=== PATIENT | male | born 1945 | race Caucasian/White ===

== ENCOUNTER 2024-11-15 10:21 | Inpatient (IN) ==
--- NOTE | 2024-07-08 10:57 | PAT Medication Instructions ---
Medication Instructions Date of Service July 08, 2024 Home Medications acetaminophen 500 mg tablet 500 mg PO TID PRN albuterol sulfate 90 mcg/actuation aerosol inhaler 2 puff inhalation QID PRN apixaban 5 mg tablet (Eliquis) 5 mg PO BID atorvastatin 40 mg tablet 40 mg PO QAM baclofen 5 mg tablet 5 mg PO TID furosemide 20 mg tablet 20 mg PO QAM lisinopril 20 mg tablet 20 mg PO QAM metoprolol tartrate 25 mg tablet 25 mg PO QAM montelukast 10 mg tablet 10 mg PO HS omeprazole 20 mg capsule,delayed release 20 mg PO QAM ASK your prescriber and surgeon apixaban 5 mg tablet (Eliquis) 5 mg PO BID DO NOT take the morning of surgery furosemide 20 mg tablet 20 mg PO QAM lisinopril 20 mg tablet 20 mg PO QAM Take morning of surgery With a small sip of water, OTHERWISE NOTHING TO EAT OR DRINK AFTER MIDNIGHT: acetaminophen 500 mg tablet 500 mg PO TID PRN(if needed) albuterol sulfate 90 mcg/actuation aerosol inhaler 2 puff inhalation QID PRN(if needed) atorvastatin 40 mg tablet 40 mg PO QAM baclofen 5 mg tablet 5 mg PO TID metoprolol tartrate 25 mg tablet 25 mg PO QAM omeprazole 20 mg capsule,delayed release 20 mg PO QAM Take evening before surgery acetaminophen 500 mg tablet 500 mg PO TID PRN(if needed) albuterol sulfate 90 mcg/actuation aerosol inhaler 2 puff inhalation QID PRN(if needed) baclofen 5 mg tablet 5 mg PO TID montelukast 10 mg tablet 10 mg PO HS Other Notes If you have any questions please call us at [phone] or [phone] or [phone] or [phone]
--- NOTE | 2024-07-18 09:32 | Anesthesiology Consultation ---
Date of Service July 18, 2024 Assessment & Plan (1) Encounter for pre-operative examination: - patient unable to void, plans to complete specimen in [place]. - patient reports upcoming PCP (Dr. David Navarro) and cardiology ([facility]) pre-operative evaluations. PAT testing to be faxed to both offices. - cardiology office visit 09/14/23: "...atrial fibrillation...he favors cardioversion...will start him on apixaban 5 mg twice a day...will see him in follow-up in 4-6 weeks after cardioversion..." Chart Review Chart Review: Pending: Refer to Additional Notes / Consult section and Patient seen in Pre Admission Testing Teaching & Discussion Pre-Anesthesia Teaching/Discussion Notes: Instructed NPO after midnight before surgery, except medications with 15 cc of water. Medication instructions provided according to the PAT guidelines. History Surgery Operation Date: 08/02/24 07:45 Proposed Procedures p L3-S1 Decompression and Fusion, Spinal Cord Monitoring - David Fenton, Height/Weight Height: 6 ft 1 in Weight: 115 kg Allergies Allergy/AdvReac Type Severity Reaction Status Date / Time latex Allergy Severe BURNING Verified 07/07/24 14:30 SENSATION, RASH phenobarbital AdvReac Unknown "OPPOSITE Verified 07/07/24 14:30 EFFECT" Medications Home Medications Medication Instructions Recorded Confirmed Last Taken acetaminophen 500 mg tablet 500 mg PO TID PRN Pain 07/07/24 07/07/24 Unknown albuterol sulfate 90 mcg/actuation 2 puff inhalation QID PRN sob 07/07/24 07/07/24 Unknown aerosol inhaler apixaban 5 mg tablet (Eliquis) 5 mg PO BID 07/07/24 07/07/24 Unknown atorvastatin 40 mg tablet 40 mg PO QAM 07/07/24 07/07/24 Unknown baclofen 5 mg tablet 5 mg PO TID 07/07/24 07/07/24 Unknown furosemide 20 mg tablet 20 mg PO QAM 07/07/24 07/07/24 Unknown lisinopril 20 mg tablet 25 mg PO QAM 07/07/24 07/18/24 Unknown metoprolol tartrate 25 mg tablet 25 mg PO QAM 07/07/24 07/07/24 Unknown montelukast 10 mg tablet 10 mg PO HS 07/07/24 07/07/24 Unknown omeprazole 20 mg capsule,delayed 20 mg PO QAM 07/07/24 07/07/24 Unknown release tramadol 50 mg tablet 50 mg PO TID PRN Pain 07/18/24 07/18/24 Unknown Additional Notes: tramadol, lisioprio 25 Past Medical History Medical History (Updated 07/18/24 @ 09:42 by Linda Ellington PA-C) Acid reflux controlled, stable per pt Allergic rhinitis Environmental and seasonal allergies currently using rescue inhaler daily Hip pain HTN (hypertension) controlled, stable per pt Hx of myocardial infarction "silent" - states was told must have occurred during childhood ~12-14 yrs old, per pt Hyperlipidemia On anticoagulant therapy Eliquis daily Paroxysmal atrial fibrillation dx 1984-- reason for Eliquis, follows w/ [facility] cardio RBBB Right knee pain Patient denies h/o stroke, seizures, heart failure, DM, blood clots/DVTs or bl ood transfusions. Exercise / Class Metabolic Activity III < 4 Walking/Shop/Light housework (denies chest discomfort or shortness of breath with usual activities) Past Surgical History Surgical History History of cardiac radiofrequency ablation (RFA) ~2009- [facility] History of shoulder surgery b/l - hx reconstruction of both shoulders Hx of arthroscopic knee surgery right, x 2 Hx of cardiac catheterization (1984) no stents Hx of colonoscopy Hx of total hip arthroplasty (2013) left Past Anesthesia History No Hx of Anesthesia Complications and No Family Hx of Anesthesia Complications History of PONV No Hx of PONV and No Hx of Motion Sickness Social History Smoking Status: Current some day smoker Smoking cigarettes per day: smokes pipe occasionally -advised Do You Dip or Chew Tobacco: No Smoking End Date: quit cigarettes 04/2024 Hx Alcohol Use: Yes Alcohol type: beer alcohol intake frequency: holidays/special occasions only Hx Substance Use: No substance use type: does not use Review of Systems Snoring, denies witnessed apneas. Patient denies chest pain, shortness of breath, dyspnea on exertion, fever, chills, cough, wheezing, or palpitations. Physical Exam Vital Signs Vitals BP 101/63 manual (Patient states this is usual BP reading) P 74 TEMP 97.6 SP02 94% on RA RESP 18 Physical Patient resting comfortably in chair in no acute distress, alert and oriented, responding appropriately throughout visit Full cervical extension range of motion without pain TMD < 3 finger breadths Mallampati Score 3 Dentition: several caps/crowns, denies chipped or loose teeth, implants or bridges Lungs: normal respiratory effort. Good air movement, clear throughout to auscultation, no adventitious breath sounds Cardiac: regular rate and rhythm, no murmurs noted Carotid arteries: negative bruit bilat Lab Results Anesthesia Preop Results Results Anesthesia Widget: WBC 6.80 K/ul (4.8-10.8) 07/18/24 Hgb 8.5 g/dl (14.0-18.0) L 07/18/24 Hct 27.3 % (42.0-52.0) L 07/18/24 Plt 198 K/uL (130-400) 07/18/24 Na 140 mmol/L (136-145) 07/18/24 K 5.4 mmol/L (3.5-5.1) H 07/18/24 Cl 107 mmol/L (98-107) 07/18/24 CO2 27 mmol/L (21-32) 07/18/24 BUN 28 mg/dl (6-23) H 07/18/24 Creat 1.88 mg/dl (0.6-1.4) H 07/18/24 Glucose Level 92 mg/dl (70-99(Fasting)) 07/18/24 PT 11.4 Seconds (9.0-12.0) 07/18/24 PTT 28 Seconds (21-31) 07/18/24 INR 1.1 (0.9-1.1) 07/18/24 Blood Type O Positive 07/18/24 Antibody Screen NEGATIVE 07/18/24 Testing Laboratory Results I called the PCP office today and relayed above abnormal labs especially anemia, hyperkalemia and elevated creatinine. Will also await surgeon ordered medical clearance. Electrocardiogram Date: 07/18/24 Sinus rhythm with 1st degree AV block, rate 78 bpm Premature supraventricular complexes Low voltage QRS RBBB Chest X-Ray Date: 07/18/24 No acute cardiopulmonary findings. Mild cardiomegaly. Echocardiogram Date: 04/22/23 EF 55-60% Grade I diastolic dysfunction
[2024-11-15] MEDS ORDERED: ONDANSETRON INJ 2 MG/ML 2 ML VIAL ONE (10:58)
[2024-11-15] MEDS ORDERED: DEXAMETHASONE SOD INJ 4 MG/ML VIAL ONE (10:58)
[2024-11-15] MEDS ORDERED: PROPOFOL IV EMULSION 10 MG/ML 20 ML VIAL IV ONE (10:58)
[2024-11-15] MEDS ORDERED: ROCURONIUM BROMIDE 10 MG/ML 5 ML VIAL IV ONE ×2 (10:58→12:20)
[2024-11-15] MEDS ORDERED: LIDOCAINE 2% 2 ML VIAL/AMP(20MG/ML) INFIL ONE (10:58)
[2024-11-15] MEDS ORDERED: fentaNYL citrate PF 100 MCG/2 ML VIAL ONE (10:59)
[2024-11-15 11:01] LABS: Basophils # (auto) 0.09 K/uL (0.00-0.20); Eosinophils # (auto) 0.36 K/uL (0.00-0.50); Hemoglobin 11.9 g/dl (14.0-18.0); Immature Granulocytes # (auto) 0.04 K/uL (0.01-0.20); Immature Granulocytes % (auto) 0.4 %; Lymphocytes # (auto) 1.97 K/uL (1.20-3.40); Mean Corpuscular Hemoglobin 26.3 pg (25.0-34.0); Mean Corpuscular Hgb Conc 30.5 g/dL (32.0-36.0); Mean Corpuscular Volume 86.3 fL (80.0-100.0); Mean Platelet Volume 8.6 fL (9.4-12.4); Monocytes # (auto) 0.78 K/uL (0.11-0.59); Monocytes % (auto) 8.7 %; Neutrophils % (auto) 63.9 %; Platelet Count 250 K/uL (130-400); RDW Coefficient of Variation 18.9 % (11.5-14.5); RDW Standard Deviation 59.8 fL (36.4-46.3); Red Blood Count 4.52 M/uL (4.70-6.10); White Blood Count 8.94 K/ul (4.8-10.8)
[2024-11-15 11:06] LABS: Partial Thromboplastin Time 27 Seconds (21-31); Prothrombin Time 10.5 Seconds (9.0-12.0)
[2024-11-15 11:10] LABS: Calcium 11.5 mg/dl (8.6-10.3); Potassium 4.9 mmol/L (3.5-5.1)
--- NOTE | 2024-11-15 11:10 | History & Physical Bridge Note ---
Date of Service November 15, 2024 History & Physical Bridge Note I have examined the patient, reviewed the History & Physical and in the interval since the performance of the History & Physical I have noted the following changes of clinical significance: no changes noted
--- NOTE | 2024-11-15 11:12 | History & Physical Report ---
Date of Service November 15, 2024 Assessment & Plan (1) Two-level lumbosacral spondylosis with radiculopathy: Plan: L3-S1 decompression and fusion History of Present Illness Chief Complaint: Back and bilateral leg pain Primary Care Provider: David Navarro DO This is a 79-year-old male who presents with chronic persistent back and leg pain after failing course of nonoperative care is here for surgical invention. Allergies Allergy/AdvReac Type Severity Reaction Status Date / Time latex Allergy Intermediate Rash, Verified 11/15/24 10:36 Burning Sensation phenobarbital AdvReac Intermediate Hyper Verified 11/15/24 10:36 Gold AdvReac Severe Wounds Uncoded 11/15/24 10:36 that became Pre-Cancerous Home Medications Medication Instructions Recorded Confirmed Type acetaminophen 500 mg tablet 500 mg PO TID PRN Pain 07/07/24 11/14/24 History albuterol sulfate 90 mcg/actuation 2 puff inhalation QID PRN 07/07/24 11/14/24 History aerosol inhaler Shortness Of Breath Or Wheezing apixaban 5 mg tablet (Eliquis) 5 mg PO BID 07/07/24 11/14/24 History atorvastatin 40 mg tablet (Lipitor) 40 mg PO HS 07/07/24 11/14/24 History baclofen 5 mg tablet 5 mg PO TID PRN Muscle Spasms 07/07/24 11/14/24 History metoprolol tartrate 25 mg tablet 25 mg PO QAM 07/07/24 11/14/24 History montelukast 10 mg tablet 10 mg PO HS 07/07/24 11/14/24 History (Singulair) omeprazole 20 mg capsule,delayed 20 mg PO QAM 07/07/24 11/14/24 History release tramadol 50 mg tablet 50 mg PO TID PRN Pain 07/18/24 11/14/24 History furosemide 40 mg tablet 40 mg PO BID 11/14/24 11/14/24 History lisinopril 10 mg tablet 10 mg PO QAM 11/14/24 11/14/24 History triamcinolone acetonide 0.1 % 1 applic topical BID 11/14/24 11/14/24 History topical cream Past Med/Surg History Problem List (Updated 11/15/24 @ 11:12 by David Fenton DO) Two-level lumbosacral spondylosis with radiculopathy Medical History (Updated 11/15/24 @ 11:12 by David Fenton, ) Post-nasal drip as per patient - in the morning RBBB Dr Bonilla On anticoagulant therapy Eliquis daily Hyperlipidemia HTN (hypertension) controlled, stable per pt Hip pain Right knee pain Acid reflux controlled, stable per pt Hx of myocardial infarction "silent" - states was told must have occurred during childhood ~12-14 yrs old, per pt Paroxysmal atrial fibrillation dx 1984-- reason for Eliquis, follows w/ [facility] Environmental and seasonal allergies PRN inh use - no longer using daily Allergic rhinitis Surgical History Hx of arthroscopic knee surgery right, x 2 left, x 1 History of cardiac radiofrequency ablation (RFA) ~2009- [facility] Hx of colonoscopy Hx of total hip arthroplasty (2013) left History of shoulder surgery b/l - hx reconstruction of both shoulders Hx of cardiac catheterization (1984) 1984, 08/05/24, and "Early this year - it was all clear" as per patient - no stents Dr Bonilla Social History Smoking Status: Current every day smoker Tobacco Type: Pipe Cigarettes Per Day: Smokes pipe "doesn't inhale" as per patient; Smoking End Date: 04/2024 Cigarettes; Second Hand Exposure: No; Do You Dip or Chew Tobacco: No; Tobacco Cessation Education Requested by Patient: No Hx Alcohol Use: No Hx Substance Use: No Preferred Language: Nigerian Communication Ability: Effective Pump Service Supervisor Required: No Beliefs That Will Affect Care: None Current Living Situation: Spouse Other Information That Helps Us Care for You: No Feels Safe at Home: Yes Safety Concerns: Feels Safe At This Time Assistive Devices: Cane and Glasses Physical Exam Physical Exam: Patient is alert and oriented Heart regular rhythm Lungs clear Results & Data Results & Data Vital Signs (Past 12 Hours) Vital Signs Temp Pulse Resp BP Pulse Ox O2 Del Method 11/15/24 11:00 36.5 C 73 20 98/67 L 97 Room Air
[2024-11-15 11:16] LABS: BUN Creatinine Ratio 31.1 (10-20); Creatinine Clr Calc Pharmacy 55.2 ml/min
[2024-11-15] MEDS ORDERED: HYDROmorphone INJ 1 MG/ML SYRINGE IV PRN ×2 (11:23→17:00)
[2024-11-15] MEDS ORDERED: ATROPINE SULFATE 0.1 MG/ML 10ML SYR IV PRN (11:23)
[2024-11-15] MEDS ORDERED: ePHEDrine sulfate 50 MG/ML AMP IV PRN (11:23)
[2024-11-15] MEDS ORDERED: PROMETHAZINE HCL 6.25 MG in SODIUM CHLORIDE 0.9% 50 ML IV PRN (11:23)
--- NOTE | 2024-11-15 11:44 | XRay Report ---
XR chest 2V PA/lateral CLINICAL HISTORY: preop COMPARISON STUDY: 07/18/2024 FINDINGS: No significant interval changes have occurred. There is no acute cardiopulmonary process id entified. IMPRESSION: Stable exam; no acute process. ACT 112: Negative or not required by law. Electronically signed by: Treva Sosa M.D. 11/15/2024 11:43 AM
[2024-11-15] MEDS: GABAPENTIN 300 MG CAP PO SCH (11:47)
[2024-11-15] MEDS: ACETAMINOPHEN 500 MG TAB PO SCH (11:47)
[2024-11-15] MEDS: CeleBREX 200 MG CAP PO SCH (11:47)
[2024-11-15] MEDS: LR 60ML/HR IV SCH (11:48)
[2024-11-15] MEDS ORDERED: PHENYLEPHRINE 100MCG/ML 5ML SYR ONE (12:19)
[2024-11-15] MEDS ORDERED: ePHEDrine sulfate 50 MG/5 ML SYR ONE (12:21)
[2024-11-15] MEDS: BUPIVACAINE/EPINEPHRINE 0.25% 1:200,000 30 ML VIAL ONE (12:25)
[2024-11-15] MEDS: ceFAZolin 330 MG/ML 1 GM VIAL ONE (12:26)
--- NOTE | 2024-11-15 12:35 | Electrocardiogram Report ---
Test Reason : Blood Pressure : */* mmHG Vent. Rate : 73 BPM Atrial Rate : 73 BPM P-R Int : 312 ms QRS Dur : 118 ms QT Int : 400 ms P-R-T Axes : 84 -36 11 degrees QTcB Int : 440 ms Sinus rhythm with 1st degree A-V block Left axis deviation Right bundle branch block Abnormal ECG When compared with ECG of 18-Jul-2024 10:03, QRS axis Shifted left Confirmed by Jeffrey Field ([id number]) on 11/15/2024 12:35:23 PM Referred By: David Fenton Confirmed By: Jeffrey Field
[2024-11-15] MEDS ORDERED: SUGAMMADEX SODIUM 200 MG/2 ML VIAL IV ONE ×2 (13:51→14:15)
--- NOTE | 2024-11-15 14:09 | Operative Report ---
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 #2 removal of extradural mass L3-L4. #3 posterior spinal fusion L3-L5. #4 posterior instrumentation L3-L5 using Steele. #5 interbody fusion L3-L4 L4-5. #6 placement of Spira 12 x 26 mm x 2 at L3-L4 and 14 x 26 mm x 2 at L4-5. #7 placement locally harvested morselized autograft and posterior gutters. #8 placement infuse collagen sponge combined with Koros in the posterior lateral gutters and os design and interbody space. #9 application of versa wrap over the exposed dura. Surgeon David Fenton, DO Rag Cutting Machine Feeder Lili Disla Estimated Blood Loss 250 Findings Consistent with Post-Op Diagnosis Specimens None Indications This is a 79-year-old male that presents with bumps diagnosis of failing since course of nonoperative care is here for surgical invention. Description of Procedure Patient was met with identified informed consent obtained. Patient was then taken to the operative suite underwent intubation placed in a prone position on the Justice table on top of the Eulogio frame. All bony prominences well-padded eyes inspected to ensure no external pressure placed upon them. This point the lumbar spine was prepped and draped in normal sterile fashion. Sharp dissection with the assistance of Bovie cautery performed down to and exposing the lamina transverse processes of L3 L4-5 bilaterally. From a caudal to cephalad fashion complete laminectomy of L4 was performed including bilateral medial f acetectomies and foraminotomies addressing severe spinal stenosis. Then proceeded with a complete laminectomy of L3 was performed. This included removal of bilateral facet cyst attached to the dura. Lastly performed partial laminectomy of L2 with bilateral medial facetectomies to address all subarticular stenosis. Pedicle screws were then placed in L3-L4-L5 bilaterally with assistance of fluoroscopy and appropriate size yolis placed. By way of transforaminal approach on the right a discectomy of L4-5 was performed endplates corrected to subcortical bleeding bone and a 14 x 26 mm Spira cage filled with os design bone graft tapped in position. Then proceeded to the left transforaminal region at L4-L5. Again discectomy performed. Endplates guided to subcortical bleeding bone and a 14 x 26 mm Spira cage filled with os designed tapped in position. Then approached L3-L4 by way of transfer approach on the left discectomy performed. Endplates guided to subcortical bleeding bone and a 12 x 26 mm Spira cage filled with os design tapped into position. Lastly approached the right transforaminal region at L3-L4. Again discectomy performed. Endplates guided to subcortical bleeding bone and a second 12 x 26 mm Spira cage filled with os designed tapped in position. The rods were then compressed locked into final position bilaterally. The transverse processes of L3 L4-5 burred to subcortical bleeding bone. Infuse collagen sponge, with Koros and local graft placed in posterior gutters. Versa wrap placed over the exposed dura. 15 round INA drain inserted. The incision was then closed with 1 Vicryl the fascia 2-0 Vicryl subcutaneously and 4 Monocryl for final skin closure. Steri-Strips sterile dressing placed. Patient waken taken to PACU in stable condition. Please note spinal cord monitoring was utilized at the procedure no changes noted. Lili Disla was present at the entire procedure and on the patient positioning complex portion of the surgery and final skin closure. I attest to the content of the Intraoperative Record and any orders documented therein. Any exceptions are noted below.
[2024-11-15] MEDS: fentaNYL citrate PF 100 MCG/2 ML VIAL IV PRN (14:27)
--- NOTE | 2024-11-15 14:54 | Fluoroscopy Report ---
FL lumbar spine 2-3V CLINICAL HISTORY: L3-L5 DECOMPRESSION AND FUSION WITH INTERBODY COMPARISON STUDY: None. FLUOROSCOPY TIME: 23 seconds. Ka,r: 21.76 mGy FLUOROSCOPIC IMAGES: 2 FINDINGS: Fluoroscopy was provided during L3-L5 decompression and fusion. There are interbody spacers at the L3-L4 and L4-L5 levels. Hardware is intact. IMPRESSION: Fluoroscopy provided during L3-L5 decompression and fusion. ACT 112: Negative or not required by law. Electronically signed by: Lucas Jimenez M.D. 11/15/2024 2:53 PM
--- NOTE | 2024-11-15 16:13 | Anesthesiology Progress Note ---
Date of Service November 15, 2024 Anesthesia Post Procedure Vital Signs Vital Signs: Temp Pulse Pulse Resp BP BP Pulse Ox 11/15/24 16:05 77 16 108/63 95 11/15/24 15:55 76 12 114/60 94 11/15/24 15:45 77 20 106/53 L 94 11/15/24 15:35 71 17 98/56 L 94 11/15/24 15:25 73 20 99/51 L 94 11/15/24 15:15 74 17 99/55 L 100 11/15/24 15:05 74 12 101/59 L 100 11/15/24 14:55 67 19 102/53 L 100 11/15/24 14:45 71 13 105/50 L 100 11/15/24 14:35 68 16 104/50 L 99 11/15/24 14:25 36 C L 72 15 85/53 L 99 11/15/24 11:43 105/67 91/53 L 11/15/24 11:00 36.5 C 73 20 98/67 L 97 O2 Del Method O2 Flow Rate 11/15/24 16:05 Room Air 11/15/24 15:55 Room Air 11/15/24 15:45 Room Air 11/15/24 15:35 Room Air 11/15/24 15:25 Nasal Cannula 2 11/15/24 15:15 Oxymask 2 11/15/24 15:05 Oxymask 3 11/15/24 14:55 Oxymask 3 11/15/24 14:45 Oxymask 3 11/15/24 14:35 Oxymask 4 11/15/24 14:25 Oxymask 6 11/15/24 11:43 11/15/24 11:00 Room Air Pain Intensity Left Hip: Pain Intensity: 4 Back: Pain Intensity: 5 Transfer of Care Handoff Completed per policy Notes Mental Status: alert / awake / arousable Patient Amnestic to Procedure: Yes Nausea / Vomiting: adequately controlled Pain: adequately controlled Airway Patency, RR, SpO2: stable & adequate BP & HR: stable & adequate Hydration State: stable & adequate Anesthetic Complications: no major complications apparent and Pt Satisfied with anesthetic care
[2024-11-15] MEDS ORDERED: PROMETHAZINE 12.5 MG/50.5 ML BAG IV PRN (17:00)
[2024-11-15] MEDS ORDERED: bisacodyL 10 MG SUPP PR PRN (17:00)
[2024-11-15] MEDS ORDERED: LORazepam 0.5 MG TAB PO PRN (17:00)
[2024-11-15] MEDS ORDERED: FAMOTIDINE 20 MG TAB PO PRN (17:00)
[2024-11-15] MEDS ORDERED: LORazepam 2 MG/1 ML VIAL IV PRN (17:00)
[2024-11-15] MEDS ORDERED: ONDANSETRON 4 MG OD TAB PO PRN (17:00)
[2024-11-15] MEDS ORDERED: DO NOT ADMINISTER FLU VACCINE PRN (17:00)
[2024-11-15] MEDS ORDERED: HYDROmorphone INJ 0.5 MG/0.5 ML SYR IV PRN (17:00)
[2024-11-15] MEDS ORDERED: ACETAMINOPHEN 1,000 MG/100 ML VIAL IV PRN (17:00)
[2024-11-15] MEDS ORDERED: NALOXONE HCL 0.4 MG/1 ML VIAL/CARP IV PRN (17:00)
[2024-11-15] MEDS ORDERED: ACETAMINOPHEN 500 MG TAB PO PRN (17:00)
[2024-11-15] MEDS ORDERED: ALBUTEROL HFA 8 GM INHALER INH PRN (17:00)
[2024-11-15] MEDS ORDERED: ONDANSETRON INJ 2 MG/ML 2 ML VIAL IV PRN (17:00)
[2024-11-15] MEDS ORDERED: hydrOXYzine HCl 25 MG TAB PO PRN (17:00)
[2024-11-15] MEDS ORDERED: METOCLOPRAMIDE HCL INJ 5 MG/ML 2 ML VIAL IV PRN (17:00)
[2024-11-15] MEDS ORDERED: DO NOT ADMINISTER PNEUMOCOCCAL VACCINE PRN (17:00)
[2024-11-15] MEDS ORDERED: SOD PHOSPHATE/SOD BIPHOSPHATE ENEMA 132 ML BTL PR PRN (17:00)
[2024-11-15] MEDS ORDERED: diphenhydrAMINE Capsule 25 MG CAP PO PRN (17:00)
[2024-11-15] MEDS: ceFAZolin 2000MG 2,000 MG/15 ML SYR IV SCH ×2 (17:37→20:47)
[2024-11-15] MEDS: FLOSEAL HEMOSTATIC MATRIX 10ML TOP ONE (17:37)
[2024-11-15] MEDS: FUROSEMIDE 40 MG TAB PO SCH (18:03)
[2024-11-15] MEDS: ACETAMINOPHEN 500 MG TAB PO PRN (18:09)
[2024-11-15 19:32] LABS: Appearance Urine Cloudy (Clear); Bilirubin Urine Negative (Negative); Blood Urine Negative (Negative); Color Urine Yellow; Glucose Urine UA Negative (Negative); Ketones Urine Trace (Negative); Leukocyte Esterase Urine Trace (Negative); Nitrite Urine Negative (Negative); Protein Urine 1+ (Negative); Specific Gravity Urine 1.023 (1.000-1.030); Urobilinogen Urine Negative (Negative)
[2024-11-15 19:41] LABS: Bacteria Urine Automated 1+ (None Seen); Hyaline Casts Urine P /lpf (None Presnt); White Blood Cell Casts Urine P /lpf (None Prsent)
[2024-11-15] MEDS: DOCUSATE SODIUM/SENNA 50/8.6MG TAB PO SCH (20:45)
[2024-11-15] MEDS: TRIAMCINOLONE ACET 0.1% CR 15 GM TUBE TOP SCH (20:45)
[2024-11-15] MEDS: MONTELUKAST SODIUM 10 MG TABLET PO SCH (20:46)
[2024-11-15] MEDS: ATORVASTATIN 40 MG TAB PO SCH (20:46)
[2024-11-15] MEDS: traMADol HCL 50 MG TABLET PO PRN (20:46)
[2024-11-16] MEDS: POLYETHYLENE (MIRALAX) 17 GM PACK PO SCH (05:22)
[2024-11-16 07:02] LABS: Basophils # (auto) 0.02 K/uL (0.00-0.20); Basophils % (auto) 0.1 %; Hematocrit (blood only) 29.9 % (42.0-52.0); Hemoglobin 9.3 g/dl (14.0-18.0); Immature Granulocytes % (auto) 0.6 %; Lymphocytes # (auto) 0.81 K/uL (1.20-3.40); Lymphocytes % (auto) 4.9 %; Mean Corpuscular Hemoglobin 26.3 pg (25.0-34.0); Mean Corpuscular Hgb Conc 31.1 g/dL (32.0-36.0); Mean Corpuscular Volume 84.7 fL (80.0-100.0); Mean Platelet Volume 9.1 fL (9.4-12.4); Monocytes # (auto) 0.83 K/uL (0.11-0.59); Monocytes % (auto) 5.1 %; Neutrophils # (auto) 14.64 K/uL (1.40-6.50); Neutrophils % (auto) 89.3 %; Platelet Count 201 K/uL (130-400); RDW Coefficient of Variation 18.6 % (11.5-14.5); RDW Standard Deviation 58.1 fL (36.4-46.3); Red Blood Count 3.53 M/uL (4.70-6.10)
[2024-11-16 07:16] LABS: BUN Creatinine Ratio 27.4 (10-20); Calcium 10.5 mg/dl (8.6-10.3); Creatinine Clr Calc Pharmacy 42.6 ml/min; Potassium 5.4 mmol/L (3.5-5.1)
--- NOTE | 2024-11-16 07:42 | Hospitalist Consultation ---
Date of Consultation November 16, 2024 Assessment & Plan (1) Two-level lumbosacral spondylosis with radiculopathy: s/p #1 lumbar decompression with bilateral medial facetectomies and foraminotomies L2-L3, L3-L4 L4-5. #2 removal of extradural mass L3-L4. #3 posterior spinal fusion L3-L5. #4 posterior instrumentation L3-L5 using Steele. #5 interbody fusion L3-L4 L4-5. #6 placement of Spira 12 x 26 mm x 2 at L3-L4 and 14 x 26 mm x 2 at L4-5. #7 placement locally harvested morselized autograft and posterior gutters. #8 placement infuse collagen sponge combined with Koros in the posterior lateral gutters and os design and interbody space. #9 application of versa wrap over the exposed dura. EBL 250cc WBC elevation suspected 2nd to surgery/stress, also steroids with surgery and continues on Dexamethasone 6mg IV daily Hgb 11.9--> 9.3. Acute blood loss anemia from surgery/dilutional aspect from IVF (EBL 250cc, INA 450cc) BP 97/57 this morning, asymptomatic but Cr bumped to 1.75 from 1.35. Notable on lasix 40mg PO BID and lisinopril 10mg QAM and patient reports having lisinopril reduced to QOD recently with improvement. Prior dc'd HCTZ due to dizziness. K 5.4 on AM labs, IVF x 1 L ordered/low potassium diet. BMP this afternoon/further orders pending repeat levels. Labs in AM. Will follow along. wanting to consider rehab, CM notified for f/u discussion (2) Hyperkalemia: K 5.4 w/ Cr 1.75 as above. Cr 1.35 on pre-op labs. Notable K 5.4 prior in June, recent reduction in his lisinopril as above Lasix/lisinopril to remain on hold for now/low K diet. IVF ordered and will monitor BMP this afternoon Likely would DC lisinopril at dc vs hold until f/u PCP pending serial BPs (3) LETY (acute kidney injury): as above, unclear baseline but diuretics/salina on hold. renal dose meds/avoid nephrotoxins, BMP in Am (4) HTN (hypertension): Continues on metoprolol, also for hx afib. Lasix/lisinopril on hold for borderline BP/LETY/hyperkalemia Monitor (5) Paroxysmal atrial fibrillation: s/p ablation, also DCCV. In NSR on telemetry. Follows outpatient cards (see pre- op clearance note) Eliquis on hold pre-op, remains on metoprolol . Last dose eliquis reported 5 days prior to surgery Keep mag replete, K elevated as above (6) RBBB: (7) Acid reflux: continue PPI also w/ hx allergies, flonase once daily/continues on singular. albuterol HFA as needed (8) On anticoagulant therapy: eliquis as above, resume when safe per primary service Plan Dispo: continued inpatient stay Thank you for allowing hospitalist service participate in the care of Mr Lea. Please call with any questions/concerns. Supervising Physician Co-Signing Physician Notes The patient was seen by me. The chart was reviewed. Case discussed with MARIEL Lopez. Agree with assessment and plan History of Present Illness Reason for Consultation: medical management Requesting Physician: Dr Fenton Attending Physician: Diogo Delaney MD History of Present Illness 79yo male with PMHx significant for aflutter (on eliquis - s/p ablation in 2016, hx paroxysmal afib w/ DCCV in 2022, RBBB, frequent PVCs, EF 55%, prior cath 2023 w/ mild-mod CAD in 40-50% range) presented for L3-L5 decompression/fusion with Dr Fenton on 11/15. Eval in 322, sitting up in chair, pain well controlled with ordered meds. Wang with clear yellow urine, hopeful to remove this afternoon pending therapy evals. He had eliquis held 5 days prior to surgery (although note to hold for 2 days reported on PCP/cards note) - resumption per primary service when deemed safe. No CP/SOB, has been using incentive spirometer. Hx pipe tobacco. Discussed IVF/PO hydration, he reports his PCP changed his lisinopril and had been decreasing, recently changed to qod w/ improvement he reports. Compression stockings in place, no significant pitting edema, 95% on RA Hx post-nasal drip, will order flonase, he usually uses inhaler albuterol in AM couple times a week. Can admin now/monitor Discussed labs --K 5.4 on AM labs, hypotension/LETY. IVF provided/lasix placed on hold. Prior dc HCTZ 2nd to dizziness.. lisinopril to remain on hold and repeat chemistries this afternoon On afternoon check, daughter in room, on phone. Lives in [place]/inquiring about possible short term stay at rehab x 1 week prior to returning home. NEYDA Mariah notified/to contact for discussion. Questions/concerns addressed at this time. Allergies Allergy/AdvReac Type Severity Reaction Status Date / Time latex Allergy Intermediate Rash, Verified 11/15/24 10:36 Burning Sensation phenobarbital AdvReac Intermediate Hyper Verified 11/15/24 10:36 Gold AdvReac Severe Wounds Uncoded 11/15/24 10:36 that became Pre-Cancerous Home Medications Medication Instructions Recorded Confirmed Type acetaminophen 500 mg tablet 500 mg PO TID PRN Pain 07/07/24 11/15/24 History albuterol sulfate 90 mcg/actuation 2 puff inhalation QID PRN 07/07/24 11/15/24 History aerosol inhaler Shortness Of Breath Or Wheezing apixaban 5 mg tablet (Eliquis) 5 mg PO BID 07/07/24 11/15/24 History atorvastatin 40 mg tablet (Lipitor) 40 mg PO HS 07/07/24 11/15/24 History baclofen 5 mg tablet 5 mg PO TID PRN Muscle Spasms 07/07/24 11/15/24 History metoprolol tartrate 25 mg tablet 25 mg PO QAM 07/07/24 11/15/24 History montelukast 10 mg tablet 10 mg PO HS 07/07/24 11/15/24 History (Singulair) omeprazole 20 mg capsule,delayed 20 mg PO QAM 07/07/24 11/15/24 History release tramadol 50 mg tablet 50 mg PO TID PRN Pain 07/18/24 11/15/24 History furosemide 40 mg tablet 40 mg PO BID 11/14/24 11/15/24 History lisinopril 10 mg tablet 10 mg PO QAM 11/14/24 11/15/24 History triamcinolone acetonide 0.1 % 1 applic topical BID 11/14/24 11/15/24 History topical cream oxycodone 5 mg tablet 5 mg PO Q6H PRN pain #30 tabs 11/16/24 Rx tramadol 50 mg tablet 50 mg PO Q6H PRN pain, moderate 11/16/24 Rx #30 tabs Patient History Medical History Post-nasal drip as per patient - in the morning RBBB Dr Bonilla On anticoagulant therapy Eliquis daily Hyperlipidemia HTN (hypertension) controlled, stable per pt Hip pain Right knee pain Acid reflux controlled, stable per pt Hx of myocardial infarction "silent" - states was told must have occurred during childhood ~12-14 yrs old, per pt Paroxysmal atrial fibrillation dx 1984-- reason for Eliquis, follows w/ Dr Bonilla, [facility] Environmental and seasonal allergies PRN inh use - no longer using daily Allergic rhinitis Surgical History Hx of arthroscopic knee surgery right, x 2 left, x 1 History of cardiac radiofrequency ablation (RFA) ~2009- [facility] Hx of colonoscopy Hx of total hip arthroplasty (2013) left History of shoulder surgery b/l - hx reconstruction of both shoulders Hx of cardiac catheterization (1984) 1984, 08/05/24, and "Early this year - it was all clear" as per patient - no stents Dr Bonilla Social History Smoking Status: Current every day smoker Tobacco Type: Pipe Cigarettes Per Day: Smokes pipe "doesn't inhale" as per patient; Smoking End Date: 04/2024 Cigarettes; Second Hand Exposure: No; Do You Dip or Chew Tobacco: No; Tobacco Cessation Education Requested by Patient: No Hx Alcohol Use: No Hx Substance Use: No Preferred Language: Afghan Communication Ability: Effective 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: No Beliefs That Will Affect Care: None Current Living Situation: Spouse Other Information That Helps Us Care for You: No Feels Safe at Home: Yes Safety Concerns: Feels Safe At This Time Assistive Devices: Cane and Glasses Review of Systems 2 Review of Systems: All systems reviewed & are unremarkable except as noted in HPI & below Physical Exam 2 Physical Exam: General 79 yo male sitting up in recliner chair, NAD, reports good pain control HEENT: head atraumatic, normocephalic, mm slightly dry, trachea midline Resp: coarse in bases but no wheezing/crackles, 95% on RA, occ cough, no tachypnea/sputum production at this time CV: RRR, +systolic murmur, trace nonpitting edema, pulses present GI: +BS, slight distension but nontender : wang draining yellow urine MSK/Neuro: dressing c/d/i, INA w/ bloody output, NVI, pulses present, tatyana hose in place, dorsiflexion/plantar flexion intact Psych: AOx3, cooperative Results & Data Results & Data Vital Signs (Past 12 Hours) Vital Signs Temp Pulse Resp BP Pulse Ox O2 Del Method 11/16/24 05:24 36.7 C 77 16 97/57 L 97 Room Air 11/15/24 23:30 36.4 C L 81 18 98/63 L 97 Room Air 11/15/24 19:45 36.3 C L 97 H 18 113/73 97 Room Air Laboratory Results 11/16/24 06:38 11/16/24 06:38 UA 1+ protein, trace ketones, trace leuk esterase, 6-10 WBC, 3-5 RBC, 6-10 hyaline casts, 6-10 epi, 1+ bacteria Diagnostic Findings Chest X-Ray 11/15/24 05:00 XR chest 2V PA/lateral CLINICAL HISTORY: preop COMPARISON STUDY: 07/18/2024 FINDINGS: No significant interval changes have occurred. There is no acute cardiopulmonary process identified. IMPRESSION: Stable exam; no acute process. ACT 112: Negative or not required by law. Electronically signed by: Treva Sosa M.D. 11/15/2024 11:43 AM Lumbar Spine X-Ray 11/15/24 11:55 FL lumbar spine 2-3V CLINICAL HISTORY: L3-L5 DECOMPRESSION AND FUSION WITH INTERBODY COMPARISON STUDY: None. FLUOROSCOPY TIME: 23 seconds. Ka,r: 21.76 mGy FLUOROSCOPIC IMAGES: 2 FINDINGS: Fluoroscopy was provided during L3-L5 decompression and fusion. There are interbody spacers at the L3-L4 and L4-L5 levels. Hardware is intact. IMPRESSION: Fluoroscopy provided during L3-L5 decompression and fusion. ACT 112: Negative or not required by law. Electronically signed by: Lucas Jimenez M.D. 11/15/2024 2:53 PM PG Care Time/CCT Total # of Minutes Spent Total Time Spent with Patient: Total time spent is greater than 50% in coordination of care (as documented) at patient's floor/unit and/or counseling patient: Coding Level of Care Code 92021 IN/OBS CONSULT LVL 3,45M Diagnoses Two-level lumbosacral spondylosis with radiculopathy M47.27 Hyperkalemia E87.5 LETY (acute kidney injury) N17.9 HTN (hypertension) I10 Paroxysmal atrial fibrillation I48.0 RBBB I45.10 Acid reflux K21.9 On anticoagulant therapy Z79.01
[2024-11-16] MEDS: oxyCODONE HCL IR 5 MG TAB (IMMEDIATE RELEASE) PO PRN (07:55)
--- NOTE | 2024-11-16 08:25 | Orthopedic Progress Note ---
Date of Service November 16, 2024 Assessment & Plan (1) Two-level lumbosacral spondylosis with radiculopathy: Plan: At this time initiate physical therapy monitor his INA operatively discharge home next few days. Admission and Anticipated Discharge Date Admission Date: November 15, 2024 Subjective Patient's back pain is controlled leg pain improved Physical Exam Physical Exam: Patient is currently in bed. Is comfortable. Distracted testing. Results & Data Vital Signs (Past 12 Hours) Vital Signs Temp Pulse Pulse Resp BP Pulse Ox O2 Del Method 11/16/24 07:49 36.4 C L 76 17 98/62 L 95 Room Air 11/16/24 05:24 36.7 C 77 16 97/57 L 97 Room Air 11/15/24 23:30 36.4 C L 81 18 98/63 L 97 Room Air
[2024-11-16] MEDS: SODIUM CHLORIDE 0.9% 1,000 ML IV SCH (08:27)
[2024-11-16] MEDS: dexAMETHasone 6 MG in SYRINGE 0 ML IV SCH (08:49)
[2024-11-16] MEDS: PANTOprazole 40 MG TAB PO SCH (08:50)
[2024-11-16] MEDS ORDERED: lisinopril 10 MG TAB PO SCH (09:00)
[2024-11-16] MEDS: FLUTICASONE PROPIONATE NA SPR 16 GM BTL SCH (10:34)
[2024-11-16] MEDS: ALBUTEROL HFA 8 GM INHALER INH ONE (10:44)
[2024-11-16 11:25] LABS: Magnesium 1.7 mg/dl (1.7-2.4)
[2024-11-16] MEDS: METOPROLOL TARTRATE 25 MG TAB PO SCH (13:05)
[2024-11-16 13:10] LABS: Appearance Urine Clear (Clear); Bacteria Urine Automated None Seen (None Seen); Bilirubin Urine Negative (Negative); Blood Urine 1+ (Negative); Cast Urine Automated 0-2 /lpf (0-2); Color Urine Yellow; Epithelial Cell Urine Auto 0-2 /hpf (0-2); Glucose Urine UA Negative (Negative); Ketones Urine Negative (Negative); Leukocyte Esterase Urine 1+ (Negative); Nitrite Urine Negative (Negative); Protein Urine Trace (Negative); Specific Gravity Urine 1.018 (1.000-1.030); Urobilinogen Urine Negative (Negative); pH Urine 5.5 (4.5-7.5)
[2024-11-16] MEDS: BACLOFEN 10 MG TAB PO PRN (13:39)
[2024-11-16] MEDS: MAGNESIUM SULFATE / D5W 1 GM/100 ML BAG IV ONE (13:41)
[2024-11-16 15:36] LABS: BUN Creatinine Ratio 27.5 (10-20); Calcium 10.7 mg/dl (8.6-10.3); Creatinine Clr Calc Pharmacy 44.6 ml/min
[2024-11-17 06:57] LABS: Hematocrit (blood only) 27.9 % (42.0-52.0); Hemoglobin 8.9 g/dl (14.0-18.0); Mean Corpuscular Hemoglobin 26.9 pg (25.0-34.0); Mean Corpuscular Hgb Conc 31.9 g/dL (32.0-36.0); Mean Corpuscular Volume 84.3 fL (80.0-100.0); Mean Platelet Volume 9.2 fL (9.4-12.4); Platelet Count 180 K/uL (130-400); RDW Coefficient of Variation 19.1 % (11.5-14.5); Red Blood Count 3.31 M/uL (4.70-6.10); White Blood Count 18.55 K/ul (4.8-10.8)
[2024-11-17 07:11] LABS: BUN Creatinine Ratio 32.4 (10-20); Calcium 10.7 mg/dl (8.6-10.3); Creatinine Clr Calc Pharmacy 54.8 ml/min; Magnesium 1.9 mg/dl (1.7-2.4)
--- NOTE | 2024-11-17 08:11 | Hospitalist Progress Note ---
Date of Service November 17, 2024 Assessment & Plan (1) Two-level lumbosacral spondylosis with radiculopathy: Plan: s/p #1 lumbar decompression with bilateral medial facetectomies and foraminotomies L2-L3, L3-L4 L4-5. #2 removal of extradural mass L3-L4. #3 posterior spinal fusion L3-L5. #4 posterior instrumentation L3-L5 using Steele. #5 interbody fusion L3-L4 L4-5. #6 placement of Spira 12 x 26 mm x 2 at L3-L4 and 14 x 26 mm x 2 at L4-5. #7 placement locally harvested morselized autograft and posterior gutters. #8 placement infuse collagen sponge combined with Koros in the posterior lateral gutters and os design and interbody space. #9 application of versa wrap over the exposed dura. EBL 250cc 11/17 WBC 18.5k, but ongoing steroids with dexamethasone suspected 2nd to such. Afebrile. Monitor Hgb 9.3--> 8.9 -Acute blood loss anemia from surgery/dilutional aspect from IVF -Additional 1L IVF ordered 11/16 for LETY/dehydration on exam and suspect cause for further drop. INA output 450cc +135cc and slowing. Will monitor BP stable 103/56 without symptoms. K improved/stable and rec to continue to hold lisinopril/lasix for now. Low K diet. Na improved to 136 and BUN/Cr improved from 48/1.75--> 44/1.36 -Likely would STOP LISINOPRIL AT DC (as he reports was moving towards w/ his PCP) BOWEL REGIMEN, pain control, PT/OT per primary service B12 low normal 229, PO supp started/would continue at dc CM notified for wishes for rehab, ref to [facility] to be sent. Hopeful dc next 24-48 hours pending status/bed availability. Hospitalist service will follow in AM . Please call with any questions/concerns. (2) Hyperkalemia: Plan: K 5.4 w/ prior elevations. Lisinopril/lasix placed on HOLD 11/16, IVF ordered and repeat BMP K 5.0 and remains stable. As above, would plan to DC LISINOPRIL at dc Low K diet Lasix remains on hold for now BMP in AM (3) LETY (acute kidney injury): Plan: as above, unclear baseline but diuretics/arvin on hold and IVF ordered x 1L BUN/Cr improved as above and as outlined would plan to stop his lisinopril at discharge Lasix on hold for now, no evidence for significant volume overload and will monitor (4) HTN (hypertension): Plan: Improved -Lasix/lisinopril as outlined, plan dc ARVIN at dc. Continues on metoprolol (also for hx afib). Monitor BP/resumption lasix as needed (5) Paroxysmal atrial fibrillation: Plan: s/p ablation, also DCCV. In NSR on exam. Follows outpatient cards (see pre-op clearance note) Eliquis on hold pre-op, remains on metoprolol . Last dose eliquis reported 5 days prior to surgery -- resume when safe per surgery Keep mag replete, K elevated as above (6) RBBB: (7) Acid reflux: Plan: continue PPI also w/ hx allergies, flonase once daily/continues on singular. albuterol HFA as needed Budesonide neb x 1/moitor, continue IS (8) On anticoagulant therapy: Plan: eliquis as above, resume when safe per primary service Plan Dispo: continued inpatient stay, plans for rehab. Working on bowel movement. Updated family at bedside 11/16 Hospitalist service will follow up in AM Please call with any questions/concerns. Admission and Anticipated Discharge Date Admission Date: November 15, 2024 Supervising Physician Co-Signing Physician Notes The patient was not seen by me. The chart was reviewed. Case discussed with MARIEL Lopez. Agree with assessment and plan Subjective Eval this morning, working with therapy. Having some left leg/thigh/hip spasms, baclofen resumed. Reports feeling better. Post-nasal drip improving, benefit from nasal spray reported. Continues to use his incentive spirometer- getting 2000cc-2500cc on use and continued. BP sable, discussed improvement in renal function and no significant leg edema/hypoxia and will continue to hold lasix but discussed likely would STOP his lisinopril at dc and he reports that's where he was headed with his PCP. Physical Exam 2 Physical Exam: General 79 yo male working with therapy initially, seen sitting up in bed, NAD, having some RIGHT hip/leg spasms at times, dressing appears well, incision c/d/i, INA drainage decreased tatyana hose in place, no significant increased edema, some wheezing improvement in air entry but slightly diminished in the bases, expiratory wheezing (improved with cough), on room air 97% CV: RRR, + systolic murmur, nonpitting edema, tatyana hose in place, pulses present, calves nontender GI: +BS, +distension, no overt tenderness/guarding : no wang MSK/Neuro: L hip spasm but NVI, dorsiflexion/plantar flexion intact dressing c/d/i, INA output decreased Psych:AOx3 , cooperative with exam Results & Data Results & Data Vital Signs (Past 12 Hours) Vital Signs Temp Pulse Resp BP Pulse Ox O2 Del Method 11/17/24 07:52 36.4 C L 80 16 103/56 L 97 Room Air 11/16/24 21:10 Room Air Laboratory Results 11/17/24 06:32 11/17/24 06:32 Mag 1.9 B12 229 PG Care Time/CCT Total # of Minutes Spent Total Time Spent with Patient: Total time spent is greater than 50% in coordination of care (as documented) at patient's floor/unit and/or counseling patient: Coding Level of Care Code 84371 SUB INP/OBS CARE 3/50MIN Diagnoses Two-level lumbosacral spondylosis with radiculopathy M47.27 Hyperkalemia E87.5 LETY (acute kidney injury) N17.9 HTN (hypertension) I10 Paroxysmal atrial fibrillation I48.0 RBBB I45.10 Acid reflux K21.9 On anticoagulant therapy Z79.01
--- NOTE | 2024-11-17 09:00 | Orthopedic Progress Note ---
Date of Service November 17, 2024 Assessment & Plan (1) Two-level lumbosacral spondylosis with radiculopathy: Plan: Patient is stable at this point. He still gets intermittent paresthesias in the left thigh which is to be expected. I encouraged him to work with physical therapy for ambulation. The plan is to get him to a jail facility. We can discharge him to jail once a bed is available. Otherwise we will continue with GI DVT prophylaxis as well as pain control measures. Admission and Anticipated Discharge Date Admission Date: November 15, 2024 Subjective Patient is seen bedside in room 322. He states he is doing okay at this point. He is getting some burning pain in the left anterior thigh. Yesterday he had an episode where his pain was rated 9 out of 10 in the thigh itself and thought it was going to buckle and give out. This morning he seems to be doing quite fine. He is not having any other numbness, tingling, or paresthesias. Physical Exam Physical Exam: On exam he is alert and oriented. His abdomen soft nontender his calves are supple and nontender. His INA drain is in place holding suction has had 25 cc out on this shift and 45 on the previous. His strength and sensation are both intact his dressing is clean dry and intact. Results & Data Vital Signs (Past 12 Hours) Vital Signs Temp Pulse Resp BP Pulse Ox O2 Del Method 11/17/24 07:52 36.4 C L 80 16 103/56 L 97 Room Air 11/16/24 21:10 Room Air
[2024-11-17] MEDS: CYANOCOBALAMIN (B-12) 500 MCG TABLET PO SCH (09:25)
[2024-11-17] MEDS: BUDESONIDE 0.25 MG/2 ML VIAL (PULMICORT) NEB SCH (11:23)
[2024-11-17] MEDS: ALUMINUM/MAGNESIUM SUSP 30 ML UDC PO PRN (23:30)
[2024-11-17] MEDS: MAGNESIUM HYDROXIDE SUSP 30 ML UDC PO PRN (23:33)
[2024-11-18 08:31] VITALS: RESP 17; O2SAT 97
--- NOTE | 2024-11-18 08:31 | Hospitalist Progress Note ---
Date of Service November 18, 2024 Assessment & Plan (1) Two-level lumbosacral spondylosis with radiculopathy: Plan: s/p #1 lumbar decompression with bilateral medial facetectomies and foraminotomies L2-L3, L3-L4 L4-5. #2 removal of extradural mass L3-L4. #3 posterior spinal fusion L3-L5. #4 posterior instrumentation L3-L5 using Steele. #5 interbody fusion L3-L4 L4-5. #6 placement of Spira 12 x 26 mm x 2 at L3-L4 and 14 x 26 mm x 2 at L4-5. #7 placement locally harvested morselized autograft and posterior gutters. #8 placement infuse collagen sponge combined with Koros in the posterior lateral gutters and os design and interbody space. #9 application of versa wrap over the exposed dura. EBL 250cc WBC elevation suspected 2nd to steroids. Afebrile and trended down on repeat Hgb 9.3--> 8.6, acute blood loss anemia from surgery/dilutional aspect from IVF B12 low normal/PO started and rx at ut Pain control/bowel regimen per primary service Suppository ordered if not moving by lunch, does have good +BS throughout/+flatus Plan for [facility] for rehab this afternoon. Renal function IMPROVED, BP stable 112/76 Recs for lisinopril/lasix at discharge: Lisinopril remains on hold/discontinued at ut as outlined below. 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 about possibly continued reduced dose in follow up vs needing for BID dosing if salt load in diet at home significant (2) Iron deficiency: Plan: iron studies checked w/ anemia prior to ut however no bleeding reported/INA output decreased -Iron 24, Transferrin % sat LOW 6% and ferritin only 37.3 and did have BM today but would hold off PO supplementation for now/consider Venofer IV at rehab vs starting PO once moving bowels more regularly (3) Hyperkalemia: Plan: K 5.4 w/ prior elevations Lisinopril/lasix placed on HOLD 11/16, IVF ordered as appeared dry and repeat K stable 5.0 and remains stable OFF lisinopril which has been discontinued at dc lasix remains on hold but can resume once daily if needed pending volume status BMP rec next 1-2 days to ensure remaining stable.Rec continue low K diet at dc in meantime, (4) LETY (acute kidney injury): Plan: IMPROVED with holding lisinopril/lasix and had been decreasing his lisinopril w/ improvement in BP since retiring BUN/Cr improved to 39/1.22 prior to dc and meds as above at dc (5) HTN (hypertension): Plan: Improved -Lasix/lisinopril as outlined, plan dc ARVIN at dc. Remained on metoprolol for hx afib (6) Paroxysmal atrial fibrillation: Plan: s/p ablation, also DCCV. In NSR on exam. Follows outpatient cards (see pre-op clearance note) Eliquis on hold pre-op, remains on metoprolol . Last dose eliquis reported 5 days prior to surgery -- resume when safe per surgery mag/K replete on labs (7) RBBB: (8) Acid reflux: Plan: continue PPI also w/ hx allergies, flonase once daily/continues on singular. albuterol HFA as needed Budesonide neb x 1/monitor, continue IS Consider once daily breo in f/u PCP given tobacco use (9) On anticoagulant therapy: Plan: eliquis as above, resume when safe per primary service Plan Dispo: plans for dc to [facility] this afternoon Rec stop lisinopril at dc, changed on med rec Continue PO B12 supplementation Lasix to remain on HOLD at dc and monitor weight/volume status to resume possibly once daily in f/u. LOW K diet in meantime. Continue bowel regimen/suppository if needed Hospitalist service will sign off at this time. Please call with any questions/concerns. Admission and Anticipated Discharge Date Admission Date: November 15, 2024 Subjective Eval this morning, resting in bed. Some fatigue but just worked with therapy. Passing gas but no BM. Slight distension but GOOD bowel sounds throughout. Trauma from enemas as child but did agree to suppository after lunch if not moving bowels. BP stable off home lisinopril which plan to dc. Lasix on hold/labs pending. Discussed salt in diet at home, he does endorse is more than getting here, and also could resume lasix once daily as needed/back to BID at home if increased weight gain/edema w/ salt in diet. planning on [facility] for rehab prior to returning home. No CP/SOB, does have pipe tobacco hx, discussed possible once daily inhaled corticosteroid/inhaler but on budesonide once daily impatient/improvement in faint wheeze, remains on RA w/ good oxygenation. Questions/concerns addressed at this time. Physical Exam 2 Physical Exam: General: resting in bed, just got done working with therapy Head atraumatic, normocephalic Resp faint exp wheeze improved/resolved, slight diminished in the bases but continues to use IS, occ non-productive cough, 97% on RA CV: RRR, faint systolic murmur, no over pitting edema/calf tenderness GI: +BS throughout, slightly more distended but no overt tenderness no wang, reports voiding spontaneously MSK/Neuro: some occ L hip spams but NVI, equal dorsiflexion/plantar flexion. dressing intact, pulses present, no calf tenderness Psych: AOx3, cooperative with exam Results & Data Results & Data Vital Signs (Past 12 Hours) Vital Signs Temp Pulse Pulse Resp BP Pulse Ox O2 Del Method 11/18/24 07:43 36.7 C 93 H 18 112/72 95 Nasal Cannula 11/18/24 07:39 36.3 C L 80 17 112/76 97 Room Air 11/18/24 07:15 78 18 97 Room Air 11/18/24 01:50 Room Air 11/17/24 20:57 36.5 C 73 14 100/62 98 Room Air O2 Flow Rate 11/18/24 07:43 3 11/18/24 07:39 11/18/24 07:15 11/18/24 01:50 11/17/24 20:57 Laboratory Results 11/18/24 09:35 11/18/24 09:35 Mag 2.0 PG Care Time/CCT Total # of Minutes Spent Total Time Spent with Patient: Total time spent is greater than 50% in coordination of care (as documented) at patient's floor/unit and/or counseling patient: Coding Level of Care Code 99878 SUB INP/OBS CARE 50MIN Diagnoses Two-level lumbosacral spondylosis with radiculopathy M47.27 Iron deficiency E61.1 Hyperkalemia E87.5 LETY (acute kidney injury) N17.9 HTN (hypertension) I10 Paroxysmal atrial fibrillation I48.0 RBBB I45.10 Acid reflux K21.9 On anticoagulant therapy Z79.01
[2024-11-18 10:24] LABS: Hematocrit (blood only) 27.6 % (42.0-52.0); Hemoglobin 8.6 g/dl (14.0-18.0); Mean Corpuscular Hemoglobin 26.5 pg (25.0-34.0); Mean Corpuscular Hgb Conc 31.2 g/dL (32.0-36.0); Mean Corpuscular Volume 85.2 fL (80.0-100.0); Mean Platelet Volume 9.4 fL (9.4-12.4); Platelet Count 185 K/uL (130-400); RDW Coefficient of Variation 19.2 % (11.5-14.5); RDW Standard Deviation 59.9 fL (36.4-46.3); Red Blood Count 3.24 M/uL (4.70-6.10)
[2024-11-18 10:37] LABS: Calcium 10.7 mg/dl (8.6-10.3); Creatinine Clr Calc Pharmacy 61.1 ml/min
--- NOTE | 2024-11-18 12:12 | Discharge Summary ---
Date of Service November 18, 2024 Admission HPI Per Admitting Provider This is a 79-year-old male who presents with chronic persistent back and leg pain after failing course of nonoperative care is here for surgical invention. Principal Diagnosis Lumbar spondylosis with radiculopathy Discharge Data Allergies Allergy/AdvReac Type Severity Reaction Status Date / Time latex Allergy Intermediate Rash, Verified 11/15/24 10:36 Burning Sensation phenobarbital AdvReac Intermediate Hyper Verified 11/15/24 10:36 Gold AdvReac Severe Wounds Uncoded 11/15/24 10:36 that became Pre-Cancerous Consultations 11/15/24 17:00 Consult Hospitalist Routine Procedures Performed Operation Date: 11/15/24 11:55 Actual Procedures p L3-L5 Decompression and Fusion, Spinal Cord Monitoring(Not Applicable) - David Fenton DO Ordered Studies 11/15/24 11:55 FL lumbar spine 2-3V Routine Hospital Course (1) Two-level lumbosacral spondylosis with radiculopathy: Patient underwent multilevel lumbar decompression and fusion tolerated this well was taken to orthopedic for postoperative. Postop he progressed appropriately. INA drain decreasing. Good strength testing. Simply discharged to rehab. Discharge orders instructions from the chart for further review. 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 You may walk to your tolerance. It is good exercise for your legs and back. Expect some back and intermittent leg aches and pains. 2. You may perform "counter-top" level activities (make a sandwich, nohemi with a project, etc.). 3. No bending or lifting of more than 10 pounds or back twisting of any nature (roll like a log when turning in bed). 4. You may ride in a car for 20-30 minutes at a time. No driving until after your first visit with your doctor. 5. Frequent changes of position and restricting sitting to 30 minutes at a time will help limit the amount of back spasms and stiffness you may experience. 6. You may discontinue the use of ambulatory aids (cane, crutches, etc.) once your strength and confidence allow. 7. You may lamp inspector the shower and let water strike your incision when you ar rive home at least once daily. Do not take a tub bath, sit in a hot tub or go into a swimming pool until after your first recheck in the office. 8. You may resume previous diet. SPECIAL CARE INSTRUCTIONS: VERY IMPORTANT TO READ AND REVIEW A. Your surgical incision has been closed with a cosmetic suture under the skin that will dissolve in about 6 weeks. In 14 days, you can use a pair of clean scissors and cut the suture that is left outside of the skin at the ends of your incision. 1. The small skin tapes can be removed 7 days after surgery if they have not fallen off by that point. 2. You may keep the wound open to air as much as possible to promote healing after post-op day number 5 unless told otherwise by your doctor. 3. If you think the wound looks like it is becoming infected (redness or worsening drainage) and/or you are experiencing fever, chill or worsening back pain and muscle spasms, contact the office so that we may evaluate you as soon as possible. B. Complications are uncommon, but please contact us if you have any signs or symptoms of: 1. wound infection (fever higher than 102.5 degrees F, redness, separation of wound, drainage, or increasing pain from the incision) 2. blood clots in legs (pain, swelling, redness and warmth in legs) 3. urinary tract infection (fever higher than 102.5 degrees F, burning upon urination or increased frequency of urination) 4. nerve problems (inability to walk on your toes or heels, numbness, loss of bowel or bladder control) 5. any other symptoms that concern you C. Please call the office at if you have any concerns or questions about your operation or recovery. D. No smoking! Smoking drastically decreases the chance of a solid fusion. E. Do not take any anti-inflammatory medications (Indocin, Advil, Motrin, Aspirin, Naprosyn, etc.) as these may inhibit the chance of a solid fusion. Tylenol is okay to take for pain. MANAGING PAIN AFTER SPINAL SURGERY 1. Narcotic medication is intended for short-term use and will be provided for surgical pain. Surgical pain usually lasts for a period of 4-6 weeks. Narcotic medication includes Percocet, Vicodin, Darvocet, Tylenol #3 or Lortab. 2. Longer-term pain is more appropriately treated with non-narcotic medication such as Tylenol ES. 3. Muscle spasm is not appropriately treated with narcotics. Muscle relaxers such as Soma, Flexeril or Skelaxin can be used along with Tylenol ES. 4. Remember that we all live with some "aches and pains". This is not unusual or uncommon after an injury or as we get older. a. Back pain is expected and may include muscle spasms for 4 to 6 weeks after surgery. The pain should gradually improve. If the pain worsens for no apparent reason, please contact the office. b. Intermittent leg pain may also be experienced and should not be concerned about unless it worsens for no apparent reason. If so, please contact the office. 5. We will provide appropriate medication within the normal guidelines of their prescribed use. We will also be very cautious and aware of potential abuse and extended duration of patients' medication needs. a. Pain medications are for your comfort and to assist with sleep and rest so that the tissue can heal. They are not provided in order to return to normal activity and should not be used through the day. To do so or worsening pain at night can result from ongoing tissue damage and development of tolerance to the prescribed medicine. 6. Please allow 2-3 days to process refills. Prescriptions will not be mailed but must be picked up at the office. FOLLOW UP VISIT: Keep your scheduled follow-up appointment. Any questions, please call the office at . Addtl Costume Rental Clerk Provider Instructions: B12 was checked and slightly low. Recommend continuing 1000mcg PO once daily at discharge. Blood pressure WELL controlled and OFF lisinopril. This has been DISCONTINUED. Lasix (furosemide) was also held initially and renal function improved. We are continuing to HOLD THIS MEDICATION AT DISCHARGE. At discharge you can continue this as needed but may need reduction to once daily/as needed for leg edema/fluid in the lungs but didn't appear with significant leg edema on examination. Resume Eliquis when safe by primary service. Pending Studies at Discharge: No Stand-Alone Forms: [facility] Skilled Items Patient informed of condition?: Yes DNR: No Discharge Level of Care: Acute rehab Communicable Disease: No Discharge Prognosis: Improving Lines: None Urinary Catheter: No Medications and DC Order Prescriptions: New tramadol 50 mg tablet 50 mg PO Q6H PRN (Reason: pain, moderate) Qty: 30 0RF oxycodone 5 mg tablet 5 mg PO Q6H PRN (Reason: pain) Qty: 30 0RF cyanocobalamin (vitamin B-12) 500 mcg Tablet 1,000 mcg PO QAM Qty: 30 0RF Continued atorvastatin [Lipitor] 40 mg Tablet 40 mg PO HS acetaminophen 500 mg Tablet 500 mg PO TID PRN (Reason: Pain) omeprazole [Prilosec] 20 mg Capsule,Delayed Release(Dr/Ec) 20 mg PO QAM montelukast [Singulair] 10 mg Tablet 10 mg PO HS albuterol sulfate 90 mcg/actuation Hfa Aerosol Inhaler 2 puff INHALATION QID PRN (Reason: Shortness Of Breath Or Wheezing) metoprolol tartrate 25 mg Tablet 25 mg PO QAM Eliquis 5 mg Tablet 5 mg PO BID Patient Comments: "I have not taken for a week - Dr Navarro's instruction" baclofen 5 mg Tablet 5 mg PO TID PRN (Reason: Muscle Spasms) tramadol 50 mg Tablet 50 mg PO TID PRN (Reason: Pain) triamcinolone acetonide 0.1 % Cream 1 applic TOPICAL BID Held furosemide 40 mg Tablet 40 mg PO BID Hold Instructions: hold unless needed for weight gain/edema Discontinued lisinopril 10 mg Tablet 10 mg PO QAM Discharge Orders: Discharge Order (Routine); Ordered 11/18/24 Ordered By: David Fenton Admission Data Admit Date/Time: 11/15/24 14:15 Attending Provider: Adelaida Tucker Admit Provider: David Fenton Primary Care Provider: David Navarro Other Providers: Gunnar Haney; [facility]
[2024-11-18] MEDS: bisacodyL 10 MG SUPP PR ONE (12:19)
[2024-11-18 12:44] VITALS: BP 120/70; TEMP 98.1
[2024-11-18 12:59] LABS: Ferritin 37.3 ng/ml (8-388)
[2024-11-18 14:04] VITALS: PULSE 78
== END 2024-11-18 17:27 | DRG 427 ==
LOC: ASU 10:21 → SUATTDRO 14:15 → 3E 14:15

== ENCOUNTER 2024-11-22 16:03 | Observation (INO) ==
[2024-11-22 16:31] LABS: iSTAT Creatinine 1.3 mg/dl (0.6-1.3); iSTAT Hemoglobin 9.9 g/dl (14.0-18.0); iSTAT Ionized Calcium 1.43 mmol/l (1.12-1.32); iSTAT Potassium 4.6 mmol/L (3.3-5.0)
--- NOTE | 2024-11-22 16:48 | Emergency Department Note ---
Impression & Plan Acute confusion, Hypotension, Acute dehydration, Elevated troponin, Sinusitis, History of lumbar surgery ED Provider Note NAME: DAVY LOZOYA AGE: 79 SEX: M : 1945 ARRIVES VIA: Ambulance INFORMANT: [Patient][family] ED PROVIDER(S): [Graeme Robles MD] CHIEF COMPLAINT: Altered HISTORY OF PRESENT ILLNESS: The patient is a 79-year-old male who is currently at [facility] for rehab from a lumbar back surgery. The patient is currently on oxycodone, baclofen and recently started gabapentin. For 3 days now, he has had some change in mental status. He has had some word slurring, issues finding words and expressing himself as well as today, some increased confusion. There has been no cough or fever, no congestion. He currently is in no pain. No facial droop noted. The family believes that the [facility] recently started an antibiotic in case he had a UTI. PMHx/PSHx/Social Hx: See Below PHYSICAL EXAM: GENERAL: Patient is in no acute distress. HEENT: No acute trauma, normocephalic atraumatic, mucous membranes moist, no nasal congestion. NECK: No stridor, no adenopathy, no meningismus, trachea is midline. LUNGS: Clear to auscultation bilaterally, no wheeze, no rhonchi, breath sounds equal. HEART: Irregular rhythm, distant heart tones. ABDOMEN: Soft, nontender, no peritonitis. EXTREMITIES: No cyanosis, full range of motion of all the joints without pain or difficulty. No significant edema. NEUROLOGIC: He does have some difficulty finding the proper words, no current speech slur or facial droop. There is some weakness lifting the left leg but apparently, this is chronic. The right leg is strong. Upper extremity functionality is intact, no drift or cerebellar dysfunction. SKIN: No jaundice, no diaphoresis. DIFFERENTIAL DIAGNOSIS: Intracranial bleeding, medication reaction, dehydration, UTI, stroke, among others. EMERGENCY DEPARTMENT PROCEDURES: MEDICAL DECISION MAKING: There is no leukocytosis. The patient is anemic however, his hemoglobin is actually improved compared to recent testing. There was a normal platelet count. No coagulopathy. No renal failure or significant electrolyte abnormality. Lactic acid level was not elevated making sepsis less likely. No concerning liver enzyme elevation. The patient appeared to be in a euthyroid state. Prolactin level was not elevated making seizure activity less likely. ECG showed atrial fibrillation, no obvious ischemia. Cardiac enzyme testing x 2 was stable but somewhat elevated, the troponin elevation is likely secondary to mismatch from his metabolic issues although, cardiac injury must still be considered. Chest x-ray shows some pulmonary congestion, no pneumonia. Brain CT showed no acute bleed or mass effect. Sinusitis was seen. Urinalysis did not show findings of infection. Alcohol level was undetectable. On exam, the patient was at times hypotensive. He had times of clarity and times when he seemed to be having a hard time finding his words. There were no focal upper extremity deficits, no facial droop. He was not febrile. The patient received IV saline, 2 L. The saline was given for hydration and to help with his blood pressure. He received IV Zofran nausea, IV morphine for pain, he was given IV ceftriaxone as treatment for the sinusitis seen on CT imaging. The patient seems better as per his family, the fluids may have helped significantly. I do think the patient requires a hospital stay. He needs further workup for the change in mental status. I did speak with case management, the on-call hospitalist was consulted. In short, I suspect the patient's change in mental status is multifactorial. He is on some new medications, he is postop and recovering from his surgery, he is dehydrated, he has had some episodes of hypotension. Of note, the patient does not appear to have suffered a stroke. He would not be a TNK candidate as his symptoms have been ongoing for 3 days. Prior/Outside records/notes reviewed: Today's EMS notes describing his presentation and transport to this hospital. ECG per my interpretation: Indication was altered mental state. The ECG shows atrial fibrillation with some PVCs. The rate is 84. There is no acute ST elevation, there is some diffuse nonspecific ST change. There is a right bundle branch block. QTc was 432. Repeat ECG per my interpretation: Indication was hypotension. The ECG shows what appears to be atrial fibrillation with a rate of 78. There is some baseline artifact. There is no ST elevation, no PVCs. The QTc is 417. Continuous Cardiac Monitoring per my interpretation: An order was placed for continuous cardiac monitoring. The monitor shows a rate of 87 with atrial fibrillation. Imaging/x-ray results per my interpretation: Chest x-ray shows some potential parenchymal congestion versus some changes from his larger body habitus. No focal pneumonia. Chronic Medical/Social conditions affecting care: Recent lumbar surgery, advanced age, Eliquis use. Care/Management discussed with: Case management, the on-call hospitalist. Level of care consideration(s): After review of the information above and other included data: --I believe the patient requires escalation of care to admission Critical Care Note: I have personally spent 46 minutes of critical care time in the direct management of this patient. This includes bedside care, interpretation of diagnostic studies, and testing, discussion with consultants, patient, and family members, and other required patient management activities. This 46 minutes is in excess of all separately billable procedures. DISPOSITION: Admission Past Med/Surg History Problem List AMS (altered mental status) Slurred speech Hypercalcemia CAD (coronary artery disease) Iron deficiency Hyperkalemia LETY (acute kidney injury) Two-level lumbosacral spondylosis with radiculopathy Medical History Post-nasal drip as per patient - in the morning RBBB Dr Bonilla On anticoagulant therapy Eliquis daily Hyperlipidemia HTN (hypertension) controlled, stable per pt Hip pain Right knee pain Acid reflux controlled, stable per pt Hx of myocardial infarction "silent" - states was told must have occurred during childhood ~12-14 yrs old, per pt Paroxysmal atrial fibrillation dx 1984-- reason for Eliquis, follows w/ Dr Bonilla, [facility] Environmental and seasonal allergies PRN inh use - no longer using daily Allergic rhinitis Surgical History Hx of arthroscopic knee surgery right, x 2 left, x 1 History of cardiac radiofrequency ablation (RFA) ~2009- [facility] Hx of colonoscopy Hx of total hip arthroplasty (2013) left History of shoulder surgery b/l - hx reconstruction of both shoulders Hx of cardiac catheterization (1984) 1984, 08/05/24, and "Early this year - it was all clear" as per patient - no stents Dr Bonilla Social History Smoking Status: Former smoker Tobacco Type: Pipe Cigarettes Per Day: Smokes pipe "doesn't inhale" as per patient; Second Hand Exposure: No; Do You Dip or Chew Tobacco: No; Hx Alcohol Use: No Hx Substance Use: No Preferred Language: Welsh Communication Ability: Effective 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 Beliefs That Will Affect Care: None Current Living Situation: Spouse Feels Safe at Home: Yes Assistive Devices: None Allergies Allergies Allergy/AdvReac Type Severity Reaction Status Date / Time latex Allergy Intermediate Rash, Verified 11/15/24 10:36 Burning Sensation phenobarbital AdvReac Intermediate Hyper Verified 11/15/24 10:36 Gold AdvReac Severe Wounds Uncoded 11/15/24 10:36 that became Pre-Cancerous Home Meds Home Medications Medication Instructions Recorded Confirmed acetaminophen 500 mg tablet 500 mg PO TID PRN Pain 07/07/24 11/22/24 albuterol sulfate 90 mcg/actuation 2 puff inhalation QID PRN 07/07/24 11/22/24 aerosol inhaler Shortness Of Breath Or Wheezing apixaban 5 mg tablet (Eliquis) 5 mg PO BID 07/07/24 11/22/24 atorvastatin 40 mg tablet (Lipitor) 40 mg PO HS 07/07/24 11/22/24 baclofen 5 mg tablet 5 mg PO TID PRN Muscle Spasms 07/07/24 11/22/24 metoprolol tartrate 25 mg tablet 25 mg PO QAM 07/07/24 11/22/24 montelukast 10 mg tablet 10 mg PO HS 07/07/24 11/22/24 (Singulair) omeprazole 20 mg capsule,delayed 20 mg PO QAM 07/07/24 11/22/24 release tramadol 50 mg tablet 50 mg PO TID PRN Pain 07/18/24 11/22/24 furosemide 40 mg tablet 40 mg PO BID 11/14/24 11/22/24 triamcinolone acetonide 0.1 % 1 applic topical BID 11/14/24 11/22/24 topical cream Previous Rx's Medication Instructions Recorded oxycodone 5 mg tablet 5 mg PO Q6H PRN pain #30 tabs 11/16/24 cyanocobalamin (vitamin B-12) 500 1,000 mcg (2 x 500 mcg) PO QAM #30 11/17/24 mcg tablet tabs Results & Data (ED) Vital Signs Vital Signs - 24 hr 11/22/24 16:07 11/22/24 16:21 11/22/24 16:30 Temperature 37 C Temperature Source Oral Pulse Rate 87 70 84 Pulse Rate from SpO2 Sensor 77 Respiratory Rate 21 22 25 H Respiratory Effort / Characteristics Non-Labored Spontaneous Respiratory Depth Normal Respiratory Pattern Regular Blood Pressure 113/71 124/74 Blood Pressure Mean 85 90 Pulse Oximetry 96 97 96 Oxygen Delivery Method Room Air Room Air Room Air Sepsis Recent Fever Within 48 Hours No Sepsis New/Unexplained Change in Mental Status N/A Sepsis Action Taken by Nursing No Action Required 11/22/24 16:42 11/22/24 17:11 11/22/24 17:22 Temperature Temperature Source Pulse Rate 76 68 Pulse Rate from SpO2 Sensor Respiratory Rate 23 Respiratory Effort / Characteristics Respiratory Depth Respiratory Pattern Blood Pressure 122/83 Blood Pressure Mean 92 Pulse Oximetry 97 Oxygen Delivery Method Room Air Sepsis Recent Fever Within 48 Hours Sepsis New/Unexplained Change in Mental Status Sepsis Action Taken by Nursing 11/22/24 17:30 11/22/24 17:30 11/22/24 17:45 Temperature Temperature Source Pulse Rate 81 85 Pulse Rate from SpO2 Sensor Respiratory Rate 22 19 Respiratory Effort / Characteristics Respiratory Depth Respiratory Pattern Blood Pressure 119/77 Blood Pressure Mean 108 Pulse Oximetry 97 95 Oxygen Delivery Method Room Air Room Air Sepsis Recent Fever Within 48 Hours Sepsis New/Unexplained Change in Mental Status Sepsis Action Taken by Nursing 11/22/24 17:51 11/22/24 18:00 11/22/24 18:24 Temperature Temperature Source Pulse Rate 84 78 77 Pulse Rate from SpO2 Sensor Respiratory Rate 20 20 24 Respiratory Effort / Characteristics Respiratory Depth Respiratory Pattern Blood Pressure 120/82 Blood Pressure Mean 94 Pulse Oximetry 96 99 100 Oxygen Delivery Method Room Air Room Air Room Air Sepsis Recent Fever Within 48 Hours Sepsis New/Unexplained Change in Mental Status Sepsis Action Taken by Nursing 11/22/24 18:31 11/22/24 18:39 11/22/24 18:42 Temperature Temperature Source Pulse Rate 85 82 Pulse Rate from SpO2 Sensor Respiratory Rate 20 19 Respiratory Effort / Characteristics Respiratory Depth Respiratory Pattern Blood Pressure 120/54 L Blood Pressure Mean 94 Pulse Oximetry 98 96 Oxygen Delivery Method Sepsis Recent Fever Within 48 Hours Sepsis New/Unexplained Change in Mental Status Sepsis Action Taken by Nursing 11/22/24 18:57 11/22/24 19:01 11/22/24 19:06 Temperature Temperature Source Pulse Rate 83 83 Pulse Rate from SpO2 Sensor Respiratory Rate 20 13 Respiratory Effort / Characteristics Respiratory Depth Respiratory Pattern Blood Pressure 116/63 Blood Pressure Mean 83 Pulse Oximetry 100 97 Oxygen Delivery Method Room Air Sepsis Recent Fever Within 48 Hours Sepsis New/Unexplained Change in Mental Status Sepsis Action Taken by Nursing 11/22/24 19:12 11/22/24 19:24 11/22/24 19:30 Temperature Temperature Source Pulse Rate 79 78 Pulse Rate from SpO2 Sensor Respiratory Rate 24 22 Respiratory Effort / Characteristics Respiratory Depth Respiratory Pattern Blood Pressure 96/48 L Blood Pressure Mean 58 Pulse Oximetry 98 95 Oxygen Delivery Method Room Air Room Air Sepsis Recent Fever Within 48 Hours Sepsis New/Unexplained Change in Mental Status Sepsis Action Taken by Nursing 11/22/24 19:33 11/22/24 19:45 11/22/24 19:54 Temperature Temperature Source Pulse Rate 75 83 Pulse Rate from SpO2 Sensor Respiratory Rate 20 20 Respiratory Effort / Characteristics Respiratory Depth Respiratory Pattern Blood Pressure 78/60 L Blood Pressure Mean 64 Pulse Oximetry 96 99 Oxygen Delivery Method Room Air Room Air Sepsis Recent Fever Within 48 Hours Sepsis New/Unexplained Change in Mental Status Sepsis Action Taken by Nursing 11/22/24 20:01 11/22/24 20:03 11/22/24 20:12 Temperature Temperature Source Pulse Rate 73 83 Pulse Rate from SpO2 Sensor Respiratory Rate 22 Respiratory Effort / Characteristics Respiratory Depth Respiratory Pattern Blood Pressure 122/69 Blood Pressure Mean 76 Pulse Oximetry 100 Oxygen Delivery Method Room Air Sepsis Recent Fever Within 48 Hours Sepsis New/Unexplained Change in Mental Status Sepsis Action Taken by Nursing 11/22/24 20:24 11/22/24 20:24 Temperature Temperature Source Pulse Rate Pulse Rate from SpO2 Sensor Respiratory Rate Respiratory Effort / Characteristics Respiratory Depth Respiratory Pattern Blood Pressure Blood Pressure Mean Pulse Oximetry 98 98 Oxygen Delivery Method Room Air Room Air Sepsis Recent Fever Within 48 Hours Sepsis New/Unexplained Change in Mental Status Sepsis Action Taken by [facility] Medications Current Medication List: was personally reviewed by me Laboratory Data Attestation: I reviewed the patient's lab results. 11/22/24 16:11 11/22/24 16:11 Lab Results 11/22/24 11/22/24 11/22/24 Range/Units 16:11 16:19 18:33 WBC 9.85 (4.8-10.8) K/ul RBC 3.56 L (4.70-6.10) M/uL Hgb 9.3 L (14.0-18.0) g/dl POC Hgb 9.9 L (14.0-18.0) g/dl Hct 30.4 L (42.0-52.0) % POC Hct 29 L (42-52) % MCV 85.4 (80.0-100.0) fL MCH 26.1 (25.0-34.0) pg MCHC 30.6 L (32.0-36.0) g/dL RDW Std Deviation 57.2 H (36.4-46.3) fL RDW Coeff of Charly 18.4 H (11.5-14.5) % Plt Count 230 (130-400) K/uL MPV 9.3 L (9.4-12.4) fL Immature Gran % (Auto) 0.5 % Neut % (Auto) 69.6 % Lymph % (Auto) 15.8 % Desoto % (Auto) 11.4 % Eos % (Auto) 2.4 % Baso % (Auto) 0.3 % Neut # (Auto) 6.85 H (1.40-6.50) K/uL Lymph # (Auto) 1.56 (1.20-3.40) K/uL [place]oto # (Auto) 1.12 H (0.11-0.59) K/uL Eos # (Auto) 0.24 (0.00-0.50) K/uL Baso # (Auto) 0.03 (0.00-0.20) K/uL Immature Gran # (Auto) 0.05 (0.01-0.20) K/uL PT 11.4 (9.0-12.0) Seconds INR 1.1 (0.9-1.1) APTT 31 (21-31) Seconds PTT Ratio 1.2 POC Sodium 141 (135-144) mmol/L Sodium 140 (136-145) mmol/L POC Potassium 4.6 (3.3-5.0) mmol/L Potassium 4.6 (3.5-5.1) mmol/L POC Chloride 107 (101-112) mmol/L Chloride 109 H (98-107) mmol/L Carbon Dioxide 24 (21-32) mmol/L POC Total CO2 24 (24-31) mmol/L Anion Gap 7 (3-11) POC Anion Gap 15.0 L (16-25) mmol/L POC BUN 26 H (7-18) mg/dl BUN 30 H (6-23) mg/dl Creatinine 1.16 (0.6-1.4) mg/dl POC Creatinine 1.3 (0.6-1.3) mg/dl Est Cr Clr Drug Dosing 65.2 ml/min eGFR 64.07 BUN/Creatinine Ratio 25.9 H (10-20) Glucose 151 H (70-99(Fasting)) mg/dl POC Glucose (other) 154 H (70-99) mg/dl Lactate (0.4-2.0) mmol/L Calcium 10.6 H (8.6-10.3) mg/dl POC Ioniz Calcium Elva 1.43 H (1.12-1.32) mmol/l Magnesium 1.9 (1.7-2.4) mg/dl Total Bilirubin 0.8 (0.2-1.0) mg/dl AST 16 (13-39) U/L ALT 14 (7-52) U/L Alkaline Phosphatase 290 H (34-104) U/L Troponin I High Sens 55.3 H* 61.1 H* (0-20) pg/ml Total Protein 6.4 (6.0-8.3) gm/dl Albumin 3.5 (3.4-5.0) gm/dl Globulin 2.9 (2.5-4.0) gm/dl Albumin/Globulin Ratio 1.2 (0.9-2) TSH 1.105 (0.300-4.500) uIu/ml Prolactin 11.64 ng/ml Urine Color Urine Appearance (Clear) Urine pH (4.5-7.5) Ur Specific Parker (1.000-1.030) Urine Protein (Negative) Urine Glucose (UA) (Negative) Urine Ketones (Negative) Urine Blood (Negative) Urine Nitrite (Negative) Urine Bilirubin (Negative) Urine Urobilinogen (Negative) Ur Leukocyte Esterase (Negative) Urine WBC (Auto) (0-5) /hpf Urine RBC (Auto) (0-2) /hpf U Hyaline Cast (Auto) (0-2) /lpf U Epithel Cells (Auto) (0-2) /hpf Urine Bacteria (Auto) (None Seen) Calcium Oxalate Crystal (None Prsent) Ethyl Alcohol mg/dL < 10.0 (<10.0) mg/dl 11/22/24 11/22/24 Range/Units 18:40 20:20 WBC (4.8-10.8) K/ul RBC (4.70-6.10) M/uL Hgb (14.0-18.0) g/dl POC Hgb (14.0-18.0) g/dl Hct (42.0-52.0) % POC Hct (42-52) % MCV (80.0-100.0) fL MCH (25.0-34.0) pg MCHC (32.0-36.0) g/dL RDW Std Deviation (36.4-46.3) fL RDW Coeff of Charly (11.5-14.5) % Plt Count (130-400) K/uL MPV (9.4-12.4) fL Immature Gran % (Auto) % Neut % (Auto) % Lymph % (Auto) % Desoto % (Auto) % Eos % (Auto) % Baso % (Auto) % Neut # (Auto) (1.40-6.50) K/uL Lymph # (Auto) (1.20-3.40) K/uL [place]oto # (Auto) (0.11-0.59) K/uL Eos # (Auto) (0.00-0.50) K/uL Baso # (Auto) (0.00-0.20) K/uL Immature Gran # (Auto) (0.01-0.20) K/uL PT (9.0-12.0) Seconds INR (0.9-1.1) APTT (21-31) Seconds PTT Ratio POC Sodium (135-144) mmol/L Sodium (136-145) mmol/L POC Potassium (3.3-5.0) mmol/L Potassium (3.5-5.1) mmol/L POC Chloride (101-112) mmol/L Chloride (98-107) mmol/L Carbon Dioxide (21-32) mmol/L POC Total CO2 (24-31) mmol/L Anion Gap (3-11) POC Anion Gap (16-25) mmol/L POC BUN (7-18) mg/dl BUN (6-23) mg/dl Creatinine (0.6-1.4) mg/dl POC Creatinine (0.6-1.3) mg/dl Est Cr Clr Drug Dosing ml/min eGFR BUN/Creatinine Ratio (10-20) Glucose (70-99(Fasting)) mg/dl POC Glucose (other) (70-99) mg/dl Lactate 1.0 (0.4-2.0) mmol/L Calcium (8.6-10.3) mg/dl POC Ioniz Calcium Elva (1.12-1.32) mmol/l Magnesium (1.7-2.4) mg/dl Total Bilirubin (0.2-1.0) mg/dl AST (13-39) U/L ALT (7-52) U/L Alkaline Phosphatase (34-104) U/L Troponin I High Sens (0-20) pg/ml Total Protein (6.0-8.3) gm/dl Albumin (3.4-5.0) gm/dl Globulin (2.5-4.0) gm/dl Albumin/Globulin Ratio (0.9-2) TSH (0.300-4.500) uIu/ml Prolactin ng/ml Urine Color Yellow Urine Appearance Clear (Clear) Urine pH 5.0 (4.5-7.5) Ur Specific Parker 1.020 (1.000-1.030) Urine Protein Trace H (Negative) Urine Glucose (UA) Negative (Negative) Urine Ketones Negative (Negative) Urine Blood Negative (Negative) Urine Nitrite Negative (Negative) Urine Bilirubin Negative (Negative) Urine Urobilinogen Negative (Negative) Ur Leukocyte Esterase Negative (Negative) Urine WBC (Auto) 0-5 (0-5) /hpf Urine RBC (Auto) 0-2 (0-2) /hpf U Hyaline Cast (Auto) 0-2 (0-2) /lpf U Epithel Cells (Auto) 0-2 (0-2) /hpf Urine Bacteria (Auto) None Seen (None Seen) Calcium Oxalate Crystal Present A (None Prsent) Ethyl Alcohol mg/dL (<10.0) mg/dl Administered Medications Discontinued Medications Sodium Chloride (Nss) 1,000 mls @ 999 mls/hr IV .Q1H1M ONE Stop: 11/22/24 17:42 Last Infusion: 11/22/24 18:40 Dose: Infused Documented By: Admin: 11/22/24 17:37 Dose: 999 mls/hr Documented By: AGUSTIN Sodium Chloride (Nss) 1,000 mls @ 999 mls/hr IV .Q1H1M ONE Stop: 11/22/24 20:56 Last Infusion: 11/22/24 21:23 Dose: Infused Documented By: Admin: 11/22/24 20:09 Dose: 999 mls/hr Documented By: AGUSTIN Ceftriaxone Sodium (Rocephin) 2,000 mg in 50 mls @ 100 mls/hr IV NOW STA Stop: 11/22/24 20:25 Last Infusion: 11/22/24 21:22 Dose: Infused Documented By: Admin: 11/22/24 20:44 Dose: 100 mls/hr Documented By: AGUSTIN Ioversol (Optiray 320 125ml) 119 ml IV ONCE ONE Stop: 11/22/24 20:57 Last Admin: 11/22/24 20:56 Dose: 119 ml Documented By: CLAUDIO Morphine Sulfate (Morphine Sulfate 4 Mg/Ml 1 Ml Carp\\Vial) 4 mg IV NOW STA Stop: 11/22/24 18:14 Last Admin: 11/22/24 18:23 Dose: 4 mg Documented By: AGUSTIN Ondansetron HCl (Ondansetron Inj 2 Mg/Ml 2 Ml Vial) 4 mg IV NOW STA Stop: 11/22/24 18:14 Last Admin: 11/22/24 18:23 Dose: 4 mg Documented By: AGUSTIN Imaging Data Radiologist's Impression: Chest X-Ray 11/22/24 16:42 INDICATION: Weakness TECHNIQUE: Frontal radiograph of the chest. COMPARISON: 11/15/2024. FINDINGS: Cardiomegaly. Mild pulmonary vascular congestion. No infiltrate, pleural effusion or pneumothorax. No acute osseous abnormality evident. IMPRESSION: Mild pulmonary vascular congestion. Electronically signed by Benton Olivares 11-22-2024 5:[address] 11/22/24 16:42 Clinical History: Confusion Technique: Axial computed tomography images were obtained of the brain without intravenous contrast. Findings: There is diffuse cerebral atrophy, within expected limits for the patient's age. Areas of decreased attenuation are seen within the periventricular white matter, likely representing chronic small vessel ischemic disease. There is no definite sign of acute or old infarction. No intracranial hemorrhage is evident. No definite mass lesion is seen on this noncontrast examination. There is no midline shift or other form of herniation. No hydrocephalus is seen. No fracture is identified. There is fluid in the bilateral maxillary sinuses and the left sphenoid sinus. The mastoid air cells appear clear. Impression: 1. Cerebral atrophy and chronic small vessel ischemic disease 2. Sinusitis Electronically signed by Gerson Ivan 11-22-2024 5:33 PM Head CTA 11/22/24 20:45 Exam(s): CTA HEAD With Contrast IV Amt: 119ml optiray 320 EXAM: CT Angiography Head With Intravenous Contrast CLINICAL HISTORY: Reason for exam: neuro deficit, acute stroke suspected. TECHNIQUE: Axial computed tomographic angiography images of the head with intravenous contrast. CTDI is 39.96 mGy and DLP is 572.01 mGy-cm. Automated exposure control was utilized for the study. A dose lowering technique was utilized adhering to the principles of ALARA. MIP reconstructed images were created and reviewed. CONTRAST: Patient received 119ml optiray 320 of IV contrast COMPARISON: No relevant prior studies available. FINDINGS: Right internal carotid artery: Intracranial segment is patent with no significant stenosis. No aneurysm. Right anterior cerebral artery: No occlusion or significant stenosis. No aneurysm. Right middle cerebral artery: No occlusion or significant stenosis. No aneurysm. Right posterior cerebral artery: No occlusion or significant stenosis. No aneurysm. Right vertebral artery: Unremarkable as visualized. Left internal carotid artery: Intracranial segment is patent with no significant stenosis. No aneurysm. Left anterior cerebral artery: No occlusion or significant stenosis. No aneurysm. Left middle cerebral artery: No occlusion or significant stenosis. No aneurysm. Left posterior cerebral artery: No occlusion or significant stenosis. No aneurysm. Left vertebral artery: Unremarkable as visualized. Basilar artery: No occlusion or significant stenosis. No aneurysm. Sinuses: Secretions within the maxillary and sphenoid sinuses. IMPRESSION: No acute findings in the arteries of the head/brain. Electronically signed by: Blaze Mariee MD 11/22/24 21:40 PM Neck CTA 11/22/24 20:45 Exam(s): CTA NECK With Contrast IV Amt: 119ml optiray 320 EXAM: CT Angiography Neck With Intravenous Contrast CLINICAL HISTORY: Reason for exam: neuro deficit, acute stroke suspected. TECHNIQUE: Routine carotid CT angiography protocol was performed with intravenous contrast. NASCET criteria using the distal ICAs for comparison were used for evaluation of stenoses. CTDI is 39.96 mGy and DLP is 572.01 mGy-cm. Automated exposure control was utilized for the study. A dose lowering technique was utilized adhering to the principles of ALARA. MIP reconstructed images were created and reviewed. CONTRAST: Patient received 119ml optiray 320 of IV contrast COMPARISON: None. FINDINGS: VASCULATURE: Right common carotid artery: No occlusion or significant stenosis. No dissection. Right internal carotid artery: Atherosclerotic calcifications in the right ICA causing less than 50% stenosis. Right vertebral artery: No occlusion or significant stenosis. No dissection. Left common carotid artery: No occlusion or significant stenosis. No dissection. Left internal carotid artery: Atherosclerotic calcifications in the left ICA causing no stenosis. Left vertebral artery: No occlusion or significant stenosis. No dissection. NECK: Bones/joints: Unremarkable. No acute fracture. Soft tissues: Unremarkable. Lung apices: Clear. CAROTID STENOSIS REFERENCE USING NASCET CRITERIA: % ICA stenosis = (1 - narrowest ICA diameter/diameter of distal cervical ICA) x 100. Mild - <50% stenosis. Moderate - 50-69% stenosis. Severe - 70-94% stenosis. Near occlusion - 95-99% stenosis. Occluded - 100% stenosis. IMPRESSION: No acute findings in the arteries of the neck. Electronically signed by: Blaze Mariee MD 11/22/24 21:45 PM Discharge Plan Visit Data Chief Complaint: Altered Mental Status Stated Complaint: PAIN ED Provider: Graeme Robles Discharge Problem: Acute confusion, Hypotension, Acute dehydration, Elevated troponin, Sinusitis, History of lumbar surgery Patient Disposition: Admitted As Inpatient Condition: Serious Forms Stand Alone Forms: [facility] Prescriptions Prescriptions: No Action atorvastatin [Lipitor] 40 mg Tablet 40 mg PO HS acetaminophen 500 mg Tablet 500 mg PO TID PRN (Reason: Pain) omeprazole 20 mg Capsule,Delayed Release(Dr/Ec) 20 mg PO QAM montelukast [Singulair] 10 mg Tablet 10 mg PO HS albuterol sulfate 90 mcg/actuation Hfa Aerosol Inhaler 2 puff INHALATION QID PRN (Reason: Shortness Of Breath Or Wheezing) metoprolol tartrate 25 mg Tablet 25 mg PO QAM Eliquis 5 mg Tablet 5 mg PO BID Patient Comments: "I have not taken for a week - Dr Navarro's instruction" baclofen 5 mg Tablet 5 mg PO TID PRN (Reason: Muscle Spasms) tramadol 50 mg Tablet 50 mg PO TID PRN (Reason: Pain) furosemide 40 mg Tablet 40 mg PO BID Hold Instructions: hold unless needed for weight gain/edema triamcinolone acetonide 0.1 % Cream 1 applic TOPICAL BID oxycodone 5 mg tablet 5 mg PO Q6H PRN (Reason: pain) Qty: 30 0RF cyanocobalamin (vitamin B-12) 500 mcg Tablet 1,000 mcg PO QAM Qty: 30 0RF Referrals Referrals: David Navarro DO [Primary Care Provider] - Discharge Problem: Hypotension Qualifiers: Hypotension type: unspecified hypotension type Qualified Code(s): I95.9 - Hypotension, unspecified Sinusitis Qualifiers: Sinusitis location: unspecified location Chronicity: unspecified Qualified Code(s): J32.9 - Chronic sinusitis, unspecified
[2024-11-22 16:57] LABS: Basophils # (auto) 0.03 K/uL (0.00-0.20); Basophils % (auto) 0.3 %; Eosinophils # (auto) 0.24 K/uL (0.00-0.50); Eosinophils % (auto) 2.4 %; Hematocrit (blood only) 30.4 % (42.0-52.0); Hemoglobin 9.3 g/dl (14.0-18.0); Immature Granulocytes # (auto) 0.05 K/uL (0.01-0.20); Immature Granulocytes % (auto) 0.5 %; Lymphocytes # (auto) 1.56 K/uL (1.20-3.40); Lymphocytes % (auto) 15.8 %; Mean Corpuscular Hemoglobin 26.1 pg (25.0-34.0); Mean Corpuscular Hgb Conc 30.6 g/dL (32.0-36.0); Mean Corpuscular Volume 85.4 fL (80.0-100.0); Mean Platelet Volume 9.3 fL (9.4-12.4); Monocytes # (auto) 1.12 K/uL (0.11-0.59); Monocytes % (auto) 11.4 %; Neutrophils # (auto) 6.85 K/uL (1.40-6.50); Neutrophils % (auto) 69.6 %; Platelet Count 230 K/uL (130-400); RDW Coefficient of Variation 18.4 % (11.5-14.5); RDW Standard Deviation 57.2 fL (36.4-46.3); Red Blood Count 3.56 M/uL (4.70-6.10); White Blood Count 9.85 K/ul (4.8-10.8)
[2024-11-22 17:25] LABS: Albumin Globulin Ratio 1.2 (0.9-2); Albumin Level 3.5 gm/dl (3.4-5.0); BUN Creatinine Ratio 25.9 (10-20); Bilirubin,Total 0.8 mg/dl (0.2-1.0); Calcium 10.6 mg/dl (8.6-10.3); Creatinine Clr Calc Pharmacy 65.2 ml/min; Globulin 2.9 gm/dl (2.5-4.0); Magnesium 1.9 mg/dl (1.7-2.4); Potassium 4.6 mmol/L (3.5-5.1); Total Protein 6.4 gm/dl (6.0-8.3)
[2024-11-22 17:31] LABS: Troponin I High Sensitivity 55.3 pg/ml (0-20)
--- NOTE | 2024-11-22 17:31 | XRay Report ---
INDICATION: Weakness TECHNIQUE: Frontal radiograph of the chest. COMPARISON: 11/15/2024. FINDINGS: Cardiomegaly. Mild pulmonary vascular congestion. No infiltrate, pleural effusion or pneumothorax. No acute osseous abnormality evident. IMPRESSION: Mild pulmonary vascular congestion. Electronically signed by Benton Olivares 11-22-2024 5:31 PM
--- NOTE | 2024-11-22 17:33 | CT Scan Report ---
Clinical History: Confusion Technique: Axial computed tomography images were obtained of the brain without intravenous contrast. Findings: There is diffuse cerebral atrophy, within expected limits for the patient's age. Areas of decreased attenuation are seen within the periventricular white matter, likely representing chronic small vessel ischemic disease. There is no definite sign of acute or old infarction. No intracranial hemorrhage is evident. No definite mass lesion is seen on this noncontrast examination. There is no midline shift or other form of herniation. No hydrocephalus is seen. No fracture is identified. There is fluid in the bilateral maxillary sinuses and the left sphenoid sinus. The mastoid air cells appear clear. Impression: 1. Cerebral atrophy and chronic small vessel ischemic disease 2. Sinusitis Electronically signed by Gerson Ivan 11-22-2024 5:33 PM
[2024-11-22 17:36] LABS: Thyroid Stimulating Hormone 1.105 uIu/ml (0.300-4.500)
[2024-11-22] MEDS: SODIUM CHLORIDE 0.9% 1,000 ML IV ONE ×2 (17:37→20:09)
[2024-11-22] MEDS: MoRPHine SULFATE 4 MG/ML 1 ML CARP\\VIAL IV STA (18:23)
[2024-11-22] MEDS: ONDANSETRON INJ 2 MG/ML 2 ML VIAL IV STA (18:23)
[2024-11-22 19:19] LABS: Appearance Urine Clear (Clear); Bacteria Urine Automated None Seen (None Seen); Bilirubin Urine Negative (Negative); Blood Urine Negative (Negative); Calcium Oxalate Crystals Urine Present (None Prsent); Cast Urine Automated 0-2 /lpf (0-2); Color Urine Yellow; Epithelial Cell Urine Auto 0-2 /hpf (0-2); Glucose Urine UA Negative (Negative); Ketones Urine Negative (Negative); Leukocyte Esterase Urine Negative (Negative); Nitrite Urine Negative (Negative); Protein Urine Trace (Negative); RBC Urine Automated 0-2 /hpf (0-2); Urobilinogen Urine Negative (Negative); WBC Urine Automated 0-5 /hpf (0-5)
--- NOTE | 2024-11-22 19:57 | History & Physical Report ---
Date of Service November 22, 2024 Assessment & Plan (1) AMS (altered mental status): Plan: -Patient with altered mental status and slurred speech on and off since Thursday. -EKG shows A-fib in the ED. -CBC without leukocytosis, but does show a hemoglobin of 9.3 which is his baseline due to iron deficiency anemia. -PT/INR normal. -CMP showed elevation in BUN, calcium, and alk phos. -Troponin slightly elevated at 55 with a 2-hour repeat of 61. Will continue mon itoring every 6 hours. -TSH, prolactin, lactate, and alcohol is negative. -UA showed trace proteins with calcium oxalate crystals though otherwise unremarkable. -Head CT showed cerebral atrophy and chronic small vessel ischemia disease as well as sinusitis. -Head and neck CTA negative. -Chest x-ray did show mild pulmonary vascular congestion. Will get echo in the AM. -Received 2 L of NSS in the ED. Will continue on LR for 1 L. -Will continue on stroke precautions at this time. -Blood cultures pending. Started on ceftriaxone in the ED. Do not believe that he has an infection at this time and we will hold off on further antibiotics at this time. -CBC, CMP, hemoglobin A1c, lipid panel, PT/INR in the AM. -Patient's altered mental status most likely multifactorial and may be due to new medication added to patient's regimen at [facility]. Will hold majority of those meds at this time and see how patient is in the AM. (2) Slurred speech: Plan: -Patient with reported slurred speech though is a poor having difficulty with word finding. -Will consult speech though low suspicion for aspiration. (3) Two-level lumbosacral spondylosis with radiculopathy: Plan: -Had procedure done by Dr. Fenton of L3-L5 decompression and fusion done on 11/15/2024. -Due to altered mental status and slurred speech will hold off on continuing oxycodone and gabapentin. -May consider restarting once altered mental status improves. (4) Paroxysmal atrial fibrillation: Plan: -Patient with history of paroxysmal A-fib on Eliquis. -In the ED EKG showed A-fib. -Was holding Eliquis for back surgery. Restarted on Thursday. Should continue Eliquis 5 mg twice daily. -Will monitor on telemetry. (5) Alcohol abuse: Plan: -Reported history of drinking a bottle of bourbon every 3 days or so. -May contribute to underlying picture. -Has not had a drink in over a week. Unlikely going to withdrawal. Will continue monitoring for signs of withdrawal however. -Will start on multivitamin, thiamine, and folate in the AM. (6) Hypercalcemia: Plan: -Patient with hypercalcemia seen previously on labs. -Also has an elevated alk phos of 290. -Will add on phosphorus and PTH to morning labs. -Unlikely source of altered mental status. (7) Hyperlipidemia: Plan: -Continue on atorvastatin 40 mg. (8) HTN (hypertension): Plan: -On lisinopril and metoprolol. -Will hold at this time given low blood pressures at time of admission. -Patient on furosemide 40 mg twice daily as needed for lower extremity edema at home. Was held prior to being discharged last. Should continue to hold at this time. (9) CAD (coronary artery disease): Plan: -Had a left heart catheterization done on 08/05/2024 which showed mild to moderate coronary disease in the 40-50% range. -Echo and March 2023 showed an EF of in the 55% with mild LVH. (10) Elevated troponin: Plan: -Elevated troponin of 55 with a 2-hour repeat of 61. Will continue monitoring troponin every 6 hours until peak. (11) Iron deficiency: Plan: -And history of iron deficiency anemia. -Hemoglobin of 9.3 with a normal MCV. Will continue monitoring with CBCs daily. Plan Fluids: LR x 1 L Nutrition: Heart healthy Code status: DNR/DNI DVT ppx: Eliquis Dispo: PCU/telemetry History of Present Illness Chief Complaint: Altered mental status, slurred speech Primary Care Provider: David Navarro DO Patient is a 79-year-old male with past medical history of atrial arrhythmia, status post ablation of a flutter done on 07/2017, hypertension, paraoxysmal A- fib with previous DCCV in 2002. Patient recently had a back surgery done on 11/15/2024 and has been at [facility] for rehab for the last week. Patient is currently on oxycodone, baclofen, and recently started on gabapentin. For ap proximately 3 days he has been having changes in his mental status. Also having some word difficulties and slurring of speech. Patient seen bedside with family who states that he has been waxing and waning with his mental status since Thursday. They having a reports of nursing that he has been confused and having some urinary incontinence. There is also reports of him having auditory hallucinations as well. He reports that they sometimes find him talking to himself. He also states that this is not his normal mental status and that he is usually "sharp". Allergies Allergy/AdvReac Type Severity Reaction Status Date / Time latex Allergy Intermediate Rash, Verified 11/15/24 10:36 Burning Sensation phenobarbital AdvReac Intermediate Hyper Verified 11/15/24 10:36 Gold AdvReac Severe Wounds Uncoded 11/15/24 10:36 that became Pre-Cancerous Home Medications Medication Instructions Recorded Confirmed Type acetaminophen 500 mg tablet 500 mg PO TID PRN Pain 07/07/24 11/22/24 History albuterol sulfate 90 mcg/actuation 2 puff inhalation QID PRN 07/07/24 11/22/24 History aerosol inhaler Shortness Of Breath Or Wheezing apixaban 5 mg tablet (Eliquis) 5 mg PO BID 07/07/24 11/22/24 History atorvastatin 40 mg tablet (Lipitor) 40 mg PO HS 07/07/24 11/22/24 History baclofen 5 mg tablet 5 mg PO TID PRN Muscle Spasms 07/07/24 11/22/24 History metoprolol tartrate 25 mg tablet 25 mg PO QAM 07/07/24 11/22/24 History montelukast 10 mg tablet 10 mg PO HS 07/07/24 11/22/24 History (Singulair) omeprazole 20 mg capsule,delayed 20 mg PO QAM 07/07/24 11/22/24 History release tramadol 50 mg tablet 50 mg PO TID PRN Pain 07/18/24 11/22/24 History furosemide 40 mg tablet 40 mg PO BID 11/14/24 11/22/24 History triamcinolone acetonide 0.1 % 1 applic topical BID 11/14/24 11/22/24 History topical cream oxycodone 5 mg tablet 5 mg PO Q6H PRN pain #30 tabs 11/16/24 11/22/24 Rx cyanocobalamin (vitamin B-12) 500 1,000 mcg (2 x 500 mcg) PO QAM #30 11/17/24 11/22/24 Rx mcg tablet tabs Past Med/Surg History Problem List (Updated 11/22/24 @ 22:25 by Graeme Davila DO) Elevated troponin Alcohol abuse AMS (altered mental status) Slurred speech Hypercalcemia CAD (coronary artery disease) Iron deficiency Hyperkalemia LETY (acute kidney injury) Two-level lumbosacral spondylosis with radiculopathy Medical History Post-nasal drip as per patient - in the morning RBBB Dr Bonilla On anticoagulant therapy Eliquis daily Hyperlipidemia HTN (hypertension) controlled, stable per pt Hip pain Right knee pain Acid reflux controlled, stable per pt Hx of myocardial infarction "silent" - states was told must have occurred during childhood ~12-14 yrs old, per pt Paroxysmal atrial fibrillation dx 1984-- reason for Eliquis, follows w/ Dr Bonilla, [facility] Environmental and seasonal allergies PRN inh use - no longer using daily Allergic rhinitis Surgical History Hx of arthroscopic knee surgery right, x 2 left, x 1 History of cardiac radiofrequency ablation (RFA) ~2009- [facility] Hx of colonoscopy Hx of total hip arthroplasty (2013) left History of shoulder surgery b/l - hx reconstruction of both shoulders Hx of cardiac catheterization (1984) 1984, 08/05/24, and "Early this year - it was all clear" as per patient - no stents Dr Bonilla Social History Smoking Status: Never smoker Tobacco Type: Pipe Cigarettes Per Day: Smokes pipe "doesn't inhale" as per patient; Second Hand Exposure: No; Do You Dip or Chew Tobacco: No; Hx Alcohol Use: No Hx Substance Use: No Preferred Language: Kosovan Communication Ability: Effective Oracle Technical Architect Required: No Beliefs That Will Affect Care: None Current Living Situation: Spouse Feels Safe at Home: Yes Assistive Devices: Cane and Walker Physical Exam Physical Exam: Constitutional: well-appearing, no acute distress HEENT: NCAT, no conjunctival injection CV: regular rhythm, no murmur appreciated, extremities well-perfused, no LE edema Resp: CTABL, no wheezes/rales/rhonchi appreciated, no increased work of breathing GI: soft, nondistended, nontender, BS normoactive MSK: no gross deformities appreciated Skin: warm, dry, no rash appreciated Neuro: alert, oriented, no focal neurologic deficit appreciated, does have some word finding difficulties at times Results & Data Results & Data Vital Signs (Past 12 Hours) Vital Signs Temp Pulse Resp BP Pulse Ox O2 Del Method 11/22/24 17:22 68 11/22/24 16:07 37 C 87 21 113/71 96 Room Air Supervising Physician Co-Signing Physician Notes Attending addendum: I have physically seen this patient, have supervised the medical residents activities, and agree with the H&P unless as otherwise noted. Assessment and Plan: The patient is a 79-year-old male with past medical history including atrial dysrhythmia, status post ablation of atrial flutter 07/2017, hypertension, paroxysmal A-fib with previous DCCV in 2002. Patient's status post back surgery on 11/15/2024, and then had been sent to [facility] for the past week. Patient is currently on oxycodone, baclofen and had recent addition of gabapentin. Patient was presented to the [facility] due to concerns regarding change in mental status, confusion, some slurring of speech and some word finding difficulty. Symptoms have been waxing and waning since a few days previously. He was also having some intermittent issues with urinary incontinence and possible auditory hallucinations. #Change in mental status: Confusion, intermittent slurred speech, word finding difficulty Likely multifactorial, but no suggestion of lower overt stroke at this time: Including but not limited to, Warnicke's, medicamentosa with recent addition of medications, recent physiologic stress of surgery CT scan head showed chronic small vessel disease CTA head and CTA neck showed no acute findings CBC with differential, chemistry profile, fasting lipid panel and coags in the a.m. Follow urine culture and blood culture Chest x-ray with mild pulmonary congestion Patient did receive normal saline 2 L bolus from the ED, and will get additional LR one 1 L Paroxysmal atrial flutter fibrillation/hypertension/CAD- -continue on Eliquis Initial troponin 53.3, with follow-up 61.1, continue to follow serially Alcohol abuse history- Reportedly drank a bottle of bourbon every 3 days or so May be an element of Warnicke's encephalopathy Thiamine 100 mg IV daily and folic acid 1 mg IV daily Remaining orders and notations as noted
[2024-11-22] MEDS: cefTRIAXone SODIUM 2,000 MG/50 ML BAG IV STA (20:44)
[2024-11-22] MEDS: OPTIRAY 320 125ml IV ONE (20:56)
--- NOTE | 2024-11-22 21:41 | CT Scan Report ---
Exam(s): CTA HEAD With Contrast IV Amt: 119ml optiray 320 EXAM: CT Angiography Head With Intravenous Contrast CLINICAL HISTORY: Reason for exam: neuro deficit, acute stroke suspected. TECHNIQUE: Axial computed tomographic angiography images of the head with intravenous contrast. CTDI is 39.96 mGy and DLP is 572.01 mGy-cm. Automated exposure control was utilized for the study. A dose lowering technique was utilized adhering to the principles of ALARA. MIP reconstructed images were created and reviewed. CONTRAST: Patient received 119ml optiray 320 of IV contrast COMPARISON: No relevant prior studies available. FINDINGS: Right internal carotid artery: Intracranial segment is patent with no significant stenosis. No aneurysm. Right anterior cerebral artery: No occlusion or significant stenosis. No aneurysm. Right middle cerebral artery: No occlusion or significant stenosis. No aneurysm. Right posterior cerebral artery: No occlusion or significant stenosis. No aneurysm. Right vertebral artery: Unremarkable as visualized. Left internal carotid artery: Intracranial segment is patent with no significant stenosis. No aneurysm. Left anterior cerebral artery: No occlusion or significant stenosis. No aneurysm. Left middle cerebral artery: No occlusion or significant stenosis. No aneurysm. Left posterior cerebral artery: No occlusion or significant stenosis. No aneurysm. Left vertebral artery: Unremarkable as visualized. Basilar artery: No occlusion or significant stenosis. No aneurysm. Sinuses: Secretions within the maxillary and sphenoid sinuses. IMPRESSION: No acute findings in the arteries of the head/brain. Electronically signed by: Blaze Mariee MD 11/22/24 21:40 PM
--- NOTE | 2024-11-22 21:46 | CT Scan Report ---
Exam(s): CTA NECK With Contrast IV Amt: 119ml optiray 320 EXAM: CT Angiography Neck With Intravenous Contrast CLINICAL HISTORY: Reason for exam: neuro deficit, acute stroke suspected. TECHNIQUE: Routine carotid CT angiography protocol was performed with intravenous contrast. NASCET criteria using the distal ICAs for comparison were used for evaluation of stenoses. CTDI is 39.96 mGy and DLP is 572.01 mGy-cm. Automated exposure control was utilized for the study. A dose lowering technique was utilized adhering to the principles of ALARA. MIP reconstructed images were created and reviewed. CONTRAST: Patient received 119ml optiray 320 of IV contrast COMPARISON: None. FINDINGS: VASCULATURE: Right common carotid artery: No occlusion or significant stenosis. No dissection. Right internal carotid artery: Atherosclerotic calcifications in the right ICA causing less than 50% stenosis. Right vertebral artery: No occlusion or significant stenosis. No dissection. Left common carotid artery: No occlusion or significant stenosis. No dissection. Left internal carotid artery: Atherosclerotic calcifications in the left ICA causing no stenosis. Left vertebral artery: No occlusion or significant stenosis. No dissection. NECK: Bones/joints: Unremarkable. No acute fracture. Soft tissues: Unremarkable. Lung apices: Clear. CAROTID STENOSIS REFERENCE USING NASCET CRITERIA: % ICA stenosis = (1 - narrowest ICA diameter/diameter of distal cervical ICA) x 100. Mild - <50% stenosis. Moderate - 50-69% stenosis. Severe - 70-94% stenosis. Near occlusion - 95-99% stenosis. Occluded - 100% stenosis. IMPRESSION: No acute findings in the arteries of the neck. Electronically signed by: Blaze Mariee MD 11/22/24 21:45 PM
[2024-11-22 21:55] LABS: INR 1.1 (0.9-1.1); Partial Thromboplastin Ratio 1.2; Partial Thromboplastin Time 31 Seconds (21-31); Prothrombin Time 11.4 Seconds (9.0-12.0)
[2024-11-22] MEDS ORDERED: PHARMACIST DISCHARGE MED REC CONSULT PRN (23:59)
[2024-11-22] MEDS ORDERED: ONDANSETRON INJ 2 MG/ML 2 ML VIAL IV PRN (23:59)
[2024-11-23] MEDS: LACTATED RINGER'S 1,000 ML IV SCH (00:20)
[2024-11-23] MEDS: NSS + 20MEQ KCL 20 MEQ/1,000 ML BAG IV SCH (01:11)
[2024-11-23 02:26] LABS: Adenovirus PCR Not Detected (NotDetected); Bordetella parapertussis PCR Not Detected (NotDetected); Bordetella pertussis PCR Not Detected (NotDetected); Chlamydia pneumoniae PCR Not Detected (NotDetected); Coronavirus 229E PCR Not Detected (NotDetected); Coronavirus CoV-2 (COVID19)PCR Not Detected (NotDetected); Coronavirus HKU1 PCR Not Detected (NotDetected); Coronavirus NL63 PCR Not Detected (NotDetected); Coronavirus OC43PCR DETECTED (NotDetected); Human Metapneumovirus PCR Not Detected (NotDetected); Influenza A PCR Not Detected (NotDetected); Influenza B PCR Not Detected (NotDetected); Mycoplasma pneumoniae PCR Not Detected (NotDetected); Parainfluenza Virus 1 PCR Not Detected (NotDetected); Parainfluenza Virus 2 PCR Not Detected (NotDetected); Parainfluenza Virus 3 PCR Not Detected (NotDetected); Parainfluenza Virus 4 PCR Not Detected (NotDetected); Respiratory Syncytial VirusPCR Not Detected (NotDetected); Rhinovirus/Enterovirus PCR Not Detected (NotDetected)
--- OUTSIDE RECORDS SUMMARY | 2024-11-23 04:34 | External Medical Summary ---
Author Name Unknown Address Unknown Organization [id number]:[facility] [employer] [address] [place] [id number] Laboratory Report Ordering Provider Test Date Status DEEPALI LUGO 11/19/2024 08:09:03 Final Observation Date Value Abnormality Reference (Units ) Status WBC, Total 11/19/2024 08:09:03 8.98 4.00-10.8 0 (K/uL) Final RBC 11/19/2024 08:09:03 2.91 4.50-5.25 (M/uL) Final Hemoglobin 11/19/2024 08:09:03 8.6 Below low normal 14 .0-16.8 (g/dL) Final HCT 11/19/2024 08:09:03 26.8 Below low normal 40. 0-48.4 (%) Final MCV 11/19/2024 08:09:03 92.1 82.0-99.5 (fL) Final MCH 11/19/2024 08:09:03 29.6 27.0-34.0 (pg) Final MCHC 11/19/2024 08:09:03 32.1 32.0-36.0 (g/dL) Final RDW 11/19/2024 08:09:03 19.9 11.5-15.5 (%) Final Platelets 11/19/2024 08:09:03 202 140-400 (K /uL) Final MPV 11/19/2024 08:09:03 9.6 6.6-11.1 ( fL) Final Performing Location [facility] [employer] [address] [place] [id number]
--- OUTSIDE RECORDS SUMMARY | 2024-11-23 04:34 | External Medical Summary ---
Author Name Unknown Address Unknown Organization [id number] [address] [place] [id number] Laboratory Report Ordering Provider Test Date Status DEEPALI LUGO 11/19/2024 08:09:03 Final Observation Date Value Abnormality Reference (Units ) Status BUN 11/19/2024 08:09:03 37 Above high normal 6-20 (mg/dL) Final Creatinine 11/19/2024 08:09:03 1.1 0.6-1.2 (mg/dL) Final Glomerular filtration rate/1.73 sq M.predicted [Volume Rate/Area] in Serum, Plasma or Blood by Creatinine-based formula (CKD-EPI) 11/19/2024 08:09:03 67 >=60 (mL/min) Final eGFR is calculated based on the CKD-EPI 2020 equation. Sodium 11/19/2024 08:09:03 137 135-146 (m mol/L) Final Potassium 11/19/2024 08:09:03 5.5 Above high normal 3. 5-5.1 (mmol/L) Final Cl 11/19/2024 08:09:03 105 98-107 (mm ol/L) Final CO2 11/19/2024 08:09:03 27 22-32 (mmo l/L) Final Anion gap 11/19/2024 08:09:03 5 Below low normal 7-1 5 (mmol/L) Final Glucose 11/19/2024 08:09:03 105 70-120 (mg /dL) Final Calcium 11/19/2024 08:09:03 10.9 Above high normal 8. 4-10.2 (mg/dL) Final Performing Location [facility] [address] [place] [id number]
[2024-11-23 04:46] LABS: Basophils # (auto) 0.03 K/uL (0.00-0.20); Basophils % (auto) 0.4 %; Eosinophils # (auto) 0.35 K/uL (0.00-0.50); Eosinophils % (auto) 4.2 %; Hematocrit (blood only) 27.4 % (42.0-52.0); Hemoglobin 8.3 g/dl (14.0-18.0); Immature Granulocytes # (auto) 0.04 K/uL (0.01-0.20); Immature Granulocytes % (auto) 0.5 %; Lymphocytes # (auto) 1.59 K/uL (1.20-3.40); Lymphocytes % (auto) 18.9 %; Mean Corpuscular Hgb Conc 30.3 g/dL (32.0-36.0); Mean Corpuscular Volume 85.9 fL (80.0-100.0); Mean Platelet Volume 9.3 fL (9.4-12.4); Monocytes # (auto) 0.89 K/uL (0.11-0.59); Monocytes % (auto) 10.6 %; Neutrophils # (auto) 5.53 K/uL (1.40-6.50); Neutrophils % (auto) 65.4 %; Platelet Count 216 K/uL (130-400); RDW Coefficient of Variation 18.9 % (11.5-14.5); RDW Standard Deviation 60.1 fL (36.4-46.3); Red Blood Count 3.19 M/uL (4.70-6.10); White Blood Count 8.43 K/ul (4.8-10.8)
[2024-11-23 05:02] LABS: Albumin Level 2.9 gm/dl (3.4-5.0); BUN Creatinine Ratio 22.6 (10-20); Bilirubin,Total 0.6 mg/dl (0.2-1.0); Calcium 9.7 mg/dl (8.6-10.3); Chol HDL Ratio 2.5 (0-5); Creatinine Clr Calc Pharmacy 71.4 ml/min; Globulin 2.9 gm/dl (2.5-4.0); Phosphorus 2.8 mg/dl (2.5-4.9); Potassium 4.5 mmol/L (3.5-5.1); Total Protein 5.8 gm/dl (6.0-8.3)
[2024-11-23 05:14] LABS: INR 1.1 (0.9-1.1); Prothrombin Time 11.4 Seconds (9.0-12.0)
[2024-11-23 07:31] VITALS: RESP 17
--- NOTE | 2024-11-23 09:45 | Discharge Summary ---
Discharge Summary Date of Service November 23, 2024 Principal Dx & Hospital Course #1 = Principal Diagnosis (1) Elevated troponin: (2) Alcohol abuse: (3) AMS (altered mental status): (4) CAD (coronary artery disease): Dwight Tellez is a 79-year-old male with a history of alcohol abuse but with no alcohol in the preceding week, A-fib post ablation 07/2017 on anticoagulation, recent back surgery 11/15/2024, hypertension who presented with intermittent confusion and speech deficits. He had no focal neurologic deficits. CThead was without acute findings, CTAhead and neck did not show any acute findings/occlusions. Patient was suspected to have some word finding difficulty although no strength/sensory deficits or cranial nerve deficits on admission. Following admission he did well and returned to his normal baseline. He was non-COVID coronavirus positive. His symptoms were felt to be multifactorial related to respiratory illness, possible delirium with multiple environment changes, and potentially metabolic encephalopathy with recent oxycodone/baclofen use. He was at his normal baseline and wished for discharge 11/23. MRI was discussed with patient however was deferred on shared decision making during admission. He did not show any evidence of bacterial infection requiring ongoing antibiotics. He did have an elevated PTH/calcium, calcium normalized and these may be elevated in setting of recent operative intervention. Can be rechecked as an outpatient. He did have mild demand ischemia peaked at 61 and downtrending, likely demand in the setting of coronavirus. No chest pain or signs of type I ACS event during admission. Patient was discharged back to [facility]. Has his progression and presentation was not consistent with stroke he was not loaded with an antiplatelet agent or prednisone discharge, his anticoagulation was continued. Would be reasonable to add as an outpatient for primary prevention however suspect his presentation was multifactorial with delirium and metabolic encephalopathy from both viral infection and the case changes. Admission HPI Per Admitting Provider Patient is a 79-year-old male with past medical history of atrial arrhythmia, status post ablation of a flutter done on 07/2017, hypertension, paraoxysmal A- fib with previous DCCV in 2002. Patient recently had a back surgery done on 11/15/2024 and has been at [facility] for rehab for the last week. Patient is currently on oxycodone, baclofen, and recently started on gabapentin. For approximately 3 days he has been having changes in his mental status. Also having some word difficulties and slurring of speech. Patient seen bedside with family who states that he has been waxing and waning with his mental status since Thursday. They having a reports of nursing that he has been confused and having some urinary incontinence. There is also reports of him having auditory hallucinations as well. He reports that they sometimes find him talking to himself. He also states that this is not his normal mental status and that he is usually "sharp". Discharge Exam General: A&Ox3. NAD. Cooperative. HEENT: Atraumatic, normocephalic. Vision and hearing grossly intact. Speech is fluent and does not have any word finding difficulties/aphasia/dysarthria at time of morning visit Pulm: CTAB A&P. -wheezes, -rales, -rhonchi. Symmetrical chest rise. No increased work of breathing. No respiratory distress. Cardiac: RRR, -mrg. Radial pulses intact and symmetrical. Abdominal: Nontender, nondistended, soft. BS present. Extremities: Warm, dry. [place] Guide strength, elbow flexion/extension, shoulder flexion, shoulder abduction, ankle dorsiflexion/plantarflexion 5/5 with robust strength and no deficits. Sensation soft touch is intact in hands and feet without deficit Discharge Plan Discharge Items Patient Disposition: Transfer Inpatient Rehab Fac Reason For Visit: AMS, SLURRED SPEECH Discharge Diagnosis: Delirium Condition on Discharge: Serious Activity: Resume your previous activity Non-emergency contact: Primary Care Provider Call non-emergency contact if: you have any medication questions, your symptoms worsen and your pain is not controlled Follow-up/Referrals: David Navarro, [Primary Care Provider] - Diet: Heart Healthy Addtl Attending Provider Instructions: You are seen in the hospital for confusion and concern for slurred speech intermittently over the last few days. A CT scan of your head did not show any evidence of acute stroke, CTA (a type of CAT scan for blood vessels) of your head and neck did not show any blockages or abnormalities. An MRI was discussed and offered however you preferred to defer this and as you had no focal neurologic deficits and an alternative explanation and suspected delirium and viral infection, was reasonable to defer this while in the hospital. It was highly suspicious that you have had waxing and waning confusion likely from a combination of viral infection (he tested positive for non-COVID coronavirus and delirium. Did not show any evidence of bacterial secondary infection at time of admission, antibiotics were not indicated on discharge. Pain medications including gabapentin/oxycodone, and muscle relaxers including baclofen may contribute to confusion. Please minimize use of these where able as they may contribute to intermittent confusion. Your calcium level and PTH was elevated on admission however this may have been elevated in the setting of recent surgery and your calcium level normalized on day of discharge. You may have these rechecked in several weeks as an outpatient. Your troponin, a heart marker, was mildly elevated during admission and improving on repeat measurements. This is suspicious for stress/demand due to your viral illness, you did not show evidence of acute coronary syndrome (a heart attack) during admission. You have a history of regular alcohol use, but had not had any alcohol in over a week. Your symptoms were not felt to be due to alcohol/alcohol withdrawal If you develop any new or worsening symptoms including fever, chills, sweats, chest pain, chest pressure, difficulty breathing, uncontrolled nausea/vomiting, rash, wheezing, passing out or nearly passing out, bleeding, black/bloody bowel movements, or other new or concerning symptoms please call your primary care physician, or call 911 for re-evaluation in the emergency department if you are very concerned. Pending Studies at Discharge: No Stand-Alone Forms: My New [facility] Skilled Items Patient informed of condition?: Yes DNR: Yes Discharge Level of Care: Acute rehab Communicable Disease: No Discharge Prognosis: Stable Lines: None Urinary Catheter: No Medications and DC Order Prescriptions: Continued atorvastatin [Lipitor] 40 mg Tablet 40 mg PO HS acetaminophen 500 mg Tablet 500 mg PO TID PRN (Reason: Pain) omeprazole 20 mg Capsule,Delayed Release(Dr/Ec) 20 mg PO QAM montelukast [Singulair] 10 mg Tablet 10 mg PO HS albuterol sulfate 90 mcg/actuation Hfa Aerosol Inhaler 2 puff INHALATION QID PRN (Reason: Shortness Of Breath Or Wheezing) metoprolol tartrate 25 mg Tablet 25 mg PO QAM Eliquis 5 mg Tablet 5 mg PO BID Patient Comments: "I have not taken for a week - Dr Navarro's instruction" baclofen 5 mg Tablet 5 mg PO TID PRN (Reason: Muscle Spasms) tramadol 50 mg Tablet 50 mg PO TID PRN (Reason: Pain) furosemide 40 mg Tablet 40 mg PO BID Hold Instructions: hold unless needed for weight gain/edema triamcinolone acetonide 0.1 % Cream 1 applic TOPICAL BID oxycodone 5 mg tablet 5 mg PO Q6H PRN (Reason: pain) Qty: 30 0RF cyanocobalamin (vitamin B-12) 500 mcg Tablet 1,000 mcg PO QAM Qty: 30 0RF Discharge Orders: Discharge Order (Routine); Ordered 11/23/24 Ordered By: Rashi Aviles Admission Data Admit Date/Time: 11/22/24 21:32 Attending Provider: Rashi Aviles Admit Provider: Agus Ge Primary Care Provider: David Navarro Other Providers: [facility] Hospital Stay Data Diagnostic Imagining Performed 11/22/24 16:42 CT head/brain wo con Stat 11/22/24 20:45 CT angio head w con Stat CT angio neck with con Stat Pending Results Patient Have Any Pending Studies at Discharge: No Discharge Instructions Given to Patient (Per Discharging Provider) You are seen in the hospital for confusion and concern for slurred speech intermittently over the last few days. A CT scan of your head did not show any evidence of acute stroke, CTA (a type of CAT scan for blood vessels) of your head and neck did not show any blockages or abnormalities. An MRI was discussed and offered however you preferred to defer this and as you had no focal neurologic deficits and an alternative explanation and suspected delirium and viral infection, was reasonable to defer this while in the hospital. It was highly suspicious that you have had waxing and waning confusion likely from a combination of viral infection (he tested positive for non-COVID coronavirus and delirium. Did not show any evidence of bacterial secondary infection at time of admission, antibiotics were not indicated on discharge. Pain medications including gabapentin/oxycodone, and muscle relaxers including baclofen may contribute to confusion. Please minimize use of these where able as they may contribute to intermittent confusion. Your calcium level and PTH was elevated on admission however this may have been elevated in the setting of recent surgery and your calcium level normalized on day of discharge. You may have these rechecked in several weeks as an outpatient. Your troponin, a heart marker, was mildly elevated during admission and improving on repeat measurements. This is suspicious for stress/demand due to your viral illness, you did not show evidence of acute coronary syndrome (a heart attack) during admission. You have a history of regular alcohol use, but had not had any alcohol in over a week. Your symptoms were not felt to be due to alcohol/alcohol withdrawal If you develop any new or worsening symptoms including fever, chills, sweats, chest pain, chest pressure, difficulty breathing, uncontrolled nausea/vomiting, rash, wheezing, passing out or nearly passing out, bleeding, black/bloody bowel movements, or other new or concerning symptoms please call your primary care physician, or call 911 for re-evaluation in the emergency department if you are very concerned. Total Time Total Time Spent Total Time Spent (In Minutes): Time spend day of discharge 35 minutes including direct patient care, documentation, review of labs and images, and coordination of care. Coding Level of Care Code 69181 INP/OBS DISCH >30 MIN Diagnoses Elevated troponin R79.89 Alcohol abuse F10.10 AMS (altered mental status) R41.82 CAD (coronary artery disease) I25.10
--- NOTE | 2024-11-23 09:46 | Communication Note ---
Date of Service: November 23, 2024 By CMS guidelines, a determination that the admission or continued stay is not medically necessary has been made by a member of the UR committee and a physician for this hospital stay, therefore a Code 44 will be completed and the Inpatient admission will be changed to outpatient. Renata Medellin M.D.
[2024-11-23] MEDS ORDERED: STROKE PATIENT DISCHARGE STA (09:53)
[2024-11-23] MEDS: APIXABAN 5 MG TABLET PO SCH (10:15)
[2024-11-23] MEDS: MULTIVITAMIN TAB PO SCH (10:15)
[2024-11-23] MEDS: THIAMINE HCL 100 MG TAB PO SCH (10:15)
[2024-11-23] MEDS: FOLIC ACID 1 MG in SYRINGE 9.8 ML IV SCH (10:16)
[2024-11-23 10:47] LABS: Estimated Average Glucose 114 mg/dl; Hemoglobin A1C 5.6 % (4.5-5.6)
[2024-11-23 10:50] VITALS: BP 109/90; PULSE 75; TEMP 98.1; O2SAT 98
--- NOTE | 2024-11-23 13:43 | XCELERA ---
[id number] [id number]
[2024-11-23] MEDS ORDERED: ATORVASTATIN 40 MG TAB PO SCH (21:00)
--- NOTE | 2024-11-24 00:37 | Billing Data ---
Date of Service November 24, 2024 Coding Level of Care Code 30892 INT INP/OBS CARE
--- NOTE | 2024-11-26 12:43 | Electrocardiogram Report ---
Test Reason : Blood Pressure : */* mmHG Vent. Rate : 84 BPM Atrial Rate : * BPM P-R Int : * ms QRS Dur : 110 ms QT Int : 366 ms P-R-T Axes : * -32 18 degrees QTcB Int : 432 ms Atrial fibrillation with premature ventricular or aberrantly conducted complexes Left axis deviation Right bundle branch block Abnormal ECG When compared with ECG of 15-Nov-2024 10:53, Atrial fibrillation has replaced Sinus rhythm Nonspecific T wave abnormality now evident in Anterior leads Confirmed by Abdias Jerome ([id number]) on 11/26/2024 12:42:59 PM Referred By: Ramírez Maher Confirmed By: Abdias Jerome
--- NOTE | 2024-11-26 12:44 | Electrocardiogram Report ---
Test Reason : Blood Pressure : */* mmHG Vent. Rate : 78 BPM Atrial Rate : 80 BPM P-R Int : * ms QRS Dur : 114 ms QT Int : 366 ms P-R-T Axes : * -31 -5 degrees QTcB Int : 417 ms Atrial fibrillation Left axis deviation Right bundle branch block Abnormal ECG When compared with ECG of 22-Nov-2024 16:08, (unconfirmed) No significant change Confirmed by Abdias Jerome ([id number]) on 11/26/2024 12:44:27 PM Referred By: Ramírez Maher Confirmed By: Abdias Jerome
== END 2024-11-23 13:55 ==
LOC: ED 16:03 → EDINP 21:32 → INTOOBSV 21:32 → SUATTDRO 21:32 → 2E 11-23 00:12

== ENCOUNTER 2025-03-31 17:59 | Inpatient (IN) ==
--- NOTE | 2025-03-31 18:15 | Emergency Department Note ---
Impression & Plan Dyspnea, Fluid overload, Weakness, Melena, Anemia ED Provider Note Provider: Jose Jacobson MD CHIEF COMPLAINT: Shortness of breath, swelling HISTORY OF PRESENT ILLNESS: Patient is a 79-year-old gentleman history of CAD and former alcohol use presenting here today via ambulance from [place] where he lives with his . Patient states he has been dealing with swelling issues for some time. Working his primary doctor and is on Bumex in addition to Lasix. Patient reports he saw his primary doctor couple days ago and had his Lasix increased. Unsure if he got this new dosage though is they have a mail order pharmacy. Patient states he is increased shortness of breath particular with any movement. Feeling okay at rest and was 93% for EMS at rest. [place] a little bit of his heartbeat earlier but no actual chest pain. No syncope. No falls. Significant swelling of the legs even with compression devices but now swelling up through the abdomen. No abdominal pain reported. No fevers reported. PAST MEDICAL HISTORY: As noted above MEDICATIONS: Reviewed home medications states compliance although Lasix with just increased SOCIAL HISTORY: Former smoker, , resides at [place] assisted living PHYSICAL EXAM: GENERAL: alert and oriented in no acute distress on stretcher Head: normocephalic and atraumatic EYES: No injection, discharge or icterus. EOMI. NECK: Trachea midline. ENT: Mucous membranes pink and moist. LUNGS: Airway patent. No retractions. Breath sounds crackles in the bases HEART: Irregular rate and rhythm. No chest wall tenderness ABDOMEN: Soft and non-tender, without guarding or rebound. With edema appreciable in the flanks. Rectal: With nurse millinery blocker present, grade 1 slight sacral redness but no ulcerations or wounds. Stool light brownish in color Hemoccult positive. SKIN: Acyanotic, warm, dry, without rashes EXTREMITIES: Without swelling, tenderness or deformity NEUROLOGICAL: No focal deficits. No aphasia. No facial droop or slurred speech. Normal strength and tone in the extremities. Sensation to gross touch normal. Ambulatory. EK bpm atrial fibrillation. No acute ST segment elevation with a QTc of 432. No PVC. CONTINUOUS CARDIAC MONITORING: was ordered and showed a heart rate of 70s bpm in atrial fibrillation Patient's laboratory studies and imaging reviewed. Differential includes Reactive airway disease, pneumonia, pneumothorax, COPD, CHF, infections, cardiac ischemia, pulmonary embolism, musculoskeletal, gastrointestinal, as well as other pathologies. IMPRESSION/MEDICAL DECISION MAKING: Patient anticoagulated on Eliquis and doubt VTE/PE/DVT. No falls or syncope reported. Significant swelling in lower extremities and through the sacrum and flanks concerning for fluid overload. Did review prior records and hospitalized here in October and did not have significant cardiac echo abnormalities at that time. He is no longer drinking since that time. Has been on Bumex and Lasix with recent titration although unsure if he received the new Lasix increased dose of 40 twice daily. Not hypoxic at rest but certainly short of breath with ambulation. Blood pressures just below 100 but maps acceptable and he is not reporting significant symptoms of hypotension. He has beta blocked and is not tachycardic. Chest x-ray I reviewed with evidence of significant bilateral effusion and pulm edema right greater than left. Blood work here with significant anemia hemoglobin 6.8. Patient was consented and unit of packed red blood cells was ordered. 1 unit packed red blood cells was ordered. No severe electrolyte abnormalities. Negative COVID testing. No severe electrolyte abnormalities however creatinine elevated at 1.7 today off of prior baseline. BNP elevated 353. Troponin minimally elevated but less than before 31. Hemoccult positive stool. Given Protonix 80 mg bolus here. Family later reports that patient has had some intermittent episodes of confusion on and off for at least a week. As such a CT of the head was obtained and given his LETY with increased swelling noncontrast CT of the chest abdomen pelvis obtained to further evaluate the lung parenchyma did alleviate the fluid overload status as well as to exclude any obstructive pathology for his renal dysfunction. CT head, chest, and abdomen pelvis with evidence of no acute intracranial findings with large right and small left pleural effusion as well as some body wall edema and small ascites of the abdomen. No obvious hydronephrosis noted. Updated the patient with findings and was agreeable to plan to stay for further diuresis. Patient's anemia may be also playing some part in the fluid overload and possible third spacing/edema. Avoiding any fluid administration given concerns for fluid overload. Again patient's maps acceptable but blood pressures systolically in the 80s and 90s. Blood pressures improved some here will challenge with low bit of Bumex. Hospice be consulted. Patient likely benefit from further echo as well as pulmonary consultation determine if pleural effusion could be tapped but no emergent indication for this tonight. Patient on room air. DIAGNOSIS: Fluid overload, anemia, weakness, shortness of breath, melena, LETY DISPOSITION: Hospitalist will evaluate Patient was agreeable with this plan. Critical Care I have personally spent 33 minutes of critical care time in the direct management of this patient. This includes bedside care, interpretation of diagnostic studies, and testing, discussion with consultants, patient, and family members, and other required patient management activities. These 33 minutes is in excess of all separately billable procedures. Past Med/Surg History Problem List (Updated 03/31/25 @ 20:03 by Jose Jacobson M.D.) Anemia (Acute) Melena (Acute) Weakness (Acute) Fluid overload (Acute) Dyspnea (Acute) Elevated troponin Alcohol abuse AMS (altered mental status) Slurred speech Hypercalcemia CAD (coronary artery disease) Iron deficiency Hyperkalemia LETY (acute kidney injury) Two-level lumbosacral spondylosis with radiculopathy Medical History Post-nasal drip as per patient - in the morning RBBB Dr Bonilla On anticoagulant therapy Eliquis daily Hyperlipidemia HTN (hypertension) controlled, stable per pt Hip pain Right knee pain Acid reflux controlled, stable per pt Hx of myocardial infarction "silent" - states was told must have occurred during childhood ~12-14 yrs old, per pt Paroxysmal atrial fibrillation dx 1984-- reason for Eliquis, follows w/ Dr Bonilla, [facility] Environmental and seasonal allergies PRN inh use - no longer using daily Allergic rhinitis Surgical History Hx of arthroscopic knee surgery right, x 2 left, x 1 History of cardiac radiofrequency ablation (RFA) ~2009- [facility] Hx of colonoscopy Hx of total hip arthroplasty (2013) left History of shoulder surgery b/l - hx reconstruction of both shoulders Hx of cardiac catheterization (1984) 1984, 08/05/24, and "Early this year - it was all clear" as per patient - no stents Dr Bonilla Social History Smoking Status: Former smoker Tobacco Type: Pipe Cigarettes Per Day: Smokes pipe "doesn't inhale" as per patient; Second Hand Exposure: No; Do You Dip or Chew Tobacco: No; Hx Alcohol Use: No Hx Substance Use: No Preferred Language: [place] Citizen Communication Ability: Effective Customer Care Voice Consultant Required: No Beliefs That Will Affect Care: None Current Living Situation: Spouse Feels Safe at Home: Yes Assistive Devices: Cane and Walker Allergies Allergies Allergy/AdvReac Type Severity Reaction Status Date / Time latex Allergy Intermediate Rash, Verified 11/15/24 10:36 Burning Sensation phenobarbital AdvReac Intermediate Hyper Verified 11/15/24 10:36 Gold AdvReac Severe Wounds Uncoded 11/15/24 10:36 that became Pre-Cancerous Home Meds Home Medications Medication Instructions Recorded Confirmed acetaminophen 500 mg tablet 1,000 mg PO Q6H PRN Pain/fever 07/07/24 03/31/25 albuterol sulfate 90 mcg/actuation 2 puff inhalation QID PRN 07/07/24 03/31/25 aerosol inhaler Shortness Of Breath Or Wheezing apixaban 5 mg tablet (Eliquis) 5 mg PO BID 07/07/24 03/31/25 atorvastatin 40 mg tablet (Lipitor) 40 mg PO HS 07/07/24 03/31/25 baclofen 5 mg tablet 10 mg PO TID PRN Muscle Spasms 07/07/24 03/31/25 montelukast 10 mg tablet 10 mg PO HS 07/07/24 03/31/25 (Singulair) omeprazole 20 mg capsule,delayed 20 mg PO QAM 07/07/24 03/31/25 release tramadol 50 mg tablet 50 mg PO TID PRN Pain 07/18/24 03/31/25 furosemide 40 mg tablet 40 mg PO BID 11/14/24 03/31/25 benzonatate 100 mg capsule 100 mg PO Q8H PRN Cough 03/31/25 03/31/25 bumetanide 2 mg tablet 2 mg PO BID PRN Edema 03/31/25 03/31/25 diclofenac sodium 1 % topical gel 2 g topical BID PRN Pain 03/31/25 03/31/25 gabapentin 300 mg capsule 300 mg PO HS 03/31/25 03/31/25 lisinopril 10 mg tablet 10 mg PO QAM 03/31/25 03/31/25 metoprolol succinate 25 mg 25 mg PO QAM 03/31/25 03/31/25 tablet,extended release 24 hr mupirocin 2 % topical ointment 1 applic topical BID 03/31/25 03/31/25 naloxone 4 mg/actuation nasal spray 1 spray intranasal DIRECTED PRN 03/31/25 03/31/25 overdose oxycodone 5 mg tablet 5 mg PO Q4H PRN Pain (Scale Score 03/31/25 03/31/25 4-6) sennosides 8.6 mg tablet (senna) 8.6 mg PO BID PRN Constipation 03/31/25 03/31/25 Previous Rx's Medication Instructions Recorded cyanocobalamin (vitamin B-12) 500 1,000 mcg (2 x 500 mcg) PO QAM #30 11/17/24 mcg tablet tabs Results & Data (ED) Vital Signs Vital Signs - 24 hr 03/31/25 18:12 03/31/25 18:14 03/31/25 18:14 Temperature 36.9 C Temperature Source Oral Pulse Rate 76 76 Pulse Rate [Apical] 76 Respiratory Rate 20 19 Respiratory Effort / Characteristics Non-Labored Non-Labored Respiratory Depth Normal Normal Blood Pressure 89/58 L Blood Pressure [Right Arm] Blood Pressure Mean 68 Blood Pressure Mean [Right Arm] Pulse Oximetry 95 95 Oxygen Delivery Method Room Air Room Air Sepsis Recent Fever Within 48 Hours No Sepsis New/Unexplained Change in Mental Status No Sepsis Action Taken by Nursing No Action Required 03/31/25 18:14 03/31/25 18:50 03/31/25 19:30 Temperature Temperature Source Pulse Rate Pulse Rate [Apical] 74 Respiratory Rate 18 Respiratory Effort / Characteristics Respiratory Depth Blood Pressure Blood Pressure [Right Arm] 106/56 L 93/58 L Blood Pressure Mean Blood Pressure Mean [Right Arm] 72 69 Pulse Oximetry 95 95 Oxygen Delivery Method Room Air Room Air Sepsis Recent Fever Within 48 Hours Sepsis New/Unexplained Change in Mental Status Sepsis Action Taken by Nursing Laboratory Data 03/31/25 18:10 03/31/25 18:10 Lab Results 03/31/25 03/31/25 03/31/25 Range/Units 18:10 18:12 19:33 WBC 5.81 (4.8-10.8) K/ul RBC 3.12 L (4.70-6.10) M/uL Hgb 6.8 L* (14.0-18.0) g/dl Hct 24.6 L (42.0-52.0) % MCV 78.8 L (80.0-100.0) fL MCH 21.8 L (25.0-34.0) pg MCHC 27.6 L (32.0-36.0) g/dL RDW Std Deviation 63.2 H (36.4-46.3) fL RDW Coeff of Charly 22.0 H (11.5-14.5) % Plt Count 190 (130-400) K/uL MPV 9.9 (9.4-12.4) fL Immature Gran % (Auto) 0.2 % Neut % (Auto) 58.3 % Lymph % (Auto) 20.8 % Chambers % (Auto) 13.6 % Eos % (Auto) 6.2 % Baso % (Auto) 0.9 % Neut # (Auto) 3.39 (1.40-6.50) K/uL Lymph # (Auto) 1.21 (1.20-3.40) K/uL Chambers # (Auto) 0.79 H (0.11-0.59) K/uL Eos # (Auto) 0.36 (0.00-0.50) K/uL Baso # (Auto) 0.05 (0.00-0.20) K/uL Immature Gran # (Auto) 0.01 (0.01-0.20) K/uL Anisocytosis Present PT 12.7 H (9.0-12.0) Seconds INR 1.2 H (0.9-1.1) APTT 31 (21-31) Seconds PTT Ratio 1.2 Sodium 140 (136-145) mmol/L Potassium 4.4 (3.5-5.1) mmol/L Chloride 106 (98-107) mmol/L Carbon Dioxide 28 (21-32) mmol/L Anion Gap 6 (3-11) BUN 39 H (6-23) mg/dl Creatinine 1.77 H (0.6-1.4) mg/dl Est Cr Clr Drug Dosing 49.3 ml/min eGFR 38.59 BUN/Creatinine Ratio 22.0 H (10-20) Glucose 96 (70-99(Fasting)) mg/dl Calcium 9.8 (8.6-10.3) mg/dl Magnesium 1.8 (1.7-2.4) mg/dl Iron (35-175) mcg/dl TIBC (250-450) mcg/dl Transferrin (200-360) mg/dl Transferrin % Sat (20-50) % Ferritin (8-388) ng/ml Total Bilirubin 0.7 (0.2-1.0) mg/dl AST 13 (13-39) U/L ALT 4 L (7-52) U/L Alkaline Phosphatase 201 H (34-104) U/L Troponin I High Sens 31.0 H (0-20) pg/ml B-Natriuretic Peptide 353 H (0-100) pg/ml Total Protein 6.4 (6.0-8.3) gm/dl Albumin 3.1 L (3.4-5.0) gm/dl Globulin 3.3 (2.5-4.0) gm/dl Albumin/Globulin Ratio 0.9 (0.9-2) POC Stool Occult Blood (Negative) SARS-CoV-2, RNA, NAAT NEGATIVE (NEGATIVE) Blood Type Cancelled Antibody Screen Cancelled Crossmatch 03/31/25 03/31/25 03/31/25 Range/Units 19:54 19:57 20:01 WBC (4.8-10.8) K/ul RBC (4.70-6.10) M/uL Hgb (14.0-18.0) g/dl Hct (42.0-52.0) % MCV (80.0-100.0) fL MCH (25.0-34.0) pg MCHC (32.0-36.0) g/dL RDW Std Deviation (36.4-46.3) fL RDW Coeff of Charly (11.5-14.5) % Plt Count (130-400) K/uL MPV (9.4-12.4) fL Immature Gran % (Auto) % Neut % (Auto) % Lymph % (Auto) % Chambers % (Auto) % Eos % (Auto) % Baso % (Auto) % Neut # (Auto) (1.40-6.50) K/uL Lymph # (Auto) (1.20-3.40) K/uL Chambers # (Auto) (0.11-0.59) K/uL Eos # (Auto) (0.00-0.50) K/uL Baso # (Auto) (0.00-0.20) K/uL Immature Gran # (Auto) (0.01-0.20) K/uL Anisocytosis PT (9.0-12.0) Seconds INR (0.9-1.1) APTT (21-31) Seconds PTT Ratio Sodium (136-145) mmol/L Potassium (3.5-5.1) mmol/L Chloride (98-107) mmol/L Carbon Dioxide (21-32) mmol/L Anion Gap (3-11) BUN (6-23) mg/dl Creatinine (0.6-1.4) mg/dl Est Cr Clr Drug Dosing ml/min eGFR BUN/Creatinine Ratio (10-20) Glucose (70-99(Fasting)) mg/dl Calcium (8.6-10.3) mg/dl Magnesium (1.7-2.4) mg/dl Iron 28 L (35-175) mcg/dl TIBC 486 H (250-450) mcg/dl Transferrin 347 (200-360) mg/dl Transferrin % Sat 6 L (20-50) % Ferritin 6.9 L (8-388) ng/ml Total Bilirubin (0.2-1.0) mg/dl AST (13-39) U/L ALT (7-52) U/L Alkaline Phosphatase (34-104) U/L Troponin I High Sens 32.3 H (0-20) pg/ml B-Natriuretic Peptide (0-100) pg/ml Total Protein (6.0-8.3) gm/dl Albumin (3.4-5.0) gm/dl Globulin (2.5-4.0) gm/dl Albumin/Globulin Ratio (0.9-2) POC Stool Occult Blood Positive A (Negative) SARS-CoV-2, RNA, NAAT (NEGATIVE) Blood Type O Positive Antibody Screen NEGATIVE Crossmatch See Detail Imaging Data Radiologist's Impression: Chest X-Ray 03/31/25 18:09 Chest radiograph, one view History: Dyspnea. Swelling. Comparison: November 22, 2024. Findings: Lordotic positioning is noted. This limits portions of the exam. Interval obscuration right hemidiaphragm with confluent interstitial densities at this level. Poorly defined bilateral costophrenic angles. Pulmonary vasculature is within normal limits. Cardiomediastinal silhouette appears to be stable. Impression: Nonspecific right base subsegmental atelectasis and/or consolidation with likely small bilateral pleural effusions. Electronically signed by Jarad Lorenzo 03-31-2025 7:[address] 03/31/25 19:58 Exam(s): CT CHEST Without Contrast EXAM: CT Chest Without Intravenous Contrast CLINICAL HISTORY: Reason for exam: swelling, possible CHF. TECHNIQUE: Axial computed tomography images of the chest without intravenous contrast. CTDI is 23.7 mGy and DLP is 1724 mGy-cm. Automated exposure control was utilized for the study. A dose lowering technique was utilized adhering to the principles of ALARA. COMPARISON: Chest x-ray from 03/31/2025 FINDINGS: Lungs: There is bilateral partial lower lobe atelectasis as well as vascular congestion and possible mild central edema. No mass. Pleural space: There are small left and moderate right pleural effusions layering posteriorly measuring 6.5 cm on the right and 2.3 cm on the left. No pneumothorax. Heart: Moderate cardiomegaly with severe coronary calcification throughout all coronary vessels. No pericardial effusion. Bones/joints: [id number] degenerative changes in both shoulders. Moderate multilevel osteophytosis throughout the thoracic spine which appears to be partially ankylosed. No acute fracture or destructive bone lesion is seen. Soft tissues: Mild diffuse anasarca over the torso. Vasculature: The thoracic aorta is mildly calcified but nondilated. This is a noncontrast study. Lymph nodes: Unremarkable. No enlarged lymph nodes. IMPRESSION: 1. There are small left and moderate right pleural effusions layering posteriorly measuring 6.5 cm on the right and 2.3 cm on the left. 2. There is bilateral partial lower lobe atelectasis as well as vascular congestion and possible mild central edema. 3. Moderate cardiomegaly with severe coronary calcification throughout all coronary vessels. No pericardial effusion. Electronically signed by: Jose Mcclendon MD 03/31/25 20:[address] 03/31/25 19:58 Exam(s): CT HEAD Without Contrast EXAM: CT Head Without Intravenous Contrast CLINICAL HISTORY: Reason for exam: Intermittent confusion, swelling. TECHNIQUE: Axial computed tomography images of the head/brain without intravenous contrast. CTDI is 35.7 mGy and DLP is 702 mGy-cm. Automated exposure control was utilized for the study. A dose lowering technique was utilized adhering to the principles of ALARA. COMPARISON: 11/22/2024 FINDINGS: Brain: Mild cerebral atrophy and periventricular white matter low density consistent with chronic small vessel disease and/or senescent changes, unchanged. No acute large vessel infarct or intracranial hemorrhage is seen. Ventricles: Unremarkable. No ventriculomegaly. Bones/joints: See below. Soft tissues: Unremarkable. Sinuses: Mild chronic appearing mucosal thickening in both maxillary sinuses with bony overgrowth. This is improved. Previous sinus surgery is noted. There is a small amount of mucosal thickening in the sphenoid sinuses as well. Mastoid air cells: Unremarkable as visualized. No mastoid effusion. IMPRESSION: Mild cerebral atrophy and periventricular white matter low density consistent with chronic small vessel disease and/or senescent changes, unchanged. No acute large vessel infarct or intracranial hemorrhage is seen. Electronically signed by: Jose Mcclendon MD 03/31/25 20:52 PM Discharge Plan Visit Data Chief Complaint: Illness Stated Complaint: SOB, FLUID BUILT UP ED Provider: Jose Jacobson Discharge Problem: Dyspnea, Fluid overload, Weakness, Melena, Anemia Patient Disposition: Being Evaluated by Hospitalist Condition: Fair Forms Stand Alone Forms: My [facility] Prescriptions Prescriptions: No Action atorvastatin [Lipitor] 40 mg Tablet 40 mg PO HS acetaminophen 500 mg Tablet 1,000 mg PO Q6H PRN (Reason: Pain/fever) omeprazole 20 mg Capsule,Delayed Release(Dr/Ec) 20 mg PO QAM Rx Instructions: 7:30am montelukast [Singulair] 10 mg Tablet 10 mg PO HS albuterol sulfate 90 mcg/actuation Hfa Aerosol Inhaler 2 puff INHALATION QID PRN (Reason: Shortness Of Breath Or Wheezing) Eliquis 5 mg Tablet 5 mg PO BID Patient Comments: "I have not taken for a week - Dr Navarro's instruction" baclofen 5 mg Tablet 10 mg PO TID PRN (Reason: Muscle Spasms) tramadol 50 mg Tablet 50 mg PO TID PRN (Reason: Pain) furosemide 40 mg Tablet 40 mg PO BID Hold Instructions: hold unless needed for weight gain/edema Rx Instructions: 8am,2pm cyanocobalamin (vitamin B-12) 500 mcg Tablet 1,000 mcg PO QAM Qty: 30 0RF sennosides [senna] 8.6 mg Tablet 8.6 mg PO BID PRN (Reason: Constipation) bumetanide 2 mg tablet 2 mg PO BID PRN (Reason: Edema) benzonatate 100 mg capsule 100 mg PO Q8H PRN (Reason: Cough) lisinopril 10 mg tablet 10 mg PO QAM gabapentin 300 mg capsule 300 mg PO HS mupirocin 2 % ointment 1 applic TOPICAL BID metoprolol succinate 25 mg tablet extended release 24 hr 25 mg PO QAM diclofenac sodium 1 % Gel 2 g TOPICAL BID PRN (Reason: Pain) Rx Instructions: apply to affected area on knees naloxone 4 mg/actuation spray,non-aerosol 1 spray INTRANASAL DIRECTED PRN (Reason: overdose) oxycodone 5 mg tablet 5 mg PO Q4H PRN (Reason: Pain (Scale Score 4-6)) Referrals Referrals: David Navarro DO [Primary Care Provider] - Discharge Problem: Dyspnea Qualifiers: Dyspnea type: unspecified Qualified Code(s): R06.00 - Dyspnea, unspecified Fluid overload Qualifiers: Hypervolemia type: other Qualified Code(s): E87.79 - Other fluid overload
[2025-03-31 19:25] LABS: INR 1.2 (0.9-1.1); Partial Thromboplastin Time 31 Seconds (21-31); Prothrombin Time 12.7 Seconds (9.0-12.0)
--- NOTE | 2025-03-31 19:28 | XRay Report ---
Chest radiograph, one view History: Dyspnea. Swelling. Comparison: November 22, 2024. Findings: Lordotic positioning is noted. This limits portions of the exam. Interval obscuration right hemidiaphragm with confluent interstitial densities at this level. Poorly defined bilateral costophrenic angles. Pulmonary vasculature is within normal limits. Cardiomediastinal silhouette appears to be stable. Impression: Nonspecific right base subsegmental atelectasis and/or consolidation with likely small bilateral pleural effusions. Electronically signed by Jarad Lorenzo 03-31-2025 7:26 PM
[2025-03-31 19:30] LABS: Anion Gap 6.0 (3-11); Bilirubin,Total 0.7 mg/dl (0.2-1.0); Calcium 9.8 mg/dl (8.6-10.3); Carbon Dioxide 28.0 mmol/L (21-32); Chloride 106.0 mmol/L (98-107); Magnesium 1.8 mg/dl (1.7-2.4); Potassium 4.4 mmol/L (3.5-5.1); Sodium 140.0 mmol/L (136-145)
[2025-03-31 19:31] LABS: Hematocrit (blood only) 24.6 % (42.0-52.0); Hemoglobin 6.8 g/dl (14.0-18.0); Mean Corpuscular Hemoglobin 21.8 pg (25.0-34.0); Mean Corpuscular Volume 78.8 fL (80.0-100.0); Platelet Count 190 K/uL (130-400); RDW Standard Deviation 63.2 fL (36.4-46.3); Red Blood Count 3.12 M/uL (4.70-6.10); White Blood Count 5.81 K/ul (4.8-10.8)
[2025-03-31 19:35] LABS: Alanine Aminotransferase 4.0 U/L (7-52); Albumin Globulin Ratio 0.9 (0.9-2); Alkaline Phosphatase 201.0 U/L (34-104); Blood Urea Nitrogen 39.0 mg/dl (6-23); Creatinine Clr Calc Pharmacy 49.3 ml/min; Globulin 3.3 gm/dl (2.5-4.0); Glucose 96.0 mg/dl (70-99(Fasting)); Total Protein 6.4 gm/dl (6.0-8.3)
[2025-03-31 19:36] LABS: Anisocytosis Present; Immature Granulocytes # (auto) 0.01 K/uL (0.01-0.20); Immature Granulocytes % (auto) 0.2 %
[2025-03-31] MEDS ORDERED: SODIUM CHLORIDE 0.9% 100 ML IV PRN (19:59)
[2025-03-31 20:31] LABS: Iron 28.0 mcg/dl (35-175); Total Iron Binding Cap Calc 486.0 mcg/dl (250-450); Transferrin 347.0 mg/dl (200-360); Transferrin (FE) Percent Satur 6.0 % (20-50)
[2025-03-31 20:51] LABS: Ferritin 6.9 ng/ml (8-388)
--- NOTE | 2025-03-31 20:53 | CT Scan Report ---
Exam(s): CT HEAD Without Contrast EXAM: CT Head Without Intravenous Contrast CLINICAL HISTORY: Reason for exam: Intermittent confusion, swelling. TECHNIQUE: Axial computed tomography images of the head/brain without intravenous contrast. CTDI is 35.7 mGy and DLP is 702 mGy-cm. Automated exposure control was utilized for the study. A dose lowering technique was utilized adhering to the principles of ALARA. COMPARISON: 11/22/2024 FINDINGS: Brain: Mild cerebral atrophy and periventricular white matter low density consistent with chronic small vessel disease and/or senescent changes, unchanged. No acute large vessel infarct or intracranial hemorrhage is seen. Ventricles: Unremarkable. No ventriculomegaly. Bones/joints: See below. Soft tissues: Unremarkable. Sinuses: Mild chronic appearing mucosal thickening in both maxillary sinuses with bony overgrowth. This is improved. Previous sinus surgery is noted. There is a small amount of mucosal thickening in the sphenoid sinuses as well. Mastoid air cells: Unremarkable as visualized. No mastoid effusion. IMPRESSION: Mild cerebral atrophy and periventricular white matter low density consistent with chronic small vessel disease and/or senescent changes, unchanged. No acute large vessel infarct or intracranial hemorrhage is seen. Electronically signed by: Jose Mcclendon MD 03/31/25 20:52 PM
--- NOTE | 2025-03-31 21:00 | CT Scan Report ---
Exam(s): CT CHEST Without Contrast EXAM: CT Chest Without Intravenous Contrast CLINICAL HISTORY: Reason for exam: swelling, possible CHF. TECHNIQUE: Axial computed tomography images of the chest without intravenous contrast. CTDI is 23.7 mGy and DLP is 1724 mGy-cm. Automated exposure control was utilized for the study. A dose lowering technique was utilized adhering to the principles of ALARA. COMPARISON: Chest x-ray from 03/31/2025 FINDINGS: Lungs: There is bilateral partial lower lobe atelectasis as well as vascular congestion and possible mild central edema. No mass. Pleural space: There are small left and moderate right pleural effusions layering posteriorly measuring 6.5 cm on the right and 2.3 cm on the left. No pneumothorax. Heart: Moderate cardiomegaly with severe coronary calcification throughout all coronary vessels. No pericardial effusion. Bones/joints: [id number] degenerative changes in both shoulders. Moderate multilevel osteophytosis throughout the thoracic spine which appears to be partially ankylosed. No acute fracture or destructive bone lesion is seen. Soft tissues: Mild diffuse anasarca over the torso. Vasculature: The thoracic aorta is mildly calcified but nondilated. This is a noncontrast study. Lymph nodes: Unremarkable. No enlarged lymph nodes. IMPRESSION: 1. There are small left and moderate right pleural effusions layering posteriorly measuring 6.5 cm on the right and 2.3 cm on the left. 2. There is bilateral partial lower lobe atelectasis as well as vascular congestion and possible mild central edema. 3. Moderate cardiomegaly with severe coronary calcification throughout all coronary vessels. No pericardial effusion. Electronically signed by: Jose Mcclendon MD 03/31/25 20:59 PM
--- NOTE | 2025-03-31 21:15 | CT Scan Report ---
Exam(s): CT ABDOMEN + PELVIS Without Contrast EXAM: CT Abdomen and Pelvis Without Intravenous Contrast CLINICAL HISTORY: Reason for exam: swelling, radha, melena. TECHNIQUE: Axial computed tomography images of the abdomen and pelvis without intravenous contrast. CTDI is 23.7 mGy and DLP is 1724 mGy-cm. Automated exposure control was utilized for the study. A dose lowering technique was utilized adhering to the principles of ALARA. COMPARISON: No relevant prior studies available. FINDINGS: Lung bases: See below. Pleural space: Small left and moderate right pleural effusions with bibasilar atelectasis and/or edema. ABDOMEN: Liver: Unremarkable. Gallbladder and bile ducts: Unremarkable. No calcified stones. No ductal dilation. Pancreas: Unremarkable. No ductal dilation. Spleen: Unremarkable. No splenomegaly. Adrenals: Unremarkable. No mass. Kidneys and ureters: 3 mm nonobstructive caliceal calculus in the lower pole of the right kidney. No hydronephrosis or ureterolithiasis is seen involving either kidney. Stomach and bowel: 7.2 cm of stool in the rectum suggesting constipation. No other dilated bowel loops are identified. No pneumoperitoneum or abscess is seen. No mucosal thickening. PELVIS: Appendix: No findings to suggest acute appendicitis. Bladder: Unremarkable. No stones. Reproductive: Unremarkable as visualized. ABDOMEN and PELVIS: Intraperitoneal space: Small amount of ascites in the upper abdomen adjacent to the liver. Bones/joints: Previous multilevel fusion, instrumentation, and laminectomy of the lumbar spine from L3 through L5. No acute fracture or subluxation. Soft tissues: Diffuse anasarca over the torso. Vasculature: Infrarenal abdominal aortic aneurysm measuring up to 6.3 cm in diameter. No signs of rupture. This is a noncontrast study. Lymph nodes: Unremarkable. No enlarged lymph nodes. IMPRESSION: 1. Small left and moderate right pleural effusions with bibasilar atelectasis and/or edema. 2. Infrarenal abdominal aortic aneurysm measuring up to 6.3 cm in diameter. No signs of rupture. This is a noncontrast study. 3. Small amount of ascites in the upper abdomen adjacent to the liver. This is likely from renal failure and fluid overload. 4. Diffuse anasarca over the torso. 5. 7.2 cm of stool in the rectum suggesting constipation. No other dilated bowel loops are identified. No pneumoperitoneum or abscess is seen. 6. 3 mm nonobstructive caliceal calculus in the lower pole of the right kidney. No hydronephrosis or ureterolithiasis is seen involving either kidney. Electronically signed by: Jose Mcclendon MD 03/31/25 21:14 PM
--- NOTE | 2025-03-31 21:25 | History & Physical Report ---
Date of Service March 31, 2025 Assessment & Plan (1) Acute heart failure: (2) CAD (coronary artery disease): Plan: Geoff is a 79-year-old male who presents with progressive dyspnea and volume overload slowly progressive for the last 5 months. He has diffuse lower ext remity edema and bilateral effusions on evaluation. He denies chest pain at any point, has a history of moderate coronary disease without stenting, and has a minimal troponin elevation stable on recheck without signs of ACS. He also has progressive chronic anemia with melena for many months and is severely iron deficient on admission. Required transfusion on admission. he does not show signs of acute large-volume bleeding and is not tachycardic. CTA/P also reveals a 6.3 infrarenal aneurysm which will require short interval follow-up and repair, asymptomatic with this. Unknown change of the previous months no studies for comparison Dyspnea Due to both acute CHF and progressive chronic anemia Titrate oxygen to goal 90% Patient is not hypoxic on room air at time bedside assessment Acute CHF, history of moderate nonobstructive CAD Echo 11/22: Normal LV SF EF 60 to 65%. No regional wall motion abnormalities. Moderate concentric LVH. Nuclear stress echo 06/2024: Nondiagnostic, inferior wall ischemia seen. Cardiac cath 07/2024: Moderate coronary disease, nonobstructive, generally approximately 40-50% Admitting EKG: A-fib rate controlled. Septal infarct noted. No territorial ST/T wave changes Troponin 31.0/32.3. Clinically without chest pain/chest pressure BNP 353 Repeat echo pending due to new CHF? Wall motion change. If this is seen, consult cardiology for repeat ischemic evaluation CTchest: Small left and moderate right layering pleural effusions, atelectasis, vascular congestion, mild central edema. Moderate cardiomegaly with severe coronary calcifications. Do not suspect ACS at time of admission Likely also with third spacing due to chronic anemia and diminished oncotic pressure Continue Bumex 1 mg IV twice daily 17. Titrate as needed to goal 1 L net negative daily. Hold for hypotension. Statin continued No history of stents. Patient is not on aspirin or Plavix as outpatient. Progressive chronic anemia Hemoccult positive stool, no ondina bleeding Ferritin nearly absent at 6.9, transferrin saturation 6% Slow downtrend of hemoglobin as outpatient, baseline around 9, 7.55/25, and 6.8 on admission 1 unit ordered for transfusion Recheck H&H posttransfusion. Given coronary disease and troponin elevation treat to liberalize threshold of 8.0. Once hemoglobin is stable and not requiring blood transfusions recommend 3 daily Venofer infusions with total cumulative dose of 1 g. BUN is chronically slightly elevated, but normal so. DDx includes occult lower GI losses. No colonoscopy in the last 10 years If stable will need outpatient GI follow-up No epigastric/abdominal pain, marked elevation in BUN, NSAID use to suggest upper GI bleed. Placed on PPI drip on admission, will switch to []. CTA/P without contrast: Infrarenal abdominal aortic aneurysm 6.3 cm no signs of rupture on limited noncontrast study. 7.2 cm stool suggesting constipation. No perforation/pneumoperitoneum/abscess noted. 3 mm nonobstructive calculus in lower pole of right kidney. Suspect slow chronic bleed rather than acute bleed, will keep n.p.o. overnight while hemoglobin is trended A-fib Eliquis held for anemia, occult positive blood, and pending thoracentesis eval. If hemoglobin stable no acute bleeding can temporarily transition to heparin or Lovenox while inpatient Rate controlled on admission Metoprolol temporarily continue low-dose IV with hold parameters while n.p.o. Abdominal aortic aneurysm 6.3 infrarenal abdominal aortic aneurysm noted on CT Avoid all fluoroquinolones No prior abdominal CT available for comparison Vascular consult placed. Patient can be seen Thursday, recommend that this be intervened on fairly soon. Will need cardiac optimization/evaluation with his new CHF Chronic back pain Oxycodone converted to morphine IV while n.p.o. Gabapentin at bedtime converted to IV while n.p.o. DVT prophylaxis: SCDs, anticoagulation held for anemia/bleeding Diet: NPO. Fluids deferred due to volume overload and diuresis CODE STATUS: DNR/DNI Disposition: PCU (3) LETY (acute kidney injury): (4) Hyperkalemia: (5) Anemia: (6) HTN (hypertension): (7) Hyperlipidemia: (8) On anticoagulant therapy: History of Present Illness Primary Care Provider: DO Geoff Dawn is a 79-year-old a past medical history of alcohol abuse in remission, CAD last heart cath with nonobstructive moderate coronary disease 07/2024, A-fib on Eliquis and metoprolol, and hypertension on lisinopril who presents to the emergency department with dyspnea and leg swelling. On ER evaluation was found to have significant lower extremity edema and pleural effusions. He is anemic with a Hemoccult positive stool. As an outpatient patient has been on both p.o. Lasix and Bumex. Did have Lasix increased as an outpatient. He had endorsed palpitations but no chest pain in the previous weeks. In recent bedside family present. Came in for shortness of breath progressive over many weeks. He notes lower extremity swelling and some exertional dyspnea which has been gradually and st eadily progressing since his surgery back in October. He reports he had 3 brief sharp episodes of chest pain in the left lower rib which lasted for less than a second, otherwise has had no chest pain or chest pressure. He endorses leg swelling, orthopnea, and dyspnea on exertion. Is not short of breath at rest. Has not been hypoxic. He reports he has had around 50 to 60 pounds of weight gain which he thinks is mostly fluid since October He has had intermittent melena once out of around every 3 bowel movement for many years. He describes this as black and slightly tarry and has not changed. He has not had any melena or bright red blood. He does not take iron supplements or use Pepto-Bismol. He does not have epigastric pain and reports he has not had any stomach pain in a very long time. He thinks he had a history of ulcers when he was much younger, does take Prilosec for a Hx GERD. 'Prilosec cured it' . Lasst colo > 10 years ago, is due. No family history of colorectal cancer. No personal history of cancer. No lightheadedness/dizziness/syncope/presyncope Former smoker, former alcohol regular use. Quit in October. He has had no tobacco or alcohol use in the preceding 30 days He was noted on CT to have a aortic aneurysm. This is new to him, he was not aware of this and reports he has never been diagnosed with an aneurysm before. He reports that his diuretics have been uptitrated as an outpatient but despite this he feels he has been peeing less in the last week or 2 Medical History: Reviewed Medications: Reviewed Surgical History: Reviewed Family history: Reviewed Allergies: Reviewed Social History: Reviewed, former smoker, former alcohol. No recreational drug use Code Status: DNR/DNI, confirmed on admission Allergies Allergy/AdvReac Type Severity Reaction Status Date / Time latex Allergy Intermediate Rash, Verified 11/15/24 10:36 Burning Sensation phenobarbital AdvReac Intermediate Hyper Verified 11/15/24 10:36 Gold AdvReac Severe Wounds Uncoded 11/15/24 10:36 that became Pre-Cancerous Home Medications Medication Instructions Recorded Confirmed Type acetaminophen 500 mg tablet 1,000 mg PO Q6H PRN Pain/fever 07/07/24 03/31/25 History albuterol sulfate 90 mcg/actuation 2 puff inhalation QID PRN 07/07/24 03/31/25 History aerosol inhaler Shortness Of Breath Or Wheezing apixaban 5 mg tablet (Eliquis) 5 mg PO BID 07/07/24 03/31/25 History atorvastatin 40 mg tablet (Lipitor) 40 mg PO HS 07/07/24 03/31/25 History baclofen 5 mg tablet 10 mg PO TID PRN Muscle Spasms 07/07/24 03/31/25 History montelukast 10 mg tablet 10 mg PO HS 07/07/24 03/31/25 History (Singulair) omeprazole 20 mg capsule,delayed 20 mg PO QAM 07/07/24 03/31/25 History release tramadol 50 mg tablet 50 mg PO TID PRN Pain 07/18/24 03/31/25 History furosemide 40 mg tablet 40 mg PO BID 11/14/24 03/31/25 History cyanocobalamin (vitamin B-12) 500 1,000 mcg (2 x 500 mcg) PO QAM #30 11/17/24 03/31/25 Rx mcg tablet tabs benzonatate 100 mg capsule 100 mg PO Q8H PRN Cough 03/31/25 03/31/25 History bumetanide 2 mg tablet 2 mg PO BID PRN Edema 03/31/25 03/31/25 History diclofenac sodium 1 % topical gel 2 g topical BID PRN Pain 03/31/25 03/31/25 History gabapentin 300 mg capsule 300 mg PO HS 03/31/25 03/31/25 History lisinopril 10 mg tablet 10 mg PO QAM 03/31/25 03/31/25 History metoprolol succinate 25 mg 25 mg PO QAM 03/31/25 03/31/25 History tablet,extended release 24 hr mupirocin 2 % topical ointment 1 applic topical BID 03/31/25 03/31/25 History naloxone 4 mg/actuation nasal spray 1 spray intranasal DIRECTED PRN 03/31/25 03/31/25 History overdose oxycodone 5 mg tablet 5 mg PO Q4H PRN Pain (Scale Score 03/31/25 03/31/25 History 4-6) sennosides 8.6 mg tablet (senna) 8.6 mg PO BID PRN Constipation 03/31/25 03/31/25 History Past Med/Surg History Problem List (Updated 03/31/25 @ 21:51 by Rashi Aviles MD) Acute heart failure Anemia (Acute) Melena (Acute) Weakness (Acute) Fluid overload (Acute) Dyspnea (Acute) Elevated troponin Alcohol abuse AMS (altered mental status) Slurred speech Hypercalcemia CAD (coronary artery disease) Iron deficiency Hyperkalemia LETY (acute kidney injury) Two-level lumbosacral spondylosis with radiculopathy Medical History Post-nasal drip as per patient - in the morning RBBB Dr Bonilla On anticoagulant therapy Eliquis daily Hyperlipidemia HTN (hypertension) controlled, stable per pt Hip pain Right knee pain Acid reflux controlled, stable per pt Hx of myocardial infarction "silent" - states was told must have occurred during childhood ~12-14 yrs old, per pt Paroxysmal atrial fibrillation dx 1984-- reason for Eliquis, follows w/ [facility] Environmental and seasonal allergies PRN inh use - no longer using daily Allergic rhinitis Surgical History Hx of arthroscopic knee surgery right, x 2 left, x 1 History of cardiac radiofrequency ablation (RFA) ~2009- [facility] Hx of colonoscopy Hx of total hip arthroplasty (2013) left History of shoulder surgery b/l - hx reconstruction of both shoulders Hx of cardiac catheterization (1984) 1984, 08/05/24, and "Early this year - it was all clear" as per patient - no stents Dr Bonilla Social History Smoking Status: Former smoker Tobacco Type: Pipe Cigarettes Per Day: Smokes pipe "doesn't inhale" as per patient; Second Hand Exposure: No; Do You Dip or Chew Tobacco: No; Hx Alcohol Use: No Hx Substance Use: No Preferred Language: [place] Communication Ability: Effective 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 NAD. Cooperative. HEENT: Atraumatic, normocephalic. Vision and hearing intact. Pupils equal and reactive to light Pulm: Diminished bilaterally, slight rales in the bases bilaterally. No wheezi ng. Symmetrical chest rise. No increased work of breathing. No respiratory distress. Cardiac: Slightly irregular, regular rate, -mrg. Radial pulses intact and symmetrical. Abdominal: Distended, soft, nontender. Fluid wave is present Extremities: Diffuse pitting edema through the lower extremities. 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 Sensation to soft touch intact in hands and feet Results & Data Results & Data Vital Signs (Past 12 Hours) Vital Signs Temp Pulse Pulse Resp BP BP Pulse Ox 03/31/25 21:10 36.5 C 77 20 92/72 L 95 03/31/25 19:30 74 18 93/58 L 95 03/31/25 18:50 106/56 L 03/31/25 18:14 95 03/31/25 18:14 76 19 95 03/31/25 18:14 36.9 C 76 20 89/58 L 95 03/31/25 18:12 76 O2 Del Method O2 Flow Rate 03/31/25 21:10 0 03/31/25 19:30 Room Air 03/31/25 18:50 03/31/25 18:14 Room Air 03/31/25 18:14 Room Air 03/31/25 18:14 Room Air 03/31/25 18:12 PG Care Time/CCT Total # of Minutes Spent Total Time Spent with Patient: Total time spent is greater than 50% in coordination of care (as documented) at patient's floor/unit and/or counseling patient: Coding Level of Care Code 19288 INT INP/OBS CARE 3/75MIN Diagnoses Acute heart failure I50.9 CAD (coronary artery disease) I25.10 LETY (acute kidney injury) N17.9 Hyperkalemia E87.5 Anemia D64.9 HTN (hypertension) I10 Hyperlipidemia E78.5 On anticoagulant therapy Z79.01
[2025-03-31] MEDS: BUMETANIDE 1 MG in SYRINGE 0 ML IV ONE (21:45)
[2025-03-31] MEDS ORDERED: NALOXONE HCL 0.4 MG/1 ML VIAL/CARP IV PRN (23:32)
[2025-03-31 23:35] LABS: Appearance Urine Clear (Clear); Glucose Urine UA Negative (Negative)
[2025-04-01 00:16] LABS: Hematocrit (blood only) 25.9 % (42.0-52.0); Hemoglobin 7.2 g/dl (14.0-18.0)
[2025-04-01] MEDS ORDERED: SODIUM CHLORIDE 0.9% 100 ML IV PRN (00:17)
[2025-04-01] MEDS ORDERED: MoRPHine SULFATE 2 MG/ML CARP IV PRN (01:32)
[2025-04-01 05:42] LABS: Hematocrit (blood only) 27.8 % (42.0-52.0); Hemoglobin 8.0 g/dl (14.0-18.0); Immature Granulocytes # (auto) 0.02 K/uL (0.01-0.20); Immature Granulocytes % (auto) 0.3 %; Mean Corpuscular Hemoglobin 22.5 pg (25.0-34.0); Mean Corpuscular Volume 78.3 fL (80.0-100.0); Platelet Count 170 K/uL (130-400); RDW Standard Deviation 61.6 fL (36.4-46.3); Red Blood Count 3.55 M/uL (4.70-6.10); White Blood Count 6.10 K/ul (4.8-10.8)
[2025-04-01 05:56] LABS: Anion Gap 6.0 (3-11); Blood Urea Nitrogen 38.0 mg/dl (6-23); Calcium 10.2 mg/dl (8.6-10.3); Carbon Dioxide 28.0 mmol/L (21-32); Chloride 106.0 mmol/L (98-107); Creatinine Clr Calc Pharmacy 51.6 ml/min; Glucose 90.0 mg/dl (70-99(Fasting)); Potassium 4.4 mmol/L (3.5-5.1); Sodium 140.0 mmol/L (136-145)
[2025-04-01 06:00] LABS: Anisocytosis Present
--- NOTE | 2025-04-01 07:31 | Hospitalist Progress Note ---
Date of Service April 01, 2025 Assessment & Plan (1) Acute heart failure: (2) CAD (coronary artery disease): Plan: Geoff is a 79-year-old male who presents with progressive dyspnea and volume overload slowly progressive for the last 5 months. He has diffuse lower extremity edema and bilateral effusions on evaluation. He denies chest pain at any point, has a history of moderate coronary disease without stenting, and has a minimal troponin elevation stable on recheck without signs of ACS. He also has progressive chronic anemia with melena for many months and is severely iron deficient on admission. Required transfusion on admission. he does not show si gns of acute large-volume bleeding and is not tachycardic. CTA/P also reveals a 6.3 infrarenal aneurysm which will require short interval follow-up and repair, asymptomatic with this. Unknown change of the previous months no studies for comparison #Dyspnea Due to both acute CHF and progressive chronic anemia Titrate oxygen to goal 90% - on room air Patient is not hypoxic on room air at time bedside assessment #Acute CHF, history of moderate nonobstructive CAD Suspect 2/2 high output in setting of anemia Echo 11/22: Normal LV SF EF 60 to 65%. No regional wall motion abnormalities. Moderate concentric LVH. Nuclear stress echo 06/2024: Nondiagnostic, inferior wall ischemia seen. Cardiac cath 07/2024: Moderate coronary disease, nonobstructive, generally approximately 40-50% Admitting EKG: A-fib rate controlled. Septal infarct noted. No territorial ST/T wave changes Troponin 31.0/32.3. Clinically without chest pain/chest pressure BNP 353 Echo this visit: EF 65-70%, No regional wall motion abnormalities. Mod pulmonary HTN CTchest: Small left and moderate right layering pleural effusions, atelectasis, vascular congestion, mild central edema. Moderate cardiomegaly with severe coronary calcifications. Likely also with third spacing due to chronic anemia and diminished oncotic pressure Continue Bumex 1 mg IV twice daily 17. Titrate as needed to goal 1 L net negative daily. Hold for hypotension. Statin continued No history of stents. Patient is not on aspirin or Plavix as outpatient. #Progressive chronic anemia Hemoccult positive stool, no ondina bleeding Ferritin nearly absent at 6.9, transferrin saturation 6% Slow downtrend of hemoglobin as outpatient, baseline around 9 S/p 2 U PRBCs Hb 8.0, follow serial H&H Protonix 40mg BID (IV while NPO) Once hemoglobin is stable and not requiring blood transfusions recommend 3 daily Venofer infusions with total cumulative dose of 1 g. BUN is chronically slightly elevated, but normal so. DDx includes occult lower GI losses. No colonoscopy in the last 10 years, states has had a colonoscopy in the past If stable will need outpatient GI follow-up No epigastric/abdominal pain, marked elevation in BUN, NSAID use to suggest upper GI bleed. Placed on PPI drip on admission, will switch to Protonix 40mg IV BID. CTA/P without contrast: Infrarenal abdominal aortic aneurysm 6.3 cm no signs of rupture on limited noncontrast study. 7.2 cm stool suggesting constipation. No perforation/pneumoperitoneum/abscess noted. 3 mm nonobstructive calculus in lower pole of right kidney. Suspect slow chronic bleed rather than acute bleed #A-fib Eliquis held for anemia, occult positive blood, and pending thoracentesis eval. If hemoglobin stable no acute bleeding can temporarily transition to heparin or Lovenox while inpatient Rate controlled on admission Metoprolol temporarily continue low-dose IV with hold parameters while n.p.o. #Abdominal aortic aneurysm 6.3 infrarenal abdominal aortic aneurysm noted on CT Avoid all fluoroquinolones No prior abdominal CT available for comparison Vascular consult placed. Patient can be seen Thursday, recommend that this be intervened on fairly soon. Will need cardiac optimization/evaluation with his new CHF #Chronic back pain Oxycodone converted to morphine IV while n.p.o. Gabapentin at bedtime converted to IV while n.p.o. DVT prophylaxis: SCDs, anticoagulation held for anemia/bleeding Diet: Heart healthy CODE STATUS: DNR/DNI Disposition: PCU (3) LETY (acute kidney injury): (4) Hyperkalemia: (5) Anemia: (6) HTN (hypertension): (7) Hyperlipidemia: (8) On anticoagulant therapy: Admission and Anticipated Discharge Date Admission Date: March 31, 2025 Supervising Physician Co-Signing Physician Notes I personally examined the patient and verified all schneider points of history and exam, discussed case, and agree with decision making with Dr Lozano feeling better breathing better no new complaints vitals noted nad heent nc at mmm breathin gunlabored on room air no accessory muscles no conversational dyspnea good effort skin no rashes no pallor or icterus CHF - appears to be high output from anemia. no clinical need to drain effusions right now - follow. consider dx tap vs watchful waiting/serial xrays anemia - transfused. colo as outpt in near future - have to suspect GI bleeding such as colon cancer - but fortunately CTs without evidence of metastatic disease so if cancer would anticipate local disease AAA - no sx, but fairly large. vascular eval pending DVT proph - SCDs given GI bleeding Subjective Patient seen and evaluated at bedside this morning. No acute events overnight. 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 No acute complaints this am. Echo completed, awaiting results. Vitals noted. Hb 8.0 this am s/p 2U PRBCs. Otherwise labs WNL. Review of Systems Review of Systems: reviewed, per HPI Physical Exam Physical Exam: Constitutional: well-appearing, no acute distress HEENT: NCAT, no conjunctival injection CV: extremities well-perfused, +b/l LE edema Resp: no increased work of breathing GI: nondistended MSK: no gross deformities appreciated Skin: warm, dry, no rash appreciated Neuro: alert, oriented, no focal neurologic deficit appreciated Results & Data Results & Data Vital Signs (Past 12 Hours) Vital Signs Temp Pulse Pulse Resp BP BP Pulse Ox 04/01/25 03:07 36.4 C L 75 19 104/68 91 04/01/25 02:38 36.4 C L 77 18 100/66 94 04/01/25 02:28 36.4 C L 75 18 104/68 91 04/01/25 01:38 36.6 C 84 20 95/58 L 91 04/01/25 01:34 81 04/01/25 01:30 04/01/25 01:25 36.6 C 86 22 95/58 L 91 04/01/25 01:08 36.6 C 69 18 94/65 L 92 04/01/25 00:53 36.6 C 76 16 103/63 92 04/01/25 00:36 36.6 C 76 18 91/66 L 95 03/31/25 23:12 36.5 C 76 18 98/75 L 95 03/31/25 22:13 36.5 C 81 18 95/71 L 95 03/31/25 22:01 72 03/31/25 21:43 36.4 C L 76 16 107/88 93 03/31/25 21:28 36.5 C 75 16 99/61 L 93 03/31/25 21:10 36.5 C 77 20 92/72 L 95 O2 Del Method O2 Flow Rate 04/01/25 03:07 Room Air 04/01/25 02:38 04/01/25 02:28 04/01/25 01:38 04/01/25 01:34 04/01/25 01:30 Room Air 04/01/25 01:25 Room Air 04/01/25 01:08 04/01/25 00:53 04/01/25 00:36 03/31/25 23:12 03/31/25 22:13 0 03/31/25 22:01 03/31/25 21:43 0 03/31/25 21:28 0 03/31/25 21:10 0 Resident Activity Tracking Resident Involvement: Resident Care Provided Care Provided: Adult Hospital Medicine
[2025-04-01] MEDS: METOPROLOL TARTRATE 1 MG/ML VIAL IV SCH (08:37)
[2025-04-01] MEDS: ACETAMINOPHEN 1,000 MG/100 ML VIAL IV PRN (08:38)
[2025-04-01] MEDS: BUMETANIDE 1 MG in SYRINGE 0 ML IV SCH (08:49)
[2025-04-01 10:05] LABS: Hematocrit (blood only) 27.3 % (42.0-52.0); Hemoglobin 7.9 g/dl (14.0-18.0)
[2025-04-01] MEDS: PANTOprazole 40 MG/10 ML SYR IV SCH (10:38)
--- NOTE | 2025-04-01 12:52 | XCELERA ---
[id number] [id number]
[2025-04-01 16:25] LABS: Hematocrit (blood only) 30.2 % (42.0-52.0); Hemoglobin 8.7 g/dl (14.0-18.0)
--- NOTE | 2025-04-01 17:10 | Billing Data ---
Date of Service April 01, 2025 Coding Level of Care Code 97906 SUB INP/OBS CARE MIN
[2025-04-02] MEDS: MELATONIN 3 MG TAB PO PRN (00:24)
[2025-04-02 05:48] LABS: Hematocrit (blood only) 29.2 % (42.0-52.0); Hemoglobin 8.2 g/dl (14.0-18.0); Immature Granulocytes # (auto) 0.02 K/uL (0.01-0.20); Immature Granulocytes % (auto) 0.3 %; Mean Corpuscular Hemoglobin 21.9 pg (25.0-34.0); Mean Corpuscular Volume 78.1 fL (80.0-100.0); Platelet Count 180 K/uL (130-400); RDW Standard Deviation 61.7 fL (36.4-46.3); Red Blood Count 3.74 M/uL (4.70-6.10); White Blood Count 6.03 K/ul (4.8-10.8)
[2025-04-02 06:05] LABS: Anion Gap 6.0 (3-11); Blood Urea Nitrogen 39.0 mg/dl (6-23); Calcium 10.2 mg/dl (8.6-10.3); Carbon Dioxide 29.0 mmol/L (21-32); Chloride 107.0 mmol/L (98-107); Creatinine Clr Calc Pharmacy 46.6 ml/min; Glucose 89.0 mg/dl (70-99(Fasting)); Potassium 4.3 mmol/L (3.5-5.1); Sodium 142.0 mmol/L (136-145)
[2025-04-02 06:20] LABS: Anisocytosis Present; Ovalocytes 1+; Polychromasia 2+; Tear Drop Cells 1+
--- NOTE | 2025-04-02 07:44 | Hospitalist Progress Note ---
Date of Service April 02, 2025 Assessment & Plan (1) Acute heart failure: (2) CAD (coronary artery disease): Plan: Geoff is a 79-year-old male who presents with progressive dyspnea and volume overload slowly progressive for the last 5 months. He has diffuse lower extremity edema and bilateral effusions on evaluation. He denies chest pain at any point, has a history of moderate coronary disease without stenting, and has a minimal troponin elevation stable on recheck without signs of ACS. He also has progressive chronic anemia with melena for many months and is severely iron deficient on admission. Required transfusion on admission. he does not show si gns of acute large-volume bleeding and is not tachycardic. CTA/P also reveals a 6.3 infrarenal aneurysm which will require short interval follow-up and repair, asymptomatic with this. Unknown change of the previous months no studies for comparison #Dyspnea Due to both acute CHF and progressive chronic anemia Titrate oxygen to goal 90% - on room air Patient is not hypoxic on room air at time bedside assessment #Acute CHF, history of moderate nonobstructive CAD Suspect 2/2 high output in setting of anemia Echo 11/22: Normal LV SF EF 60 to 65%. No regional wall motion abnormalities. Moderate concentric LVH. Nuclear stress echo 06/2024: Nondiagnostic, inferior wall ischemia seen. Cardiac cath 07/2024: Moderate coronary disease, nonobstructive, generally approximately 40-50% Admitting EKG: A-fib rate controlled. Septal infarct noted. No territorial ST/T wave changes Troponin 31.0/32.3. Clinically without chest pain/chest pressure BNP 353 Echo this visit: EF 65-70%, No regional wall motion abnormalities. Mod pulmonary HTN CTchest: Small left and moderate right layering pleural effusions, atelectasis, vascular congestion, mild central edema. Moderate cardiomegaly with severe coronary calcifications. Likely also with third spacing due to chronic anemia and diminished oncotic pressure Will hold Bumex secondary to slight bump in creatinine No IVF at this time as hemodynamically stable and in setting of CHF, encourage good PO intake Statin continued No history of stents. Patient is not on aspirin or Plavix as outpatient. Seen by PT and recommending continuing PT at [facility] when he is discharged, no acute rehab indicated at this time Encouraging patient to be OOB and ambulatory as able to assist with LE fluid mobilization #Progressive chronic anemia Hemoccult positive stool, no ondina bleeding Ferritin nearly absent at 6.9, transferrin saturation 6% Slow downtrend of hemoglobin as outpatient, baseline around 9 S/p 2 U PRBCs Hb 8.0, follow serial H&H Protonix 40mg BID Once hemoglobin is stable and not requiring blood transfusions recommend 3 daily Venofer infusions with total cumulative dose of 1 g. BUN is chronically slightly elevated, but normal so. DDx includes occult lower GI losses. No colonoscopy in the last 10 years, states has had a colonoscopy in the past GI consulted: given need for AAA repair in the relatively near future and likely need for DAPT following, identification of bleeding source will be important prior to surgical intervention. CTA/P without contrast: Infrarenal abdominal aortic aneurysm 6.3 cm no signs of rupture on limited noncontrast study. 7.2 cm stool suggesting constipation. No perforation/pneumoperitoneum/abscess noted. 3 mm nonobstructive calculus in lower pole of right kidney. Suspect slow chronic bleed rather than acute bleed #A-fib Eliquis held for anemia, occult positive blood, and pending thoracentesis eval. If hemoglobin stable no acute bleeding can temporarily transition to heparin or Lovenox while inpatient Rate controlled on admission Continue metoprolol #Abdominal aortic aneurysm 6.3 infrarenal abdominal aortic aneurysm noted on CT Avoid all fluoroquinolones No prior abdominal CT available for comparison Vascular consult placed. Patient can be seen Thursday, recommend that this be intervened on fairly soon. Will need cardiac optimization/evaluation with his new CHF #Chronic back pain Oxycodone converted to morphine IV while n.p.o. Gabapentin at bedtime converted to IV while n.p.o. DVT prophylaxis: SCDs, anticoagulation held for anemia/bleeding Diet: Heart healthy CODE STATUS: DNR/DNI Disposition: PCU (3) LETY (acute kidney injury): (4) Hyperkalemia: (5) Anemia: (6) HTN (hypertension): (7) Hyperlipidemia: (8) On anticoagulant therapy: Admission and Anticipated Discharge Date Admission Date: March 31, 2025 Supervising Physician Co-Signing Physician Notes I personally examined the patient and verified all schneider points of history and exam, discussed case, and agree with decision making with Dr Lozano Feeling about the samestill a significant amount of dyspnea on exertion. Also has dysphagia for solids that he notes has been a problem for a little whileit just mostly came to his attention because last night eating a sandwich he felt like he was choking for a little while, but does note this has been an ongoing problem. present. Updated to the best my ability. vitals noted nad heent nc at mmm breathing unlabored on room air no accessory muscles no conversational dyspnea good effort skin no rashes no pallor or icterus CHF - appears to be high output from anemia. Given that he is still quite symptomatic, will ask for thoracentesis anemia - transfused. have to suspect GI bleeding such as colon cancer, although with his age, telangiectasia certainly would loom large on the differential. While technically the anemia is now stable and could potentially be scoped as an outpatient, there will need to be a coordinated effortas his AAA will need repair, and likely ongoing antiplatelets afterwards. With this in mind, we really would benefit him from having a clearer understanding of why he was bleeding because we likely will then need to have him on antiplatelets once his AAA is repaired. Because of this we will consult GI to see him as an inpati enteither to get the scope done while he is still admitted, or to at least ensure that coordinated expedited outpatient care between primary, GI, and vascular surgery is facilitated AAA - no sx, but fairly large. vascular eval pendingsee above. We definitely appreciate input from vascular surgery on the anticipated antiplatelet regimen after AAA repair, as this will interface significantly with his anemia and the workup/management thereof. Dysphagia for solids/[employer] eval, also possible that GI may consider an EGD in the workup for his anemia which would also evaluate the dysphagia for solids. DVT proph - SCDs given GI bleeding Subjective Patient seen and evaluated at bedside this morning. No acute events overnight. No acute complaints this am. Overall feeling improved day to day. Still with some SOB with exertion. Attempting to move LE in bed to help with fluid mobilization. VSS (BP on soft side). Cr increased this am. Hb stable Review of Systems Review of Systems: reviewed, per HPI Physical Exam Physical Exam: Constitutional: well-appearing, no acute distress HEENT: NCAT, no conjunctival injection CV: extremities well-perfused, +b/l LE edema Resp: no increased work of breathing GI: nondistended MSK: no gross deformities appreciated Skin: warm, dry, no rash appreciated Neuro: alert, oriented, no focal neurologic deficit appreciated Results & Data Results & Data Vital Signs (Past 12 Hours) Vital Signs Temp Pulse Pulse Resp BP Pulse Ox O2 Del Method 04/02/25 03:00 36.5 C 76 21 96/63 L 91 Room Air 04/01/25 23:00 77 04/01/25 23:00 36.8 C 94 H 20 104/67 91 Room Air 04/01/25 21:03 75 04/01/25 20:20 Room Air Resident Activity Tracking Resident Involvement: Resident Care Provided Care Provided: Adult Hospital Medicine
[2025-04-02] MEDS ORDERED: PANTOprazole 40 MG/10 ML SYR IV SCH (09:00)
[2025-04-02] MEDS: METOPROLOL SUCC 25MG EXT REL TAB PO SCH (09:03)
[2025-04-02] MEDS: IRON SUCROSE 200 MG in SODIUM CHLORIDE 0.9% 100 ML IV ONE (09:33)
--- NOTE | 2025-04-02 13:33 | Electrocardiogram Report ---
Test Reason : Blood Pressure : */* mmHG Vent. Rate : 69 BPM Atrial Rate : * BPM P-R Int : * ms QRS Dur : 54 ms QT Int : 404 ms P-R-T Axes : * 45 -19 degrees QTcB Int : 432 ms Atrial fibrillation Low voltage QRS Septal infarct , age undetermined Abnormal ECG When compared with ECG of 22-Nov-2024 20:04, No significant change Confirmed by Abdias Jerome ([id number]) on 04/02/2025 1:32:58 PM Referred By: [facility] Confirmed By: Abdias Jerome
--- NOTE | 2025-04-02 18:16 | Billing Data ---
Date of Service April 02, 2025 Coding Level of Care Code 95530 SUB INP/OBS CARE MIN
[2025-04-03] MEDS: HYDROmorphone INJ 0.5 MG/0.5 ML SYR IV PRN (04:55)
[2025-04-03 06:24] LABS: Hematocrit (blood only) 28.0 % (42.0-52.0); Hemoglobin 8.1 g/dl (14.0-18.0); Immature Granulocytes # (auto) 0.02 K/uL (0.01-0.20); Immature Granulocytes % (auto) 0.4 %; Mean Corpuscular Hemoglobin 22.5 pg (25.0-34.0); Mean Corpuscular Volume 77.8 fL (80.0-100.0); Platelet Count 165 K/uL (130-400); RDW Standard Deviation 62.8 fL (36.4-46.3); Red Blood Count 3.60 M/uL (4.70-6.10); White Blood Count 5.66 K/ul (4.8-10.8)
[2025-04-03 06:44] LABS: Anisocytosis Present; Hypochromasia Present; Polychromasia 1+; Tear Drop Cells 1+
[2025-04-03 06:55] LABS: Anion Gap 6.0 (3-11); Blood Urea Nitrogen 36.0 mg/dl (6-23); Calcium 10.2 mg/dl (8.6-10.3); Carbon Dioxide 29.0 mmol/L (21-32); Chloride 107.0 mmol/L (98-107); Creatinine Clr Calc Pharmacy 48.8 ml/min; Glucose 90.0 mg/dl (70-99(Fasting)); Potassium 4.3 mmol/L (3.5-5.1); Sodium 142.0 mmol/L (136-145)
--- NOTE | 2025-04-03 07:12 | Gastrointestinal Consultation ---
Date of Consultation April 03, 2025 Assessment & Plan (1) Iron deficiency anemia: In light of heme positive stool need to consider GI blood loss as a major cause for anemia. Ultimately will need an endoscopy and colonoscopy once congestive heart failure is controlled and patient is cleared medically. Patient is presently tachypneic at rest. (2) Heme positive stool: Need to rule out GI causes of blood loss which includes inflammatory neoplastic processes such as peptic ulcer disease, vascular ectasias and neoplasm. Ultimate endoscopy and colonoscopy when medically stable. History of Present Illness Reason for Consultation: Iron deficiency anemia and heme positive stool Attending Physician: Jeffrey Cee MD History of Present Illness Patient admitted to the hospital with congestive heart failure, shortness of breath bilateral pleural effusions and anasarca. Found to have heme positive stool and iron deficiency anemia with a hemoglobin of 6.8. Denies any significant GI symptoms other than acid reflux at the present time. No family history of colon cancer. He had a remote colonoscopy in the past that was normal. No nausea vomiting change in bowel habits or bright red blood per rectum. Claims stools are generally dark brown occasionally black. No recent weight loss fever or chills. He is on Eliquis for atrial fibrillation. Allergies Allergy/AdvReac Type Severity Reaction Status Date / Time latex Allergy Intermediate Rash, Verified 11/15/24 10:36 Burning Sensation phenobarbital AdvReac Intermediate Hyper Verified 11/15/24 10:36 Gold AdvReac Severe Wounds Uncoded 11/15/24 10:36 that became Pre-Cancerous Home Medications Medication Instructions Recorded Confirmed Type acetaminophen 500 mg tablet 1,000 mg PO Q6H PRN Pain/fever 07/07/24 03/31/25 History albuterol sulfate 90 mcg/actuation 2 puff inhalation QID PRN 07/07/24 03/31/25 History aerosol inhaler Shortness Of Breath Or Wheezing apixaban 5 mg tablet (Eliquis) 5 mg PO BID 07/07/24 03/31/25 History atorvastatin 40 mg tablet (Lipitor) 40 mg PO HS 07/07/24 03/31/25 History baclofen 5 mg tablet 10 mg PO TID PRN Muscle Spasms 07/07/24 03/31/25 History montelukast 10 mg tablet 10 mg PO HS 07/07/24 03/31/25 History (Singulair) omeprazole 20 mg capsule,delayed 20 mg PO QAM 07/07/24 03/31/25 History release tramadol 50 mg tablet 50 mg PO TID PRN Pain 07/18/24 03/31/25 History furosemide 40 mg tablet 40 mg PO BID 11/14/24 03/31/25 History cyanocobalamin (vitamin B-12) 500 1,000 mcg (2 x 500 mcg) PO QAM #30 11/17/24 03/31/25 Rx mcg tablet tabs benzonatate 100 mg capsule 100 mg PO Q8H PRN Cough 03/31/25 03/31/25 History bumetanide 2 mg tablet 2 mg PO BID PRN Edema 03/31/25 03/31/25 History diclofenac sodium 1 % topical gel 2 g topical BID PRN Pain 03/31/25 03/31/25 History gabapentin 300 mg capsule 300 mg PO HS 03/31/25 03/31/25 History lisinopril 10 mg tablet 10 mg PO QAM 03/31/25 03/31/25 History metoprolol succinate 25 mg 25 mg PO QAM 03/31/25 03/31/25 History tablet,extended release 24 hr mupirocin 2 % topical ointment 1 applic topical BID 03/31/25 03/31/25 History naloxone 4 mg/actuation nasal spray 1 spray intranasal DIRECTED PRN 03/31/25 03/31/25 History overdose oxycodone 5 mg tablet 5 mg PO Q4H PRN Pain (Scale Score 03/31/25 03/31/25 History 4-6) sennosides 8.6 mg tablet (senna) 8.6 mg PO BID PRN Constipation 03/31/25 03/31/25 History Patient History Medical History Post-nasal drip as per patient - in the morning RBBB Dr Bonilla On anticoagulant therapy Eliquis daily Hyperlipidemia HTN (hypertension) controlled, stable per pt Hip pain Right knee pain Acid reflux controlled, stable per pt Hx of myocardial infarction "silent" - states was told must have occurred during childhood ~12-14 yrs old, per pt Paroxysmal atrial fibrillation dx 1984-- reason for Eliquis, follows w/ [facility] Environmental and seasonal allergies PRN inh use - no longer using daily Allergic rhinitis Surgical History Hx of arthroscopic knee surgery right, x 2 left, x 1 History of cardiac radiofrequency ablation (RFA) ~2009- [facility] Hx of colonoscopy Hx of total hip arthroplasty (2013) left History of shoulder surgery b/l - hx reconstruction of both shoulders Hx of cardiac catheterization (1984) 1984, 08/05/24, and "Early this year - it was all clear" as per patient - no stents Dr Bonilla Social History Smoking Status: Never smoker Tobacco Type: Pipe Cigarettes Per Day: Smokes pipe "doesn't inhale" as per patient; Second Hand Exposure: No; Do You Dip or Chew Tobacco: No; Hx Alcohol Use: No Hx Substance Use: No Preferred Language: Thai Communication Ability: Effective [employer] Required: No Beliefs That Will Affect Care: None Current Living Situation: Half-Way Current Living Situation Comment: [place] Feels Safe at Home: Yes Safety Concerns: Feels Safe At This Time Assistive Devices: Glasses, Walker and Wheelchair Review of Systems Review of Systems: No fever No chills SOB No CP No Abd pain Physical Exam Physical Exam: Tachypneic at rest Eyes; anicteric HENT No masses Chest decreased breath sounds bilaterally Cor S1, S2 physiologic Abd: softer nontender no masses mild distention Ext bilateral lower extremity edema and venous stasis Results & Data Vital Signs (Past 12 Hours) Vital Signs Temp Pulse Pulse Resp BP Pulse Ox O2 Del Method 04/03/25 03:49 36.3 C L 79 20 101/63 92 Room Air 04/02/25 23:52 36.8 C 84 18 98/64 L 92 Room Air 04/02/25 22:02 81 04/02/25 20:16 Room Air 04/02/25 20:01 36.6 C 79 18 120/79 93 Room Air Laboratory Results Laboratory Results - last 48 hr 04/01/25 04/01/25 04/02/25 09:44 15:58 05:09 WBC 6.03 RBC 3.74 L Hgb 7.9 L 8.7 L 8.2 L Hct 27.3 L 30.2 L 29.2 L MCV 78.1 L MCH 21.9 L MCHC 28.1 L RDW Std Deviation 61.7 H RDW Coeff of Charly 22.2 H Plt Count 180 MPV 9.4 Immature Gran % (Auto) 0.3 Neut % (Auto) 55.5 Lymph % (Auto) 22.7 Maries % (Auto) 12.8 Eos % (Auto) 7.5 Baso % (Auto) 1.2 Neut # (Auto) 3.35 Lymph # (Auto) 1.37 Maries # (Auto) 0.77 H Eos # (Auto) 0.45 Baso # (Auto) 0.07 Immature Gran # (Auto) 0.02 Polychromasia 2+ Hypochromasia Anisocytosis Present Tear Drop Cells 1+ Ovalocytes 1+ Sodium 142 Potassium 4.3 Chloride 107 Carbon Dioxide 29 Anion Gap 6 BUN 39 H Creatinine 1.85 H Est Cr Clr Drug Dosing 46.6 eGFR 36.59 BUN/Creatinine Ratio 21.1 H Glucose 89 Calcium 10.2 Stool Occult Bld Scrn 04/02/25 04/03/25 06:00 05:46 WBC 5.66 RBC 3.60 L Hgb 8.1 L Hct 28.0 L MCV 77.8 L MCH 22.5 L MCHC 28.9 L RDW Std Deviation 62.8 H RDW Coeff of Charly 22.5 H Plt Count 165 MPV 9.4 Immature Gran % (Auto) 0.4 Neut % (Auto) 58.0 Lymph % (Auto) 21.6 Maries % (Auto) 13.6 Eos % (Auto) 5.5 Baso % (Auto) 0.9 Neut # (Auto) 3.29 Lymph # (Auto) 1.22 Maries # (Auto) 0.77 H Eos # (Auto) 0.31 Baso # (Auto) 0.05 Immature Gran # (Auto) 0.02 Polychromasia 1+ Hypochromasia Present Anisocytosis Present Tear Drop Cells 1+ Ovalocytes Sodium 142 Potassium 4.3 Chloride 107 Carbon Dioxide 29 Anion Gap 6 BUN 36 H Creatinine 1.76 H Est Cr Clr Drug Dosing 48.8 eGFR 38.85 BUN/Creatinine Ratio 20.5 H Glucose 90 Calcium 10.2 Stool Occult Bld Scrn Positive A PG Care Time/CCT Total # of Minutes Spent Total Time Spent with Patient: Total time spent is greater than 50% in coordination of care (as documented) at patient's floor/unit and/or counseling patient: Coding Level of Care Code 29407 INT INP/OBS CARE 2MIN Diagnoses Iron deficiency anemia D50.9 Heme positive stool R19.5
--- NOTE | 2025-04-03 08:08 | Hospitalist Progress Note ---
Date of Service April 03, 2025 Assessment & Plan (1) Acute heart failure: (2) CAD (coronary artery disease): Plan: Geoff is a 79-year-old male who presents with progressive dyspnea and volume overload slowly progressive for the last 5 months. He has diffuse lower extremity edema and bilateral effusions on evaluation. He denies chest pain at any point, has a history of moderate coronary disease without stenting, and has a minimal troponin elevation stable on recheck without signs of ACS. He also has progressive chronic anemia with melena for many months and is severely iron deficient on admission. Required transfusion on admission. he does not show si gns of acute large-volume bleeding and is not tachycardic. CTA/P also reveals a 6.3 infrarenal aneurysm which will require short interval follow-up and repair, asymptomatic with this. Unknown change of the previous months no studies for comparison #Dyspnea Due to both acute CHF and progressive chronic anemia Titrate oxygen to goal 90% - on room air Patient is not hypoxic on room air at time bedside assessment #Abdominal aortic aneurysm 6.3 infrarenal abdominal aortic aneurysm noted on CT with no prior abdominal CT available for comparison Vascular consulted and recommended recommend repair, CTA ordered to assist with surgical planning Cardiac consult for clearance d/t hx and CHF exacerbation. Recommend continued GI workup to r/o malignancy prior to AAA repair. #Acute CHF, history of moderate nonobstructive CAD Admitting EKG: A-fib rate controlled. Septal infarct noted. No territorial ST/T wave changes. Troponin 31.0/32.3. Clinically without chest pain/chest pressure. BNP 353. Echo this visit: EF 65-70%, No regional wall motion abnormalities. Mod pulmonary HTN CTchest: Small left and moderate right layering pleural effusions, atelectasis, vascular congestion, mild central edema. Moderate cardiomegaly with severe coronary calcifications. - Thoracocentesis performed today, pending fluid studies - Likely also with third spacing due to chronic anemia and diminished oncotic pressure - Holding Bumex secondary to slight bump in creatinine - Cardiology Consult Hypoalbuminemia and pulm HTN due to SELENE and obesity Recommended diuresis If causes Cr elevation, may consider ultrafiltration - Added IV lasix 20mg - No IVF at this time as hemodynamically stable and in setting of CHF, encourage good PO intake - Continue Statin - PT evaluated and recommending continuing PT at [facility] when he is discharged, no acute rehab indicated at this time - Encouraging patient to be OOB and ambulatory as able to assist with LE fluid mobilization #Progressive chronic anemia Hemoccult positive stool, no ondina bleeding. Ferritin nearly absent at 6.9, transferrin saturation 6%. Slow downtrend of hemoglobin as outpatient, baseline around 9. S/p 2 U PRBCs Hb 8.0, follow serial H&H. Suspect slow chronic bleed rather than acute bleed - Hbg is 8.1 - Continue Protonix 40mg BID - Once hemoglobin is stable and not requiring blood transfusions recommend 3 daily Venofer infusions with total cumulative dose of 1 g. - GI consulted: given need for AAA repair in the relatively near future and likely need for DAPT following, identification of bleeding source will be important prior to surgical intervention. Awaiting further work up per vascular surgery recommendations prior to AAA repair #A-fib - Holding Eliquis for anemia and positive occult blood - Consider heparin or Lovenox when Hbg is stable - Continue metoprolol #Chronic back pain Oxycodone converted to morphine IV while n.p.o. Gabapentin at bedtime converted to IV while n.p.o. DVT prophylaxis: SCDs, anticoagulation held for anemia/bleeding Diet: Heart healthy CODE STATUS: DNR/DNI Disposition: PCU (3) LETY (acute kidney injury): (4) Hyperkalemia: (5) Anemia: (6) HTN (hypertension): (7) Hyperlipidemia: (8) On anticoagulant therapy: Admission and Anticipated Discharge Date Admission Date: March 31, 2025 Supervising Physician Co-Signing Physician Notes Attending attestation Pt seen and examined in concert with Dr. Gutierrez. In agreement with the documented findings as noted in the resident documentation with any exceptions or additions as noted here. No acute complaint at time of evaluation, lots of concern re: AAA and intervention proposed. On examination, S1/S2 nl RRR no MCG. CTAB. Abd NT/ND BS+ve. VS as noted. Acute hypoxic respiratory failure, multifactorial - O2 wean following thoracentesis HFpEF w/ h/o CAD - cardiology consult - ongoing diuresis, continue statin therapy Bilateral pleural effusions s/p thoracentesis - improved AAA - vascular C/S - pending cardiology evaluation prior to operative timing Else see resident documentation as noted. Subjective Pt lying in bed at time of exam. Pt c/o pain at knees and back as well as SOB at rest. Pt states he has worked with PT in the past. Pt denies CP, N/V/D/C, headache, dizziness Review of Systems Review of Systems: reviewed, per HPI Physical Exam Physical Exam: Gen: No acute distress, mild tachypneic at rest Eyes; anicteric, Respiratory: Mild diffuse wheezing, other baker CTAB Cardio: S1, S2, no murmurs, rubs or clicks. 1+ pitting edema t bilateral feet, ankles and lower legs Abd: soft, nontender, mild distension, no masses Psych: A & O x 3, normal affect Results & Data Results & Data Vital Signs (Past 12 Hours) Vital Signs Temp Pulse Pulse Resp BP Pulse Ox O2 Del Method 04/03/25 07:31 77 04/03/25 03:49 36.3 C L 79 20 101/63 92 Room Air 04/02/25 23:52 36.8 C 84 18 98/64 L 92 Room Air 04/02/25 22:02 81 04/02/25 20:16 Room Air Resident Activity Tracking Resident Involvement: Resident Care Provided Care Provided: Adult Hospital Medicine
--- NOTE | 2025-04-03 09:50 | XRay Report ---
SINGLE VIEW CHEST CLINICAL HISTORY: Status post right-sided thoracentesis FINDINGS: 2 AP, portable, upright chest radiographs are compared to chest x-ray and chest CT dated 03/31/2025. The examination is degraded by portable technique and apical lordotic positioning. The heart is enlarged but noting atherosclerotic calcification of the thoracic aorta. There is pulmonary vascul ar congestion. There are layering pleural effusions with dependent consolidation. The right pleural e ffusion appears decreased in size from previous. No pneumothorax is seen. The skeletal structures are osteopenic. The bony thorax is grossly intact. Arthritic change is seen in the shoulders. IMPRESSION: 1. No pneumothorax is identified post procedure. 2. Cardiomegaly with evidence of congestive failure. 3. Layering pleural effusions with dependant consolidation. ACT 112: Negative or not required by law. Electronically signed by: Graeme Mclaughlin M.D. 04/03/2025 9:48 AM
[2025-04-03 12:15] LABS: Appearance Pleural Fluid Slightly Hazy; Color Pleural Fluid Yellow; RBC Pleural Fluid Auto < 2000 /uL; Source Pleural Fluid Right Lung; WBC Pleural Fluid Auto 311 /uL
--- NOTE | 2025-04-03 12:47 | Consultation ---
Date of Consultation April 03, 2025 Assessment & Plan (1) Abdominal aortic aneurysm (AAA): Pt with large AAA measuring 6.3cm, would recommend repair, however, pt will need a CTA performed to assist with surgical planning. He will require cardiac clearance d/t hx and CHF exacerbation. Recommend continued GI workup to r/o malignancy prior to AAA repair. CTA ordered, further recommendations to follow. History of Present Illness Reason for Consultation: aaa Attending Physician: Jeffrey Cee MD History of Present Illness 79 yo m with hx of PAF on eliquis, HTN, CAD, hypercholesterolemia, CHF, neuropathy, GERD, admitted with GI bleed/anemia, and CHF, seen in consultation today for AAA. Pt states he has been aware of AAA for a few yrs and his exercise science instructor has been checking it, but it has been a long time since it was checked. Pt admits fatigue/malaise, LOYD, orthopnea. Has chronic back/hip pain. Admits BLE edema for many years, worse recently. Denies REY, fever, chest pain, SOB at rest, abd pain, N/V, rest pain, claudication, other complaints. CT abd/pelvis demonstrates infrarenal AAA measuring 6.3cm. Allergies Allergy/AdvReac Type Severity Reaction Status Date / Time latex Allergy Intermediate Rash, Verified 11/15/24 10:36 Burning Sensation phenobarbital AdvReac Intermediate Hyper Verified 11/15/24 10:36 Gold AdvReac Severe Wounds Uncoded 11/15/24 10:36 that became Pre-Cancerous Home Medications Medication Instructions Recorded Confirmed Type acetaminophen 500 mg tablet 1,000 mg PO Q6H PRN Pain/fever 07/07/24 03/31/25 History albuterol sulfate 90 mcg/actuation 2 puff inhalation QID PRN 07/07/24 03/31/25 History aerosol inhaler Shortness Of Breath Or Wheezing apixaban 5 mg tablet (Eliquis) 5 mg PO BID 07/07/24 03/31/25 History atorvastatin 40 mg tablet (Lipitor) 40 mg PO HS 07/07/24 03/31/25 History baclofen 5 mg tablet 10 mg PO TID PRN Muscle Spasms 07/07/24 03/31/25 History montelukast 10 mg tablet 10 mg PO HS 07/07/24 03/31/25 History (Singulair) omeprazole 20 mg capsule,delayed 20 mg PO QAM 07/07/24 03/31/25 History release tramadol 50 mg tablet 50 mg PO TID PRN Pain 07/18/24 03/31/25 History furosemide 40 mg tablet 40 mg PO BID 11/14/24 03/31/25 History cyanocobalamin (vitamin B-12) 500 1,000 mcg (2 x 500 mcg) PO QAM #30 11/17/24 03/31/25 Rx mcg tablet tabs benzonatate 100 mg capsule 100 mg PO Q8H PRN Cough 03/31/25 03/31/25 History bumetanide 2 mg tablet 2 mg PO BID PRN Edema 03/31/25 03/31/25 History diclofenac sodium 1 % topical gel 2 g topical BID PRN Pain 03/31/25 03/31/25 History gabapentin 300 mg capsule 300 mg PO HS 03/31/25 03/31/25 History lisinopril 10 mg tablet 10 mg PO QAM 03/31/25 03/31/25 History metoprolol succinate 25 mg 25 mg PO QAM 03/31/25 03/31/25 History tablet,extended release 24 hr mupirocin 2 % topical ointment 1 applic topical BID 03/31/25 03/31/25 History naloxone 4 mg/actuation nasal spray 1 spray intranasal DIRECTED PRN 03/31/25 03/31/25 History overdose oxycodone 5 mg tablet 5 mg PO Q4H PRN Pain (Scale Score 03/31/25 03/31/25 History 4-6) sennosides 8.6 mg tablet (senna) 8.6 mg PO BID PRN Constipation 03/31/25 03/31/25 History Patient History Medical History Post-nasal drip as per patient - in the morning RBBB Dr Bonilla On anticoagulant therapy Eliquis daily Hyperlipidemia HTN (hypertension) controlled, stable per pt Hip pain Right knee pain Acid reflux controlled, stable per pt Hx of myocardial infarction "silent" - states was told must have occurred during childhood ~12-14 yrs old, per pt Paroxysmal atrial fibrillation dx 1984-- reason for Eliquis, follows w/ [facility] Environmental and seasonal allergies PRN inh use - no longer using daily Allergic rhinitis Surgical History Hx of arthroscopic knee surgery right, x 2 left, x 1 History of cardiac radiofrequency ablation (RFA) ~2009- [facility] Hx of colonoscopy Hx of total hip arthroplasty (2013) left History of shoulder surgery b/l - hx reconstruction of both shoulders Hx of cardiac catheterization (1984) 1984, 08/05/24, and "Early this year - it was all clear" as per patient - no stents Dr Bonilla Social History Smoking Status: Never smoker Tobacco Type: Pipe Cigarettes Per Day: Smokes pipe "doesn't inhale" as per patient; Second Hand Exposure: No; Do You Dip or Chew Tobacco: No; Hx Alcohol Use: No Hx Substance Use: No Preferred Language: Micronesian Communication Ability: Effective Drafter Tool Design Required: No Beliefs That Will Affect Care: None Current Living Situation: Prison Current Living Situation Comment: [facility] Feels Safe at Home: Yes Safety Concerns: Feels Safe At This Time Assistive Devices: Glasses, Walker and Wheelchair Review of Systems Review of Systems: All systems reviewed & are unremarkable except as noted in HPI & below Physical Exam Constitutional: WD/WN, vitals as above cooperative and comfortable; not in distress Neck: trachea midline Respiratory: normal respiratory effort Auscultation: + diminished lung sounds and + crackles Cardiovascular: Rate/Rhythm: regular rate and regular rhythm Vessels: femoral pulses present, posterior tibial pulses present and dorsalis pedis pulses present; + abnormal peripheral pulses Extremities: normal capillary refill and + edema (+4) Gastrointestinal (Abdomen): Inspection/Auscultation: abdomen normal to inspection and normal bowel sounds Percussion/Palpation: abdomen soft; abdomen nontender Musculoskeletal: no cyanosis or clubbing, extremities motor strength 5/5 Skin: BLE venous insufficiency erythema Neurologic: moves all extremities and awake; no focal motor deficits and not confused Psychiatric: A+Ox3, euthymic affect Results & Data Vital Signs (Past 12 Hours) Vital Signs Temp Pulse Pulse Resp BP Pulse Ox Pulse Ox 04/03/25 11:38 88 103/68 96 04/03/25 11:08 80 102/64 94 04/03/25 10:38 81 97/61 L 95 04/03/25 10:36 04/03/25 10:20 36.4 C L 77 20 94/62 L 99 04/03/25 08:06 36.4 C L 86 24 97/58 L 90 04/03/25 08:00 95 04/03/25 07:31 77 04/03/25 03:49 36.3 C L 79 20 101/63 92 O2 Del Method O2 Del Method 04/03/25 11:38 Room Air 04/03/25 11:08 Room Air 04/03/25 10:38 Room Air 04/03/25 10:36 Room Air 04/03/25 10:20 Room Air 04/03/25 08:06 Room Air 04/03/25 08:00 Room Air 04/03/25 07:31 04/03/25 03:49 Room Air
[2025-04-03 12:51] LABS: Lymphocytes, Fluid 85 %; Mono,Macrophage,Mesothelial 12 %; Neutrophils, Fluid 3 %
--- NOTE | 2025-04-03 13:38 | Ultrasound Report ---
ULTRASOUND-GUIDED RIGHT THORACENTESIS CLINICAL HISTORY: Large right pleural effusion PROCEDURE: Procedure and risks were explained. Informed consent was obtained. A final timeout was com pleted. The right posterior thorax was prepped and draped in sterile fashion. 1% lidocaine was utiliz ed for skin anesthesia. Utilizing ultrasound guidance, a 5 [place] safety centesis catheter was advanced into the right pleura l effusion. Ultrasound images were obtained. A total of 1250 mL of yellow pleural fluid was removed a nd sent to the lab. The catheter was removed and Band-Aid applied. The patient tolerated the procedur e well. A chest x-ray will be obtained post procedure. Vital signs will be monitored on the floor. IMPRESSION: Ultrasound-guided right thoracentesis as above. Performed, dictated, and signed by Dayton Chaves PA-C; to be co-signed by Dr. Lucas Jimenez. Electronically signed by: Lucas Jimenez M.D. 04/03/2025 3:19 PM
[2025-04-03] MEDS: OPTIRAY 320 125ml IV ONE (13:48)
--- NOTE | 2025-04-03 15:17 | Cardiology Consultation ---
Date of Consultation April 03, 2025 Assessment & Plan (1) Heart failure with preserved ejection fraction: (2) Fluid overload: (3) CAD (coronary artery disease): (4) Atrial fibrillation: Plan 1. Heart failure with preserved ejection fraction: He has preserved LV systolic function. He did present with an element of pulmonary vascular congestion that seems to have resolved. Lung examination benign today. He has an element of volume overload which is not likely accounted for by his ventricular function. Treatment of his heart failure would involve diuretics and an SGLT2 inhibitor. 2. Anasarca: He has significant edema. Mild hypoalbuminemia. Anemic. Elevated pulmonary pressures. Not likely related to his heart failure with preserved ejection fraction. He likely has occult sleep apnea and obesity hypoventilation syndrome. He has elevated pulmonary pressures and likely has mostly right-sided ventricular failure and anasarca due to his hypoalbuminemia. Evaluation for sleep apnea and maintaining good oxygenation and nighttime are paramount. Otherwise, he will require some diuresis. Has been reports of declining renal function with diuresis. In that setting improving his albumin may help and considering more aggressive measures such as ultrafiltration may be warranted. 3. Atrial fibrillation. Appears permanent. No overt symptoms. Adequate rate control. Previously on anticoagulation. Currently being held due to his presumed blood loss and anemia. Eliquis can be reinitiated when concerns about bleeding have been addressed. Continue metoprolol. 4. Coronary artery disease: Nonobstructive. No current symptoms suggestive of coronary insufficiency or angina. Preserved LV systolic function. He can continue secondary prevention with high-dose atorvastatin. From perioperative standpoint, I do not believe he requires any additional car diac testing. He has Preserved LV systolic function and a recent angiogram that did not demonstrate obstructive coronary disease. No severe valvular heart disease. While he does have significant edema, I do not believe this currently is decompensated heart failure. He would likely benefit from diuresis, but from a cardiac standpoint I do not think he requires any intervention or alteration in medical therapy leading up to his potential surgery or endoscopy. History of Present Illness Reason for Consultation: Anasarca, preoperative evaluation Requesting Physician: Coleman Attending Physician: Jeffrey Cee MD History of Present Illness Patient is a 79-year-old gentleman with a cardiac history to include nonobstructive coronary disease, atrial flutter status post ablation, persistent atrial fibrillation and frequent PVCs who was admitted to the hospital with shortness of breath and volume overload. Patient's history starts nearly 1 year ago when he began to have difficulty with ambulation. This is primarily due to some orthopedic issues and pain. He was eventually found to have a back issue preventing ambulation and in October 2024 he did undergo back surgery for relief. Subsequently he was [facility] and eventually to an assisted living facility. During this time the patient continued to have difficulty with ambulation. He spends a good portion of his day in bed or in a wheelchair. He began to notice a progressive weight gain as well. According to the patient he has gained at least 30 pounds over the past few months. He has noticed a significant increase in edema as well. Currently difficult to walk due to extreme edema in the lower extremities. He has been sleeping in a recliner for ease of movement. He has not had symptoms of chest pain or chest pressure. He generally is not aware of any palpitations. Has not had dizziness or lightheadedness but has been very sedentary. It seems that diuretics were used on an outpatient basis with some decline in renal function and then discontinued. Of note, during this hospitalization the patient was also found to have an iron deficiency anemia and a 6.2 cm abdominal aortic aneurysm. Currently undergoing evaluation for endoscopy and possible surgical repair of his abdominal aortic aneurysm. Allergies Allergy/AdvReac Type Severity Reaction Status Date / Time latex Allergy Intermediate Rash, Verified 11/15/24 10:36 Burning Sensation phenobarbital AdvReac Intermediate Hyper Verified 11/15/24 10:36 Gold AdvReac Severe Wounds Uncoded 11/15/24 10:36 that became Pre-Cancerous Home Medications Medication Instructions Recorded Confirmed Type acetaminophen 500 mg tablet 1,000 mg PO Q6H PRN Pain/fever 07/07/24 03/31/25 History albuterol sulfate 90 mcg/actuation 2 puff inhalation QID PRN 07/07/24 03/31/25 History aerosol inhaler Shortness Of Breath Or Wheezing apixaban 5 mg tablet (Eliquis) 5 mg PO BID 07/07/24 03/31/25 History atorvastatin 40 mg tablet (Lipitor) 40 mg PO HS 07/07/24 03/31/25 History baclofen 5 mg tablet 10 mg PO TID PRN Muscle Spasms 07/07/24 03/31/25 History montelukast 10 mg tablet 10 mg PO HS 07/07/24 03/31/25 History (Singulair) omeprazole 20 mg capsule,delayed 20 mg PO QAM 07/07/24 03/31/25 History release tramadol 50 mg tablet 50 mg PO TID PRN Pain 07/18/24 03/31/25 History furosemide 40 mg tablet 40 mg PO BID 11/14/24 03/31/25 History cyanocobalamin (vitamin B-12) 500 1,000 mcg (2 x 500 mcg) PO QAM #30 11/17/24 03/31/25 Rx mcg tablet tabs benzonatate 100 mg capsule 100 mg PO Q8H PRN Cough 03/31/25 03/31/25 History bumetanide 2 mg tablet 2 mg PO BID PRN Edema 03/31/25 03/31/25 History diclofenac sodium 1 % topical gel 2 g topical BID PRN Pain 03/31/25 03/31/25 History gabapentin 300 mg capsule 300 mg PO HS 03/31/25 03/31/25 History lisinopril 10 mg tablet 10 mg PO QAM 03/31/25 03/31/25 History metoprolol succinate 25 mg 25 mg PO QAM 03/31/25 03/31/25 History tablet,extended release 24 hr mupirocin 2 % topical ointment 1 applic topical BID 03/31/25 03/31/25 History naloxone 4 mg/actuation nasal spray 1 spray intranasal DIRECTED PRN 03/31/25 03/31/25 History overdose oxycodone 5 mg tablet 5 mg PO Q4H PRN Pain (Scale Score 03/31/25 03/31/25 History 4-6) sennosides 8.6 mg tablet (senna) 8.6 mg PO BID PRN Constipation 03/31/25 03/31/25 History Patient History Medical History Post-nasal drip as per patient - in the morning RBBB Dr Bonilla On anticoagulant therapy Eliquis daily Hyperlipidemia HTN (hypertension) controlled, stable per pt Hip pain Right knee pain Acid reflux controlled, stable per pt Hx of myocardial infarction "silent" - states was told must have occurred during childhood ~12-14 yrs old, per pt Paroxysmal atrial fibrillation dx 1984-- reason for Eliquis, follows w/ Dr Bonilla, [facility] Environmental and seasonal allergies PRN inh use - no longer using daily Allergic rhinitis Surgical History Hx of arthroscopic knee surgery right, x 2 left, x 1 History of cardiac radiofrequency ablation (RFA) ~2009- [facility] Hx of colonoscopy Hx of total hip arthroplasty (2013) left History of shoulder surgery b/l - hx reconstruction of both shoulders Hx of cardiac catheterization (1984) 1984, 08/05/24, and "Early this year - it was all clear" as per patient - no stents Dr Bonilla Social History Smoking Status: Never smoker Tobacco Type: Pipe Cigarettes Per Day: Smokes pipe "doesn't inhale" as per patient; Second Hand Exposure: No; Do You Dip or Chew Tobacco: No; Hx Alcohol Use: No Hx Substance Use: No Preferred Language: Vietnamese Communication Ability: Effective Skirt Trimmer Required: No Beliefs That Will Affect Care: None Current Living Situation: Assisted Current Living Situation Comment: [facility] Feels Safe at Home: Yes Safety Concerns: Feels Safe At This Time Assistive Devices: Glasses, Walker and Wheelchair Review of Systems Review of Systems: Per HPI. Physical Exam Physical Exam: The patient is alert and oriented. Mood and affect appeared normal. He answered all questions appropriately. Obese. HEENT: Pupils are equal and reactive to light and accommodation. Extraocular movements are intact. The sclerae are anicteric. Neuro: Cranial nerves intact Lungs: Clear to auscultation bilaterally. He has good air movement without use of accessory muscles. No rales wheezes or rhonchi. Cardiac: Heart demonstrates an irregular rhythm with normal rate. Normal S1 and S2. No murmurs on examination. Pulses: The patient has palpable radial pulses bilaterally that are equal in intensity Extremities: There was no evidence of hypoperfusion. There is no cyanosis or clubbing. Severe lower extremity edema with pitting edema into the back and flanks. Some edema in the dependent portions of the arms. Skin: I did not appreciate any rashes on examination today. Results & Data Vital Signs (Past 12 Hours) Vital Signs Temp Pulse Pulse Resp BP Pulse Ox Pulse Ox 04/03/25 14:36 79 04/03/25 11:38 88 103/68 96 04/03/25 11:08 80 102/64 94 04/03/25 10:38 81 97/61 L 95 04/03/25 10:36 04/03/25 10:20 36.4 C L 77 20 94/62 L 99 04/03/25 08:06 36.4 C L 86 24 97/58 L 90 04/03/25 08:00 95 04/03/25 07:31 77 04/03/25 03:49 36.3 C L 79 20 101/63 92 O2 Del Method O2 Del Method 04/03/25 14:36 04/03/25 11:38 Room Air 04/03/25 11:08 Room Air 04/03/25 10:38 Room Air 04/03/25 10:36 Room Air 04/03/25 10:20 Room Air 04/03/25 08:06 Room Air 04/03/25 08:00 Room Air 04/03/25 07:31 04/03/25 03:49 Room Air Laboratory Results Abnormal Lab Results 04/03/25 04/03/25 04/03/25 05:46 10:00 Unknown WBC 5.66 RBC 3.60 L Hgb 8.1 L Hct 28.0 L MCV 77.8 L MCH 22.5 L MCHC 28.9 L RDW Std Deviation 62.8 H RDW Coeff of Charly 22.5 H Plt Count 165 MPV 9.4 Immature Gran % (Auto) 0.4 Neut % (Auto) 58.0 Lymph % (Auto) 21.6 [place] % (Auto) 13.6 Eos % (Auto) 5.5 Baso % (Auto) 0.9 Neut # (Auto) 3.29 Lymph # (Auto) 1.22 [place] # (Auto) 0.77 H Eos # (Auto) 0.31 Baso # (Auto) 0.05 Immature Gran # (Auto) 0.02 Polychromasia 1+ Hypochromasia Present Anisocytosis Present Tear Drop Cells 1+ Sodium 142 Potassium 4.3 Chloride 107 Carbon Dioxide 29 Anion Gap 6 BUN 36 H Creatinine 1.76 H Est Cr Clr Drug Dosing 48.8 eGFR 38.85 BUN/Creatinine Ratio 20.5 H Glucose 90 Calcium 10.2 Lactate Dehydrogenase 133 Fluid Neutrophils % 3 Fluid Lymphocytes % 85 Fluid Meso/Macro/[place] % 12 Fluid Comment Peritoneal Triglycerid Cancelled Pleural Fluid Source Right Lung Pleural Color Yellow Pleural Appearance Slightly Hazy Pleural WBC (Auto) 311 Pleural RBC (Auto) < 2000 Pleural Total Protein < 3.0 Pleural LDH 37 Pleural Glucose 107 Pleural Amylase 24 Diagnostic Findings Cardiac catheterization 08/05/2024: Nonobstructive disease involving all coronary arteries. RCA 50%, LCx 40%, proximal LAD 40%, mid LAD 20% Ablation of atrial flutter 2016 Cardioversion of atrial fibrillation 2022 Echocardiogram 04/01/2025: Normal LV size and function. Ejection fraction 65 to 70%. Mild LVH. No significant valvular heart disease. Elevated pulmonary pressures estimated 5055 mmHg. PG Care Time/CCT Total # of Minutes Spent Total Time Spent with Patient: Total time spent is greater than 50% in coordination of care (as documented) at patient's floor/unit and/or counseling patient: Coding Level of Care Code 53893 INT INP/OBS CARE 3/75MIN Diagnoses Heart failure with preserved ejection fraction I50.30 Fluid overload E87.79 Hypervolemia type: other CAD (coronary artery disease) I25.10 Atrial fibrillation I48.91 (2) Fluid overload Hypervolemia type: other Qualified Code(s): E87.79 - Other fluid overload
--- NOTE | 2025-04-03 16:52 | CT Scan Report ---
CT OF THE ABDOMEN AND PELVIS WITHOUT CONTRAST AND CT ANGIOGRAPHY OF THE ABDOMEN CLINICAL HISTORY: Abdominal aortic aneurysm. COMPARISON STUDY: CT of the abdomen and pelvis March 31, 2025. TECHNIQUE: Unenhanced and arterial phase imaging of the abdomen and pelvis was performed. Intravenous injection of 120 cc of Optiray 320 IV was uneventful. Sagittal and coronal reformats were viewed as well as maximal intensity projections on an independent 3-D workstation. A dose lowering technique wa s utilized adhering to the principles of ALARA. FINDINGS: Bilateral pleural effusions are partially imaged. There is no pneumatosis, free air or port al venous gas. Anasarca is again noted. There is a small amount of abdominal and pelvic ascites. The liver is cirrhotic. No hepatic lesions are identified on arterial phase exam. There are small layerin g gallstones within the gallbladder without evidence for acute cholecystitis. Small abdominal collate rals are present. Spleen, adrenal glands and pancreas are unremarkable. A 1.5 cm left renal lesion re presents a proteinaceous cyst. Several right renal lesions likely represent cysts as well. There is n o evidence for a bowel obstruction. There is a moderate amount of stool within the colon and rectum. Images of the pelvis are degraded by streak artifact from left hip arthroplasty. Postoperative findin gs within the spine are present. Infrarenal abdominal aortic aneurysm measures 7 x 5 cm. This contain s extensive plaque. Aneurysmal dilatation begins 4.7 cm inferior to the renal arteries. There is no e vidence for rupture. A short segment dissection within the left common iliac artery is present. Aneur ysmal dilatation of the left common iliac artery, measuring 2.5 cm is noted. The celiac axis, superio r mesenteric artery, renal arteries and inferior mesenteric artery are patent. IMPRESSION: 1. 7 cm x 5 cm infrarenal abdominal aortic aneurysm. No evidence for rupture. 2. 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 Short segment dissection within the left common iliac ar elen. 3. Extensive aortoiliac atherosclerotic plaque, as described above. 4. Cirrhotic liver. Anasarca with a small amount of ascites. Bilateral pleural effusions, partially i pasquale on this exam. ACT 112: Negative or not required by law. Electronically signed by: Lucas Jimenez M.D. 04/03/2025 4:50 PM
[2025-04-03] MEDS: FUROSEMIDE INJ 20 MG/2 ML VIAL IV ONE (19:27)
[2025-04-03] MEDS: HYDROmorphone INJ 1 MG/ML SYRINGE IV PRN (21:07)
[2025-04-04 05:44] LABS: Hematocrit (blood only) 27.8 % (42.0-52.0); Hemoglobin 8.1 g/dl (14.0-18.0); Mean Corpuscular Hemoglobin 22.6 pg (25.0-34.0); Mean Corpuscular Volume 77.4 fL (80.0-100.0); Platelet Count 160 K/uL (130-400); RDW Standard Deviation 62.6 fL (36.4-46.3); Red Blood Count 3.59 M/uL (4.70-6.10); White Blood Count 6.28 K/ul (4.8-10.8)
[2025-04-04 06:01] LABS: Alanine Aminotransferase 3.0 U/L (7-52); Albumin Globulin Ratio 1.2 (0.9-2); Alkaline Phosphatase 183.0 U/L (34-104); Anion Gap 5.0 (3-11); Bilirubin,Total 1.2 mg/dl (0.2-1.0); Blood Urea Nitrogen 31.0 mg/dl (6-23); Calcium 10.2 mg/dl (8.6-10.3); Carbon Dioxide 28.0 mmol/L (21-32); Chloride 107.0 mmol/L (98-107); Creatinine Clr Calc Pharmacy 49.6 ml/min; Globulin 2.8 gm/dl (2.5-4.0); Glucose 91.0 mg/dl (70-99(Fasting)); Potassium 4.4 mmol/L (3.5-5.1); Sodium 140.0 mmol/L (136-145); Total Protein 6.1 gm/dl (6.0-8.3)
--- NOTE | 2025-04-04 07:37 | Hospitalist Progress Note ---
Date of Service April 04, 2025 Assessment & Plan (1) Acute heart failure: (2) CAD (coronary artery disease): Plan: Geoff is a 79-year-old male who presents with progressive dyspnea and volume overload slowly progressive for the last 5 months. He has diffuse lower extremity edema and bilateral effusions on evaluation. He denies chest pain at any point, has a history of moderate coronary disease without stenting, and has a minimal troponin elevation stable on recheck without signs of ACS. He also has progressive chronic anemia with melena for many months and is severely iron deficient on admission. Required transfusion on admission. he does not show si gns of acute large-volume bleeding and is not tachycardic. CTA/P also reveals a 6.3 infrarenal aneurysm which will require short interval follow-up and repair, asymptomatic with this. Unknown change of the previous months no studies for comparison #Dyspnea Primarily resolved after thoracocentesis and IV lasix. Pt no longer requiring supplemental oxygen to maintain O2 sat >90% - Will continue to monitor #Abdominal aortic aneurysm 6.3 infrarenal abdominal aortic aneurysm noted on CT with no prior abdominal CT available for comparison Vascular consulted and recommended recommend repair, CTA completed 04/03 Cardiac consult for clearance d/t hx and CHF exacerbation- completed Recommend continued GI workup to r/o malignancy prior to AAA repair.- pending #Acute CHF, history of moderate nonobstructive CAD Admitting EKG: A-fib rate controlled. Septal infarct noted. No territorial ST/T wave changes. Troponin 31.0/32.3. Clinically without chest pain/chest pressure. BNP 353. Echo this visit: EF 65-70%, No regional wall motion abnormalities. Mod pulmonary HTN CTchest: Small left and moderate right layering pleural effusions, atelectasis, vascular congestion, mild central edema. Moderate cardiomegaly with severe coronary calcifications. - Thoracocentesis performed 04/03, pending fluid studies - Likely also with third spacing due to chronic anemia and diminished oncotic pressure - Cardiology Consult Hypoalbuminemia and pulm HTN due to SELENE and obesity Recommended diuresis If causes Cr elevation, may consider ultrafiltration - s/p IV lasix 20mg on 04/03 - No IVF at this time as hemodynamically stable and in setting of CHF, encourage good PO intake - Continue Statin - PT evaluated and recommending continuing PT at [facility] when he is discharged, no acute rehab indicated at this time - Encouraging patient to be OOB and ambulatory as able to assist with LE fluid mobilization #Progressive chronic anemia Hemoccult positive stool, no ondina bleeding. Ferritin nearly absent at 6.9, transferrin saturation 6%. Slow downtrend of hemoglobin as outpatient, baseline around 9. S/p 2 U PRBCs Hb 8.0, follow serial H&H. Suspect slow chronic bleed rather than acute bleed - Hbg is 8.1 - Continue Protonix 40mg BID - Once hemoglobin is stable and not requiring blood transfusions recommend 3 daily Venofer infusions with total cumulative dose of 1 g. - GI consulted: given need for AAA repair in the relatively near future and likely need for DAPT following, identification of bleeding source will be important prior to surgical intervention. Awaiting further work up per vascular surgery recommendations prior to AAA repair #A-fib - Holding Eliquis for anemia and positive occult blood - Consider heparin or Lovenox when Hbg is stable - Continue metoprolol #Chronic back pain Oxycodone converted to morphine IV while n.p.o. Gabapentin at bedtime converted to IV while n.p.o. DVT prophylaxis: SCDs, anticoagulation held for anemia/bleeding Diet: Heart healthy CODE STATUS: DNR/DNI Disposition: PCU (3) LETY (acute kidney injury): (4) Hyperkalemia: (5) Anemia: (6) HTN (hypertension): (7) Hyperlipidemia: (8) On anticoagulant therapy: Admission and Anticipated Discharge Date Admission Date: March 31, 2025 Supervising Physician Co-Signing Physician Notes Attending attestation Pt seen and examined in concert with Dr. Gutierrez. In agreement with the documented findings as noted in the resident documentation with any exceptions or additions as noted here. No acute complaint at time of evaluation. On examination, S1/S2 nl RRR no MCG. CTAB. Abd NT/ND BS+ve. VS as noted. Acute hypoxic respiratory failure, multifactorial - O2 wean following thoracentesis HFpEF w/ h/o CAD - cardiology consult - ongoing diuresis, continue statin therapy Bilateral pleural effusions s/p thoracentesis - improved AAA - vascular C/S - cardiology recommendations as noted without impediment to intervention. GI recommendations in process. Else see resident documentation as noted. Subjective Pt reporting improved breathing this morning. He slept better last night. Would like to get out of bed this morning, if possible. Pt denies CP, N/V/D/C, headache, dizziness Review of Systems Review of Systems: reviewed, per HPI Physical Exam Physical Exam: Gen: No acute distress Eyes; anicteric, Respiratory: CTAB, equal breath sounds, no increased work of breathing Cardio: S1, S2, no murmurs, rubs or clicks. 1+ pitting edema t bilateral feet, ankles and lower legs Abd: soft, nontender, mild distension, no masses Psych: A & O x 3, normal affect Results & Data Results & Data Vital Signs (Past 12 Hours) Vital Signs Temp Pulse Pulse Resp BP Pulse Ox O2 Del Method 04/04/25 03:18 36.6 C 89 20 100/65 91 Room Air 04/03/25 22:53 36.8 C 82 18 111/66 92 Room Air 04/03/25 21:48 87 04/03/25 21:19 Room Air 04/03/25 19:39 36.6 C 87 18 110/72 94 Room Air Resident Activity Tracking Resident Involvement: Resident Care Provided Care Provided: Adult Hospital Medicine
--- NOTE | 2025-04-04 10:24 | Cardiology Progress Note ---
Date of Service April 04, 2025 Assessment & Plan (1) Heart failure with preserved ejection fraction: (2) Fluid overload: (3) CAD (coronary artery disease): (4) Atrial fibrillation: Plan 1. Heart failure with preserved ejection fraction: He has preserved LV systolic function w/ EF of 65-70%. He did present with an element of pulmonary vascular congestion that seems to have resolved. Lung examination benign today. He has an element of volume overload which is not likely accounted for by his ventricular function. Treatment of his heart failure would involve diuretics and an SGLT2 inhibitor. 2. Anasarca: He has significant edema. Mild hypoalbuminemia. Anemic. [place] tatyana pulmonary pressures. Not likely related to his heart failure with preserved ejection fraction. He likely has occult sleep apnea and obesity hypoventilation syndrome. He has elevated pulmonary pressures and likely has mostly right-sided ventricular failure and anasarca due to his hypoalbuminemia. Evaluation for sleep apnea and maintaining good oxygenation and nighttime are paramount. Other baker, he will require some diuresis. Has been reports of declining renal function with diuresis. In that setting improving his albumin may help and considering more aggressive measures such as ultrafiltration may be warranted. Of note, cirrhotic liver was noted on CT angio abd/pelvis from yesterday. This could certainly play a componete. 3. Atrial fibrillation. Appears permanent. No overt symptoms. Adequate rate control. Previously on anticoagulation. Currently being held due to his presumed blood loss and anemia. Eliquis can be reinitiated when concerns about bleeding have been addressed. Continue metoprolol. 4. Coronary artery disease; nonobstructive. No current symptoms suggestive of coronary insufficiency or angina. Preserved LV systolic function. He can continue secondary prevention with high-dose atorvastatin. 5. Moderate pulmonary HTN: Noted on previous echo from 11/23/24 though more clearly demonstrated now w/ est PASP 50-15mmHG From perioperative standpoint, I do not believe he requires any additional cardiac testing. He has Preserved LV systolic function and a recent angiogram that did not demonstrate obstructive coronary disease. No severe valvular heart disease. While he does have significant edema, I do not believe this currently is decompensated heart failure. He would likely benefit from diuresis, but from a cardiac standpoint I do not think he requires any intervention or alteration in medical therapy leading up to his potential surgery or endoscopy. Admission and Anticipated Discharge Date Admission Date: March 31, 2025 Subjective Patient seen and evaluated at bedside this morning. Chart reviewed. Overall, maria teresa puente reports that he feels, "much better," when compared to yesterday. He was able to ambulate with staff with walker without any significant symptoms from a cardiac standpoint. Review of Systems Review of Systems: All systems reviewed & are unremarkable except as noted in HPI & below Constitutional: as per Subjective / HPI Respiratory: as per Subjective / HPI Cardiovascular: as per Subjective / HPI Gastrointestinal: as per Subjective / HPI Results & Data Vital Signs (Past 12 Hours) Vital Signs Temp Pulse Pulse Resp BP Pulse Ox O2 Del Method 04/04/25 09:00 75 04/04/25 09:00 Room Air 04/04/25 07:42 36.8 C 86 19 103/67 92 Room Air 04/04/25 03:18 36.6 C 89 20 100/65 91 Room Air 04/03/25 22:53 36.8 C 82 18 111/66 92 Room Air PG Care Time/CCT Total # of Minutes Spent Total Time Spent with Patient: Total time spent is greater than 50% in coordination of care (as documented) at patient's floor/unit and/or counseling patient: Coding Level of Care Code 44682 SUB INP/OBS CARE 2/35MIN Diagnoses Heart failure with preserved ejection fraction I50.30 Fluid overload E87.79 Hypervolemia type: other CAD (coronary artery disease) I25.10 Atrial fibrillation I48.91 (2) Fluid overload Hypervolemia type: other Qualified Code(s): E87.79 - Other fluid overload
--- NOTE | 2025-04-04 12:26 | Communication Note ---
Date of Service: April 04, 2025 Patient is a 79 yo male with anemia. GI is planning to perform EGD/colonoscopy when patient's CHF exacerbation has been fully optimized. Did request that poonam rahman notify us when he is medically stable to move forward with EGD/colonoscopy. No current overt GI bleeding at this time. H/H now 8.1/27.8.
[2025-04-04 12:59] LABS: Hematocrit (blood only) 32.4 % (42.0-52.0); Hemoglobin 9.4 g/dl (14.0-18.0); Immature Granulocytes # (auto) 0.03 K/uL (0.01-0.20); Immature Granulocytes % (auto) 0.4 %; Mean Corpuscular Hemoglobin 22.8 pg (25.0-34.0); Mean Corpuscular Volume 78.5 fL (80.0-100.0); Platelet Count 178 K/uL (130-400); RDW Standard Deviation 63.2 fL (36.4-46.3); Red Blood Count 4.13 M/uL (4.70-6.10); White Blood Count 7.89 K/ul (4.8-10.8)
[2025-04-04 13:15] LABS: Anion Gap 5.0 (3-11); Blood Urea Nitrogen 33.0 mg/dl (6-23); Calcium 10.5 mg/dl (8.6-10.3); Carbon Dioxide 30.0 mmol/L (21-32); Chloride 106.0 mmol/L (98-107); Creatinine Clr Calc Pharmacy 48.5 ml/min; Magnesium 1.9 mg/dl (1.7-2.4); Potassium 4.7 mmol/L (3.5-5.1); Sodium 141.0 mmol/L (136-145)
[2025-04-04 13:28] LABS: Hypochromasia Present; Polychromasia 1+; Tear Drop Cells 1+
[2025-04-05 05:50] LABS: Hematocrit (blood only) 29.2 % (42.0-52.0); Hemoglobin 8.3 g/dl (14.0-18.0); Mean Corpuscular Hemoglobin 22.7 pg (25.0-34.0); Mean Corpuscular Volume 79.8 fL (80.0-100.0); Platelet Count 145 K/uL (130-400); RDW Standard Deviation 65.5 fL (36.4-46.3); Red Blood Count 3.66 M/uL (4.70-6.10); White Blood Count 7.51 K/ul (4.8-10.8)
[2025-04-05 06:07] LABS: Alanine Aminotransferase 4.0 U/L (7-52); Albumin Globulin Ratio 1.1 (0.9-2); Alkaline Phosphatase 193.0 U/L (34-104); Anion Gap 5.0 (3-11); Bilirubin,Total 1.5 mg/dl (0.2-1.0); Blood Urea Nitrogen 31.0 mg/dl (6-23); Calcium 10.2 mg/dl (8.6-10.3); Carbon Dioxide 30.0 mmol/L (21-32); Chloride 106.0 mmol/L (98-107); Creatinine Clr Calc Pharmacy 47.5 ml/min; Globulin 3.2 gm/dl (2.5-4.0); Glucose 102.0 mg/dl (70-99(Fasting)); Potassium 4.8 mmol/L (3.5-5.1); Sodium 141.0 mmol/L (136-145); Total Protein 6.6 gm/dl (6.0-8.3)
--- NOTE | 2025-04-05 07:35 | Hospitalist Progress Note ---
Date of Service April 05, 2025 Assessment & Plan (1) Acute heart failure: (2) CAD (coronary artery disease): Plan: Geoff is a 79-year-old male who presents with progressive dyspnea and volume overload slowly progressive for the last 5 months. He has diffuse lower extremity edema and bilateral effusions on evaluation. He denies chest pain at any point, has a history of moderate coronary disease without stenting, and has a minimal troponin elevation stable on recheck without signs of ACS. He also has progressive chronic anemia with melena for many months and is severely iron deficient on admission. Required transfusion on admission. he does not show si gns of acute large-volume bleeding and is not tachycardic. CTA/P also reveals a 6.3 infrarenal aneurysm which will require short interval follow-up and repair, asymptomatic with this. Unknown change of the previous months no studies for comparison #Dyspnea Primarily resolved after thoracocentesis and IV lasix. Pt no longer requiring supplemental oxygen to maintain O2 sat >90% - Will continue to monitor #Abdominal aortic aneurysm 6.3 infrarenal abdominal aortic aneurysm noted on CT with no prior abdominal CT available for comparison Vascular consulted and recommended recommend repair, CTA completed 04/03 Cardiac consult for clearance d/t hx and CHF exacerbation- completed Recommend continued GI workup to r/o malignancy prior to AAA repair.- pending #Acute CHF, history of moderate nonobstructive CAD Admitting EKG: A-fib rate controlled. Septal infarct noted. No territorial ST/T wave changes. Troponin 31.0/32.3. Clinically without chest pain/chest pressure. BNP 353. Echo this visit: EF 65-70%, No regional wall motion abnormalities. Mod pulmonary HTN CTchest: Small left and moderate right layering pleural effusions, atelectasis, vascular congestion, mild central edema. Moderate cardiomegaly with severe coronary calcifications. - Thoracocentesis performed 04/03, pending fluid studies - Likely also with third spacing due to chronic anemia and diminished oncotic pressure - Cardiology Consult Hypoalbuminemia and pulm HTN due to SELENE and obesity Recommended diuresis If causes Cr elevation, may consider ultrafiltration - s/p IV lasix 20mg on 04/03 - No IVF at this time as hemodynamically stable and in setting of CHF, encourage good PO intake - Continue Statin - PT evaluated and recommending continuing PT at [facility] when he is discharged, no acute rehab indicated at this time - Encouraging patient to be OOB and ambulatory as able to assist with LE fluid mobilization #Progressive chronic anemia Hemoccult positive stool, no ondina bleeding. Ferritin nearly absent at 6.9, transferrin saturation 6%. Slow downtrend of hemoglobin as outpatient, baseline around 9. S/p 2 U PRBCs Hb 8.0, follow serial H&H. Suspect slow chronic bleed rather than acute bleed - Hbg is 8.1 - Continue Protonix 40mg BID - Once hemoglobin is stable and not requiring blood transfusions recommend 3 daily Venofer infusions with total cumulative dose of 1 g. - GI consulted: given need for AAA repair in the relatively near future and likely need for DAPT following, identification of bleeding source will be important prior to surgical intervention. Awaiting further work up per vascular surgery recommendations prior to AAA repair #A-fib - Holding Eliquis for anemia and positive occult blood - Consider heparin or Lovenox when Hbg is stable - Continue metoprolol #Chronic back pain Oxycodone converted to morphine IV while n.p.o. Gabapentin at bedtime converted to IV while n.p.o. DVT prophylaxis: SCDs, anticoagulation held for anemia/bleeding Diet: Heart healthy CODE STATUS: DNR/DNI Disposition: PCU (3) LETY (acute kidney injury): (4) Hyperkalemia: (5) Anemia: (6) HTN (hypertension): (7) Hyperlipidemia: (8) On anticoagulant therapy: Admission and Anticipated Discharge Date Admission Date: March 31, 2025 Subjective Pt reporting improved breathing this morning. He slept better last night. Would like to get out of bed this morning, if possible. Pt denies CP, N/V/D/C, headache, dizziness Review of Systems Review of Systems: reviewed, per HPI Physical Exam Physical Exam: Gen: No acute distress Eyes; anicteric, Respiratory: CTAB, equal breath sounds, no increased work of breathing Cardio: S1, S2, no murmurs, rubs or clicks. 1+ pitting edema t bilateral feet, ankles and lower legs Abd: soft, nontender, mild distension, no masses Psych: A & O x 3, normal affect Results & Data Results & Data Vital Signs (Past 12 Hours) Vital Signs Temp Pulse Resp BP Pulse Ox O2 Del Method 04/05/25 03:12 36.3 C L 81 18 100/68 95 Room Air 04/04/25 23:04 36.4 C L 84 18 102/67 93 Room Air 04/04/25 21:10 Room Air 04/04/25 20:49 37.2 C 87 18 107/73 92 Room Air
--- NOTE | 2025-04-05 09:19 | Gastroenterology Progress Note ---
Date of Service April 05, 2025 Assessment & Plan (1) Iron deficiency anemia: Plan: -Clear liquid diet today -NPO after midnight -Bowel preparation ordered -EGD and colonoscopy tomorrow for further evaluation of anemia -Continue to monitor H/H and monitor for overt GI blood loss Admission and Anticipated Discharge Date Admission Date: March 31, 2025 Supervising Physician Co-Signing Physician Notes I saw and examined this patient with our nurse practitioner and agree with her assessment and plan. Resting comfortably today less shortness of breath. Medically cleared for endoscopy and colonoscopy tomorrow to assess iron deficiency anemia. Subjective Patient with ALYSSA and CHF exacerbation. Breathing seems greatly improved. He is on a clear liquid diet. No GI bleeding. Stable H/H at 8.3/29.2. Review of Systems Gastrointestinal: no abdominal pain, no change in bowel habits, no blood in stools and no melena Physical Exam Gastrointestinal (Abdomen): normal bowel sounds, soft, nontender, no hepatosplenomegaly Results & Data Results & Data Vital Signs (Past 12 Hours) Vital Signs Temp Pulse Resp BP BP Pulse Ox O2 Del Method 04/05/25 07:45 36.4 C L 65 17 115/77 95 Room Air 04/05/25 03:12 36.3 C L 81 18 100/68 95 Room Air 04/04/25 23:04 36.4 C L 84 18 102/67 93 Room Air PG Care Time/CCT Total # of Minutes Spent Total Time Spent with Patient: Total time spent is greater than 50% in coordination of care (as documented) at patient's floor/unit and/or counseling patient: Coding Level of Care Code 47064 SUB INP/OBS CARE 2/35MIN Diagnoses Iron deficiency anemia D50.9
--- NOTE | 2025-04-05 12:38 | Hospitalist Progress Note ---
Date of Service April 05, 2025 Assessment & Plan (1) Acute heart failure: (2) CAD (coronary artery disease): Plan: Geoff is a 79-year-old male who presents with progressive dyspnea and volume overload slowly progressive for the last 5 months. He has diffuse lower extremity edema and bilateral effusions on evaluation. He denies chest pain at any point, has a history of moderate coronary disease without stenting, and has a minimal troponin elevation stable on recheck without signs of ACS. He also has progressive chronic anemia with melena for many months and is severely iron deficient on admission. Required transfusion on admission. he does not show si gns of acute large-volume bleeding and is not tachycardic. CTA/P also reveals a 6.3 infrarenal aneurysm which will require short interval follow-up and repair, asymptomatic with this. Unknown change of the previous months no studies for comparison #Dyspnea Primarily resolved after thoracocentesis and IV lasix. Pt no longer requiring supplemental oxygen to maintain O2 sat >90% - Will continue to monitor #Abdominal aortic aneurysm 6.3 cm infrarenal abdominal aortic aneurysm noted on CT with no prior abdominal CT available for comparison Vascular consulted and recommended recommend repair, CTA completed 04/03 Cardiac consult for clearance d/t hx and CHF exacerbation- completed Recommend continued GI workup to r/o malignancy prior to AAA repair- see below > GI to complete EGD and colonoscopy tomorrow(04/06), will continue to monitor H&H and overt GI blood loss. #Acute CHF, history of moderate nonobstructive CAD Admitting EKG: A-fib rate controlled. Septal infarct noted. No territorial ST/T wave changes. Troponin 31.0/32.3. Clinically without chest pain/chest pressure. BNP 353. Echo this visit: EF 65-70%, No regional wall motion abnormalities. Mod pulmonary HTN CTchest: Small left and moderate right layering pleural effusions, atelectasis, vascular congestion, mild central edema. Moderate cardiomegaly with severe coronary calcifications. - Thoracocentesis performed 04/03, pending fluid studies - Likely also with third spacing due to chronic anemia and diminished oncotic pressure - Cardiology Consult Hypoalbuminemia and pulm HTN due to SELENE and obesity Recommended diuresis - s/p IV lasix 20mg on 04/03 If causes Cr elevation, may consider ultrafiltration - No IVF at this time as hemodynamically stable and in setting of CHF, encourage good PO intake - Continue Statin - PT evaluated and recommending continuing PT at [facility] when he is discharged, no acute rehab indicated at this time - Encouraging patient to perform ankle pumps in bed for muscle pump to reduce pedal edema #Progressive chronic anemia Hemoccult positive stool, no ondina bleeding. Ferritin nearly absent at 6.9, transferrin saturation 6%. Slow downtrend of hemoglobin as outpatient, baseline around 9. S/p 2 U PRBCs Hb 8.0, follow serial H&H. Suspect slow chronic bleed rather than acute bleed - Hbg is 8.3 - Continue Protonix 40mg BID - Will give 3 daily Venofer infusions with total cumulative dose of 1 g prior to D/C. - GI consulted: given need for AAA repair in the relatively near future and likely need for DAPT following, identification of bleeding source will be important prior to surgical intervention. Will complete EGD and colonoscopy tomorrow(04/06) #A-fib - Holding Eliquis for anemia and positive occult blood, however, Hbg has been stable since 04/04. - Will plan to start 40mg lovenox 04/06 pm following endoscopies - Continue metoprolol #Chronic back pain Oxycodone converted to morphine IV while n.p.o. Gabapentin at bedtime converted to IV while n.p.o. DVT prophylaxis: SCDs, anticoagulation held for anemia/bleeding Diet: Heart healthy CODE STATUS: DNR/DNI Disposition: PCU (3) LETY (acute kidney injury): (4) Hyperkalemia: (5) Anemia: (6) HTN (hypertension): (7) Hyperlipidemia: (8) On anticoagulant therapy: Admission and Anticipated Discharge Date Admission Date: March 31, 2025 Supervising Physician Co-Signing Physician Notes Attending attestation Pt seen and examined in concert with Dr. Gutierrez. In agreement with the document ed findings as noted in the resident documentation with any exceptions or additions as noted here. No acute complaint at time of evaluation. On examination, S1/S2 nl RRR no MCG. CTAB. Abd NT/ND BS+ve. VS as noted. AAA - vascular C/S - cardiology recommendations as noted without impediment to intervention. GI recommendations in process. HFpEF w/ h/o CAD - cardiology consult - ongoing diuresis, continue statin therapy Acute hypoxic respiratory failure, multifactorial - resolved. Bilateral pleural effusions s/p thoracentesis - improved Else see resident documentation as noted. Subjective Patient resting in bed comfortably. No overnight events reported, no acute distress. Denies CP, SOB, dizziness, REY, abdominal pain. Review of Systems Review of Systems: reviewed, per HPI Physical Exam Physical Exam: General: well appearing male, appears stated age Cardio: RRR, no murmurs, gallops or rubs Respiratory: CTA bilaterally, no wheezes, rales or rhonchi Abdominal: Bowel sounds heard in all 4 quadrants, soft, nontender on palpation Neuro: A&O x3, CN 2-12 grossly intact Results & Data Results & Data Vital Signs (Past 12 Hours) Vital Signs Temp Pulse Resp BP BP Pulse Ox O2 Del Method 04/05/25 10:51 36.8 C 75 18 111/75 96 Room Air 04/05/25 08:00 Room Air 04/05/25 07:45 36.4 C L 65 17 115/77 95 Room Air 04/05/25 03:12 36.3 C L 81 18 100/68 95 Room Air
[2025-04-05] MEDS: LAVAGE SOLUTION 4000ML PO SCH (18:26)
[2025-04-06 06:10] LABS: Hematocrit (blood only) 30.6 % (42.0-52.0); Hemoglobin 8.8 g/dl (14.0-18.0); Mean Corpuscular Hemoglobin 23.0 pg (25.0-34.0); Mean Corpuscular Volume 79.9 fL (80.0-100.0); Platelet Count 145 K/uL (130-400); RDW Standard Deviation 65.0 fL (36.4-46.3); Red Blood Count 3.83 M/uL (4.70-6.10); White Blood Count 6.84 K/ul (4.8-10.8)
[2025-04-06 06:28] LABS: Alanine Aminotransferase 8.0 U/L (7-52); Albumin Globulin Ratio 1.0 (0.9-2); Alkaline Phosphatase 221.0 U/L (34-104); Anion Gap 6.0 (3-11); Bilirubin,Total 1.6 mg/dl (0.2-1.0); Blood Urea Nitrogen 28.0 mg/dl (6-23); Calcium 10.1 mg/dl (8.6-10.3); Carbon Dioxide 29.0 mmol/L (21-32); Chloride 103.0 mmol/L (98-107); Creatinine Clr Calc Pharmacy 56.6 ml/min; Globulin 3.2 gm/dl (2.5-4.0); Glucose 92.0 mg/dl (70-99(Fasting)); Potassium 4.5 mmol/L (3.5-5.1); Sodium 138.0 mmol/L (136-145); Total Protein 6.5 gm/dl (6.0-8.3)
--- NOTE | 2025-04-06 07:56 | Hospitalist Progress Note ---
Date of Service April 06, 2025 Assessment & Plan (1) Acute heart failure: (2) CAD (coronary artery disease): (3) LETY (acute kidney injury): (4) Hyperkalemia: (5) Anemia: (6) HTN (hypertension): (7) Hyperlipidemia: (8) On anticoagulant therapy: Plan Geoff is a 79-year-old male who presents with progressive dyspnea and volume overload slowly progressive for the last 5 months. He has diffuse lower extremity edema and bilateral effusions on evaluation. He denies chest pain at any point, has a history of moderate coronary disease without stenting, and has a minimal troponin elevation stable on recheck without signs of ACS. He also has progressive chronic anemia with melena for many months and is severely iron deficient on admission. Required transfusion on admission. he does not show signs of acute large-volume bleeding and is not tachycardic. CTA/P also reve als a 6.3 infrarenal aneurysm which will require short interval follow-up and repair, asymptomatic with this. Unknown change of the previous months no studies for comparison #Abdominal aortic aneurysm 6.3 cm infrarenal abdominal aortic aneurysm noted on CT with no prior abdominal CT available for comparison Vascular consulted and recommended recommend repair, CTA completed 04/03 Cardiac consult for clearance d/t hx and CHF exacerbation- completed Recommend continued GI workup to r/o malignancy prior to AAA repair- see below > GI to complete EGD and colonoscopy today(04/06), will continue to monitor H&H and overt GI blood loss. #Acute CHF, history of moderate nonobstructive CAD Admitting EKG: A-fib rate controlled. Septal infarct noted. No territorial ST/T wave changes. Troponin 31.0/32.3. Clinically without chest pain/chest pressure. BNP 353. Echo this visit: EF 65-70%, No regional wall motion abnormalities. Mod pulmonary HTN CTchest: Small left and moderate right layering pleural effusions, atelectasis, vascular congestion, mild central edema. Moderate cardiomegaly with severe coronary calcifications. - Thoracocentesis performed 04/03, pending fluid studies - Likely also with third spacing due to chronic anemia and diminished oncotic pressure - Cardiology Consult Hypoalbuminemia and pulm HTN due to SELENE and obesity Recommended diuresis If causes Cr elevation, may consider ultrafiltration - No IVF at this time as hemodynamically stable and in setting of CHF, encourage good PO intake - Continue Statin - Give Lasix 20 mg IV once prior to EGD and colonoscopy #Progressive chronic anemia Hemoccult positive stool, no ondina bleeding. Ferritin nearly absent at 6.9, transferrin saturation 6%. Slow downtrend of hemoglobin as outpatient, baseline around 9. S/p 2 U PRBCs Hb 8.0, follow serial H&H. Suspect slow chronic bleed rather than acute bleed - Hbg is 8.8 - Continue Protonix 40mg BID - Once hemoglobin is stable and not requiring blood transfusions recommend 3 daily Venofer infusions with total cumulative dose of 1 g. - GI consulted: given need for AAA repair in the relatively near future and likely need for DAPT following, identification of bleeding source will be important prior to surgical intervention. Awaiting further work up per vascular surgery recommendations prior to AAA repair Will complete EGD and colonoscopy today(04/06) - Hbg remains steady at 8.3 (04/05), 8.8 (04/06) #Dyspnea Primarily resolved after thoracocentesis and IV lasix. Pt no longer requiring supplemental oxygen to maintain O2 sat >90% - Will continue to monitor #A-fib - Holding Eliquis for anemia and positive occult blood - Plan on giving Lovenox with evening medications, unless complications arise from EGD and colonoscopy that would render it contraindicated. - Continue metoprolol #Chronic back pain Oxycodone converted to morphine IV while n.p.o. Gabapentin at bedtime converted to IV while n.p.o. DVT prophylaxis: SCDs, anticoagulation held for anemia/bleeding Diet: Heart healthy CODE STATUS: DNR/DNI Disposition: PCU Admission and Anticipated Discharge Date Admission Date: March 31, 2025 Supervising Physician Co-Signing Physician Notes Attending attestation Pt seen and examined in concert with Dr. Gutierrez, . Dr Bishop. In agreement with the documented findings as noted in the resident documentation with any exceptions or additions as noted here. No acute complaint at time of evaluation. Does report resolution of 'wet cough' from this morning, as well as a history of albuterol responsive cough in the past without underlying dx. On examination, S1/S2 nl RRR no MCG. no wheezing appreciated, mild bilateral decreased breath sounds with coarse sounds. Abd NT/ND BS+ve. VS as noted. AAA - vascular C/S - cardiology recommendations as noted without impediment to intervention. Endoscopy today. HFpEF w/ h/o CAD - cardiology consult - ongoing diuresis, continue statin therapy Acute hypoxic respiratory failure, multifactorial - resolved, add incentive spirometer and albuterol inh q4P and monitor. Bilateral pleural effusions s/p thoracentesis - improved Else see resident documentation as noted. Subjective Patient laying comfortably in bed, in no acute distress. Stated he feels more "wet" than he did yesterday, but denies trouble breathing. Stated his colonoscopy prep has been going well. Nursing staff denies any overnight events or blood in his stool. Denies REY, CP, SOB, dizziness, new weakness or numbness and tingling in the extremities bilaterally, or abdominal pain. Review of Systems Review of Systems: reviewed, per HPI Physical Exam Physical Exam: General: well appearing male, appears stated age Cardio: RRR, no murmurs, gallops or rubs, +1 pitting edema bilateral LE Respiratory: Mild wheezing in all lung garcia. no rales or rhonchi Abdominal: Bowel sounds heard in all 4 quadrants, soft, nontender on palpation Neuro: A&O x3, CN 2-12 grossly intact Results & Data Results & Data Vital Signs (Past 12 Hours) Vital Signs Temp Pulse Resp BP Pulse Ox O2 Del Method O2 Del Method 04/06/25 03:05 36.7 C 71 18 113/80 95 Room Air 04/06/25 01:00 Room Air 04/05/25 22:06 36.4 C L 76 18 113/75 97 Room Air 04/05/25 21:35 Room Air
--- NOTE | 2025-04-06 09:53 | History & Physical Bridge Note ---
Date of Service April 06, 2025 History & Physical Bridge Note I have examined the patient, reviewed the History & Physical and in the interval since the performance of the History & Physical I have noted the following changes of clinical significance: no changes noted Patient notes that he completed his prep and is passing liquid bowel movements at this point. Keep NPO and proceed with EGD & colonoscopy today for further evaluation of ALYSSA. Supervising Physician Co-Signing Physician Notes I saw and examined this patient with our nurse practitioner and agree with her assessment and plan. No overt bleeding overnight hemodynamically stable tolerated bowel prep. Will proceed with endoscopy and colonoscopy.
[2025-04-06] MEDS: FUROSEMIDE INJ 20 MG/2 ML VIAL IV ONE (13:41)
--- NOTE | 2025-04-06 14:21 | Anesthesiology Consultation ---
Date of Service April 06, 2025 Assessment & Plan Chart Review Chart Review: Acceptable Risk for Surgery ASA ASA3 Proposed Anesthesia Anesthesia Type: MAC Risk / Benefits Reviewed With: PT / POA / Parent / Guardian, Accepts Plan and Informed Consent Obtained History Surgery Operation Date: 04/06/25 16:30 Proposed Procedures p Colonoscopy EGD Dr. Jade Hansen MD Height/Weight Height: 6 ft 1 in Weight: 129 kg Allergies Allergy/AdvReac Type Severity Reaction Status Date / Time latex Allergy Intermediate Rash, Verified 04/06/25 14:08 Burning Sensation phenobarbital AdvReac Intermediate Hyper Verified 04/06/25 14:08 Gold AdvReac Severe Wounds Uncoded 04/06/25 14:08 that became Pre-Cancerous Medications Home Medications Medication Instructions Recorded Confirmed Last Taken acetaminophen 500 mg tablet 1,000 mg PO Q6H PRN Pain/fever 07/07/24 03/31/25 11/14/24 20:00 albuterol sulfate 90 mcg/actuation 2 puff inhalation QID PRN 07/07/24 03/31/25 11/15/24 08:00 aerosol inhaler Shortness Of Breath Or Wheezing apixaban 5 mg tablet (Eliquis) 5 mg PO BID 07/07/24 03/31/25 11/07/24 atorvastatin 40 mg tablet (Lipitor) 40 mg PO HS 07/07/24 03/31/25 11/14/24 20:00 baclofen 5 mg tablet 10 mg PO TID PRN Muscle Spasms 07/07/24 03/31/25 11/15/24 08:00 montelukast 10 mg tablet 10 mg PO HS 07/07/24 03/31/25 11/14/24 20:00 (Singulair) omeprazole 20 mg capsule,delayed 20 mg PO QAM 07/07/24 03/31/25 11/15/24 08:00 release tramadol 50 mg tablet 50 mg PO TID PRN Pain 07/18/24 03/31/25 11/12/24 furosemide 40 mg tablet 40 mg PO BID 11/14/24 03/31/25 11/14/24 08:00 cyanocobalamin (vitamin B-12) 500 1,000 mcg (2 x 500 mcg) PO QAM #30 11/17/24 03/31/25 Unknown mcg tablet tabs benzonatate 100 mg capsule 100 mg PO Q8H PRN Cough 03/31/25 03/31/25 Unknown bumetanide 2 mg tablet 2 mg PO BID PRN Edema 03/31/25 03/31/25 Unknown diclofenac sodium 1 % topical gel 2 g topical BID PRN Pain 03/31/25 03/31/25 Unknown gabapentin 300 mg capsule 300 mg PO HS 03/31/25 03/31/25 Unknown lisinopril 10 mg tablet 10 mg PO QAM 03/31/25 03/31/25 Unknown metoprolol succinate 25 mg 25 mg PO QAM 03/31/25 03/31/25 Unknown tablet,extended release 24 hr mupirocin 2 % topical ointment 1 applic topical BID 03/31/25 03/31/25 Unknown naloxone 4 mg/actuation nasal spray 1 spray intranasal DIRECTED PRN 03/31/25 03/31/25 Unknown overdose oxycodone 5 mg tablet 5 mg PO Q4H PRN Pain (Scale Score 03/31/25 03/31/25 Unknown 4-6) sennosides 8.6 mg tablet (senna) 8.6 mg PO BID PRN Constipation 03/31/25 03/31/25 Unknown Active Medications Generic Name Dose Route Start Last Admin Trade Name Freq PRN Reason Stop Dose Admin Hydromorphone HCl 0.5 mg 03/31/25 23:32 04/06/25 08:08 Hydromorphone Inj 0.5 Mg/0.5 Ml Syr IV 04/14/25 23:31 0.5 mg Q3H PRN Administration Moderate Pain (4,5,6) on NRS Hydromorphone HCl 1 mg 03/31/25 23:32 04/05/25 13:28 Hydromorphone Inj 1 Mg/Ml Syringe IV 04/14/25 23:31 1 mg Q3H PRN Administration Severe Pain (7,8,9,10) on NRS Pantoprazole Sodium 40 mg in 10 mls @ 5 mls/min 04/01/25 09:30 04/06/25 08:09 Protonix IV 05/01/25 09:29 5 mls/min BID ROBIN Administration Melatonin 3 mg 04/02/25 00:00 04/04/25 23:48 Melatonin 3 Mg Tab PO 05/02/25 00:00 3 mg HS PRN Administration Sleep Metoprolol Succinate 25 mg 04/02/25 09:00 04/06/25 08:18 Metoprolol Succ 25mg Ext Rel Tab PO 05/02/25 08:59 25 mg QAM ROBIN Administration Metoprolol Tartrate 2.5 mg 04/01/25 09:00 04/01/25 20:48 Metoprolol Tartrate 1 Mg/Ml Vial IV 05/01/25 08:59 2.5 mg Q6H ROBIN Administration NPO Date Last Intake of Fluids: 04/06/25 Time Last Intake of Fluids: 12:30 Date Last Intake of Solids: 04/05/25 Time Last Intake of Solids: 08:00 Past Medical History Medical History Post-nasal drip as per patient - in the morning RBBB Dr Bonilla On anticoagulant therapy Eliquis daily Hyperlipidemia HTN (hypertension) controlled, stable per pt Hip pain Right knee pain Acid reflux controlled, stable per pt Hx of myocardial infarction "silent" - states was told must have occurred during childhood ~12-14 yrs old, per pt Paroxysmal atrial fibrillation dx 1984-- reason for Eliquis, follows w/ [facility] Environmental and seasonal allergies PRN inh use - no longer using daily Allergic rhinitis Exercise / Class Metabolic Activity IV < 2 Limit ADL/Bedbound Past Surgical History Surgical History Hx of arthroscopic knee surgery right, x 2 left, x 1 History of cardiac radiofrequency ablation (RFA) ~2009- [facility] Hx of colonoscopy Hx of total hip arthroplasty (2013) left History of shoulder surgery b/l - hx reconstruction of both shoulders Hx of cardiac catheterization (1984) 1984, 08/05/24, and "Early this year - it was all clear" as per patient - no stents Dr Bonilla Past Anesthesia History No Hx of Anesthesia Complications and No Family Hx of Anesthesia Complications History of PONV No Hx of PONV and No Hx of Motion Sickness Social History Smoking Status: Never smoker Smoking cigarettes per day: Smokes pipe "doesn't inhale" as per patient Do You Dip or Chew Tobacco: No Hx Alcohol Use: No Alcohol type: beer alcohol intake frequency: holidays/special occasions only Hx Substance Use: No substance use type: does not use Physical Exam Vital Signs Last Vital Signs Temp 36.3 C L 04/06/25 12:00 Pulse 64 04/06/25 12:00 Resp 18 04/06/25 12:00 BP 108/73 04/06/25 12:00 Pulse Ox 96 04/06/25 12:00 O2 Del Method Room Air 04/06/25 12:00 O2 Flow Rate 0 04/02/25 12:57 Constitutional no acute distress ENMT Mouth: + dental caries and + poor dentition; no TMJ abnormality Thyromental Distance: > or= 3.5 Finger Breadths Mallampati Class: III Neck normal visual inspection Respiratory normal respiratory effort Auscultation: lungs clear to auscultation bilaterally Cardiovascular Rate/Rhythm: regular rate and regular rhythm Musculoskeletal Spine: + limited cervical ROM Psychiatric Orientation: alert Testing Laboratory Results 04/06/25 05:28 04/06/25 05:28 PT 12.7 Seconds (9.0-12.0) H 03/31/25 18:10 INR 1.2 (0.9-1.1) H 03/31/25 18:10 APTT 31 Seconds (21-31) 03/31/25 18:10 Urine Color Yellow 03/31/25 23:20 Urine Appearance Clear (Clear) 03/31/25 23:20 Urine pH 5.0 (4.5-7.5) 03/31/25 23:20 Ur Specific [place] 1.009 (1.000-1.030) 03/31/25 23:20 Urine Protein Negative (Negative) 03/31/25 23:20 Urine Glucose (UA) Negative (Negative) 03/31/25 23:20 Urine Ketones Negative (Negative) 03/31/25 23:20 Urine Nitrite Negative (Negative) 03/31/25 23:20 Ur Leukocyte Esterase Negative (Negative) 03/31/25 23:20 Blood Type O Positive 03/31/25 20:01 Antibody Screen NEGATIVE 03/31/25 20:01 04/03/25 Unknown Gram Stain - Final Pleural Fluid,Right Aerobic and Anaerobic Culture - Preliminary No growth to date.
--- NOTE | 2025-04-06 15:36 | GI REPORT ---
[facility] Patient: DARELL BHATTI : 1945 Sex at : Male Age: 79 Years Procedure: Colonoscopy Date: 04/06/2025 Attending Physician: Alvarez Hansen MD Referring MD: Indications: - Iron deficiency anemia Medications: - Monitored Anesthesia Care Complications: - No immediate complications. Estimated Blood Loss: - Estimated blood loss: None. Procedure: - Prior to the procedure, a History and Physical was performed, and patient medications and allergies were reviewed. The patient's tolerance of previous anesthesia was also reviewed. The risks and benefits of the procedure and the sedation options and risks were discussed with the patient. All questions were answered, and informed consent was obtained. [Anticoagulant Agents] [Days Prior to Procedure]. [ASA Grade]. After reviewing the risks and benefits, the patient was deemed in satisfactory condition to undergo the procedure. - The adult colonoscope was introduced through the anus and advanced to the terminal ileum, with identification of the appendiceal orifice and ileocecal valve. - The colonoscopy was performed without difficulty. - The patient tolerated the procedure well. - The quality of the bowel preparation was [Prep Quality]. - [Anatomical Structures] photographed. Findings: - The perianal and digital rectal examinations were normal. - A diminutive (1-3 mm) polyp was found in the ascending colon. The polyp was sessile. The polyp was removed with a piecemeal technique using a cold biopsy forceps. Resection was complete, and retrieval was complete. - The terminal ileum appeared normal. - No other significant abnormalities were identified in a careful examination of the remainder of the colon. Impression: - One diminutive (1-3 mm) polyp in the ascending colon, removed piecemeal using a cold biopsy forceps. Resected and retrieved. - The examined portion of the ileum was normal. Recommendation: - Await pathology results. - Resume previous diet. - Patient has a contact number available for emergencies. The signs and symptoms of potential delayed complications were discussed with the patient. Return to normal activities tomorrow. Written discharge instructions were provided to the patient. Procedure Code(s): - 84018, Colonoscopy, flexible; with biopsy, single or multiple Diagnosis Code(s): - D12.2, Benign neoplasm of ascending colon CPT(R) - 2022 copyright [employer]. All Rights Reserved. The CPT codes, CCI edits and ICD codes generated are intended as suggestions and were generated based on input data. These codes are preliminary and upon high school academic coach review may be revised to meet current compliance and payer requirements. The provider is responsible for the final determination of appropriate codes, and modifiers. Alvarez Hansen MD This document has been electronically signed. Note Initiated:04/06/2025 Note Completed:04/06/2025 3:35 PM [email or web address]\Provation\Results\[email or web address]\[id number]
--- NOTE | 2025-04-06 15:38 | GI REPORT ---
[facility] Patient: DARELL BHATTI : 1945 Sex at : Male Age: 79 Years Procedure: Upper GI endoscopy Date: 04/06/2025 Attending Physician: Alvarez Hansen MD Referring MD: Indications: - Iron deficiency anemia Medications: - Monitored Anesthesia Care Complications: - No immediate complications. Procedure: - Prior to the procedure, a History and Physical was performed, and patient medications and allergies were reviewed. The patient's tolerance of previous anesthesia was also reviewed. The risks and benefits of the procedure and the sedation options and risks were discussed with the patient. All questions were answered, and informed consent was obtained. [Anticoagulant Agents] [Days Prior to Procedure]. [ASA Grade]. After reviewing the risks and benefits, the patient was deemed in satisfactory condition to undergo the procedure. - The egd scope was introduced through the mouth and advanced to the second part of the duodenum. - The upper GI endoscopy was accomplished without difficulty. - The patient tolerated the procedure well. Findings: - The examined esophagus was normal. - The entire examined stomach was normal. - The examined duodenum was normal. Impression: - Normal esophagus. - Normal stomach. - Normal examined duodenum. - No specimens collected. Recommendation: - Resume previous diet. - Patient has a contact number available for emergencies. The signs and symptoms of potential delayed complications were discussed with the patient. Return to normal activities tomorrow. Written discharge instructions were provided to the patient. Procedure Code(s): - 87419, Esophagogastroduodenoscopy, flexible, transoral; diagnostic, including collection of specimen(s) by brushing or washing, when performed (separate procedure) CPT(R) - 2023 copyright [employer]. All Rights Reserved. The CPT codes, CCI edits and ICD codes generated are intended as suggestions and were generated based on input data. These codes are preliminary and upon slat basket maker review may be revised to meet current compliance and payer requirements. The provider is responsible for the final determination of appropriate codes, and modifiers. Alvarez Hansen MD This document has been electronically signed. Note Initiated:04/06/2025 Note Completed:04/06/2025 3:38 PM \\[email or web address]\Results\[email or web address]\[id number]
--- NOTE | 2025-04-06 15:48 | Anesthesiology Progress Note ---
Date of Service April 06, 2025 Anesthesia Post Procedure Vital Signs Vital Signs: Temp Pulse Pulse Resp BP BP Pulse Ox 04/06/25 15:44 04/06/25 15:40 85 16 97/64 L 97 04/06/25 15:25 73 04/06/25 15:25 79 04/06/25 14:13 36.1 C L 76 16 107/72 95 04/06/25 12:00 36.3 C L 64 18 108/73 96 04/06/25 07:56 36.4 C L 85 18 110/72 95 04/06/25 03:05 36.7 C 71 18 113/80 95 04/06/25 01:00 04/05/25 22:06 36.4 C L 76 18 113/75 97 04/05/25 21:35 04/05/25 19:17 36.7 C 82 18 147/78 H 99 04/05/25 16:39 36.7 C 73 17 113/76 97 O2 Del Method O2 Del Method O2 Flow Rate 04/06/25 15:44 Room Air 04/06/25 15:40 Oxymask 4 04/06/25 15:25 04/06/25 15:25 04/06/25 14:13 Room Air 04/06/25 12:00 Room Air 04/06/25 07:56 Room Air 04/06/25 03:05 Room Air 04/06/25 01:00 Room Air 04/05/25 22:06 Room Air 04/05/25 21:35 Room Air 04/05/25 19:17 Room Air 04/05/25 16:39 Room Air Transfer of Care Handoff Completed per policy Notes Mental Status: alert / awake / arousable Patient Amnestic to Procedure: Yes Nausea / Vomiting: adequately controlled Pain: adequately controlled Airway Patency, RR, SpO2: stable & adequate BP & HR: stable & adequate Hydration State: stable & adequate Anesthetic Complications: no major complications apparent and Pt Satisfied with anesthetic care
[2025-04-07 06:09] LABS: Hematocrit (blood only) 28.4 % (42.0-52.0); Hemoglobin 8.5 g/dl (14.0-18.0); Mean Corpuscular Hemoglobin 23.5 pg (25.0-34.0); Mean Corpuscular Volume 78.7 fL (80.0-100.0); Platelet Count 155 K/uL (130-400); RDW Standard Deviation 65.4 fL (36.4-46.3); Red Blood Count 3.61 M/uL (4.70-6.10); White Blood Count 5.70 K/ul (4.8-10.8)
[2025-04-07 06:30] LABS: Anion Gap 6.0 (3-11); Blood Urea Nitrogen 29.0 mg/dl (6-23); Calcium 9.8 mg/dl (8.6-10.3); Carbon Dioxide 28.0 mmol/L (21-32); Chloride 103.0 mmol/L (98-107); Creatinine Clr Calc Pharmacy 52.9 ml/min; Glucose 116.0 mg/dl (70-99(Fasting)); Potassium 4.1 mmol/L (3.5-5.1); Sodium 137.0 mmol/L (136-145)
--- NOTE | 2025-04-07 08:54 | Hospitalist Progress Note ---
Date of Service April 07, 2025 Assessment & Plan (1) Acute heart failure: (2) CAD (coronary artery disease): (3) LETY (acute kidney injury): (4) Hyperkalemia: (5) Anemia: (6) HTN (hypertension): (7) Hyperlipidemia: (8) On anticoagulant therapy: Plan Geoff is a 79-year-old male who presents with progressive dyspnea and volume overload slowly progressive for the last 5 months. He has diffuse lower extremity edema and bilateral effusions on evaluation. He denies chest pain at any point, has a history of moderate coronary disease without stenting, and has a minimal troponin elevation stable on recheck without signs of ACS. He also has progressive chronic anemia with melena for many months and is severely iron deficient on admission. Required transfusion on admission. he does not show signs of acute large-volume bleeding and is not tachycardic. CTA/P also reve als a 6.3 infrarenal aneurysm which will require short interval follow-up and repair, asymptomatic with this. Unknown change of the previous months no studies for comparison #Dyspnea Primarily resolved after thoracocentesis and IV lasix. Pt no longer requiring supplemental oxygen to maintain O2 sat >90% - Will continue to monitor - Give Duoneb 3mg/0.5mg once (04/07) - Albuterol inhaler prn #Abdominal aortic aneurysm 6.3 cm infrarenal abdominal aortic aneurysm noted on CT with no prior abdominal CT available for comparison Vascular consulted and recommended recommend repair, CTA completed 04/03 Cardiac consult for clearance d/t hx and CHF exacerbation- completed Recommend continued GI workup to r/o malignancy prior to AAA repair- see bel ow > GI to completed EGD and colonoscopy yesterday(04/06), will continue to monitor H&H and overt GI blood loss. #Acute CHF, history of moderate nonobstructive CAD Admitting EKG: A-fib rate controlled. Septal infarct noted. No territorial ST/T wave changes. Troponin 31.0/32.3. Clinically without chest pain/chest pressure. BNP 353. Echo this visit: EF 65-70%, No regional wall motion abnormalities. Mod pulmonary HTN CTchest: Small left and moderate right layering pleural effusions, atelectasis, vascular congestion, mild central edema. Moderate cardiomegaly with severe coronary calcifications. - Thoracocentesis performed 04/03, pending fluid studies - Likely also with third spacing due to chronic anemia and diminished oncotic pressure - Cardiology Consult Hypoalbuminemia and pulm HTN due to SELENE and obesity Recommended diuresis - s/p IV lasix 20mg on 04/03, 04/05, 04/06 and 04/07 If causes Cr elevation, may consider ultrafiltration - Encourage good PO intake - Continue Statin - PT evaluated and has resumed treatment, pending recommendations for placement - Give Lasix 20 mg IV once (04/07) #Progressive chronic anemia Hemoccult positive stool, no ondina bleeding. Ferritin nearly absent at 6.9, transferrin saturation 6%. Slow downtrend of hemoglobin as outpatient, baseline around 9. S/p 2 U PRBCs Hb 8.0, follow serial H&H. Suspect slow chronic bleed rather than acute bleed - Hbg is 8.5 - Continue Protonix 40mg BID, switch to PO - Consider Venofer infusions prior to DC with total cumulative dose of 1 g. - GI consulted: given need for AAA repair in the relatively near future and likely need for DAPT following, identification of bleeding source will be important prior to surgical intervention. Completed EGD and colonoscopy 04/06- no acute findings #A-fib - Holding Eliquis for anemia and positive occult blood - Start Lovenox 40mg qd - Continue metoprolol #Chronic back pain Oxycodone converted to morphine IV while n.p.o. Gabapentin at bedtime converted to IV while n.p.o. DVT prophylaxis: SCDs, anticoagulation held for anemia/bleeding Diet: Heart healthy CODE STATUS: DNR/DNI Disposition: PCU Admission and Anticipated Discharge Date Admission Date: March 31, 2025 Supervising Physician Co-Signing Physician Notes ATTESTATION I also saw the patient and confirmed schneider portions of the history and exam. I agree with the impression and plan in the medical student and resident documentation, and as summarized below. He has no new complaints today; he has some questions regarding planning of surgery. EXAM 101/64. 77. 18, 95% on room air Pleasant. NAD Lungs with some exp wheezing CV I/I DATA Labs Hgb = 8.5 plt = 155 IMPRESSION & PLAN AAA - Surgery in near future, likely to be planned as outpatient. Panendoscopy non-revealing. Need to assure stability in HgB prior to discharge. HFpEF w/ h/o CAD - cardiology consult - ongoing diuresis, continue statin therapy Acute hypoxic respiratory failure, multifactorial - resolved, add incentive spirometer, albuterol. I suspect based on history and exam, there is a greater than realized COPD element Bilateral pleural effusions s/p thoracentesis - improved Subjective Patient laying comfortably in bed, in no acute distress. Stated he feels stronger and better than he did yesterday. Stated his colonoscopy and EGD went well yesterday. Nursing staff denies any overnight events. He stated that he was concerned about his legs and the fluid buildup in them. He stated that he is moving his legs as much as possible. He is requesting a weight be done, if possible, at some point. Denies REY, CP, SOB, dizziness, new weakness or numbness and tingling in the extremities bilaterally, or abdominal pain. Review of Systems Review of Systems: reviewed, per HPI Physical Exam Physical Exam: General: well appearing male, appears stated age Cardio: RRR, normal S1 and S2, no murmurs, gallops or rubs, +2 pitting edema bilateral LE Respiratory: Mild wheezing in upper lung garcia bilaterally. no rales or rhonchi Abdominal: Bowel sounds heard in all 4 quadrants, soft, nontender on palpation Neuro: A&O x3, CN 2-12 grossly intact Results & Data Results & Data Vital Signs (Past 12 Hours) Vital Signs Temp Pulse Pulse Pulse Resp BP BP 04/07/25 08:16 36.5 C 73 20 107/67 04/07/25 04:51 36.4 C L 69 18 105/68 04/07/25 01:00 04/07/25 00:30 36.9 C 76 18 105/68 04/06/25 23:18 75 Pulse Ox O2 Del Method O2 Del Method 04/07/25 08:16 94 Room Air 04/07/25 04:51 92 Room Air 04/07/25 01:00 Room Air 04/07/25 00:30 94 Room Air 04/06/25 23:18
[2025-04-07] MEDS: ALBUT/IPRATROP 3MG/0.5MG NEB 3 ML VIAL ONE (10:10)
[2025-04-07] MEDS: ALBUT/IPRATROP 3MG/0.5MG NEB 3 ML VIAL NEB STA (10:10)
[2025-04-07] MEDS: FUROSEMIDE INJ 20 MG/2 ML VIAL IV ONE (10:52)
--- NOTE | 2025-04-07 15:42 | Gastroenterology Progress Note ---
Date of Service April 07, 2025 Assessment & Plan Admission and Anticipated Discharge Date Admission Date: March 31, 2025 Supervising Physician Co-Signing Physician Notes I saw and examined this patient with our nurse practitioner and agree with her assessment and plan. Stable post endoscopy and colonoscopy. No significant findings to explain iron deficiency anemia. Small benign colon polyp removed. If persistent anemia with Hemoccult positive stool would recommend a small bowel capsule study to complete his GI evaluation which can be done as an outpatient. Subjective Resting comfortably no shortness of breath no chest pain no abdominal pain Physical Exam Physical Exam: No acute distress Respiratory rate regular Cardiac rhythm regular Abdomen soft nontender Results & Data Results & Data Vital Signs (Past 12 Hours) Vital Signs Temp Pulse Pulse Pulse Resp BP BP 04/07/25 14:00 74 04/07/25 11:12 36.5 C 77 18 107/68 04/07/25 10:11 71 16 04/07/25 08:16 36.5 C 73 20 107/67 04/07/25 08:00 67 04/07/25 08:00 04/07/25 04:51 36.4 C L 69 18 105/68 Pulse Ox O2 Del Method 04/07/25 14:00 04/07/25 11:12 94 Room Air 04/07/25 10:11 96 Room Air 04/07/25 08:16 94 Room Air 04/07/25 08:00 04/07/25 08:00 Room Air 04/07/25 04:51 92 Room Air Laboratory Results Laboratory Results - last 48 hr 04/06/25 04/07/25 05:28 05:02 WBC 6.84 5.70 RBC 3.83 L 3.61 L Hgb 8.8 L 8.5 L Hct 30.6 L 28.4 L MCV 79.9 L 78.7 L MCH 23.0 L 23.5 L MCHC 28.8 L 29.9 L RDW Std Deviation 65.0 H 65.4 H RDW Coeff of Charly 23.8 H 23.8 H Plt Count 145 155 MPV 9.3 L 9.6 Sodium 138 137 Potassium 4.5 4.1 Chloride 103 103 Carbon Dioxide 29 28 Anion Gap 6 6 BUN 28 H 29 H Creatinine 1.49 H D 1.61 H Est Cr Clr Drug Dosing 56.6 52.9 eGFR 47.44 43.23 BUN/Creatinine Ratio 18.8 18.0 Glucose 92 116 H Calcium 10.1 9.8 Total Bilirubin 1.6 H AST 22 ALT 8 Alkaline Phosphatase 221 H Total Protein 6.5 Albumin 3.3 L Globulin 3.2 Albumin/Globulin Ratio 1.0 PG Care Time/CCT Total # of Minutes Spent Total Time Spent with Patient: Total time spent is greater than 50% in coordination of care (as documented) at patient's floor/unit and/or counseling patient: Coding Level of Care Code 42045 SUB INP/OBS CARE 2/35MIN
[2025-04-07] MEDS: ALBUTEROL HFA 8 GM INHALER INH PRN (18:28)
[2025-04-07] MEDS: LIDOCAINE 2% 2 ML VIAL/AMP(20MG/ML) INFIL ONE (20:00)
[2025-04-07] MEDS: PHENYLEPHRINE 100MCG/ML 5ML SYR ONE (20:00)
[2025-04-07] MEDS: PROPOFOL IV EMULSION 10 MG/ML 20 ML VIAL IV ONE (20:00)
[2025-04-08 01:17] LABS: Pleural Fluid, Albumin 1.2 g/dL; Pleural Fluid, Cholesterol 18.0 mg/dL; Pleural Fluid, Triglycerides 14.0 mg/dL
[2025-04-08 05:54] LABS: Hematocrit (blood only) 28.4 % (42.0-52.0); Hemoglobin 8.0 g/dl (14.0-18.0); Mean Corpuscular Hemoglobin 22.5 pg (25.0-34.0); Mean Corpuscular Volume 79.8 fL (80.0-100.0); Platelet Count 147 K/uL (130-400); RDW Standard Deviation 67.7 fL (36.4-46.3); Red Blood Count 3.56 M/uL (4.70-6.10); White Blood Count 5.29 K/ul (4.8-10.8)
[2025-04-08 06:12] LABS: Anion Gap 4.0 (3-11); Blood Urea Nitrogen 29.0 mg/dl (6-23); Calcium 9.8 mg/dl (8.6-10.3); Carbon Dioxide 29.0 mmol/L (21-32); Chloride 106.0 mmol/L (98-107); Creatinine Clr Calc Pharmacy 50.7 ml/min; Glucose 110.0 mg/dl (70-99(Fasting)); Potassium 4.1 mmol/L (3.5-5.1); Sodium 139.0 mmol/L (136-145)
--- NOTE | 2025-04-08 07:30 | Hospitalist Progress Note ---
Date of Service April 08, 2025 Assessment & Plan (1) Acute heart failure: (2) CAD (coronary artery disease): (3) LETY (acute kidney injury): (4) Hyperkalemia: (5) Anemia: (6) HTN (hypertension): (7) Hyperlipidemia: (8) On anticoagulant therapy: Plan Geoff is a 79-year-old male who presents with progressive dyspnea and volume overload slowly progressive for the last 5 months. He has diffuse lower extremity edema and bilateral effusions on evaluation. He denies chest pain at any point, has a history of moderate coronary disease without stenting, and has a minimal troponin elevation stable on recheck without signs of ACS. He also has progressive chronic anemia with melena for many months and is severely iron deficient on admission. Required transfusion on admission. he does not show signs of acute large-volume bleeding and is not tachycardic. CTA/P also reve als a 6.3 infrarenal aneurysm which will require short interval follow-up and repair, asymptomatic with this. Unknown change of the previous months no studies for comparison #Dyspnea Primarily resolved after thoracocentesis and IV lasix. Pt no longer requiring supplemental oxygen to maintain O2 sat >90%. NOted recent onset of expiratory wheezing. No recent hx of PFTs, however pt is a long time smoker with quit date of Oct 2024. - Will continue to monitor - Repeat dose of Duoneb 3mg/0.5mg once, ordered prn q6h for wheezing - Albuterol inhaler prn #Abdominal aortic aneurysm 6.3 cm infrarenal abdominal aortic aneurysm noted on CT with no prior abdominal CT available for comparison Vascular consulted and recommended recommend repair, CTA completed 04/03 Cardiac consult for clearance d/t hx and CHF exacerbation- completed Recommend continued GI workup to r/o malignancy prior to AAA repair- see below > GI to completed EGD and colonoscopy yesterday(04/06), will continue to monitor H&H and overt GI blood loss. Recommending follow up in outpatient following return to baseline strength and endurance prior to AAA repair #Acute CHF, history of moderate nonobstructive CAD Admitting EKG: A-fib rate controlled. Septal infarct noted. No territorial ST/T wave changes. Troponin 31.0/32.3. Clinically without chest pain/chest pressure. BNP 353. Echo this visit: EF 65-70%, No regional wall motion abnormalities. Mod pulmonary HTN CTchest: Small left and moderate right layering pleural effusions, atelectasis, vascular congestion, mild central edema. Moderate cardiomegaly with severe coronary calcifications. 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 Ferritin nearly absent at 6.9, transferrin saturation 6%. Slow downtrend of hemoglobin as outpatient, baseline around 9. S/p 2 U PRBCs Hb 8.0, follow serial H&H. Suspect slow chronic bleed rather than acute bleed - Hbg is 8.5 - Continue Protonix 40mg BID, switch to PO - Consider Venofer infusions prior to DC with total cumulative dose of 1 g. - GI consulted: given need for AAA repair in the relatively near future and likely need for DAPT following, identification of bleeding source will be important prior to surgical intervention. Completed EGD and colonoscopy 04/06- no acute findings #A-fib - Holding Eliquis for anemia and positive occult blood - Continue metoprolol #Chronic back pain Oxycodone converted to morphine IV while n.p.o. Gabapentin at bedtime converted to IV while n.p.o. DVT prophylaxis: SCDs, anticoagulation held for anemia/bleeding Diet: Heart healthy CODE STATUS: DNR/DNI Disposition: PCU Admission and Anticipated Discharge Date Admission Date: March 31, 2025 Supervising Physician Co-Signing Physician Notes ATTESTATION I also saw the patient and confirmed schneider portions of the history and exam. I agree with the impression and plan in the medical student and resident documentation, and as summarized below. No complaints today except for generalized weakness. EXAM 110/75, 74 Pleasant. NAD Lungs with some exp wheezing, improved compared to yesterday CV I/I DATA Labs Hgb = 8.0 plt = 147 BUN 29, Cr 1.68 IMPRESSION & PLAN AAA A-fib, rate controlled HFpEF Acute hypoxic resp failure Bilateral pleural effusions S/P thoracentesis Surgery in near future, likely to be planned as outpatient. Panendoscopy non- revealing. PT/OT - based on progress, return to [place] or will need short-term placement for PT Need to assure stability in HgB prior to discharge. If stable, resume Eliquis which is on hold given anemia (no evidence that chronic AC will alter the course of AAA, but being held here on basis of anemia) Subjective No reported acute events overnight. This morning, pt reports used SCDs yesterday evening and over night and ismael this helped with the swelling at bilateral LE. Pt noting continues wheezing but no significant increase in SOB. Pt denies cough or congestion. Pt voices frustration with his muscle weakness that has accumulated over the last week of being in the hospital. Pt had anticipated having surgery to remedy the AAA during this admission and is disappointed that he will need to wait until he is stronger. Pt is eager to work with PT/OT in hospital and at home. Denies CP, SOB, abdominal pain, N/V/D/C, dizziness, weakness Review of Systems Review of Systems: reviewed, per HPI Physical Exam Physical Exam: General: well appearing male, appears stated age Cardio: RRR, normal S1 and S2, no murmurs, gallops or rubs, +1 pitting edema bilateral LE, indentions noted from SCD's, but lower leg is significantly smaller in size and softer to palpation Respiratory: Expiratory wheezing scattered in upper lung garcia bilaterally. no rales or rhonchi Abdominal: Bowel sounds heard in all 4 quadrants, soft, nontender on palpation Neuro: A&O x3, CN 2-12 grossly intact Results & Data Results & Data Vital Signs (Past 12 Hours) Vital Signs Temp Pulse Pulse Resp BP BP Pulse Ox 04/08/25 03:21 36.5 C 66 18 107/66 95 04/08/25 00:00 79 04/07/25 22:21 36.7 C 82 20 111/70 99 04/07/25 20:00 04/07/25 19:35 36.4 C L 98 H 20 134/78 97 O2 Del Method 04/08/25 03:21 Room Air 04/08/25 00:00 04/07/25 22:21 Room Air 04/07/25 20:00 Room Air 04/07/25 19:35 Room Air Resident Activity Tracking Resident Involvement: Resident Care Provided Care Provided: Adult Hospital Medicine
[2025-04-08] MEDS: ALBUT/IPRATROP 3MG/0.5MG NEB 3 ML VIAL NEB STA (10:34)
[2025-04-09 05:24] LABS: Hematocrit (blood only) 30.6 % (42.0-52.0); Hemoglobin 8.8 g/dl (14.0-18.0); Mean Corpuscular Hemoglobin 23.3 pg (25.0-34.0); Mean Corpuscular Volume 81.2 fL (80.0-100.0); Platelet Count 169 K/uL (130-400); RDW Standard Deviation 69.2 fL (36.4-46.3); Red Blood Count 3.77 M/uL (4.70-6.10); White Blood Count 5.68 K/ul (4.8-10.8)
[2025-04-09 05:40] LABS: Anion Gap 3.0 (3-11); Blood Urea Nitrogen 27.0 mg/dl (6-23); Calcium 10.1 mg/dl (8.6-10.3); Carbon Dioxide 30.0 mmol/L (21-32); Chloride 106.0 mmol/L (98-107); Creatinine Clr Calc Pharmacy 54.3 ml/min; Glucose 111.0 mg/dl (70-99(Fasting)); Potassium 4.4 mmol/L (3.5-5.1); Sodium 139.0 mmol/L (136-145)
--- NOTE | 2025-04-09 07:14 | Hospitalist Progress Note ---
Date of Service April 09, 2025 Assessment & Plan (1) Acute heart failure: (2) CAD (coronary artery disease): (3) LETY (acute kidney injury): (4) Hyperkalemia: (5) Anemia: (6) HTN (hypertension): (7) Hyperlipidemia: (8) On anticoagulant therapy: Plan Geoff is a 79-year-old male who presents with progressive dyspnea and volume overload slowly progressive for the last 5 months. He has diffuse lower extremity edema and bilateral effusions on evaluation. He denies chest pain at any point, has a history of moderate coronary disease without stenting, and has a minimal troponin elevation stable on recheck without signs of ACS. He also has progressive chronic anemia with melena for many months and is severely iron deficient on admission. Required transfusion on admission. he does not show signs of acute large-volume bleeding and is not tachycardic. CTA/P also reve als a 6.3 infrarenal aneurysm which will require short interval follow-up and repair, asymptomatic with this. Unknown change of the previous months no studies for comparison #Dyspnea Primarily resolved after thoracocentesis and IV lasix. Pt used supplemental oxygen for short time over night due to SOB. O2 sat remained above 90%. Continues with expiratory wheezing in upper lung garcia. No recent hx of PFTs, however pt is a long time smoker with quit date of Oct 2024. - Will continue to monitor - Scheduled Duoneb 3mg/0.5mg prn q6h for wheezing - Albuterol inhaler prn q6h #Abdominal aortic aneurysm 6.3 cm infrarenal abdominal aortic aneurysm noted on CT with no prior abdominal CT available for comparison Vascular consulted and recommended recommend repair, CTA completed 04/03 Cardiac consult for clearance d/t hx and CHF exacerbation- completed Recommend continued GI workup to r/o malignancy prior to AAA repair- see below > GI to completed EGD and colonoscopy yesterday(04/06), will continue to monitor H&H and overt GI blood loss. Recommending follow up in outpatient following return to baseline strength and endurance prior to AAA repair #Acute CHF, history of moderate nonobstructive CAD Admitting EKG: A-fib rate controlled. Septal infarct noted. No territorial ST/T wave changes. Troponin 31.0/32.3. Clinically without chest pain/chest pressure. BNP 353. Echo this visit: EF 65-70%, No regional wall motion abnormalities. Mod pulmonary HTN CTchest: Small left and moderate right layering pleural effusions, atelectasis, vascular congestion, mild central edema. Moderate cardiomegaly with severe coronary calcifications. 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 Ferritin nearly absent at 6.9, transferrin saturation 6%. Slow downtrend of hemoglobin as outpatient, baseline around 9. S/p 2 U pRBC at admission. Suspect slow chronic bleed rather than acute bleed - Hbg is 8.8 - Continue po Protonix 40mg BID - Consider Venofer infusions prior to DC with total cumulative dose of 1 g. - GI consulted: Completed EGD and colonoscopy 04/06- no bleeding source identified - Consider small bowel study as outpatient #A-fib - Resumed Eliquis at 2.5mg dose due to continues Cr >1.5 and age near 80 - Continue metoprolol #Chronic back pain Oxycodone converted to morphine IV while n.p.o. Gabapentin at bedtime converted to IV while n.p.o. DVT prophylaxis:Eliquis at 2.5mg BID Diet: Heart healthy CODE STATUS: DNR/DNI Disposition: tele Admission and Anticipated Discharge Date Admission Date: March 31, 2025 Supervising Physician Co-Signing Physician Notes ATTESTATION I also saw the patient and confirmed schneider portions of the history and exam. I agree with the impression and plan in the resident documentation, and as summarized below. No complaints today except for generalized weakness. PT yesterday 2 person assist and tired easily. EXAM 104/67, 66, 18 Pleasant. NAD Lungs with some exp wheezing, improved compared to yesterday CV I/I DATA Labs Hgb = 8.8 plt = 169 BUN 27, Cr 1.57 IMPRESSION & PLAN AAA A-fib, rate controlled HFpEF Acute hypoxic resp failure Bilateral pleural effusions S/P thoracentesis Surgery in near future, likely to be planned as outpatient. Panendoscopy non- revealing. PT/OT - based on progress, return to [place] or will need short-term placement for PT HgB improved today. Given stability, will resume Eliquis but at 2.5 mg dose (Cr > 1.5 and age close enough to 80). If renal function improves and HgB remains stable, could entertain increase back to 5 mg BID, but would need be careful assuming on DAPT after AAA repair Subjective Pt returned to oxygen use over night due to mild SOB. Pt is without supplemental O2 this morning and denies SOB. Pt states he worked with PT yesterday afternoon and was fearful about standing due to previous exercise last week where legs were weak. Pt states he was able to stand with assist and feels more confident about working with PT to improve his mobility. Pt is noting dry and irritated skin around his eyes, requesting lubricant. Continues using SCDs intermittently and noting improvement in LE edema. Denies CP, SOB, abdominal pain, N/V/D/C, dizziness, or headaches. Review of Systems Review of Systems: reviewed, per HPI Physical Exam Physical Exam: General: well appearing, NAD Cardio: RRR, normal S1 and S2, no murmurs, gallops or rubs, +1 pitting edema bilateral LE, indentions noted from SCD's, but lower legs remain significantly smaller in girth and softer to palpation Respiratory: Expiratory wheezing scattered in upper lung garcia bilaterally. no rales or rhonchi Abdominal: Bowel sounds heard in all 4 quadrants, soft, nontender on palpation Neuro: A&O x3, CN 2-12 grossly intact Results & Data Results & Data Vital Signs (Past 12 Hours) Vital Signs Temp Pulse Pulse Resp BP BP Pulse Ox 04/09/25 02:28 36.4 C L 77 26 H 127/83 98 04/08/25 23:15 36.9 C 75 20 103/68 99 04/08/25 22:46 78 04/08/25 19:41 36.5 C 74 18 104/67 99 04/08/25 19:25 O2 Del Method O2 Flow Rate 04/09/25 02:28 Nasal Cannula 3 04/08/25 23:15 Nasal Cannula 3 04/08/25 22:46 04/08/25 19:41 Room Air 04/08/25 19:25 Oxymask 2 Resident Activity Tracking Resident Involvement: Resident Care Provided Care Provided: Adult Hospital Medicine
[2025-04-09] MEDS: ALBUT/IPRATROP 3MG/0.5MG NEB 3 ML VIAL NEB PRN (09:54)
[2025-04-09] MEDS ORDERED: ARTIFICIAL TEARS OPB PRN (10:51)
[2025-04-09] MEDS: APIXABAN 2.5 MG TAB PO SCH (11:51)
[2025-04-09] MEDS: MELATONIN 3 MG TAB PO PRN (23:03)
[2025-04-10 06:16] LABS: Hematocrit (blood only) 29.5 % (42.0-52.0); Hemoglobin 8.3 g/dl (14.0-18.0); Mean Corpuscular Hemoglobin 23.2 pg (25.0-34.0); Mean Corpuscular Volume 82.6 fL (80.0-100.0); Platelet Count 161 K/uL (130-400); RDW Standard Deviation 71.4 fL (36.4-46.3); Red Blood Count 3.57 M/uL (4.70-6.10); White Blood Count 5.32 K/ul (4.8-10.8)
[2025-04-10 06:40] LABS: Anion Gap 3.0 (3-11); Blood Urea Nitrogen 25.0 mg/dl (6-23); Calcium 10.1 mg/dl (8.6-10.3); Carbon Dioxide 31.0 mmol/L (21-32); Chloride 105.0 mmol/L (98-107); Creatinine Clr Calc Pharmacy 56.6 ml/min; Glucose 102.0 mg/dl (70-99(Fasting)); Potassium 4.2 mmol/L (3.5-5.1); Sodium 139.0 mmol/L (136-145)
--- NOTE | 2025-04-10 13:09 | Communication Note ---
Date of Service: April 10, 2025 I had the pleasure of seeing Mr. Lea and his today in regards to his abdominal aortic aneurysm. He does have a 6.3 cm infrarenal abdominal aortic a neurysm. Due to the size of his aneurysm we recommended he have it repaired. He claims that he is being discharged to [facility]. We will contact him when he is there and see him in the office. Once his present condition improves that he could tolerate surgery his endovascular repair of his abdominal aortic aneurysm will be scheduled.
[2025-04-10 16:21] VITALS: BP 113/76; PULSE 74; RESP 20; TEMP 97.7; O2SAT 100
--- NOTE | 2025-04-12 07:52 | Discharge Summary ---
Discharge Summary Date of Service April 10, 2025 Principal Dx & Hospital Course #1 = Principal Diagnosis (1) Acute heart failure: (2) CAD (coronary artery disease): (3) LETY (acute kidney injury): (4) Hyperkalemia: (5) Anemia: (6) HTN (hypertension): (7) Hyperlipidemia: (8) On anticoagulant therapy: Dwight Tellez is a 79-year-old male who presents with progressive dyspnea and volume overload slowly progressive for the last 5 months. He has diffuse lower extremity edema and bilateral effusions on evaluation. He denies chest pain at any point, has a history of moderate coronary disease without stenting, and has a minimal troponin elevation stable on recheck without signs of ACS. He also has progressive chronic anemia with melena for many months and is severely iron deficient on admission. Required transfusion on admission. he does not show signs of acute large-volume bleeding and is not tachycardic. CTA/P also reveals a 6.3 infrarenal aneurysm which will require short interval follow-up and repair, asymptomatic with this. Unknown change of the previous months no studies for comparison #Dyspnea Primarily resolved after thoracocentesis and IV lasix. Pt no longer requiring supplemental oxygen to maintain O2 sat >90%. NOted recent onset of expiratory wheezing. No recent hx of PFTs, however pt is a long time smoker with quit date of Oct 2024. - Will continue to monitor - Repeat dose of Duoneb 3mg/0.5mg once, ordered prn q6h for wheezing - Albuterol inhaler prn #Abdominal aortic aneurysm 6.3 cm infrarenal abdominal aortic aneurysm noted on CT with no prior abdominal CT available for comparison Vascular consulted and recommended recommend repair, CTA completed 04/03 Cardiac consult for clearance d/t hx and CHF exacerbation- completed Recommend continued GI workup to r/o malignancy prior to AAA repair- see below > GI to completed EGD and colonoscopy yesterday(04/06), will continue to monitor H&H and overt GI blood loss. Recommending follow up in outpatient following return to baseline strength and endurance prior to AAA repair #Acute CHF, history of moderate nonobstructive CAD Admitting EKG: A-fib rate controlled. Septal infarct noted. No territorial ST/T wave changes. Troponin 31.0/32.3. Clinically without chest pain/chest pressure. BNP 353. Echo this visit: EF 65-70%, No regional wall motion a bnormalities. Mod pulmonary HTN CTchest: Small left and moderate right layering pleural effusions, atelectasis, vascular congestion, mild central edema. Moderate cardiomegaly with severe coronary calcifications. 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 Ferritin nearly absent at 6.9, transferrin saturation 6%. Slow downtrend of hemoglobin as outpatient, baseline around 9. S/p 2 U PRBCs Hb 8.0, follow serial H&H. Suspect slow chronic bleed rather than acute bleed - Hbg is 8.5 - Continue Protonix 40mg BID, switch to PO - Consider Venofer infusions prior to DC with total cumulative dose of 1 g. - GI consulted: given need for AAA repair in the relatively near future and likely need for DAPT following, identification of bleeding source will be important prior to surgical intervention. Completed EGD and colonoscopy 04/06- no acute findings #A-fib - Holding Eliquis for anemia and positive occult blood - Continue metoprolol #Chronic back pain Oxycodone converted to morphine IV while n.p.o. Gabapentin at bedtime converted to IV while n.p.o. DVT prophylaxis: SCDs, anticoagulation held for anemia/bleeding Diet: Heart healthy CODE STATUS: DNR/DNI Disposition: PCU Admission HPI Per Admitting Provider Geoff is a 79-year-old a past medical history of alcohol abuse in remission, CAD last heart cath with nonobstructive moderate coronary disease 07/2024, A-fib on Eliquis and metoprolol, and hypertension on lisinopril who presents to the emergency department with dyspnea and leg swelling. On ER evaluation was found to have significant lower extremity edema and pleural effusions. He is anemic with a Hemoccult positive stool. As an outpatient patient has been on both p.o. Lasix and Bumex. Did have Lasix increased as an outpatient. He had endorsed palpitations but no chest pain in the previous weeks. In recent bedside family present. Came in for shortness of breath progressive over many weeks. He notes lower extremity swelling and some exertional dyspnea which has been gradually and steadily progressing since his surgery back in October. He reports he had 3 brief sharp episodes of chest pain in the left lower rib which lasted for less than a second, otherwise has had no chest pain or chest pressure. He endorses leg swelling, orthopnea, and dyspnea on exertion. Is not short of breath at rest. Has not been hypoxic. He reports he has had around 50 to 60 pounds of weight gain which he thinks is mostly fluid since October He has had intermittent melena once out of around every 3 bowel movement for many years. He describes this as black and slightly tarry and has not changed. He has not had any melena or bright red blood. He does not take iron supplements or use Pepto-Bismol. He does not have epigastric pain and reports he has not had any stomach pain in a very long time. He thinks he had a history of ulcers when he was much younger, does take Prilosec for a Hx GERD. 'Prilosec cured it' . Lasst colo > 10 years ago, is due. No family history of colorectal cancer. No personal history of cancer. No lightheadedness/dizziness/syncope/presyncope Former smoker, former alcohol regular use. Quit in October. He has had no tobacco or alcohol use in the preceding 30 days He was noted on CT to have a aortic aneurysm. This is new to him, he was not aware of this and reports he has never been diagnosed with an aneurysm before. He reports that his diuretics have been uptitrated as an outpatient but despite this he feels he has been peeing less in the last week or 2 Medical History: Reviewed Medications: Reviewed Surgical History: Reviewed Family history: Reviewed Allergies: Reviewed Social History: Reviewed, former smoker, former alcohol. No recreational drug use Code Status: DNR/DNI, confirmed on admission Discharge Plan Discharge Items Patient Disposition: Transfer Inpatient Rehab Fac Reason For Visit: CHF, DYSPNEA, ANEMIA Discharge Diagnosis: CHF Condition on Discharge: Fair Activity: As commented below Non-emergency contact: Primary Care Provider Call non-emergency contact if: you have any medication questions Follow-up/Referrals: Aldair Bryant MD [Physician] - (Call to schedule an appointment after D\\C) David Navarro DO [Primary Care Provider] - Diet: Heart Healthy Addtl Attending Provider Instructions: From Dr. Bryant,: He does have a 6.3 cm infrarenal abdominal aortic aneurysm. Due to the size of his aneurysm we recommended he have it repaired. He claims that he is being discharged to [facility]. We will contact him when he is there and see him in the office. Once his present condition improves that he could tolerate surgery his endovascular repair of his abdominal aortic aneurysm will be scheduled. Call your Primary Care doctor if any of the following symptoms or problems start or get worse: * Shortness of breath or difficulty breathing * Wake up at night short of breath * Chest pain * Cough * Swelling of your hands, feet, or legs * More fatigued or tired with your normal activity * Palpitations - sudden fast heart beats WEIGHT * Weigh yourself every morning after using the bathroom. * Use the same scale. * Wear the same amount of clothing. * Write your weight down on a chart. * Call your Primary Care doctor if you gain more than 2-3 pounds in 1-2 days. MEDICATIONS * Use this discharge instruction sheet for medication instructions. * Take your medications at the time your doctor ordered. * Do not skip a dose of your medicines. * If you miss a dose of medicine, take it as soon as possible, but DO NOT DOUBLE A DOSE. * Read your medicine information when you get home. * Know all of the side effects of your medicine. If in doubt, ask your pharmacist * Call your Primary Care doctor's office if you have any side effects. * Be sure all of your doctors know what medicine and herbs you take (including cold, flu, and herbal medicine). Take the following with you to your follow-up doctor appointments: * Weight Chart * Medication List * List of questions Do not drink excessive alcohol, beer or wine. Pending Studies at Discharge: Yes Stand-Alone Forms: My [facility] Skilled Items Patient informed of condition?: No DNR: Yes Discharge Level of Care: Acute rehab Communicable Disease: No Discharge Prognosis: Stable Lines: None Urinary Catheter: No Medications and DC Order Prescriptions: Continued atorvastatin [Lipitor] 40 mg Tablet 40 mg PO HS acetaminophen 500 mg Tablet 1,000 mg PO Q6H PRN (Reason: Pain/fever) omeprazole 20 mg Capsule,Delayed Release(Dr/Ec) 20 mg PO QAM Rx Instructions: 7:30am montelukast [Singulair] 10 mg Tablet 10 mg PO HS albuterol sulfate 90 mcg/actuation Hfa Aerosol Inhaler 2 puff INHALATION QID PRN (Reason: Shortness Of Breath Or Wheezing) baclofen 5 mg Tablet 10 mg PO TID PRN (Reason: Muscle Spasms) tramadol 50 mg Tablet 50 mg PO TID PRN (Reason: Pain) furosemide 40 mg Tablet 40 mg PO BID Hold Instructions: hold unless needed for weight gain/edema Rx Instructions: 8am,2pm cyanocobalamin (vitamin B-12) 500 mcg Tablet 1,000 mcg PO QAM Qty: 30 0RF sennosides [senna] 8.6 mg Tablet 8.6 mg PO BID PRN (Reason: Constipation) bumetanide 2 mg tablet 2 mg PO BID PRN (Reason: Edema) benzonatate 100 mg capsule 100 mg PO Q8H PRN (Reason: Cough) gabapentin 300 mg capsule 300 mg PO HS mupirocin 2 % ointment 1 applic TOPICAL BID metoprolol succinate 25 mg tablet extended release 24 hr 25 mg PO QAM diclofenac sodium 1 % Gel 2 g TOPICAL BID PRN (Reason: Pain) Rx Instructions: apply to affected area on knees naloxone 4 mg/actuation spray,non-aerosol 1 spray INTRANASAL DIRECTED PRN (Reason: overdose) oxycodone 5 mg tablet 5 mg PO Q4H PRN (Reason: Pain (Scale Score 4-6)) Changed Eliquis 5 mg Tablet 2.5 mg PO BID Qty: 0 0RF Patient Comments: "I have not taken for a week - Dr Navarro's instruction" Held lisinopril 10 mg tablet 10 mg PO QAM Hold Instructions: until creatinine stabilizes Provider's Order Discharge Orders: Discharge Order (Routine); Ordered 04/10/25 Ordered By: Arsalan Patel Admission Data Admit Date/Time: 03/31/25 22:07 Attending Provider: Arsalan Patel Admit Provider: Rashi Aviles Primary Care Provider: David Navarro Other Providers: Aldair Bryant; Alvarez Hansen I; [facility]; Jeffrey Velasquez Other Interventions: Discharge Summary Assessment (RN) Last Done: 04/10/25 15:08 Hospital Stay Data Consultations 03/31/25 20:54 ED Decision to Admit Stat 04/01/25 14:28 Consult Vascular Surgery Routine 04/02/25 12:22 Consult Gastroenterology Routine 04/03/25 13:04 Consult Cardiology Routine Procedures Performed Operation Date: 04/06/25 16:30 Actual Procedures p Esophagogastroduodenoscopy - Alvarez Hansen MD s Colonoscopy Polypectomy - Alvarez Hansen MD Diagnostic Imagining Performed 03/31/25 19:58 CT abd pelvis wo con Stat CT chest diagnostic wo con Stat CT head/brain wo con Stat 04/03/25 08:00 IR thoracentesis wo tube US Routine 04/03/25 12:44 CTA abd pelvis wo/w con [CT angio abd pelvis wo/w con] Routine Pending Results Patient Have Any Pending Studies at Discharge: Yes Discharge Instructions Given to Patient (Per Discharging Provider) From Dr. Bryant,: He does have a 6.3 cm infrarenal abdominal aortic aneurysm. Due to the size of his aneurysm we recommended he have it repaired. He claims that he is being discharged to [facility]. We will contact him when he is there and see him in the office. Once his present condition improves that he could tolerate surgery his endovascular repair of his abdominal aortic aneurysm will be scheduled. Call your Primary Care doctor if any of the following symptoms or problems start or get worse: * Shortness of breath or difficulty breathing * Wake up at night short of breath * Chest pain * Cough * Swelling of your hands, feet, or legs * More fatigued or tired with your normal activity * Palpitations - sudden fast heart beats WEIGHT * Weigh yourself every morning after using the bathroom. * Use the same scale. * Wear the same amount of clothing. * Write your weight down on a chart. * Call your Primary Care doctor if you gain more than 2-3 pounds in 1-2 days. MEDICATIONS * Use this discharge instruction sheet for medication instructions. * Take your medications at the time your doctor ordered. * Do not skip a dose of your medicines. * If you miss a dose of medicine, take it as soon as possible, but DO NOT DOUBLE A DOSE. * Read your medicine information when you get home. * Know all of the side effects of your medicine. If in doubt, ask your pharmacist * Call your Primary Care doctor's office if you have any side effects. * Be sure all of your doctors know what medicine and herbs you take (including cold, flu, and herbal medicine). Take the following with you to your follow-up doctor appointments: * Weight Chart * Medication List * List of questions Do not drink excessive alcohol, beer or wine. Coding Diagnoses Acute heart failure I50.9 CAD (coronary artery disease) I25.10 LETY (acute kidney injury) N17.9 Hyperkalemia E87.5 Anemia D64.9 HTN (hypertension) I10 Hyperlipidemia E78.5 On anticoagulant therapy Z79.01
== END 2025-04-10 18:18 | DRG 291 ==
LOC: ED 17:59 → SUATTDRO 22:07 → 4W 22:07

== ENCOUNTER 2025-04-22 11:29 | Inpatient (IN) ==
--- NOTE | 2025-04-22 11:41 | Emergency Department Note ---
Impression & Plan Septic shock, Acute UTI (urinary tract infection), Acute renal failure, Congestive heart failure, RLL pneumonia ED Provider Note Name: DAVY LOZOYA Age: 79 Sex: Male Arrives Via: Ambulance Informant: Patient (poor historian), EMS, family ED Provider: Nura Durant MD Chief Complaint: Weakness Impression: As per impressions above Medical Decision Makin-year-old male arrives for evaluation of worsening mental status, breathing difficulty and generalized weakness. He has been at local rehab facility where there was concern that he was developing sepsis. He had a history of congestive failure and thus had been on Lasix which reportedly was stopped in the last few days due to concerns. On arrival patient is awake mildly confused and in some mild distress. His initial blood pressure was quite low in the 70s. He was given initial 500 mL bolus of fluid without much improvement and thus a second 500 mL later was ordered. Meanwhile septic workup was initiated. Initial labs consistent with sepsis including elevated white blood cell count from baseline, elevated procalcitonin and an elevated lactate. After 1 L initial fluid resuscitation he was continuously hypotensive and thus Levophed was initiated. During this another liter of fluid was begun but patient started complaining of worsening shortness of breath and thus this was held and restarted at a lower rate. Throughout this laboratory workup starting to return. His creatinine is quite elevated consistent with an acute kidney failure. He also has an elevated troponin though that may just be kidney related. Urinalysis which is a Gomez clearly shows concern for infection. Had said he also has right lower lobe infiltrate noted on chest x-ray. He was given Zosyn for broad-spectrum coverage. A MRSA swab will be sent at this time. I discussed the case with both critical care and the hospitalist and plan is to admit to this facility. Throughout he is protecting his airway and maintaining his oxygenation on nasal cannula O2. kept up-to-date on findings. Triage/Nursing Notes reviewed by Me External Chart Review by me: I reviewed the discharge summary from 04/12/2025 to get past medical history background Differential:Infection, dehydration, metabolic abnormality, hypo/hyperglycemia, electrolyte disturbance, anemia, hypoxia, cardiac sources, intracerebral event, toxicologic, neurologic, as well as other pathologies. Vital Signs: reviewed and remarkable for hypotension Interventions: Normal saline bolus 500 mL IV x 2, Levophed IV, normal saline infusion 125 ml per hour, Zosyn IV, albumin IV Sepsis management: Patient meets criteria for septic shock. Sepsis fluid resuscitation: patient was given a 1 L normal saline bolus as initial resuscitation for sepsis. He was not given 30 mL/kg IV fluids as he is in acute renal failure with congestive heart failure. Sepsis reevaluation: multiple repeat evaluations of patient throughout the stay. Post initial resuscitation (sepsis reevaluation) at 4:30 PM by me reveals normal blood pressure mild tachycardia and patient breathing relatively comfortably on 2 L nasal cannula. Of note due to persistent hypotension following first fluid bolus Levophed was started this vasopressor. Labs:ED labs Reviewed by me and remarkable for extensive abnormalities Imagin view chest x-ray as per my interpretation right lower lobe infiltrate with diffuse congestive findings. EKG:As per my interpretation. Indication weakness. Atrial fibrillation at 97 bpm. PVC noted. No ischemia appreciated. QTc 447. There is a right bundle branch block. When compared to the March 31, 2025 intraventricular block is more pronounced. Cardiac/Tele Monitoring: Cardiac Monitoring: An Order was placed for continuous cardiac monitoring. The monitor shows a rate of 105 with a afib tachy rhythm. Consults:I discussed the case with Dr. Albrecht of critical care medicine. Evaluated the patient and has advised albumin and plan of placement in ICU. Discussed with Dr. Patel of the hospital service and plan will be to admit to this hospital Plan: Disposition:Hospitalization. Condition: Serious History of Present Illness: 79-year-old gentleman arrives from [facility] rehab for evaluation of worsening mental status breathing difficulty and weakness. Patient was noted to be hypotensive by EMS. Reportedly is being treated for sepsis. He has a history of heart failure and thus they have been holding off on giving fluids but it also recently stopped his Lasix. Patient notes that he has pain in multiple areas including his throat his back and his buttocks. States this has been ongoing. Patient denies any difficulty breathing, chest pain, abdominal pain. He has an indwelling Gomez. Difficulty getting full story given patient is a bit confused. Past Medical History:See Below. Afib on Eliquis, AAA, CHF amongst others Home Medications:See Below Allergies:See Below Vitals:Blood Pressure: 70/50, Pulse 103, RR 30, T 37.8C, O2 94% on RA Physical Exam: GENERAL: Patient is chronically unwell appearing and in mild distress. Mildly confused. Dehydrated appearing. RESPIRATORY: Patient is moderately dyspneic/tachypneic with some crackles all lung garcia though otherwise clear. CARDIOVASCULAR: Tachycardic regular.No murmur appreciated. GASTROINTESTINAL: Abdomen soft, non-tender, no peritonitis. EXTREMITIES: Normal motion all extremities, no cyanosis, pitting edema with venous stasis bilateral lower legs generalized weakness but NEUROLOGIC: Patient is awake interactive and mildly confused. No focal neurologic deficits appreciated SKIN: No rash, no jaundice, no diaphoresis. PSYCH: Appropriate GCS: 15 ED Course: Times/Reassessments: Patient does have improvement in his mental status and blood pressure with fluid resuscitation and pressors. Critical Care: I have personally spent 50 minutes of critical care time in the direct management of this patient. Septic shock secondary to UTI and pneumonia. Resuscitation with fluids and pressors required along with coordination with critical care and hospitalist teams.. This was a life/limb threatening event. This 50 minutes is in excess of all separately billable procedures. Nura Durant MD Past Med/Surg History Problem List (Updated 04/22/25 @ 15:31 by Background Joaquina) RLL pneumonia (Acute) Congestive heart failure (Acute) Acute renal failure (Acute) Acute UTI (urinary tract infection) (Acute) Septic shock (Acute) Atrial fibrillation Heart failure with preserved ejection fraction Abdominal aortic aneurysm (AAA) Heme positive stool Iron deficiency anemia Acute heart failure Anemia (Acute) Melena (Acute) Weakness (Acute) Fluid overload (Acute) Dyspnea (Acute) Elevated troponin Alcohol abuse AMS (altered mental status) Slurred speech Hypercalcemia CAD (coronary artery disease) Iron deficiency Hyperkalemia LETY (acute kidney injury) Two-level lumbosacral spondylosis with radiculopathy Medical History Post-nasal drip as per patient - in the morning RBBB Dr Bonilla On anticoagulant therapy Eliquis daily Hyperlipidemia HTN (hypertension) controlled, stable per pt Hip pain Right knee pain Acid reflux controlled, stable per pt Hx of myocardial infarction "silent" - states was told must have occurred during childhood ~12-14 yrs old, per pt Paroxysmal atrial fibrillation dx 1984-- reason for Eliquis, follows w/ [facility] Environmental and seasonal allergies PRN inh use - no longer using daily Allergic rhinitis Surgical History Hx of arthroscopic knee surgery right, x 2 left, x 1 History of cardiac radiofrequency ablation (RFA) ~2009- [facility] Hx of colonoscopy Hx of total hip arthroplasty (2013) left History of shoulder surgery b/l - hx reconstruction of both shoulders Hx of cardiac catheterization (1984) 1984, 08/05/24, and "Early this year - it was all clear" as per patient - no stents Dr Bonilla Social History Smoking Status: Former smoker Tobacco Type: Cigarettes Cigarettes Per Day: Smokes pipe "doesn't inhale" as per patient; Second Hand Exposure: No; Do You Dip or Chew Tobacco: No; Hx Alcohol Use: Yes Alcohol type: beer Hx Substance Use: No Preferred Language: Uzbek Communication Ability: Effective C2 Tactical Analysis Technician Required: No Beliefs That Will Affect Care: None Current Living Situation: Personal Care Facility Current Living Situation Comment: [facility] Feels Safe at Home: Yes Assistive Devices: Glasses, Walker and Wheelchair Allergies Allergies Allergy/AdvReac Type Severity Reaction Status Date / Time latex Allergy Intermediate Rash, Verified 04/06/25 14:08 Burning Sensation phenobarbital AdvReac Intermediate Hyper Verified 04/06/25 14:08 Gold AdvReac Severe Wounds Uncoded 04/06/25 14:08 that became Pre-Cancerous Home Meds Home Medications Medication Instructions Recorded Confirmed acetaminophen 500 mg tablet 500 mg PO Q4H PRN Pain/fever 07/07/24 04/22/25 albuterol sulfate 90 mcg/actuation 2 puff inhalation QID PRN 07/07/24 04/22/25 aerosol inhaler Shortness Of Breath Or Wheezing atorvastatin 40 mg tablet (Lipitor) 40 mg PO HS 07/07/24 04/22/25 montelukast 10 mg tablet 10 mg PO HS 07/07/24 04/22/25 (Singulair) tramadol 50 mg tablet 50 mg PO Q4H PRN Pain 07/18/24 04/22/25 diclofenac sodium 1 % topical gel 2 g topical BID PRN Pain 03/31/25 04/22/25 gabapentin 300 mg capsule 300 mg PO HS 03/31/25 04/22/25 metoprolol succinate 25 mg 25 mg PO QAM 03/31/25 04/22/25 tablet,extended release 24 hr naloxone 4 mg/actuation nasal spray 1 spray intranasal DIRECTED PRN 03/31/25 04/22/25 overdose oxycodone 5 mg tablet 5 mg PO Q4H PRN Pain (Scale Score 03/31/25 04/22/25 4-6) acetaminophen 325 mg tablet 650 mg PO Q4H PRN Pain/Fever 04/22/25 04/22/25 ammonium lactate 12 % lotion 1 applic topical BID 04/22/25 04/22/25 apixaban 2.5 mg tablet (Eliquis) 2.5 mg PO BID 04/22/25 04/22/25 baclofen 10 mg tablet 10 mg PO TID 04/22/25 04/22/25 bisacodyl 10 mg rectal suppository 10 mg HI DAILY PRN Constipation 04/22/25 04/22/25 cyanocobalamin (vitamin B-12) 1,000 mcg PO DAILY 04/22/25 04/22/25 1,000 mcg tablet (Vitamin B-12) docusate sodium 100 mg capsule 100 mg PO Q12H 04/22/25 04/22/25 (Colace) empagliflozin 10 mg tablet 10 mg PO QAM 04/22/25 04/22/25 (Jardiance) fluticasone fur. 200 mcg-umeclid 1 inh inhalation DAILY 04/22/25 04/22/25 62.5 mcg-vilant 25 mcg inhalat.powder glucagon HCl 1 mg solution for 1 mg IM DIRECTED PRN 04/22/25 04/22/25 injection (Glucagon (HCl) Hypoglycemia Emergency Kit) ipratropium 20 mcg-albuterol 100 1 puff inhalation BID 04/22/25 04/22/25 mcg/actuation mist for inhalation ondansetron 4 mg disintegrating 4 mg PO Q6H PRN Nausea And Vomiting 04/22/25 04/22/25 tablet pantoprazole 40 mg tablet,delayed 40 mg PO BID 04/22/25 04/22/25 release piperacillin-tazobactam 2.25 gram 2.25 g IV Q8H 04/22/25 04/22/25 intravenous solution polyethylene glycol 3350 17 gram 17 g PO DAILY 04/22/25 04/22/25 oral powder packet (Miralax) sennosides 8.6 mg-docusate sodium 1 tab-cap PO QDL 04/22/25 04/22/25 50 mg tablet (Senokot-S) sodium chloride 0.9 % (flush) 5 ml IV Q8H 04/22/25 04/22/25 sodium phosphates 19 gram-7 118 ml HI DAILY PRN Constipation 04/22/25 04/22/25 gram/118 mL enema (Fleet Enema) Results & Data (ED) Vital Signs Vital Signs - 24 hr 04/22/25 11:37 04/22/25 11:45 04/22/25 11:57 Temperature 36.9 C Temperature Source Oral Pulse Rate 106 H 100 H Pulse Rate [Apical] 101 H Respiratory Rate 25 H 28 H Respiratory Effort / Characteristics Short of Breath Spontaneous Blood Pressure 74/46 L Blood Pressure [Right Arm] Blood Pressure Mean 55 Blood Pressure Mean [Right Arm] Pulse Oximetry 94 96 Oxygen Delivery Method Nasal Cannula Nasal Cannula Oxygen Flow Rate 4 4 Sepsis Recent Fever Within 48 Hours No Sepsis New/Unexplained Change in Mental Status N/A Sepsis Action Taken by Nursing Physician Notified 04/22/25 12:06 04/22/25 12:15 04/22/25 12:29 Temperature Temperature Source Pulse Rate 96 H 102 H Pulse Rate [Apical] 94 H Respiratory Rate 28 H 26 H 17 Respiratory Effort / Characteristics Spontaneous Blood Pressure 85/53 L Blood Pressure [Right Arm] 74/46 L Blood Pressure Mean 63 Blood Pressure Mean [Right Arm] 55 Pulse Oximetry 97 97 98 Oxygen Delivery Method Nasal Cannula Nasal Cannula Nasal Cannula Oxygen Flow Rate 4 4 4 Sepsis Recent Fever Within 48 Hours Sepsis New/Unexplained Change in Mental Status Sepsis Action Taken by Nursing 04/22/25 12:30 04/22/25 12:46 04/22/25 12:46 Temperature Temperature Source Pulse Rate Pulse Rate [Apical] 90 107 H 108 H Respiratory Rate 23 24 23 Respiratory Effort / Characteristics Spontaneous Spontaneous Spontaneous Blood Pressure Blood Pressure [Right Arm] 76/43 L 87/59 L 87/59 L Blood Pressure Mean Blood Pressure Mean [Right Arm] 54 68 68 Pulse Oximetry 97 98 98 Oxygen Delivery Method Nasal Cannula Nasal Cannula Nasal Cannula Oxygen Flow Rate 4 4 4 Sepsis Recent Fever Within 48 Hours Sepsis New/Unexplained Change in Mental Status Sepsis Action Taken by Nursing 04/22/25 13:00 04/22/25 13:15 04/22/25 13:31 Temperature Temperature Source Pulse Rate Pulse Rate [Apical] 114 H 105 H 112 H Respiratory Rate 24 17 19 Respiratory Effort / Characteristics Spontaneous Spontaneous Spontaneous Blood Pressure Blood Pressure [Right Arm] 87/59 L 107/67 89/65 L Blood Pressure Mean Blood Pressure Mean [Right Arm] 68 80 73 Pulse Oximetry 97 99 97 Oxygen Delivery Method Nasal Cannula Nasal Cannula Nasal Cannula Oxygen Flow Rate 4 4 4 Sepsis Recent Fever Within 48 Hours Sepsis New/Unexplained Change in Mental Status Sepsis Action Taken by Nursing 04/22/25 13:45 Temperature Temperature Source Pulse Rate Pulse Rate [Apical] 112 H Respiratory Rate 24 Respiratory Effort / Characteristics Spontaneous Blood Pressure Blood Pressure [Right Arm] 105/73 Blood Pressure Mean Blood Pressure Mean [Right Arm] 83 Pulse Oximetry 97 Oxygen Delivery Method Nasal Cannula Oxygen Flow Rate 4 Sepsis Recent Fever Within 48 Hours Sepsis New/Unexplained Change in Mental Status Sepsis Action Taken by Nursing Laboratory Data 04/23/25 04:22 04/23/25 04:22 Lab Results 04/22/25 04/22/25 04/22/25 Range/Units 11:45 11:53 12:26 WBC 11.26 H (4.8-10.8) K/ul RBC 3.48 L (4.70-6.10) M/uL Hgb 8.0 L (14.0-18.0) g/dl Hct 26.9 L (42.0-52.0) % MCV 77.3 L (80.0-100.0) fL MCH 23.0 L (25.0-34.0) pg MCHC 29.7 L (32.0-36.0) g/dL RDW Std Deviation 65.6 H (36.4-46.3) fL RDW Coeff of Charly 23.6 H (11.5-14.5) % Plt Count 160 (130-400) K/uL MPV 9.8 (9.4-12.4) fL Immature Gran % (Auto) 0.6 % Neut % (Auto) 90.8 % Lymph % (Auto) 2.3 % [place] % (Auto) 5.2 % Eos % (Auto) 0.7 % Baso % (Auto) 0.4 % Neut # (Auto) 10.22 H (1.40-6.50) K/uL Lymph # (Auto) 0.26 L (1.20-3.40) K/uL [place] # (Auto) 0.59 (0.11-0.59) K/uL Eos # (Auto) 0.08 (0.00-0.50) K/uL Baso # (Auto) 0.04 (0.00-0.20) K/uL Immature Gran # (Auto) 0.07 (0.01-0.20) K/uL Toxic Vacuolation 1+ Dohle Bodies 1+ Polychromasia 1+ Hypochromasia Present Anisocytosis Present Tear Drop Cells 1+ VBG pH 7.37 (7.36-7.41) VBG pCO2 59 H (38-50) mmHg VBG pO2 33 mmHg VBG HCO3 34 mmol/L VBG O2 Saturation < 60.0 % VBG Base Excess 7.7 mEq/L Sodium 135 L (136-145) mmol/L Potassium 4.5 (3.5-5.1) mmol/L Chloride 93 L (98-107) mmol/L Carbon Dioxide 32 (21-32) mmol/L Anion Gap 10 (3-11) BUN 67 H (6-23) mg/dl Creatinine 4.26 H (0.6-1.4) mg/dl Est Cr Clr Drug Dosing Not Reportable eGFR 13.45 BUN/Creatinine Ratio 15.7 (10-20) Glucose 105 H (70-99(Fasting)) mg/dl Lactate 2.1 H* (0.4-2.0) mmol/L Calcium 9.7 (8.6-10.3) mg/dl Magnesium 1.8 (1.7-2.4) mg/dl Total Bilirubin 1.9 H (0.2-1.0) mg/dl Direct Bilirubin 1.1 H (0-0.2) mg/dl AST 33 (13-39) U/L ALT 9 (7-52) U/L Alkaline Phosphatase 237 H (34-104) U/L Troponin I High Sens 145.5 H* (0-20) pg/ml B-Natriuretic Peptide 332 H (0-100) pg/ml Total Protein 6.0 (6.0-8.3) gm/dl Albumin 2.8 L (3.4-5.0) gm/dl Procalcitonin 7.83 H (0-0.5) ng/ml TSH (0.300-4.500) uIu/ml Random Cortisol 28.04 mcg/dl Urine Color Dark Yellow Urine Appearance Turbid A (Clear) Urine pH 6.5 (4.5-7.5) Ur Specific [place] 1.015 (1.000-1.030) Urine Protein 3+ H (Negative) Urine Glucose (UA) Negative (Negative) Urine Ketones Negative (Negative) Urine Blood 3+ H (Negative) Urine Nitrite Negative (Negative) Urine Bilirubin 1+ H (Negative) Urine Urobilinogen Positive H (Negative) Ur Leukocyte Esterase 3+ H (Negative) Urine WBC (Auto) >50 H (0-5) /hpf Urine RBC (Auto) >20 H (0-2) /hpf U Hyaline Cast (Auto) 11-20 H (0-2) /lpf U Epithel Cells (Auto) 3-5 H (0-2) /hpf Urine Bacteria (Auto) 1+ H (None Seen) Calcium Oxalate Crystal Present A (None Prsent) Granular Casts Present A (None Prsent) /lpf Waxy Casts Present A (None Prsent) /lpf WBC Casts Present A (None Prsent) /lpf Urine Comment Nasal Screen MRSA (PCR) Negative (Negative) SARS-CoV-2 (PCR) (Negative) Influenza Type A (PCR) (Neg) Influenza Type B (PCR) (Neg) RSV (RT-PCR) (Neg) 04/22/25 04/22/25 Range/Units 13:11 13:38 WBC (4.8-10.8) K/ul RBC (4.70-6.10) M/uL Hgb (14.0-18.0) g/dl Hct (42.0-52.0) % MCV (80.0-100.0) fL MCH (25.0-34.0) pg MCHC (32.0-36.0) g/dL RDW Std Deviation (36.4-46.3) fL RDW Coeff of Charly (11.5-14.5) % Plt Count (130-400) K/uL MPV (9.4-12.4) fL Immature Gran % (Auto) % Neut % (Auto) % Lymph % (Auto) % [place] % (Auto) % Eos % (Auto) % Baso % (Auto) % Neut # (Auto) (1.40-6.50) K/uL Lymph # (Auto) (1.20-3.40) K/uL [place] # (Auto) (0.11-0.59) K/uL Eos # (Auto) (0.00-0.50) K/uL Baso # (Auto) (0.00-0.20) K/uL Immature Gran # (Auto) (0.01-0.20) K/uL Toxic Vacuolation Dohle Bodies Polychromasia Hypochromasia Anisocytosis Tear Drop Cells VBG pH (7.36-7.41) VBG pCO2 (38-50) mmHg VBG pO2 mmHg VBG HCO3 mmol/L VBG O2 Saturation % VBG Base Excess mEq/L Sodium (136-145) mmol/L Potassium (3.5-5.1) mmol/L Chloride (98-107) mmol/L Carbon Dioxide (21-32) mmol/L Anion Gap (3-11) BUN (6-23) mg/dl Creatinine (0.6-1.4) mg/dl Est Cr Clr Drug Dosing eGFR BUN/Creatinine Ratio (10-20) Glucose (70-99(Fasting)) mg/dl Lactate 1.4 (0.4-2.0) mmol/L Calcium (8.6-10.3) mg/dl Magnesium (1.7-2.4) mg/dl Total Bilirubin (0.2-1.0) mg/dl Direct Bilirubin (0-0.2) mg/dl AST (13-39) U/L ALT (7-52) U/L Alkaline Phosphatase (34-104) U/L Troponin I High Sens 147.6 H* (0-20) pg/ml B-Natriuretic Peptide (0-100) pg/ml Total Protein (6.0-8.3) gm/dl Albumin (3.4-5.0) gm/dl Procalcitonin (0-0.5) ng/ml TSH 4.282 (0.300-4.500) uIu/ml Random Cortisol mcg/dl Urine Color Urine Appearance (Clear) Urine pH (4.5-7.5) Ur Specific [place] (1.000-1.030) Urine Protein (Negative) Urine Glucose (UA) (Negative) Urine Ketones (Negative) Urine Blood (Negative) Urine Nitrite (Negative) Urine Bilirubin (Negative) Urine Urobilinogen (Negative) Ur Leukocyte Esterase (Negative) Urine WBC (Auto) (0-5) /hpf Urine RBC (Auto) (0-2) /hpf U Hyaline Cast (Auto) (0-2) /lpf U Epithel Cells (Auto) (0-2) /hpf Urine Bacteria (Auto) (None Seen) Calcium Oxalate Crystal (None Prsent) Granular Casts (None Prsent) /lpf Waxy Casts (None Prsent) /lpf WBC Casts (None Prsent) /lpf Urine Comment Nasal Screen MRSA (PCR) (Negative) SARS-CoV-2 (PCR) NEGATIVE (Negative) Influenza Type A (PCR) Negative (Neg) Influenza Type B (PCR) Negative (Neg) RSV (RT-PCR) Negative (Neg) Administered Medications Norepinephrine Bitartrate (Levophed/D5w) 4 mg in 250 mls @ 13.984 mls/hr IV .[id number] [facility]; Protocol Stop: 05/22/25 12:14 Last Admin: 04/23/25 10:35 Dose: 0.03 mcg/kg/min, 14 mls/hr Documented By: GPF Co-signed By: MTP Titration: 04/23/25 10:35 Dose: Infused Documented By: GPF Co-signed By: MTP Admin: 04/23/25 09:42 Dose: Not Given Documented By: Admin: 04/23/25 09:42 Dose: Not Given Documented By: Titration: 04/23/25 09:40 Dose: 0.03 mcg/kg/min, 14 mls/hr Documented By: GPF Co-signed By: KJS Titration: 04/23/25 07:34 Dose: 0 mcg/kg/min, 0 mls/hr Documented By: GPF Co-signed By: LAF Titration: 04/23/25 06:58 Dose: 0.03 mcg/kg/min, 14 mls/hr Documented By: GPF Co-signed By: CLC Titration: 04/23/25 00:00 Dose: 0.03 mcg/kg/min, 14 mls/hr Documented By: CLC Co-signed By: [id number] Titration: 04/22/25 23:30 Dose: 0.05 mcg/kg/min, 23.3 mls/hr Documented By: CLC Co-signed By: [id number] Admin: 04/22/25 19:51 Dose: 0.07 mcg/kg/min, 32.6 mls/hr Documented By: CLC Co-signed By: CP Titration: 04/22/25 19:51 Dose: Infused Documented By: CLC Co-signed By: CP Titration: 04/22/25 15:49 Dose: 0.07 mcg/kg/min, 32.6 mls/hr Documented By: CB Co-signed By: GPF Titration: 04/22/25 13:02 Dose: 0.07 mcg/kg/min, 32.6 mls/hr Documented By: SABA Co-signed By: ARELIS Admin: 04/22/25 12:20 Dose: 0.05 mcg/kg/min, 23.3 mls/hr Documented By: SABA Co-signed By: QGV Pantoprazole Sodium (Protonix) 40 mg in 10 mls @ 5 mls/min IV DAILY ROBIN Stop: 05/23/25 08:59 Last Admin: 04/23/25 08:33 Dose: 5 mls/min Documented By: GPCourtney Piperacillin Sod/Tazobactam Sod (Zosyn) 4.5 gm in 100 mls @ 25 mls/hr IV Q12H ROBIN; Protocol Stop: 04/24/25 20:14 Last Admin: 04/23/25 08:32 Dose: 25 mls/hr Documented By: Infusion: 04/23/25 00:14 Dose: Infused Documented By: Admin: 04/22/25 19:32 Dose: 25 mls/hr Documented By: CLC Hydrocortisone Sodium (Succinate 50 mg/ Syringe) 1 mls @ 4 mls/min IV Q8H ROBIN Stop: 05/23/25 00:29 Last Admin: 04/23/25 08:33 Dose: 4 mls/min Documented By: Admin: 04/23/25 01:20 Dose: 4 mls/min Documented By: CLC Heparin Sodium/Dextrose (Heparin 86275 Unit/500 Ml D5w) 25,000 units in 500 mls @ 35 mls/hr IV .[id number] ROBIN; Protocol Stop: 05/23/25 09:44 Last Admin: 04/23/25 10:35 Dose: 1,750 units/hr, 35 mls/hr Documented By: DINORA Co-signed By: CRIS Miscellaneous (Icu Protocol For Hyperglycemia) 1 each N/A ACHS ROBIN Stop: 04/24/25 16:29 Last Admin: 04/23/25 08:32 Dose: Not Given Documented By: Admin: 04/23/25 00:13 Dose: Not Given Documented By: Admin: 04/22/25 16:55 Dose: 1 each Documented By: CB Discontinued Medications Albumin Human (Albumin Human 5% 12.5 Gm/250 Ml Vial) Confirm Administered Dose 12.5 gm IV .STK-MED ONE Stop: 04/22/25 14:23 Last Admin: 04/22/25 14:36 Dose: Not Given Documented By: SABA Heparin Sodium/Dextrose (Heparin Iv Adult Wt-Based Standard *No* Initial Bolus Protocol) 1 each IV ONE STA; Protocol Stop: 04/23/25 09:26 Last Admin: 04/23/25 10:38 Dose: 1 each Documented By: DINORA Sodium Chloride (Nss) 500 mls @ 999 mls/hr IV .Q31M ONE Stop: 04/22/25 12:08 Last Infusion: 04/22/25 12:23 Dose: Infused Documented By: Admin: 04/22/25 11:48 Dose: 999 mls/hr Documented By: SABA Sodium Chloride (Nss) 500 mls @ 999 mls/hr IV .Q31M ONE Stop: 04/22/25 12:21 Last Infusion: 04/22/25 12:59 Dose: Infused Documented By: Admin: 04/22/25 12:00 Dose: 999 mls/hr Documented By: SABA Piperacillin Sod/Tazobactam Sod (Zosyn) 4.5 gm in 100 mls @ 200 mls/hr IV NOW ONE; Protocol Stop: 04/22/25 12:37 Last Infusion: 04/22/25 12:53 Dose: Infused Documented By: Admin: 04/22/25 12:15 Dose: 200 mls/hr Documented By: SABA Sodium Chloride (Nss) 1,000 mls @ 999 mls/hr IV .Q1H1M ONE Stop: 04/22/25 13:54 Last Infusion: 04/22/25 19:48 Dose: Infused Documented By: Infusion: 04/22/25 13:58 Dose: 125 mls/hr Documented By: Infusion: 04/22/25 13:15 Dose: 0 mls/hr Documented By: Admin: 04/22/25 12:57 Dose: 999 mls/hr Documented By: SABA Albumin Human (Albumin 5%) 250 mls @ 100 mls/hr IV ONE ONE Stop: 04/22/25 17:03 Last Infusion: 04/22/25 16:53 Dose: Infused Documented By: Admin: 04/22/25 14:36 Dose: 100 mls/hr Documented By: SABA Hydrocortisone Sodium (Succinate 100 mg/ Syringe) 2 mls @ 4 mls/min IV NOW STA Stop: 04/22/25 16:33 Last Admin: 04/22/25 16:56 Dose: 4 mls/min Documented By: LOUIS Magnesium Sulfate/Dextrose (Magnesium Sulfate / D5w) 1 gm in 100 mls @ 50 mls/hr IV Q2H ROBIN Stop: 04/23/25 04:14 Last Infusion: 04/23/25 05:21 Dose: Infused Documented By: Admin: 04/23/25 02:01 Dose: 50 mls/hr Documented By: Infusion: 04/23/25 02:01 Dose: Infused Documented By: Admin: 04/23/25 00:20 Dose: 50 mls/hr Documented By: MAZIN Miscellaneous (Stat Iv Infusion Titration Per Protocol) 1 each N/A NOW STA Stop: 04/22/25 12:09 Last Admin: 04/22/25 12:23 Dose: Not Given Documented By: SABA Imaging Data Radiologist's Impression: Chest X-Ray 04/22/25 11:38 XR chest 1V portable CLINICAL HISTORY: Sepsis COMPARISON STUDY: 04/03/2025 FINDINGS: There is stable cardiomegaly with pulmonary vascular congestion. There is increased opacity at the right base with obscuration of the right hemidiaphragm. No pneumothorax. IMPRESSION: 1. CHF. 2. Increased opacity at the right lung base could represent pneumonia or pleural effusion. ACT 112: Negative or not required by law. Electronically signed by: Ben Bland M.D. 04/22/2025 12:01 PM Discharge Plan Visit Data Chief Complaint: Unresponsive ED Provider: Nura Durant Discharge Problem: Septic shock, Acute UTI (urinary tract infection), Acute renal failure, Congestive heart failure, RLL pneumonia Patient Disposition: Admitted As Inpatient Condition: Critical Discharge Instructions Interventions: ED Discharge Assessment Last Done: 04/22/25 14:58 Discharge Problem: Acute renal failure Qualifiers: Acute renal failure type: unspecified Qualified Code(s): N17.9 - Acute kidney failure, unspecified Congestive heart failure Qualifiers: Heart failure type: combined systolic and diastolic Heart failure chronicity: c hronic Qualified Code(s): I50.42 - Chronic combined systolic (congestive) and diastolic (congestive) heart failure RLL pneumonia Qualifiers: Pneumonia type: due to unspecified organism Qualified Code(s): J18.9 - Pneumonia, unspecified organism
[2025-04-22] MEDS: SODIUM CHLORIDE 0.9% 500 ML IV ONE ×2 (11:48→12:00)
--- NOTE | 2025-04-22 12:02 | XRay Report ---
XR chest 1V portable CLINICAL HISTORY: Sepsis COMPARISON STUDY: 04/03/2025 FINDINGS: There is stable cardiomegaly with pulmonary vascular congestion. There is increased opacity at the right base with obscuration of the right hemidiaphragm. No pneumothorax. IMPRESSION: 1. CHF. 2. Increased opacity at the right lung base could represent pneumonia or pleural effusion. ACT 112: Negative or not required by law. Electronically signed by: Ben Bland M.D. 04/22/2025 12:01 PM
[2025-04-22 12:04] LABS: Hematocrit (blood only) 26.9 % (42.0-52.0); Hemoglobin 8.0 g/dl (14.0-18.0); Mean Corpuscular Hemoglobin 23.0 pg (25.0-34.0); Mean Corpuscular Volume 77.3 fL (80.0-100.0); Platelet Count 160 K/uL (130-400); RDW Standard Deviation 65.6 fL (36.4-46.3); Red Blood Count 3.48 M/uL (4.70-6.10); White Blood Count 11.26 K/ul (4.8-10.8)
[2025-04-22 12:06] LABS: Base Excess VBG 7.7 mEq/L; HCO3 VBG 34 mmol/L; Oxygen Saturation VBG < 60.0 %; PCO2 VBG 59 mmHg (38-50); PO2 VBG 33 mmHg; pH VBG 7.37 (7.36-7.41)
[2025-04-22] MEDS: PIPERACILLIN/TAZOBACTAM 4.5 GM/100 ML BAG IV ONE (12:15)
[2025-04-22] MEDS: NOREPINEPHRINE/D5W 4 MG/250 ML PLCT IV SCH (12:20)
[2025-04-22] MEDS: STAT IV Infusion **Titration per Protocol STA (12:23)
[2025-04-22 12:26] LABS: Alanine Aminotransferase 9 U/L (7-52); Alkaline Phosphatase 237 U/L (34-104); Anion Gap 10 (3-11); Bilirubin,Total 1.9 mg/dl (0.2-1.0); Blood Urea Nitrogen 67 mg/dl (6-23); Calcium 9.7 mg/dl (8.6-10.3); Carbon Dioxide 32 mmol/L (21-32); Chloride 93 mmol/L (98-107); Glucose 105 mg/dl (70-99(Fasting)); Magnesium 1.8 mg/dl (1.7-2.4); Potassium 4.5 mmol/L (3.5-5.1); Sodium 135 mmol/L (136-145); Total Protein 6.0 gm/dl (6.0-8.3)
[2025-04-22 12:28] LABS: Anisocytosis Present; Dohle Bodies 1+; Hypochromasia Present; Immature Granulocytes # (auto) 0.07 K/uL (0.01-0.20); Immature Granulocytes % (auto) 0.6 %; Polychromasia 1+; Tear Drop Cells 1+; Toxic Vacuolation 1+
[2025-04-22 12:45] LABS: Appearance Urine Turbid (Clear); Bacteria Urine Automated 1+ (None Seen); Glucose Urine UA Negative (Negative); RBC Urine Automated >20 /hpf (0-2); WBC Urine Automated >50 /hpf (0-5)
[2025-04-22] MEDS: SODIUM CHLORIDE 0.9% 1,000 ML IV ONE (12:57)
--- NOTE | 2025-04-22 13:46 | Critical Care Consultation ---
Date of Consultation April 22, 2025 Assessment & Plan (1) RLL pneumonia: (2) Congestive heart failure: (3) Acute renal failure: (4) Acute UTI (urinary tract infection): (5) Septic shock: (6) Atrial fibrillation: (7) Hyperlipidemia: (8) Acid reflux: Plan Reason Critically Ill: 79-year-old male was brought in from retirement because of lethargy. Was found to be in septic shock secondary to UTI. Sent to ICU for further management Past medical history: Chronic indwelling Gomez due to patient's inability to walk, history of lower back surgery, coronary artery disease, HFpEF, chronic anemia Neuro - [facility] ICU: Unable to assess --Metabolic encephalopathy Likely secondary to sepsis Calcium, sodium, glucose within normal limit Cardiac - 2D echo 04/01/2025: EF 65-70%, mild concentric LVH, PASP 50-55 mmHg -- Shock Mixed Septic plus HFpEF Vasopressors to keep MAP greater than 65 -- Elevated troponin Likely type II MN Continue to trend troponins EKG 04/22/2025 11:44 AM: A-fib, low voltage QRS, right bundle branch block, Q waves on the inferior leads, mild ST depression on V3 V4, no T wave changes --Pulmonary hypertension Likely type II Respiratory - Chest x-ray 04/22/2025 personally reviewed: Portable film, alveolar opacity appreciated in the right lower lobe with blunting of the right costophrenic angle, increased cardiac silhouette -- Acute hypoxic respiratory failure Multifactorial Pneumonia Acute exacerbation of HFpEF BNP 332 Procalcitonin 7.83, Continue broad-spectrum antibiotics BiPAP nightly and as needed shortness of breath Keep O2 saturation between 90-92% --Pleural effusion History of thoracentesis on 04/03/2025, transudative --History of SELENE GI - -- Mild conjugated bilirubinemia Could be from hepatic congestion from cardiac etiology Continue to monitor -- Chronically elevated alk phos Continue to monitor RENAL/LYTES - -- LETY on CKD Baseline creatinine 1.5-1.6 Monitor BUN/creatinine Avoid nephrotoxic medications Strict ins and outs - -- Chronic indwelling Gomez Will change the Gomez when he comes to the ICU ENDO - -- ICU hypoglycemia protocol HEME - -- Normocytic anemia Monitor H&H ID - -- Septic shock likely source is urine Procalcitonin 7.89 Continue broad-spectrum antibiotics Follow-up blood culture as well as urine culture Musculoskeletal - -- Chronic low back pain s/p surgery On oxycodone tramadol as needed -- DNR/DNI No escalation of care --Prophylaxis VTE: Eliquis at home GI:[] Lines: Peripheral Diet: N.p.o. Plan: Strict in and out I will give 5% albumin, 250 mL once. BiPAP nightly and as needed shortness of breath. Will consider placing an central line if the requirement for vasopressors keep trending up CT abdomen pelvis to be done now. Patient's was in the room and I discussed the goals of care. Patient already has a POLST form which states that DNR/DNI. Okay to continue with vasopressor support but no escalation of care I have personally spent 63 minutes of critical care time in the direct management of this patient. This is a life/limb threatening event. This includes time spent evaluating patient, direct bedside care, chart review, placing orders, interpretation of diagnostic studies, discussion with consultants, patient, and family members, as well as other required patient management activities. This time is exclusive of all separately billable procedures, and teaching time and separate from and in addition to any other critical care service time. History of Present Illness History of Present Illness 79-year-old male was brought in from retirement because of lethargy. Was found to be in septic shock secondary to UTI. Sent to ICU for further management Past medical history: Chronic indwelling Gomez due to patient's inability to walk, history of lower back surgery, coronary artery disease, HFpEF, chronic anemia At the time of examination patient's was in the room Patient was little bit drowsy but easily arousable. He was saturating 98% on 4 L nasal cannula, I went down to 2 L He was on 0.07 of Levophed with systolic in the high 90s, MAP in the mid to high 60s. Denied any chest pain, no shortness of breath No dizziness. Complain of some mild abdominal discomfort. No nausea or vomiting Denied any headache or blurry vision. As per the chart patient's Gomez catheter was changed yesterday. He has chronic indwelling Gomez. Social history: Former smoker Allergies Allergy/AdvReac Type Severity Reaction Status Date / Time latex Allergy Intermediate Rash, Verified 04/06/25 14:08 Burning Sensation phenobarbital AdvReac Intermediate Hyper Verified 04/06/25 14:08 Gold AdvReac Severe Wounds Uncoded 04/06/25 14:08 that became Pre-Cancerous Home Medications Medication Instructions Recorded Confirmed Type acetaminophen 500 mg tablet 500 mg PO Q4H PRN Pain/fever 07/07/24 04/22/25 History albuterol sulfate 90 mcg/actuation 2 puff inhalation QID PRN 07/07/24 04/22/25 History aerosol inhaler Shortness Of Breath Or Wheezing atorvastatin 40 mg tablet (Lipitor) 40 mg PO HS 07/07/24 04/22/25 History montelukast 10 mg tablet 10 mg PO HS 07/07/24 04/22/25 History (Singulair) tramadol 50 mg tablet 50 mg PO Q4H PRN Pain 07/18/24 04/22/25 History diclofenac sodium 1 % topical gel 2 g topical BID PRN Pain 03/31/25 04/22/25 History gabapentin 300 mg capsule 300 mg PO HS 03/31/25 04/22/25 History metoprolol succinate 25 mg 25 mg PO QAM 03/31/25 04/22/25 History tablet,extended release 24 hr naloxone 4 mg/actuation nasal spray 1 spray intranasal DIRECTED PRN 03/31/25 04/22/25 History overdose oxycodone 5 mg tablet 5 mg PO Q4H PRN Pain (Scale Score 03/31/25 04/22/25 History 4-6) acetaminophen 325 mg tablet 650 mg PO Q4H PRN Pain/Fever 04/22/25 04/22/25 History ammonium lactate 12 % lotion 1 applic topical BID 04/22/25 04/22/25 History apixaban 2.5 mg tablet (Eliquis) 2.5 mg PO BID 04/22/25 04/22/25 History baclofen 10 mg tablet 10 mg PO TID 04/22/25 04/22/25 History bisacodyl 10 mg rectal suppository 10 mg MA DAILY PRN Constipation 04/22/25 04/22/25 History cyanocobalamin (vitamin B-12) 1,000 mcg PO DAILY 04/22/25 04/22/25 History 1,000 mcg tablet (Vitamin B-12) docusate sodium 100 mg capsule 100 mg PO Q12H 04/22/25 04/22/25 History (Colace) empagliflozin 10 mg tablet 10 mg PO QAM 04/22/25 04/22/25 History (Jardiance) fluticasone fur. 200 mcg-umeclid 1 inh inhalation DAILY 04/22/25 04/22/25 History 62.5 mcg-vilant 25 mcg inhalat.powder glucagon HCl 1 mg solution for 1 mg IM DIRECTED PRN 04/22/25 04/22/25 History injection (Glucagon (HCl) Hypoglycemia Emergency Kit) ipratropium 20 mcg-albuterol 100 1 puff inhalation BID 04/22/25 04/22/25 History mcg/actuation mist for inhalation ondansetron 4 mg disintegrating 4 mg PO Q6H PRN Nausea And Vomiting 04/22/25 04/22/25 History tablet pantoprazole 40 mg tablet,delayed 40 mg PO BID 04/22/25 04/22/25 History release piperacillin-tazobactam 2.25 gram 2.25 g IV Q8H 04/22/25 04/22/25 History intravenous solution polyethylene glycol 3350 17 gram 17 g PO DAILY 04/22/25 04/22/25 History oral powder packet (Miralax) sennosides 8.6 mg-docusate sodium 1 tab-cap PO QDL 04/22/25 04/22/25 History 50 mg tablet (Senokot-S) sodium chloride 0.9 % (flush) 5 ml IV Q8H 04/22/25 04/22/25 History sodium phosphates 19 gram-7 118 ml MA DAILY PRN Constipation 04/22/25 04/22/25 History gram/118 mL enema (Fleet Enema) Patient History Medical History Post-nasal drip as per patient - in the morning RBBB Dr Bonilla On anticoagulant therapy Eliquis daily Hyperlipidemia HTN (hypertension) controlled, stable per pt Hip pain Right knee pain Acid reflux controlled, stable per pt Hx of myocardial infarction "silent" - states was told must have occurred during childhood ~12-14 yrs old, per pt Paroxysmal atrial fibrillation dx 1984-- reason for Eliquis, follows w/ [facility] Environmental and seasonal allergies PRN inh use - no longer using daily Allergic rhinitis Surgical History Hx of arthroscopic knee surgery right, x 2 left, x 1 History of cardiac radiofrequency ablation (RFA) ~2009- [facility] Hx of colonoscopy Hx of total hip arthroplasty (2013) left History of shoulder surgery b/l - hx reconstruction of both shoulders Hx of cardiac catheterization (1984) 1984, 08/05/24, and "Early this year - it was all clear" as per patient - no stents Dr Bonilla Social History Smoking Status: Unknown if ever smoked Tobacco Type: Pipe Cigarettes Per Day: Smokes pipe "doesn't inhale" as per patient; Second Hand Exposure: No; Do You Dip or Chew Tobacco: No; Hx Alcohol Use: No Hx Substance Use: No Preferred Language: Senegalese Communication Ability: Effective Warehouse Attendant Required: No Beliefs That Will Affect Care: None Current Living Situation: Shelter Current Living Situation Comment: [facility] Feels Safe at Home: Yes Assistive Devices: Glasses, Walker and Wheelchair Review of Systems 2 Review of Systems: All systems reviewed & are unremarkable except as noted in HPI & below Physical Exam 2 Physical Exam: Constitutional: No acute distress HEENT: EOMI, PERRLA Respiratory system: Decreased air entry on the right side, no wheeze, no rhonchi, positive crackles bilaterally more on the right side CVS: S1-S2 positive, no murmurs or gallops Abdomen: Soft, mild suprapubic and left lower quadrant tenderness, no rebound nondistended, positive bowel sounds x4 Extremities: +2 pulses bilaterally radialis/ dorsalis pedis, no cyanosis, +3 pitting edema bilateral lower extremity Neuro: Awake alert oriented to self only Psych: Normal mood and affect G/U: Positive Gomez Skin: no rashes, warm and dry Lymphatic: no cervical or axillary lymphadenopathy Results & Data Results & Data Vital Signs (Past 12 Hours) Vital Signs Temp Pulse Pulse Resp BP BP Pulse Ox 04/22/25 13:31 112 H 19 89/65 L 97 04/22/25 13:15 105 H 17 107/67 99 04/22/25 13:00 114 H 24 87/59 L 97 04/22/25 12:46 108 H 23 87/59 L 98 04/22/25 12:46 107 H 24 87/59 L 98 04/22/25 12:30 90 23 76/43 L 97 04/22/25 12:29 102 H 17 98 04/22/25 12:15 94 H 26 H 74/46 L 97 04/22/25 12:06 96 H 28 H 85/53 L 97 04/22/25 11:57 100 H 04/22/25 11:45 101 H 28 H 96 04/22/25 11:37 36.9 C 106 H 25 H 74/46 L 94 O2 Del Method O2 Flow Rate 04/22/25 13:31 Nasal Cannula 4 04/22/25 13:15 Nasal Cannula 4 04/22/25 13:00 Nasal Cannula 4 04/22/25 12:46 Nasal Cannula 4 04/22/25 12:46 Nasal Cannula 4 04/22/25 12:30 Nasal Cannula 4 04/22/25 12:29 Nasal Cannula 4 04/22/25 12:15 Nasal Cannula 4 04/22/25 12:06 Nasal Cannula 4 04/22/25 11:57 04/22/25 11:45 Nasal Cannula 4 04/22/25 11:37 Nasal Cannula 4 Laboratory Results 04/22/25 11:45 04/22/25 11:45 Coding Level of Care Code 82288 CRITICAL CARE 1ST 30-74M Diagnoses RLL pneumonia J18.9 Pneumonia type: due to unspecified organism Congestive heart failure I50.42 Heart failure chronicity: chronic Heart failure type: combined systolic and diastolic Acute renal failure N17.9 Acute renal failure type: unspecified Acute UTI (urinary tract infection) N39.0 Septic shock A41.9; R65.21 Atrial fibrillation I48.91 Hyperlipidemia E78.5 Acid reflux K21.9 (1) RLL pneumonia Pneumonia type: due to unspecified organism Qualified Code(s): J18.9 - Pneumonia, unspecified organism (2) Congestive heart failure Heart failure chronicity: chronic Heart failure type: combined systolic and diastolic Qualified Code(s): I50.42 - Chronic combined systolic (congestive) and diastolic (congestive) heart failure (3) Acute renal failure Acute renal failure type: unspecified Qualified Code(s): N17.9 - Acute kidney failure, unspecified
[2025-04-22 13:59] LABS: Influenza A virus by PCR Negative (Neg); Influenza B virus by PCR Negative (Neg); SARS CoV2 RNA(COVID-19) Ceph NEGATIVE (Negative)
--- NOTE | 2025-04-22 14:11 | History & Physical Report ---
Date of Service April 22, 2025 Assessment & Plan (1) RLL pneumonia: (2) Congestive heart failure: (3) Acute renal failure: (4) Acute UTI (urinary tract infection): (5) Septic shock: (6) Atrial fibrillation: (7) Heart failure with preserved ejection fraction: (8) Abdominal aortic aneurysm (AAA): (9) Anemia: (10) Acute heart failure: (11) Fluid overload: (12) Dyspnea: (13) AMS (altered mental status): (14) CAD (coronary artery disease): (15) LETY (acute kidney injury): Plan Geoff Lea is a 79 y/o M with a past medical history of alcohol abuse in remission, CAD last heart cath with nonobstructive moderate coronary disease 07/2024, A-fib on Eliquis and metoprolol, and hypertension on lisinopril found to be acutely hypotensive and lethargic at [facility], arrived to [facility] ED and found to be in septic shock secondary to UTI and transferred to ICU due to critical illness, need for pressors and continuous monitoring. Septic shock 2/2 UTI vs pneumonia/Metabolic encephalopathy - Urinalysis: Turbid, 3+ protein, 3+ blood, 1+ bilirubin, 3+ LE, 1+ bacteria, >50 WBC, >20 RBC - CXR: Stable CHF with RLL consolidation - Urine cx pending; Blood cx x2 pending, follow results - AMS with sepsis contributing, waxing and waning levels of conciousness - CBC favors bacterial process with leukocytosis with left shift; MRSA nares negative, Procal: 7.83 - Vasopressin 0.07 mg/kg/min Q8H IV drip started in ED, maintain MAP > 65 - Zosyn 4.5g Q8H abx therapy started, modify based on culture data - One dose albumin 250ml given - CBC, CMP QAM HFpEF/Acute hypoxic respiratory failure/Elevated troponin/Potential NSTEMI - 2D Echo: EF: 65-70%, mild concentric LVH, PASP 50-55 mmhg - Electrolytes largely wnl; BNP: 332 - Daily weights + strict I/Os - HST troponin: 147.6, trend to peak - EKG: A-fib with RVR, RBBB, potential age-indeterminate inferior infarct - Worsening respiratory status likely multifactorial, 2/2 exacerbation of acute on chronic HFpEF and new RLL consolidation suspicious for pneumonia - Consider cardiology consult, potentially repeat echocardiogram. - ICU recommendations: Continue broad-spectrum antibiotics, BiPAP nightly and as needed shortness of breath - 2L O2 via NC currently, keep O2 saturation between 90-92% LETY on CKD/Normocytic anemia - Baseline Cr: 1.5-1.6 on admission Cr: 4.26 - Strict I/Os - avoid nephrotoxic medications - anemia likely by product of worsening renal function - Hgb: 8 - CMP/CBC QAM Pleural effusion - Hx of thoracentesis 04/03/2025, Transudative Chronic indwelling wang - Changing wang once transferred to ICU Chronic low back pain - On oxycodone/tramadol as needed - DNR/DNI No escalation of care History of Present Illness Chief Complaint: Sepsis, altered mental status Primary Care Provider: David Navarro DO Geoff Lea is a 79 y/o M with a past medical history of alcohol abuse in remission, CAD last heart cath with nonobstructive moderate coronary disease 07/2024, A-fib on Eliquis and metoprolol, and hypertension on lisinopril who was admitted from 03/31/25-04/12/25 due to progressive dyspnea and volume overload over the past 5 months. At discharge patient was transferred to [facility] for further rehabilitation, and at [facility] patient was found to have a UTI, RLL consolidation, and changes in mental status over the past 48 hours. Patient was found to be hypotensive and at this point transfer from [facility] to the [facility] ED occurred and on arrival patient's BP was 74/46. The majority of history is taken from patient's as patient has waxing and waning levels of consciousness, when roused patient reports "I have a strange feeling in my chest", patient is able to answer all orientation questions but needs to be frequently roused as he continually doses off every 10 seconds. Patient's reports that the patient seemed even more mentally altered the day prior when she noticed a discussion between a family friend and the patient, and reports that the patient was speaking clearly but saying non-sensical phrases. ED course: Hospitalist and continuous mining operator teams were alerted and patient was quickly started on Vasopressin 0.07 mg/kg/min Q8H IV drip CBC: WBC: 11.26, neutrophils: 10.22 Hgb: 8.0 BMP: Electrolytes stable, BUN: 67, Cr: 4.26 LFTs: T. bili: 1.9, direct bili: 1.1, alk phos: 237. AST/ALT: wnl EKG: A-fib with RVR, RBBB, potential age-indeterminate inferior infarct CXR: CHF: Stable cardiomegaly, pulmonary vascular congestion; RLL consolidation Urinalysis: Turbid, 3+ protein, 3+ blood, 1+ bilirubin, 3+ LE, 1+ bacteria, >50 WBC, >20 RBC Urine cx: pending Blood cx: 2x aerobic/anaerobic taken and pending 1x dose of Zosyn given, and Zosyn 4.5g Q8H abx started Allergies Allergy/AdvReac Type Severity Reaction Status Date / Time latex Allergy Intermediate Rash, Verified 04/06/25 14:08 Burning Sensation phenobarbital AdvReac Intermediate Hyper Verified 04/06/25 14:08 Gold AdvReac Severe Wounds Uncoded 04/06/25 14:08 that became Pre-Cancerous Home Medications Medication Instructions Recorded Confirmed Type acetaminophen 500 mg tablet 500 mg PO Q4H PRN Pain/fever 07/07/24 04/22/25 History albuterol sulfate 90 mcg/actuation 2 puff inhalation QID PRN 07/07/24 04/22/25 History aerosol inhaler Shortness Of Breath Or Wheezing atorvastatin 40 mg tablet (Lipitor) 40 mg PO HS 07/07/24 04/22/25 History montelukast 10 mg tablet 10 mg PO HS 07/07/24 04/22/25 History (Singulair) tramadol 50 mg tablet 50 mg PO Q4H PRN Pain 07/18/24 04/22/25 History diclofenac sodium 1 % topical gel 2 g topical BID PRN Pain 03/31/25 04/22/25 History gabapentin 300 mg capsule 300 mg PO HS 03/31/25 04/22/25 History metoprolol succinate 25 mg 25 mg PO QAM 03/31/25 04/22/25 History tablet,extended release 24 hr naloxone 4 mg/actuation nasal spray 1 spray intranasal DIRECTED PRN 03/31/25 04/22/25 History overdose oxycodone 5 mg tablet 5 mg PO Q4H PRN Pain (Scale Score 03/31/25 04/22/25 History 4-6) acetaminophen 325 mg tablet 650 mg PO Q4H PRN Pain/Fever 04/22/25 04/22/25 History ammonium lactate 12 % lotion 1 applic topical BID 04/22/25 04/22/25 History apixaban 2.5 mg tablet (Eliquis) 2.5 mg PO BID 04/22/25 04/22/25 History baclofen 10 mg tablet 10 mg PO TID 04/22/25 04/22/25 History bisacodyl 10 mg rectal suppository 10 mg DE DAILY PRN Constipation 04/22/25 04/22/25 History cyanocobalamin (vitamin B-12) 1,000 mcg PO DAILY 04/22/25 04/22/25 History 1,000 mcg tablet (Vitamin B-12) docusate sodium 100 mg capsule 100 mg PO Q12H 04/22/25 04/22/25 History (Colace) empagliflozin 10 mg tablet 10 mg PO QAM 04/22/25 04/22/25 History (Jardiance) fluticasone fur. 200 mcg-umeclid 1 inh inhalation DAILY 04/22/25 04/22/25 History 62.5 mcg-vilant 25 mcg inhalat.powder glucagon HCl 1 mg solution for 1 mg IM DIRECTED PRN 04/22/25 04/22/25 History injection (Glucagon (HCl) Hypoglycemia Emergency Kit) ipratropium 20 mcg-albuterol 100 1 puff inhalation BID 04/22/25 04/22/25 History mcg/actuation mist for inhalation ondansetron 4 mg disintegrating 4 mg PO Q6H PRN Nausea And Vomiting 04/22/25 04/22/25 History tablet pantoprazole 40 mg tablet,delayed 40 mg PO BID 04/22/25 04/22/25 History release piperacillin-tazobactam 2.25 gram 2.25 g IV Q8H 04/22/25 04/22/25 History intravenous solution polyethylene glycol 3350 17 gram 17 g PO DAILY 04/22/25 04/22/25 History oral powder packet (Miralax) sennosides 8.6 mg-docusate sodium 1 tab-cap PO QDL 04/22/25 04/22/25 History 50 mg tablet (Senokot-S) sodium chloride 0.9 % (flush) 5 ml IV Q8H 04/22/25 04/22/25 History sodium phosphates 19 gram-7 118 ml DE DAILY PRN Constipation 04/22/25 04/22/25 History gram/118 mL enema (Fleet Enema) Past Med/Surg History Problem List (Updated 04/22/25 @ 15:31 by Clive Kunz) RLL pneumonia (Acute) Congestive heart failure (Acute) Acute renal failure (Acute) Acute UTI (urinary tract infection) (Acute) Septic shock (Acute) Atrial fibrillation Heart failure with preserved ejection fraction Abdominal aortic aneurysm (AAA) Heme positive stool Iron deficiency anemia Acute heart failure Anemia (Acute) Melena (Acute) Weakness (Acute) Fluid overload (Acute) Dyspnea (Acute) Elevated troponin Alcohol abuse AMS (altered mental status) Slurred speech Hypercalcemia CAD (coronary artery disease) Iron deficiency Hyperkalemia LETY (acute kidney injury) Two-level lumbosacral spondylosis with radiculopathy Medical History Post-nasal drip as per patient - in the morning RBBB Dr Bonilla On anticoagulant therapy Eliquis daily Hyperlipidemia HTN (hypertension) controlled, stable per pt Hip pain Right knee pain Acid reflux controlled, stable per pt Hx of myocardial infarction "silent" - states was told must have occurred during childhood ~12-14 yrs old, per pt Paroxysmal atrial fibrillation dx 1984-- reason for Eliquis, follows w/ [facility] Environmental and seasonal allergies PRN inh use - no longer using daily Allergic rhinitis Surgical History Hx of arthroscopic knee surgery right, x 2 left, x 1 History of cardiac radiofrequency ablation (RFA) ~2009- [facility] Hx of colonoscopy Hx of total hip arthroplasty (2013) left History of shoulder surgery b/l - hx reconstruction of both shoulders Hx of cardiac catheterization (1984) 1984, 08/05/24, and "Early this year - it was all clear" as per patient - no stents Dr Bonilla Social History Smoking Status: Former smoker Tobacco Type: Cigarettes Cigarettes Per Day: Smokes pipe "doesn't inhale" as per patient; Second Hand Exposure: No; Do You Dip or Chew Tobacco: No; Hx Alcohol Use: Yes Alcohol type: beer Hx Substance Use: No Preferred Language: Divehi Communication Ability: Effective Field Mechanical Meter Tester Required: No Beliefs That Will Affect Care: None Current Living Situation: Personal Care Facility Current Living Situation Comment: [facility] Feels Safe at Home: Yes Assistive Devices: Glasses, Walker and Wheelchair Review of Systems Review of Systems: Unobtainable due to cognitive status Physical Exam Physical Exam: General: Patient resting, not toxic in appearance, but waxing and waning levels of consciousness and difficult to rouse Skin: warm, dry, intact HEENT: NC/AT, anicteric sclera, conjunctiva without injection, moist mucus membranes. Heart: +S1/S2, regular, no m/r/g Lungs: equal air entry bilaterally, coarse breath sounds and rales at lower lung bases Abd: +BS, soft, NT, slightly distended/bloated Ext: warm, no clubbing/cyanosis or edema Neuro: speech intact, no facial droop, moving all extremities. Results & Data Results & Data Vital Signs (Past 12 Hours) Vital Signs Temp Pulse Pulse Resp BP BP Pulse Ox 04/22/25 14:00 110 H 18 109/64 97 04/22/25 13:45 112 H 24 105/73 97 04/22/25 13:31 112 H 19 89/65 L 97 04/22/25 13:15 105 H 17 107/67 99 04/22/25 13:00 114 H 24 87/59 L 97 04/22/25 12:46 108 H 23 87/59 L 98 04/22/25 12:46 107 H 24 87/59 L 98 04/22/25 12:30 90 23 76/43 L 97 04/22/25 12:29 102 H 17 98 04/22/25 12:15 94 H 26 H 74/46 L 97 04/22/25 12:06 96 H 28 H 85/53 L 97 04/22/25 11:57 100 H 04/22/25 11:45 101 H 28 H 96 04/22/25 11:37 36.9 C 106 H 25 H 74/46 L 94 O2 Del Method O2 Flow Rate 04/22/25 14:00 Nasal Cannula 4 04/22/25 13:45 Nasal Cannula 4 04/22/25 13:31 Nasal Cannula 4 04/22/25 13:15 Nasal Cannula 4 04/22/25 13:00 Nasal Cannula 4 04/22/25 12:46 Nasal Cannula 4 04/22/25 12:46 Nasal Cannula 4 04/22/25 12:30 Nasal Cannula 4 04/22/25 12:29 Nasal Cannula 4 04/22/25 12:15 Nasal Cannula 4 04/22/25 12:06 Nasal Cannula 4 04/22/25 11:57 04/22/25 11:45 Nasal Cannula 4 04/22/25 11:37 Nasal Cannula 4 Supervising Physician Co-Signing Physician Notes Patient seen and examined, chart reviewed, case discussed with Dr. Akhtar and I agree with the assessment and plan as above. Patient is a poor historian due to metabolic encephalopathy. Currently requiring vasopressors as he is in septic shock. Urosepsis vs pneumonia Patient will be admitted to the ICU. Patient with leukocytosis, place on empiric antibiotics for urosepsis. Discussed case with Hedis Abstractor. Assessment/Plan -Empiric antibiotics -Follow cultures -Remainder as above Resident Activity Tracking Resident Involvement: Resident Care Provided Care Provided: Adult Hospital Medicine (1) RLL pneumonia Pneumonia type: due to unspecified organism Qualified Code(s): J18.9 - Pneumonia, unspecified organism (2) Congestive heart failure Heart failure chronicity: chronic Heart failure type: combined systolic and diastolic Qualified Code(s): I50.42 - Chronic combined systolic (congestive) and diastolic (congestive) heart failure (3) Acute renal failure Acute renal failure type: unspecified Qualified Code(s): N17.9 - Acute kidney failure, unspecified (11) Fluid overload Hypervolemia type: other Qualified Code(s): E87.79 - Other fluid overload (12) Dyspnea Dyspnea type: unspecified Qualified Code(s): R06.00 - Dyspnea, unspecified
[2025-04-22] MEDS: ALBUMIN 5% 250 ML IV ONE (14:36)
[2025-04-22] MEDS: ALBUMIN HUMAN 5% 12.5 GM/250 ML VIAL IV ONE (14:36)
--- NOTE | 2025-04-22 15:42 | CT Scan Report ---
EXAMINATION: CT of the abdomen and pelvis performed without contrast TECHNIQUE: Helical CT images from the lung bases through the symphysis pubis were obtained without contrast. Coronal and sagittal reformatted images were generated at a workstation for further assessment. Dose reduction techniques were achieved by using automatic exposure control and/or adjustment of mA and/or kV according to patient size and/or use of iterative reconstruction technique. COMPARISON: 04/03/2025 HISTORY: Confusion FINDINGS: LOWER CHEST: Small left and moderate right pleural effusions with bibasilar atelectasis and/or edema. ABDOMEN: Liver: Unremarkable. Gallbladder and bile ducts: Minimal layering stones or sludge. No ductal dilation. Pancreas: Unremarkable. No ductal dilation. Spleen: Unremarkable. No splenomegaly. Adrenals: Unremarkable. No mass. Kidneys and ureters: Punctate nonobstructive caliceal calculus in the lower pole of the right kidney. No hydronephrosis or ureterolithiasis is seen involving either kidney. Stomach and michael mild colonic stool. Moderate stool in the rectum. No other dilated bowel loops are identified. No pneumoperitoneum or abscess is seen. No mucosal thickening. PELVIS: Appendix: No findings to suggest acute appendicitis. Bladder: A Gomez catheter is in place, with decompression of the bladder. Mild surrounding inflammatory fat stranding of the bladder noted. No stones. Reproductive: Unremarkable as visualized. ABDOMEN and PELVIS: Intraperitoneal space: Small amount of ascites in the upper abdomen adjacent to the liver. Bones/joints: Previous multilevel fusion, instrumentation, and laminectomy of the lumbar spine from L3 through L5. No acute fracture or subluxation. Soft tissues: Diffuse anasarca over the torso. Vasculature: Infrarenal abdominal aortic aneurysm measuring up to 5.2 cm in diameter. No signs of rupture. Heavy aortoiliac calcifications. Lymph nodes: Unremarkable. No enlarged lymph nodes. IMPRESSION: Mild surrounding inflammatory fat stranding of the urinary bladder, which may be seen with cystitis. Redemonstrated findings of volume overload. No other acute change. Electronically signed by Jeffrey Whalen 04-22-2025 3:41 PM
[2025-04-22 15:47] LABS: Thyroid Stimulating Hormone 4.282 uIu/ml (0.300-4.500)
[2025-04-22] MEDS: HYDROCORTISONE SOD 100 MG in SYRINGE 0 ML IV STA (16:56)
[2025-04-22] MEDS: PIPERACILLIN/TAZOBACTAM 4.5 GM/100 ML BAG IV SCH (19:32)
[2025-04-23 00:02] LABS: Anion Gap 11.0 (3-11); Blood Urea Nitrogen 68.0 mg/dl (6-23); Calcium 9.8 mg/dl (8.6-10.3); Carbon Dioxide 30.0 mmol/L (21-32); Chloride 95.0 mmol/L (98-107); Creatinine Clr Calc Pharmacy 19.4 ml/min; Glucose 165.0 mg/dl (70-99(Fasting)); Magnesium 1.8 mg/dl (1.7-2.4); Potassium 4.4 mmol/L (3.5-5.1); Sodium 136.0 mmol/L (136-145)
[2025-04-23] MEDS: MAGNESIUM SULFATE / D5W 1 GM/100 ML BAG IV SCH (00:20)
[2025-04-23] MEDS: HYDROCORTISONE SOD 50 MG in SYRINGE 0 ML IV SCH (01:20)
[2025-04-23 04:39] LABS: Hematocrit (blood only) 27.7 % (42.0-52.0); Hemoglobin 8.2 g/dl (14.0-18.0); Mean Corpuscular Hemoglobin 23.1 pg (25.0-34.0); Mean Corpuscular Volume 78.0 fL (80.0-100.0); Platelet Count 157 K/uL (130-400); RDW Standard Deviation 64.6 fL (36.4-46.3); Red Blood Count 3.55 M/uL (4.70-6.10); White Blood Count 12.24 K/ul (4.8-10.8)
[2025-04-23 04:57] LABS: Anion Gap 11.0 (3-11); Blood Urea Nitrogen 72.0 mg/dl (6-23); Calcium 9.9 mg/dl (8.6-10.3); Carbon Dioxide 30.0 mmol/L (21-32); Chloride 94.0 mmol/L (98-107); Creatinine Clr Calc Pharmacy 19.5 ml/min; Glucose 165.0 mg/dl (70-99(Fasting)); Magnesium 2.3 mg/dl (1.7-2.4); Potassium 4.3 mmol/L (3.5-5.1); Sodium 135.0 mmol/L (136-145)
[2025-04-23 05:04] LABS: Anisocytosis Present; Immature Granulocytes # (auto) 0.06 K/uL (0.01-0.20); Immature Granulocytes % (auto) 0.5 %; Ovalocytes 1+; Polychromasia 1+; Tear Drop Cells 1+
[2025-04-23] MEDS: PANTOprazole 40 MG/10 ML SYR IV SCH (08:33)
--- NOTE | 2025-04-23 08:34 | Critical Care Progress Note ---
Date of Service April 23, 2025 Assessment & Plan (1) RLL pneumonia: (2) Congestive heart failure: (3) Acute renal failure: (4) Acute UTI (urinary tract infection): (5) Septic shock: (6) Atrial fibrillation: (7) Hyperlipidemia: (8) Acid reflux: Plan Reason Critically Ill: 79-year-old male was brought in from alf because of lethargy. Was found to be in septic shock secondary to UTI. Sent to ICU for further management Past medical history: Chronic indwelling Gomez due to patient's inability to walk, history of lower back surgery, coronary artery disease, HFpEF, chronic anemia Neuro - [facility] ICU: Unable to assess --Metabolic encephalopathy Likely secondary to sepsis Calcium, sodium, glucose within normal limit Cardiac - 2D echo 04/01/2025: EF 65-70%, mild concentric LVH, PASP 50-55 mmHg -- Shock Mixed Septic plus HFpEF Vasopressors to keep MAP greater than 65 -- Elevated troponin Likely type II NC Continue to trend troponins EKG 04/22/2025 11:44 AM: A-fib, low voltage QRS, right bundle branch block, Q waves on the inferior leads, mild ST depression on V3 V4, no T wave changes --Pulmonary hypertension Likely type II Respiratory - Chest x-ray 04/22/2025 personally reviewed: Portable film, alveolar opacity appreciated in the right lower lobe with blunting of the right costophrenic angle, increased cardiac silhouette -- Acute hypoxic respiratory failure Multifactorial Pneumonia Acute exacerbation of HFpEF BNP 332 Procalcitonin 7.83, nasal MRSA negative Given severe sepsis, patient started on hydrocortisone Continue broad-spectrum antibiotics BiPAP nightly and as needed shortness of breath Keep O2 saturation between 90-92% --Pleural effusion History of thoracentesis on 04/03/2025, transudative --History of SELENE GI - -- Mild conjugated bilirubinemia Could be from hepatic congestion from cardiac etiology Continue to monitor -- Chronically elevated alk phos Continue to monitor RENAL/LYTES - -- LETY on CKD Baseline creatinine 1.5-1.6 Monitor BUN/creatinine Avoid nephrotoxic medications Strict ins and outs - -- Chronic indwelling Gomez Will change the Gomez when he comes to the ICU ENDO - -- ICU hypoglycemia protocol HEME - -- Normocytic anemia Monitor H&H ID - -- Septic shock likely source is urine Procalcitonin 7.89 Continue broad-spectrum antibiotics Follow-up blood culture as well as urine culture Musculoskeletal - -- Chronic low back pain s/p surgery On oxycodone tramadol as needed -- DNR/DNI No escalation of care --Prophylaxis VTE: Eliquis at home, heparin drip in the hospital GI: Pantoprazole Lines: Peripheral Diet: N.p.o. Plan: In/out: +1.5 L, urine output 1590 Culture from the penis area growing Enterococcus faecalis, follow-up sensitivities Continue with hydrocortisone given the severe sepsis Creatinine is still around 4. Continue with vasopressor support to keep MAP greater than 65 and SBP at least 100. Will consider giving the patient Lasix today. Continue with broad-spectrum antibiotics Patient's was updated regarding patient's condition. I have personally spent 37 minutes of critical care time in the direct management of this patient. This is a life/limb threatening event. This includes time spent evaluating patient, direct bedside care, chart review, placing orders, interpretation of diagnostic studies, discussion with consultants, patient, and family members, as well as other required patient management activities. This time is exclusive of all separately billable procedures, and teaching time and separate from and in addition to any other critical care service time. Admission and Anticipated Discharge Date Admission Date: April 22, 2025 Subjective Patient seen and examined at bedside. No acute distress, no adverse events overnight Systolic blood pressure was in the mid 80s with MAP in the mid 60s at the time of examination He was oriented to self. Denied any chest pain, no abdominal pain No nausea or vomiting Has been afebrile Review of Systems 2 Review of Systems: All systems reviewed & are unremarkable except as noted in Subjective Physical Exam 2 Physical Exam: Constitutional: No acute distress HEENT: EOMI, PERRLA Respiratory system: Decreased air entry on the right side, no wheeze, no rhonchi, positive crackles bilaterally more on the right side CVS: S1-S2 positive, no murmurs or gallops Abdomen: Soft, mild suprapubic and left lower quadrant tenderness, no rebound nondistended, positive bowel sounds x4 Extremities: +2 pulses bilaterally radialis/ dorsalis pedis, no cyanosis, +3 pitting edema bilateral lower extremity Neuro: Awake alert oriented to self only Psych: Normal mood and affect G/U: Positive Gomez Skin: no rashes, warm and dry Lymphatic: no cervical or axillary lymphadenopathy Results & Data Results & Data Vital Signs (Past 12 Hours) Vital Signs Temp Pulse Resp BP Pulse Ox O2 Del Method O2 Flow Rate 04/23/25 08:00 Nasal Cannula 04/23/25 08:00 92 H 04/23/25 07:15 36.3 C L 24 04/23/25 06:03 35.9 C L 92 H 16 94 2 04/23/25 06:00 108/70 04/23/25 05:57 35.9 C L 96 H 18 95 2 04/23/25 05:30 100/68 04/23/25 05:30 35.9 C L 93 H 17 96 2 04/23/25 05:01 99/74 L 04/23/25 05:00 35.9 C L 104 H 21 92 2 04/23/25 04:48 35.8 C L 86 16 95 2 04/23/25 04:30 99/69 L 04/23/25 04:21 35.8 C L 96 H 20 98 2 04/23/25 04:00 35.8 C L 89 23 96 2 04/23/25 04:00 100/62 04/23/25 03:30 35.7 C L 96 H 19 96 2 04/23/25 03:06 35.7 C L 80 12 94 2 04/23/25 03:00 92/67 L 04/23/25 02:57 35.7 C L 88 19 95 2 04/23/25 02:42 35.7 C L 86 16 95 2 04/23/25 02:33 35.7 C L 89 19 96 2 04/23/25 02:30 102/68 04/23/25 02:09 35.7 C L 90 17 96 2 04/23/25 02:00 114/79 04/23/25 01:57 35.6 C L 100 H 18 97 2 04/23/25 01:45 115/76 04/23/25 01:39 35.6 C L 102 H 17 97 2 04/23/25 01:36 35.6 C L 87 20 95 2 04/23/25 01:30 101/68 04/23/25 01:27 35.6 C L 94 H 18 96 2 04/23/25 01:15 96/61 L 04/23/25 01:03 35.7 C L 92 H 17 97 2 04/23/25 01:00 84/56 L 04/23/25 00:54 35.7 C L 97 H 17 96 2 04/23/25 00:45 103/66 04/23/25 00:42 35.7 C L 89 19 97 2 04/23/25 00:33 35.7 C L 91 H 20 96 2 04/23/25 00:30 98/56 L 04/23/25 00:15 35.8 C L 97 H 18 96 2 04/23/25 00:15 106/59 L 04/23/25 00:00 87 04/23/25 00:00 95/64 L 04/23/25 00:00 35.8 C L 93 H 20 96 2 04/22/25 23:45 84/60 L 04/22/25 23:45 35.9 C L 105 H 16 95 2 04/22/25 23:30 95/61 L 04/22/25 23:30 35.9 C L 89 19 96 2 04/22/25 23:24 35.9 C L 95 H 19 95 2 04/22/25 23:15 97/62 L 04/22/25 23:00 98/61 L 04/22/25 22:45 97/57 L 04/22/25 22:36 36.0 C L 99 H 19 96 2 04/22/25 22:30 113/78 04/22/25 22:27 36.0 C L 81 20 96 2 04/22/25 22:21 36.0 C L 101 H 19 95 2 04/22/25 22:15 104/65 04/22/25 22:06 35.9 C L 108 H 24 95 2 04/22/25 21:48 35.9 C L 101 H 18 95 2 04/22/25 21:45 111/66 04/22/25 21:42 36.0 C L 107 H 21 96 2 04/22/25 21:36 36.0 C L 100 H 21 96 2 04/22/25 21:30 100/67 04/22/25 21:27 36.0 C L 96 H 17 94 2 04/22/25 21:15 102/59 L 04/22/25 21:00 36.1 C L 101 H 19 95 2 04/22/25 20:51 36.1 C L 92 H 19 96 2 04/22/25 20:33 36.1 C L 101 H 18 96 2 Laboratory Results 04/23/25 04:22 04/23/25 04:22 Coding Level of Care Code 61993 CRITICAL CARE 1ST 30-74M Diagnoses RLL pneumonia J18.9 Pneumonia type: due to unspecified organism Congestive heart failure I50.42 Heart failure chronicity: chronic Heart failure type: combined systolic and diastolic Acute renal failure N17.9 Acute renal failure type: unspecified Acute UTI (urinary tract infection) N39.0 Septic shock A41.9; R65.21 Atrial fibrillation I48.91 Hyperlipidemia E78.5 Acid reflux K21.9 (1) RLL pneumonia Pneumonia type: due to unspecified organism Qualified Code(s): J18.9 - Pneumonia, unspecified organism (2) Congestive heart failure Heart failure chronicity: chronic Heart failure type: combined systolic and diastolic Qualified Code(s): I50.42 - Chronic combined systolic (congestive) and diastolic (congestive) heart failure (3) Acute renal failure Acute renal failure type: unspecified Qualified Code(s): N17.9 - Acute kidney failure, unspecified
[2025-04-23] MEDS: HEPARIN 25000 UNIT/500 ML D5W 25,000 UNITS/500 ML BAG IV SCH (10:35)
[2025-04-23] MEDS: Heparin IV Adult Wt-Based Standard *NO* INITIAL Bolus Protocol IV STA (10:38)
[2025-04-23 11:09] LABS: INR 1.3 (0.9-1.1); Partial Thromboplastin Time 44 Seconds (21-31); Prothrombin Time 13.9 Seconds (9.0-12.0)
[2025-04-23] MEDS ORDERED: CARBOHYDRATES FOR HYPOGLYCEMIA PO PRN (11:34)
[2025-04-23] MEDS ORDERED: DEXTROSE 50% 50 ML SYRINGE IV PRN (11:34)
[2025-04-23] MEDS ORDERED: GLUCAGON FOR INJ 1 MG VIAL SQ PRN (11:34)
[2025-04-23] MEDS ORDERED: GLUCOSE 40% GEL 15 GM TUBE PO PRN (11:34)
[2025-04-23] MEDS ORDERED: GLUCOSE 10 TAB/TUBE PO PRN (11:34)
[2025-04-23] MEDS: INSULIN ASPART PER UNIT CHARGE SC SCH (12:07)
--- NOTE | 2025-04-23 13:03 | Hospitalist Progress Note ---
Date of Service April 23, 2025 Assessment & Plan (1) RLL pneumonia: (2) Congestive heart failure: (3) Acute renal failure: (4) Acute UTI (urinary tract infection): (5) Septic shock: (6) Atrial fibrillation: (7) Heart failure with preserved ejection fraction: (8) Abdominal aortic aneurysm (AAA): (9) Anemia: (10) Acute heart failure: (11) Fluid overload: (12) Dyspnea: (13) AMS (altered mental status): (14) CAD (coronary artery disease): (15) LETY (acute kidney injury): Plan Geoff Lea is a 79 y/o M with a past medical history of alcohol abuse in remission, CAD last heart cath with nonobstructive moderate coronary disease 07/2024, A-fib on Eliquis and metoprolol, and hypertension on lisinopril found to be acutely hypotensive and lethargic at [facility], arrived to [facility] ED and found to be in septic shock secondary to UTI and transferred to ICU due to critical illness, need for pressors and continuous monitoring. Septic shock 2/2 UTI vs pneumonia/Metabolic encephalopathy - Urinalysis: Turbid, 3+ protein, 3+ blood, 1+ bilirubin, 3+ LE, 1+ bacteria, >50 WBC, >20 RBC - CXR: Stable CHF with RLL consolidation - Urine cx pending; Blood cx x2 pending, follow results - AMS with sepsis contributing, waxing and waning levels of conciousness - CBC favors bacterial process with leukocytosis with left shift; MRSA nares negative, Procal: 7.83 - Vasopressin 0.07 mg/kg/min Q8H IV drip started in ED, maintain MAP > 65 - Zosyn 4.5g Q8H abx therapy started, modify based on culture data - One dose albumin 250ml given, hydrocortisone added for severe sepsis - Cx results from penis region positive for E. faecalis and S. haemolyticus; consider abx change based on sensitivities - CBC, CMP QAM HFpEF/Acute hypoxic respiratory failure/Elevated troponin/Potential NSTEMI - 2D Echo: EF: 65-70%, mild concentric LVH, PASP 50-55 mmhg - Electrolytes largely wnl; BNP: 332 - Daily weights + strict I/Os - HST troponin: 147.6, trend to peak - EKG: A-fib with RVR, RBBB, potential age-indeterminate inferior infarct - Worsening respiratory status likely multifactorial, 2/2 exacerbation of acute on chronic HFpEF and new RLL consolidation suspicious for pneumonia - Consider cardiology consult, potentially repeat echocardiogram. - ICU recommendations: Continue broad-spectrum antibiotics, BiPAP nightly and as needed shortness of breath - 2L O2 via NC currently, keep O2 saturation between 90-92% LETY on CKD/Normocytic anemia - Baseline Cr: 1.5-1.6 on admission Cr: 4.26 - Strict I/Os - avoid nephrotoxic medications - anemia likely by product of worsening renal function - Hgb: 8 - CMP/CBC QAM Pleural effusion - Hx of thoracentesis 04/03/2025, Transudative Chronic indwelling wang - Changing wang once transferred to ICU Chronic low back pain - On oxycodone/tramadol as needed - DNR/DNI No escalation of care Admission and Anticipated Discharge Date Admission Date: April 22, 2025 Supervising Physician Co-Signing Physician Notes Patient seen and examined, chart reviewed, case discussed with Dr. Ahktar and I agree with the assessment and plan as above. Patient is a poor historian due to metabolic encephalopathy. Remains on vasopressors Urosepsis vs pneumonia Patient will remain in the ICU. Patient with leukocytosis, place on empiric antibiotics for urosepsis/ pneumonia. Discussed case with [employer]. Type II NM trend troponin Assessment/Plan -Empiric antibiotics -Follow cultures: penile culture: growing e. faecalis awaiting sensitivities. -Remainder as above Subjective Patient seen this AM, not in acute distress. Patient denies chest pain, abdominal pain, nausea, and vomiting. Patient is afebrile and stable. BPs have remained low, sustained in 80s systolic. Physical Exam Physical Exam: General: Patient resting, not toxic in appearance, but waxing and waning levels of consciousness and difficult to rouse Skin: warm, dry, intact HEENT: NC/AT, anicteric sclera, conjunctiva without injection, moist mucus membranes. Heart: +S1/S2, regular, no m/r/g Lungs: equal air entry bilaterally, coarse breath sounds and rales at lower lung bases Abd: +BS, soft, NT, slightly distended/bloated Ext: warm, no clubbing/cyanosis or edema Neuro: speech intact, no facial droop, moving all extremities. Results & Data Results & Data Vital Signs (Past 12 Hours) Vital Signs Temp Pulse Resp BP Pulse Ox O2 Del Method O2 Flow Rate 04/23/25 11:30 36.3 C L 99 H 22 94 04/23/25 11:30 117/77 04/23/25 11:09 36.2 C L 99 H 23 94 04/23/25 10:33 116/76 04/23/25 10:33 36.2 C L 90 20 96 04/23/25 10:03 36.1 C L 97 H 25 H 97 04/23/25 10:00 111/82 04/23/25 09:57 36.1 C L 90 24 93 04/23/25 09:33 36.1 C L 74 22 94 04/23/25 09:30 84/61 L 04/23/25 09:24 36.1 C L 80 23 95 04/23/25 09:19 87/53 L 04/23/25 09:15 36.1 C L 82 23 96 04/23/25 08:58 87/58 L 04/23/25 08:54 36.1 C L 77 24 96 04/23/25 08:48 36.1 C L 81 24 95 04/23/25 08:30 81/54 L 04/23/25 08:24 36.0 C L 88 20 94 04/23/25 08:06 35.9 C L 86 18 94 04/23/25 08:00 98/62 L 04/23/25 08:00 Nasal Cannula 04/23/25 08:00 92 H 04/23/25 07:57 35.9 C L 84 22 95 04/23/25 07:54 35.9 C L 87 21 95 04/23/25 07:30 89/57 L 04/23/25 07:24 35.9 C L 92 H 19 95 04/23/25 07:15 36.3 C L 24 04/23/25 07:00 114/71 04/23/25 07:00 35.9 C L 94 H 24 95 04/23/25 06:48 35.9 C L 86 17 96 04/23/25 06:03 35.9 C L 92 H 16 94 2 04/23/25 06:00 108/70 04/23/25 05:57 35.9 C L 96 H 18 95 2 04/23/25 05:30 100/68 04/23/25 05:30 35.9 C L 93 H 17 96 2 04/23/25 05:01 99/74 L 04/23/25 05:00 35.9 C L 104 H 21 92 2 04/23/25 04:48 35.8 C L 86 16 95 2 04/23/25 04:30 99/69 L 04/23/25 04:21 35.8 C L 96 H 20 98 2 04/23/25 04:00 35.8 C L 89 23 96 2 04/23/25 04:00 100/62 04/23/25 03:30 35.7 C L 96 H 19 96 2 04/23/25 03:06 35.7 C L 80 12 94 2 04/23/25 03:00 92/67 L 04/23/25 02:57 35.7 C L 88 19 95 2 04/23/25 02:42 35.7 C L 86 16 95 2 04/23/25 02:33 35.7 C L 89 19 96 2 04/23/25 02:30 102/68 04/23/25 02:09 35.7 C L 90 17 96 2 04/23/25 02:00 114/79 04/23/25 01:57 35.6 C L 100 H 18 97 2 04/23/25 01:45 115/76 04/23/25 01:39 35.6 C L 102 H 17 97 2 04/23/25 01:36 35.6 C L 87 20 95 2 04/23/25 01:30 101/68 04/23/25 01:27 35.6 C L 94 H 18 96 2 04/23/25 01:15 96/61 L Resident Activity Tracking Resident Involvement: Resident Care Provided Care Provided: Adult Hospital Medicine (1) RLL pneumonia Pneumonia type: due to unspecified organism Qualified Code(s): J18.9 - Pneumonia, unspecified organism (2) Congestive heart failure Heart failure chronicity: chronic Heart failure type: combined systolic and diastolic Qualified Code(s): I50.42 - Chronic combined systolic (congestive) and diastolic (congestive) heart failure (3) Acute renal failure Acute renal failure type: unspecified Qualified Code(s): N17.9 - Acute kidney failure, unspecified (11) Fluid overload Hypervolemia type: other Qualified Code(s): E87.79 - Other fluid overload (12) Dyspnea Dyspnea type: unspecified Qualified Code(s): R06.00 - Dyspnea, unspecified
[2025-04-23 18:09] LABS: ANTI-Xa, UFH(UnfractionatedHep > 1.50 IU/ml (0.3-0.7)
[2025-04-23] MEDS ORDERED: Nursing to Pharmacy Communication SCH (20:00)
[2025-04-23 20:18] LABS: ANTI-Xa, UFH(UnfractionatedHep > 1.50 IU/ml (0.3-0.7)
--- NOTE | 2025-04-23 20:32 | Communication Note ---
Date of Service: April 23, 2025 Heparin infusion protocol changed to Non-standard with aPTT monitoring given DOAC use. aPTT now, start infusion at low dose. Recheck aPTT in 6 hours, RN to update provider with aPTT level, provider will make adjustments as needed. Coding Level of Care Code None
[2025-04-23 21:00] LABS: Partial Thromboplastin Time 42 Seconds (21-31)
[2025-04-24] MEDS: INSULIN ASPART PER UNIT CHARGE SC SCH (00:15)
[2025-04-24 03:02] LABS: Hematocrit (blood only) 27.6 % (42.0-52.0); Hemoglobin 8.3 g/dl (14.0-18.0); Mean Corpuscular Hemoglobin 22.6 pg (25.0-34.0); Mean Corpuscular Volume 75.0 fL (80.0-100.0); Platelet Count 147 K/uL (130-400); RDW Standard Deviation 61.7 fL (36.4-46.3); Red Blood Count 3.68 M/uL (4.70-6.10); White Blood Count 15.28 K/ul (4.8-10.8)
[2025-04-24 03:18] LABS: Anion Gap 11.0 (3-11); Blood Urea Nitrogen 78.0 mg/dl (6-23); Calcium 9.9 mg/dl (8.6-10.3); Carbon Dioxide 30.0 mmol/L (21-32); Chloride 94.0 mmol/L (98-107); Creatinine Clr Calc Pharmacy 19.6 ml/min; Glucose 139.0 mg/dl (70-99(Fasting)); Magnesium 2.2 mg/dl (1.7-2.4); Potassium 3.5 mmol/L (3.5-5.1); Sodium 135.0 mmol/L (136-145)
[2025-04-24 03:21] LABS: Anisocytosis Present; Immature Granulocytes # (auto) 0.09 K/uL (0.01-0.20); Immature Granulocytes % (auto) 0.6 %; Ovalocytes 1+; Polychromasia 1+; Tear Drop Cells 1+
[2025-04-24 03:55] LABS: Partial Thromboplastin Time 70 Seconds (21-31)
--- NOTE | 2025-04-24 08:04 | Hospitalist Progress Note ---
Date of Service April 24, 2025 Assessment & Plan (1) RLL pneumonia: (2) Congestive heart failure: (3) Acute renal failure: (4) Acute UTI (urinary tract infection): (5) Septic shock: (6) Atrial fibrillation: (7) Heart failure with preserved ejection fraction: (8) Abdominal aortic aneurysm (AAA): (9) Anemia: (10) Acute heart failure: (11) Fluid overload: (12) Dyspnea: (13) AMS (altered mental status): (14) CAD (coronary artery disease): (15) LETY (acute kidney injury): Plan Geoff Lea is a 79 y/o M with a past medical history of alcohol abuse in remission, CAD last heart cath with nonobstructive moderate coronary disease 07/2024, A-fib on Eliquis and metoprolol, and hypertension on lisinopril found to be acutely hypotensive and lethargic at [facility], arrived to [facility] ED and found to be in septic shock secondary to UTI and transferred to ICU due to critical illness, need for pressors and continuous monitoring. Septic shock 2/2 UTI vs pneumonia/Metabolic encephalopathy - Urinalysis: Turbid, 3+ protein, 3+ blood, 1+ bilirubin, 3+ LE, 1+ bacteria, >50 WBC, >20 RBC - CXR: Stable CHF with RLL consolidation - Urine cx - negative; Blood cx x2 pending, follow results - AMS with sepsis contributing, waxing and waning levels of consciousness - CBC favors bacterial process with leukocytosis with left shift; MRSA nares negative, Procal: 7.83 - Vasopressin 0.07 mg/kg/min Q8H IV drip started in ED, Decreased to 0.01 in ICU maintain MAP > 65 - Stop Zosyn 4.5g Q8H abx therapy, modify based on culture data - Start Vancomycin 2500 mg IV 180 mL/hr, cefepime 1000 mg IV Q12H 5 mL/hr, and flagyl 500 mg IV Q8H 100 mLs/hr empirically - One dose albumin 250ml given, hydrocortisone added for severe sepsis - Cx results from penis region positive for E. faecalis and S. haemolyticus; consider abx change based on sensitivities - CBC, CMP QAM HFpEF/Acute hypoxic respiratory failure/Elevated troponin/Potential NSTEMI - 2D Echo: EF: 65-70%, mild concentric LVH, PASP 50-55 mmhg - Electrolytes largely wnl; BNP: 332 - Daily weights + strict I/Os - HST troponin: 147.6, trend to peak - EKG: A-fib with RVR, RBBB, potential age-indeterminate inferior infarct - Worsening respiratory status likely multifactorial, 2/2 exacerbation of acute on chronic HFpEF and new RLL consolidation suspicious for pneumonia - Consider cardiology consult, potentially repeat echocardiogram. - ICU recommendations: Continue broad-spectrum antibiotics, BiPAP nightly and as needed shortness of breath - 2L O2 via NC currently, keep O2 saturation between 90-92% ATN on CKD/Normocytic anemia - Baseline Cr: 1.5-1.6 on admission Cr: 4.26 - Strict I/Os - avoid nephrotoxic medications - anemia likely by product of worsening renal function - Hgb: 8 - Consult Nephrology: No acute indications for [employer], limit IVF while giving sepsis fluids and limit diuresis - Follow urine output, CMP/CBC QAM Pleural effusion - Hx of thoracentesis 04/03/2025, Transudative Chronic indwelling wang - Changing wang once transferred to ICU Chronic low back pain - On oxycodone/tramadol as needed - DNR/DNI Admission and Anticipated Discharge Date Admission Date: April 22, 2025 Supervising Physician Co-Signing Physician Notes I personally examined the patient and verified all schneider points of history and exam, discussed case, and agree with decision making with Dr Akhtar and Tunde Bishop Feeling okay. A little bit confused. Pleasant. No significant shortness of breath. Cough is about the same as whenever he was discharged from the hospital, nonpurulent, no significant shortness of breath. No real dysuria although he did notice discomfort when the Wang catheter was placed. Vitals noted, in general he is awake and alert pleasant easily confused but no distress. HEENT normocephalic atraumatic mucous membranes moist. Breathing unlabored no accessory muscle use good effort. Skin shows no rashes no pallor or icterus. Neuro without focal deficits. Venous stasis changes noted. Lungs with faint scattered rhonchi and diminished air entry but no rales or wheezes no accessory muscle use. Sepsis/septic shock/severe sepsis (manifested by his acute renal failure which is probably ATN)source not entirely clear, pneumonia versus UTI as leading suspicions, but continue to follow cultures follow clinical course and continue broad antibiotics. Wean pressors as possible. No acute indications for dialysis. Continue to follow. Anticipate return to rehab after discharge aortic aneurysm for outpatient repair in the near future Subjective Patient is lying in bed comfortably and in no acute distress. Nursing staff reported no overnight events, but she stated that he had some confusion and trouble finding words. Stated he was feeling better. Denies CP, REY, weakness, dizziness. Admits to mild abdominal pain and some difficulty breathing. Review of Systems Review of Systems: All systems reviewed & are unremarkable except as noted in Subjective Physical Exam Physical Exam: General: Patient resting, not toxic in appearance, awake and alert Skin: warm, dry, intact HEENT: NC/AT, anicteric sclera, conjunctiva without injection, moist mucus membranes. Heart: +S1/S2, regular, no murmurs, gallops, rubs Lungs: 2 L NC, equal air entry bilaterally, coarse breath sounds and rales at lower lung bases Abd: +BS, soft, mild tenderness in RLQ, LLQ and suprapubic, no rebound or guarding Ext: warm, no clubbing/cyanosis or edema Neuro: speech intact, no facial droop, moving all extremities. Results & Data Results & Data Vital Signs (Past 12 Hours) Vital Signs Temp Pulse Resp BP Pulse Ox O2 Flow Rate 04/24/25 06:00 118/78 04/24/25 06:00 35.7 C L 63 18 94 2 04/24/25 05:48 35.7 C L 75 20 93 2 04/24/25 05:32 88/58 L 04/24/25 05:32 88/58 L 04/24/25 05:24 35.8 C L 61 18 96 2 04/24/25 05:03 35.9 C L 75 22 95 2 04/24/25 05:00 97/65 L 04/24/25 04:57 35.9 C L 73 17 96 2 04/24/25 04:48 35.9 C L 65 18 96 2 04/24/25 04:00 99/61 L 04/24/25 04:00 99/61 L 04/24/25 04:00 36.0 C L 73 19 94 2 04/24/25 03:30 36.1 C L 78 27 H 96 2 04/24/25 03:30 122/71 04/24/25 03:30 122/71 04/24/25 03:12 36.1 C L 71 14 96 2 04/24/25 02:33 36.1 C L 76 15 93 2 04/24/25 02:30 116/73 04/24/25 02:30 116/73 04/24/25 02:18 36.1 C L 76 17 96 2 04/24/25 02:00 115/76 04/24/25 02:00 36.2 C L 72 21 98 2 04/24/25 01:48 36.2 C L 77 14 94 2 04/24/25 01:30 97/63 L 04/24/25 01:27 36.2 C L 79 21 97 2 04/24/25 01:00 117/69 04/24/25 01:00 36.2 C L 82 17 97 2 04/24/25 00:42 36.3 C L 77 17 95 2 04/24/25 00:06 36.3 C L 72 20 96 2 04/24/25 00:00 97/60 L 04/24/25 00:00 97/60 L 04/24/25 00:00 78 04/23/25 23:51 36.4 C L 73 21 97 2 04/23/25 23:30 96/60 L 04/23/25 23:30 96/60 L 04/23/25 23:30 96/60 L 04/23/25 23:30 36.4 C L 72 16 96 2 04/23/25 23:00 101/64 04/23/25 23:00 101/64 04/23/25 23:00 101/64 04/23/25 23:00 36.4 C L 77 20 97 2 04/23/25 22:30 97/59 L 04/23/25 22:30 97/59 L 04/23/25 22:30 36.4 C L 73 19 97 2 04/23/25 22:03 36.5 C 76 16 95 2 04/23/25 22:00 96/62 L 04/23/25 22:00 96/62 L 04/23/25 21:54 36.5 C 89 14 96 2 04/23/25 21:30 97/58 L 04/23/25 21:30 36.5 C 79 25 H 92 2 04/23/25 21:09 36.5 C 83 18 96 2 04/23/25 21:00 101/62 04/23/25 21:00 101/62 04/23/25 20:51 36.5 C 81 23 95 2 04/23/25 20:39 36.6 C 86 19 95 2 04/23/25 20:30 109/69 04/23/25 20:27 36.6 C 86 22 95 2 04/23/25 20:18 36.7 C 89 17 94 2 04/23/25 20:00 119/75 Resident Activity Tracking Resident Involvement: Resident Care Provided Care Provided: Adult [facility] Medicine (1) RLL pneumonia Pneumonia type: due to unspecified organism Qualified Code(s): J18.9 - Pneumonia, unspecified organism (2) Congestive heart failure Heart failure chronicity: chronic Heart failure type: combined systolic and diastolic Qualified Code(s): I50.42 - Chronic combined systolic (congestive) and diastolic (congestive) heart failure (3) Acute renal failure Acute renal failure type: unspecified Qualified Code(s): N17.9 - Acute kidney failure, unspecified (11) Fluid overload Hypervolemia type: other Qualified Code(s): E87.79 - Other fluid overload (12) Dyspnea Dyspnea type: unspecified Qualified Code(s): R06.00 - Dyspnea, unspecified
--- NOTE | 2025-04-24 08:42 | Billing Data ---
Date of Service April 22, 2025 Coding Level of Care Code 17104 CRITICAL CARE 1ST 30-74M Time Spent (min) 75
--- NOTE | 2025-04-24 08:45 | Billing Data ---
Date of Service April 23, 2025 Coding Level of Care Code 00435 SUB INP/OBS CARE MIN
[2025-04-24 08:58] LABS: Partial Thromboplastin Time 72 Seconds (21-31)
[2025-04-24] MEDS: VANCOMYCIN HCL 2,500 MG in SODIUM CHLORIDE 0.9% 500 ML IV ONE (12:29)
[2025-04-24] MEDS: metroNIDAZOLE 500 MG/100 ML BAG IV SCH (12:29)
[2025-04-24] MEDS: FUROSEMIDE 40 MG/4 ML VIAL IV ONE (12:30)
[2025-04-24] MEDS: CEFEPIME 1000MG 1,000 MG/10 ML SYR IV SCH (12:30)
--- NOTE | 2025-04-24 12:39 | Nephrology Consultation ---
Date of Consultation April 24, 2025 Assessment & Plan (1) Acute renal failure: * Nonoliguric LETY likely due to ischemic ATN from urosepsis * Patient has diuresed 3 L since admission. He is only net +1.1 L since admission * Electrolyte balance is acceptable. 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 Recommend limiting IVF. Hold diuretic therapy at this time as patient has required volume resuscitation due to sepsis and is still on pressor therapy. * Monitor BMP, UO (2) Septic shock: * Remains on Levophed therapy (3) Acute UTI (urinary tract infection): * Urine culture - NGTD * Genital specimen positive for Staphylococcus and Enterococcus. Patient is on broad-spectrum antibiotic therapy. (4) RLL pneumonia: * On broad-spectrum antibiotic therapy. (5) Heart failure with preserved ejection fraction: * 04/21 echocardiogram revealed LVEF 65%, no RWMA (6) Abdominal aortic aneurysm (AAA): * 6 cm AAA History of Present Illness Reason for Consultation: LETY Attending Physician: Man Pavon DO History of Present Illness Mr. Lea is a 79 white male who is seen at the request of the [facility] ICU team for evaluation of LETY. Information for the HPI is obtained from direct patient interview, review of EMR and discussion with the ICU team. HPI summarized as follows: Mr. Lea has not undergone evaluation by nephrology in the past. His baseline serum creatinine has been 1.2. His medical history is significant for ASCVD, chronic atrial fibrillation, alcohol abuse, and HTN managed with lisinopril therapy. Mr. Lea was last hospitalized at [facility] / with a diagnosis of CHF, lower extremity swelling and GI blood loss. CT revealed 6 cm AAA, echocardiogram revealed LVEF 65%, no RWMA, larger R pleural effusion. Thoracentesis was performed and 1250 cc volume removed. EGD was wnl, 1 polyp was removed from ascending colon on colonoscopy. No active site of bleeding was found. Patient required transfusion w/ 2 units PRBC. Vascular surgery planned AAA repair once CHF has been addressed. Mr. Lea was transferred to [facility] for PT. Serum Cr was 1.5 at time of transfer. Because Mr. Lea required assistance in standing and could not use BR, a Wang catheter was inserted. He was maintained on furosemide 40 mg po BID to prevent CHF. Later metolazone 5 mg daily was added due to progressive LE swelling. On 04/22/25 Mr. Lea was transferred back to [facility] due to lethargy, hypotension and serum Cr 4.2. SBP was 70 in EMD. Patient was diagnosed w/ catheter related urosepsis and possible RLL pneumonia. 2 L 0.9NS IV was administered in the EMD and patient was started on levophed therapy. Diuretic has been held, wang changed out and patient has been started on empiric Vancomycin, cefepime and Flagyl therapy. Patient is nonoliguric. UO 3 L since admission. Cumulative volume status is only net 1.1 L volume positive. Allergies Allergy/AdvReac Type Severity Reaction Status Date / Time latex Allergy Intermediate Rash, Verified 04/06/25 14:08 Burning Sensation phenobarbital AdvReac Intermediate Hyper Verified 04/06/25 14:08 Gold AdvReac Severe Wounds Uncoded 04/06/25 14:08 that became Pre-Cancerous Home Medications Medication Instructions Recorded Confirmed Type acetaminophen 500 mg tablet 500 mg PO Q4H PRN Pain/fever 07/07/24 04/22/25 History albuterol sulfate 90 mcg/actuation 2 puff inhalation QID PRN 07/07/24 04/22/25 History aerosol inhaler Shortness Of Breath Or Wheezing atorvastatin 40 mg tablet (Lipitor) 40 mg PO HS 07/07/24 04/22/25 History montelukast 10 mg tablet 10 mg PO HS 07/07/24 04/22/25 History (Singulair) tramadol 50 mg tablet 50 mg PO Q4H PRN Pain 07/18/24 04/22/25 History diclofenac sodium 1 % topical gel 2 g topical BID PRN Pain 03/31/25 04/22/25 History gabapentin 300 mg capsule 300 mg PO HS 03/31/25 04/22/25 History metoprolol succinate 25 mg 25 mg PO QAM 03/31/25 04/22/25 History tablet,extended release 24 hr naloxone 4 mg/actuation nasal spray 1 spray intranasal DIRECTED PRN 03/31/25 04/22/25 History overdose oxycodone 5 mg tablet 5 mg PO Q4H PRN Pain (Scale Score 03/31/25 04/22/25 History 4-6) acetaminophen 325 mg tablet 650 mg PO Q4H PRN Pain/Fever 04/22/25 04/22/25 History ammonium lactate 12 % lotion 1 applic topical BID 04/22/25 04/22/25 History apixaban 2.5 mg tablet (Eliquis) 2.5 mg PO BID 04/22/25 04/22/25 History baclofen 10 mg tablet 10 mg PO TID 04/22/25 04/22/25 History bisacodyl 10 mg rectal suppository [address] DAILY PRN Constipation 04/22/25 04/22/25 History cyanocobalamin (vitamin B-12) 1,000 mcg PO DAILY 04/22/25 04/22/25 History 1,000 mcg tablet (Vitamin B-12) docusate sodium 100 mg capsule 100 mg PO Q12H 04/22/25 04/22/25 History (Colace) empagliflozin 10 mg tablet 10 mg PO QAM 04/22/25 04/22/25 History (Jardiance) fluticasone fur. 200 mcg-umeclid 1 inh inhalation DAILY 04/22/25 04/22/25 History 62.5 mcg-vilant 25 mcg inhalat.powder glucagon HCl 1 mg solution for 1 mg IM DIRECTED PRN 04/22/25 04/22/25 History injection (Glucagon (HCl) Hypoglycemia Emergency Kit) ipratropium 20 mcg-albuterol 100 1 puff inhalation BID 04/22/25 04/22/25 History mcg/actuation mist for inhalation ondansetron 4 mg disintegrating 4 mg PO Q6H PRN Nausea And Vomiting 04/22/25 04/22/25 History tablet pantoprazole 40 mg tablet,delayed 40 mg PO BID 04/22/25 04/22/25 History release piperacillin-tazobactam 2.25 gram 2.25 g IV Q8H 04/22/25 04/22/25 History intravenous solution polyethylene glycol 3350 17 gram 17 g PO DAILY 04/22/25 04/22/25 History oral powder packet (Miralax) sennosides 8.6 mg-docusate sodium 1 tab-cap PO QDL 04/22/25 04/22/25 History 50 mg tablet (Senokot-S) sodium chloride 0.9 % (flush) 5 ml IV Q8H 04/22/25 04/22/25 History sodium phosphates 19 gram-[address] DAILY PRN Constipation 04/22/25 04/22/25 History gram/118 mL enema (Fleet Enema) Patient History Medical History Post-nasal drip as per patient - in the morning RBBB Dr Bonilla On anticoagulant therapy Eliquis daily Hyperlipidemia HTN (hypertension) controlled, stable per pt Hip pain Right knee pain Acid reflux controlled, stable per pt Hx of myocardial infarction "silent" - states was told must have occurred during childhood ~12-14 yrs old, per pt Paroxysmal atrial fibrillation dx 1984-- reason for Eliquis, follows w/ [facility] Environmental and seasonal allergies PRN inh use - no longer using daily Allergic rhinitis Surgical History Hx of arthroscopic knee surgery right, x 2 left, x 1 History of cardiac radiofrequency ablation (RFA) ~2009- [facility] Hx of colonoscopy Hx of total hip arthroplasty (2013) left History of shoulder surgery b/l - hx reconstruction of both shoulders Hx of cardiac catheterization (1984) 1984, 08/05/24, and "Early this year - it was all clear" as per patient - no stents Dr Bonilla Social History Smoking Status: Former smoker Tobacco Type: Cigarettes Cigarettes Per Day: Smokes pipe "doesn't inhale" as per patient; Second Hand Exposure: No; Do You Dip or Chew Tobacco: No; Hx Alcohol Use: Yes Alcohol type: beer Hx Substance Use: No Preferred Language: Amharic Communication Ability: Effective Logistics 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 Required: No Beliefs That Will Affect Care: None Current Living Situation: Personal Care Facility Current Living Situation Comment: [facility] Feels Safe at Home: Yes Assistive Devices: Glasses, Walker and Wheelchair Review of Systems Review of Systems: Unobtainable due to cognitive status Physical Exam Constitutional: not in distress Eyes: PERRL, conjunctivae normal, anicteric sclerae ENMT: external ear and nose normal, oropharynx normal Neck: trachea midline, no thyromegaly Respiratory: normal respiratory effort, lungs clear to auscultation Cardiovascular: Rate/Rhythm: regular rate and regular rhythm Extremities: + edema (2+ pretibial pitting edema) Gastrointestinal (Abdomen): normal bowel sounds, soft, nontender, no he patosplenomegaly Musculoskeletal: Extremities: no cyanosis and no clubbing Skin: no rashes, warm and dry Neurologic: no focal motor deficits Results & Data Vital Signs (Past 12 Hours) Vital Signs Temp Pulse Resp BP Pulse Ox O2 Del Method O2 Flow Rate 04/24/25 08:01 Nasal Cannula 2 04/24/25 08:00 35.7 C L 67 20 96 04/24/25 08:00 154/89 H 04/24/25 08:00 154/89 H 04/24/25 08:00 154/89 H 04/24/25 08:00 75 04/24/25 07:30 35.6 C L 73 18 126/71 95 Nasal Cannula 2 04/24/25 07:00 35.7 C L 74 18 119/83 97 Nasal Cannula 2 04/24/25 06:00 118/78 04/24/25 06:00 35.7 C L 63 18 94 2 04/24/25 05:48 35.7 C L 75 20 93 2 04/24/25 05:32 88/58 L 04/24/25 05:32 88/58 L 04/24/25 05:24 35.8 C L 61 18 96 2 04/24/25 05:03 35.9 C L 75 22 95 2 04/24/25 05:00 97/65 L 04/24/25 04:57 35.9 C L 73 17 96 2 04/24/25 04:48 35.9 C L 65 18 96 2 04/24/25 04:00 99/61 L 04/24/25 04:00 99/61 L 04/24/25 04:00 36.0 C L 73 19 94 2 04/24/25 03:30 36.1 C L 78 27 H 96 2 04/24/25 03:30 122/71 04/24/25 03:30 122/71 04/24/25 03:12 36.1 C L 71 14 96 2 04/24/25 02:33 36.1 C L 76 15 93 2 04/24/25 02:30 116/73 04/24/25 02:30 116/73 04/24/25 02:18 36.1 C L 76 17 96 2 04/24/25 02:00 115/76 04/24/25 02:00 36.2 C L 72 21 98 2 04/24/25 01:48 36.2 C L 77 14 94 2 04/24/25 01:30 97/63 L 04/24/25 01:27 36.2 C L 79 21 97 2 04/24/25 01:00 117/69 04/24/25 01:00 36.2 C L 82 17 97 2 04/24/25 00:42 36.3 C L 77 17 95 2 Laboratory Results Laboratory Results WBC 15.28 K/ul (4.8-10.8) H 04/24/25 02:46 RBC 3.68 M/uL (4.70-6.10) L 04/24/25 02:46 Hgb 8.3 g/dl (14.0-18.0) L 04/24/25 02:46 Hct 27.6 % (42.0-52.0) L 04/24/25 02:46 MCV 75.0 fL (80.0-100.0) L 04/24/25 02:46 MCH 22.6 pg (25.0-34.0) L 04/24/25 02:46 MCHC 30.1 g/dL (32.0-36.0) L 04/24/25 02:46 RDW Std Deviation 61.7 fL (36.4-46.3) H 04/24/25 02:46 RDW Coeff of Charly 22.7 % (11.5-14.5) H 04/24/25 02:46 Plt Count 147 K/uL (130-400) 04/24/25 02:46 MPV 10.1 fL (9.4-12.4) 04/24/25 02:46 Immature Gran % (Auto) 0.6 % 04/24/25 02:46 Neut % (Auto) 91.6 % 04/24/25 02:46 Lymph % (Auto) 2.8 % 04/24/25 02:46 Hockley % (Auto) 4.8 % 04/24/25 02:46 Eos % (Auto) 0.1 % 04/24/25 02:46 Baso % (Auto) 0.1 % 04/24/25 02:46 Neut # (Auto) 14.00 K/uL (1.40-6.50) H 04/24/25 02:46 Lymph # (Auto) 0.43 K/uL (1.20-3.40) L 04/24/25 02:46 Hockley # (Auto) 0.73 K/uL (0.11-0.59) H 04/24/25 02:46 Eos # (Auto) 0.01 K/uL (0.00-0.50) 04/24/25 02:46 Baso # (Auto) 0.02 K/uL (0.00-0.20) 04/24/25 02:46 Immature Gran # (Auto) 0.09 K/uL (0.01-0.20) 04/24/25 02:46 Toxic Vacuolation 1+ 04/22/25 11:45 Dohle Bodies 1+ 04/22/25 11:45 Polychromasia 1+ 04/24/25 02:46 Hypochromasia Present 04/22/25 11:45 Anisocytosis Present 04/24/25 02:46 Tear Drop Cells 1+ 04/24/25 02:46 Ovalocytes 1+ 04/24/25 02:46 PT 13.9 Seconds (9.0-12.0) H 04/23/25 10:29 INR 1.3 (0.9-1.1) H 04/23/25 10:29 APTT 72 Seconds (21-31) H 04/24/25 08:08 PTT Ratio 2.7 04/24/25 08:08 Heparin Anti-Xa, Unfract > 1.50 IU/ml (0.3-0.7) H* 04/23/25 19:13 VBG pH 7.37 (7.36-7.41) 04/22/25 11:45 VBG pCO2 59 mmHg (38-50) H 04/22/25 11:45 VBG pO2 33 mmHg 04/22/25 11:45 VBG HCO3 34 mmol/L 04/22/25 11:45 VBG O2 Saturation < 60.0 % 04/22/25 11:45 VBG Base Excess 7.7 mEq/L 04/22/25 11:45 Sodium 135 mmol/L (136-145) L 04/24/25 02:46 Potassium 3.5 mmol/L (3.5-5.1) 04/24/25 02:46 Chloride 94 mmol/L (98-107) L 04/24/25 02:46 Carbon Dioxide 30 mmol/L (21-32) 04/24/25 02:46 Anion Gap 11 (3-11) 04/24/25 02:46 BUN 78 mg/dl (6-23) H 04/24/25 02:46 Creatinine 4.22 mg/dl (0.6-1.4) H 04/24/25 02:46 Est Cr Clr Drug Dosing 19.6 ml/min 04/24/25 02:46 eGFR 13.60 04/24/25 02:46 BUN/Creatinine Ratio 18.5 (10-20) 04/24/25 02:46 Glucose 139 mg/dl (70-99(Fasting)) H 04/24/25 02:46 POC Glucose 163 mg/dl (70-99) H 04/24/25 12:35 Lactate 1.4 mmol/L (0.4-2.0) 04/22/25 13:38 Calcium 9.9 mg/dl (8.6-10.3) 04/24/25 02:46 Phosphorus 4.6 mg/dl (2.5-4.9) 04/24/25 02:46 Magnesium 2.2 mg/dl (1.7-2.4) 04/24/25 02:46 Total Bilirubin 1.9 mg/dl (0.2-1.0) H 04/22/25 11:45 Direct Bilirubin 1.1 mg/dl (0-0.2) H 04/22/25 11:45 AST 33 U/L (13-39) 04/22/25 11:45 ALT 9 U/L (7-52) 04/22/25 11:45 Alkaline Phosphatase 237 U/L (34-104) H 04/22/25 11:45 Troponin I High Sens 147.6 pg/ml (0-20) H* 04/22/25 13:38 B-Natriuretic Peptide 332 pg/ml (0-100) H 04/22/25 11:45 Total Protein 6.0 gm/dl (6.0-8.3) 04/22/25 11:45 Albumin 2.8 gm/dl (3.4-5.0) L 04/22/25 11:45 Procalcitonin 7.83 ng/ml (0-0.5) H 04/22/25 11:45 TSH 4.282 uIu/ml (0.300-4.500) 04/22/25 13:38 Random Cortisol 28.04 mcg/dl 04/22/25 11:45 Urine Color Dark Yellow 04/22/25 11:53 Urine Appearance Turbid (Clear) A 04/22/25 11:53 Urine pH 6.5 (4.5-7.5) 04/22/25 11:53 Ur Specific Sumner 1.015 (1.000-1.030) 04/22/25 11:53 Urine Protein 3+ (Negative) H 04/22/25 11:53 Urine Glucose (UA) Negative (Negative) 04/22/25 11:53 Urine Ketones Negative (Negative) 04/22/25 11:53 Urine Blood 3+ (Negative) H 04/22/25 11:53 Urine Nitrite Negative (Negative) 04/22/25 11:53 Urine Bilirubin 1+ (Negative) H 04/22/25 11:53 Urine Urobilinogen Positive (Negative) H 04/22/25 11:53 Ur Leukocyte Esterase 3+ (Negative) H 04/22/25 11:53 Urine WBC (Auto) >50 /hpf (0-5) H 04/22/25 11:53 Urine RBC (Auto) >20 /hpf (0-2) H 04/22/25 11:53 U Hyaline Cast (Auto) 11-20 /lpf (0-2) H 04/22/25 11:53 U Epithel Cells (Auto) 3-5 /hpf (0-2) H 04/22/25 11:53 Urine Bacteria (Auto) 1+ (None Seen) H 04/22/25 11:53 Calcium Oxalate Crystal Present (None Prsent) A 04/22/25 11:53 Granular Casts Present /lpf (None Prsent) A 04/22/25 11:53 Waxy Casts Present /lpf (None Prsent) A 04/22/25 11:53 WBC Casts Present /lpf (None Prsent) A 04/22/25 11:53 Urine Comment 04/22/25 11:53 Nasal Screen MRSA (PCR) Negative (Negative) 04/22/25 12:26 SARS-CoV-2 (PCR) NEGATIVE (Negative) 04/22/25 13:11 Influenza Type A (PCR) Negative (Neg) 04/22/25 13:11 Influenza Type B (PCR) Negative (Neg) 04/22/25 13:11 RSV (RT-PCR) Negative (Neg) 04/22/25 13:11 Impressions Chest X-Ray 04/22/25 11:38 XR chest 1V portable CLINICAL HISTORY: Sepsis COMPARISON STUDY: 04/03/2025 FINDINGS: There is stable cardiomegaly with pulmonary vascular congestion. There is increased opacity at the right base with obscuration of the right hemidiaphragm. No pneumothorax. IMPRESSION: 1. CHF. 2. Increased opacity at the right lung base could represent pneumonia or pleural effusion. ACT 112: Negative or not required by law. Electronically signed by: Ben Bland M.D. 04/22/2025 12:01 PM Abdomen/Pelvis CT 04/22/25 14:26 EXAMINATION: CT of the abdomen and pelvis performed without contrast TECHNIQUE: Helical CT images from the lung bases through the symphysis pubis were obtained without contrast. Coronal and sagittal reformatted images were generated at a workstation for further assessment. Dose reduction techniques were achieved by using automatic exposure control and/or adjustment of mA and/or kV according to patient size and/or use of iterative reconstruction technique. COMPARISON: 04/03/2025 HISTORY: Confusion FINDINGS: LOWER CHEST: Small left and moderate right pleural effusions with bibasilar atelectasis and/or edema. ABDOMEN: Liver: Unremarkable. Gallbladder and bile ducts: Minimal layering stones or sludge. No ductal dilation. Pancreas: Unremarkable. No ductal dilation. Spleen: Unremarkable. No splenomegaly. Adrenals: Unremarkable. No mass. Kidneys and ureters: Punctate nonobstructive caliceal calculus in the lower pole of the right kidney. No hydronephrosis or ureterolithiasis is seen involving either kidney. Stomach and michael mild colonic stool. Moderate stool in the rectum. No other dilated bowel loops are identified. No pneumoperitoneum or abscess is seen. No mucosal thickening. PELVIS: Appendix: No findings to suggest acute appendicitis. Bladder: A Wang catheter is in place, with decompression of the bladder. Mild surrounding inflammatory fat stranding of the bladder noted. No stones. Reproductive: Unremarkable as visualized. ABDOMEN and PELVIS: Intraperitoneal space: Small amount of ascites in the upper abdomen adjacent to the liver. Bones/joints: Previous multilevel fusion, instrumentation, and laminectomy of the lumbar spine from L3 through L5. No acute fracture or subluxation. Soft tissues: Diffuse anasarca over the torso. Vasculature: Infrarenal abdominal aortic aneurysm measuring up to 5.2 cm in diameter. No signs of rupture. Heavy aortoiliac calcifications. Lymph nodes: Unremarkable. No enlarged lymph nodes. IMPRESSION: Mild surrounding inflammatory fat stranding of the urinary bladder, which may be seen with cystitis. Redemonstrated findings of volume overload. No other acute change. Electronically signed by Jeffrey Whalen 04-22-2025 3:41 PM PG Care Time/CCT Total # of Minutes Spent Total Time Spent with Patient: Total time spent is greater than 50% in coordination of care (as documented) at patient's floor/unit and/or counseling patient: Coding Level of Care Code 65116 IN/OBS CONSULT LVL 5,80M Diagnoses Acute renal failure N17.9 Acute renal failure type: unspecified Septic shock A41.9; R65.21 Acute UTI (urinary tract infection) N39.0 RLL pneumonia J18.9 Pneumonia type: due to unspecified organism Heart failure with preserved ejection fraction I50.30 Abdominal aortic aneurysm (AAA) I71.40 (1) Acute renal failure Acute renal failure type: unspecified Qualified Code(s): N17.9 - Acute kidney failure, unspecified (4) RLL pneumonia Pneumonia type: due to unspecified organism Qualified Code(s): J18.9 - Pneumo lou, unspecified organism
--- NOTE | 2025-04-24 13:02 | Critical Care Progress Note ---
Date of Service April 24, 2025 Assessment & Plan (1) RLL pneumonia: (2) Congestive heart failure: (3) Acute renal failure: (4) Acute UTI (urinary tract infection): (5) Septic shock: (6) Atrial fibrillation: (7) Hyperlipidemia: (8) Acid reflux: Plan Reason Critically Ill: 79-year-old male [facility]. Was found to be in septic shock secondary to UTI. Sent to ICU for further management Past medical history: Chronic indwelling Gomez due to patient's inability to walk, history of lower back surgery, coronary artery disease, HFpEF, chronic anemia Neuro - [facility] ICU: Unable to assess --Metabolic encephalopathy Likely secondary to sepsis Cardiac - 2D echo 04/01/2025: EF 65-70%, mild concentric LVH, PASP 50-55 mmHg -- Shock Secondary to acute RV dysfunction and septic shock. Vasopressors to keep MAP greater than 65. Continues to require low-dose Levophed. -- Elevated troponin Likely type II TX EKG 04/22/2025 11:44 AM: A-fib, low voltage QRS, right bundle branch block, Q waves on the inferior leads, mild ST depression on V3 V4, no T wave changes --Pulmonary hypertension Likely type II Respiratory - Chest x-ray 04/22/2025 personally reviewed: Portable film, alveolar opacity appreciated in the right lower lobe with blunting of the right costophrenic angle, increased cardiac silhouette -- Acute hypoxic respiratory failure Multifactorial Pneumonia Acute exacerbation of HFpEF BNP 332 Procalcitonin 7.83, nasal MRSA negative Continue hydrocortisone given the patient's ICU status and pneumonia. Continue broad-spectrum antibiotics BiPAP nightly and as needed shortness of breath Keep O2 saturation between 90-92% --Pleural effusion History of thoracentesis on 04/03/2025, transudative --History of SELENE GI - -- Mild conjugated bilirubinemia Could be from hepatic congestion from cardiac etiology Continue to monitor -- Chronically elevated alk phos Continue to monitor RENAL/LYTES - -- LETY on CKD Baseline creatinine 1.5-1.6 Monitor BUN/creatinine Avoid nephrotoxic medications Strict ins and outs - -- Chronic indwelling Gomez Changed to a new Gomez. ENDO - -- ICU hypoglycemia protocol HEME - -- Normocytic anemia Monitor H&H ID - -- Septic shock likely source is urine Culture of penile wound yielded Staphylococcus hemolyticus and Enterococcus facialis. Urine culture with no growth. Antibiotics escalated to cefepime and metronidazole. Musculoskeletal - -- Chronic low back pain s/p surgery On oxycodone tramadol as needed -- DNR/DNI No escalation of care. Will consult palliative care. --Prophylaxis VTE: Eliquis at home, heparin drip in the hospital GI: Pantoprazole Lines: Peripheral Diet: N.p.o. Admission and Anticipated Discharge Date Admission Date: April 22, 2025 Subjective Patient appears to be confused this morning. He is requiring low-dose vasopressors. He denies any complaints of pain. No significant events overnight. He is requiring low-flow oxygen to maintain saturations above 90%. Review of Systems Review of Systems: ROS is limited due to the patient's cognitive condition. Physical Exam Physical Exam: Constitutional: No acute distress HEENT: EOMI, PERRLA Respiratory system: Decreased air entry on the right side, no wheeze, no rhonchi, positive crackles bilaterally more on the right side CVS: S1-S2 positive, no murmurs or gallops Abdomen: Soft, mild suprapubic and left lower quadrant tenderness, no rebound nondistended, positive bowel sounds x4 Extremities: +2 pulses bilaterally radialis/ dorsalis pedis, no cyanosis, +3 p itting edema bilateral lower extremity Neuro: Awake alert oriented to self only Psych: Normal mood and affect G/U: Positive Gomez Skin: no rashes, warm and dry Lymphatic: no cervical or axillary lymphadenopathy Results & Data Results & Data Vital Signs (Past 12 Hours) Vital Signs Temp Pulse Resp BP Pulse Ox O2 Del Method O2 Flow Rate 04/24/25 08:01 Nasal Cannula 2 04/24/25 08:00 35.7 C L 67 20 96 04/24/25 08:00 154/89 H 04/24/25 08:00 154/89 H 04/24/25 08:00 154/89 H 04/24/25 08:00 75 04/24/25 07:30 35.6 C L 73 18 126/71 95 Nasal Cannula 2 04/24/25 07:00 35.7 C L 74 18 119/83 97 Nasal Cannula 2 04/24/25 06:00 118/78 04/24/25 06:00 35.7 C L 63 18 94 2 04/24/25 05:48 35.7 C L 75 20 93 2 04/24/25 05:32 88/58 L 04/24/25 05:32 88/58 L 04/24/25 05:24 35.8 C L 61 18 96 2 04/24/25 05:03 35.9 C L 75 22 95 2 04/24/25 05:00 97/65 L 04/24/25 04:57 35.9 C L 73 17 96 2 04/24/25 04:48 35.9 C L 65 18 96 2 04/24/25 04:00 99/61 L 04/24/25 04:00 99/61 L 04/24/25 04:00 36.0 C L 73 19 94 2 04/24/25 03:30 36.1 C L 78 27 H 96 2 04/24/25 03:30 122/71 04/24/25 03:30 122/71 04/24/25 03:12 36.1 C L 71 14 96 2 04/24/25 02:33 36.1 C L 76 15 93 2 04/24/25 02:30 116/73 04/24/25 02:30 116/73 04/24/25 02:18 36.1 C L 76 17 96 2 04/24/25 02:00 115/76 04/24/25 02:00 36.2 C L 72 21 98 2 04/24/25 01:48 36.2 C L 77 14 94 2 04/24/25 01:30 97/63 L 04/24/25 01:27 36.2 C L 79 21 97 2 04/24/25 01:00 117/69 04/24/25 01:00 36.2 C L 82 17 97 2 Coding Level of Care Code 53793 SUB INP/OBS CARE 3/50MIN Diagnoses RLL pneumonia J18.9 Pneumonia type: due to unspecified organism Congestive heart failure I50.42 Heart failure chronicity: chronic Heart failure type: combined systolic and diastolic Acute renal failure N17.9 Acute renal failure type: unspecified Acute UTI (urinary tract infection) N39.0 Septic shock A41.9; R65.21 Atrial fibrillation I48.91 Hyperlipidemia E78.5 Acid reflux K21.9 (1) RLL pneumonia Pneumonia type: due to unspecified organism Qualified Code(s): J18.9 - Pneumonia, unspecified organism (2) Congestive heart failure Heart failure chronicity: chronic Heart failure type: combined systolic and diastolic Qualified Code(s): I50.42 - Chronic combined systolic (congestive) and diastolic (congestive) heart failure (3) Acute renal failure Acute renal failure type: unspecified Qualified Code(s): N17.9 - Acute kidney failure, unspecified
[2025-04-24] MEDS: PLASMA-LYTE A 500 ML IV ONE (13:22)
--- NOTE | 2025-04-24 14:40 | Pharmacy Report ---
Pharmacy PK ABX Note - Date of Service April 24, 2025 - Assessment and Plan Assessment 79 year old M receiving VANCOMYCIN/CEFEPIME/FLAGYL for treatment of pneumonia/?UTI. Pertinent microbiologic data includes: MRSA nasal swab negative, penis culture growing E. faecalis/Staph haemolyticus. Previously on zosyn, antibiotics adjusted this morning given limited improvement. LETY on CKD- nonoliguric. Will dose by levels d/t predicted prolonged half-life. Plan Vancomycin * Loading dose: 2500 mg IV x 1 * Random level with AM labs Pharmacy will continue to follow and will adjust dose/frequency as necessary. Thank you. Pharmacy has transitioned to AUC monitoring for vancomycin. AUC/RG is the preferred PK/PD target and is associated with decreased risk of nephrotoxicity compared to traditional trough targets.
[2025-04-24] MEDS ORDERED: VANCOMYCIN CONSULT ACTIVE PRN (15:34)
[2025-04-24 16:07] LABS: Partial Thromboplastin Time 57 Seconds (21-31)
--- NOTE | 2025-04-24 16:11 | Billing Data ---
Date of Service April 24, 2025 Coding Level of Care Code 35651 SUB INP/OBS CARE MIN
[2025-04-25 04:29] LABS: Hematocrit (blood only) 27.7 % (42.0-52.0); Hemoglobin 8.7 g/dl (14.0-18.0); Immature Granulocytes # (auto) 0.07 K/uL (0.01-0.20); Immature Granulocytes % (auto) 0.6 %; Mean Corpuscular Hemoglobin 23.3 pg (25.0-34.0); Mean Corpuscular Volume 74.3 fL (80.0-100.0); Platelet Count 144 K/uL (130-400); RDW Standard Deviation 60.9 fL (36.4-46.3); Red Blood Count 3.73 M/uL (4.70-6.10); White Blood Count 12.07 K/ul (4.8-10.8)
[2025-04-25 04:43] LABS: Anion Gap 12.0 (3-11); Blood Urea Nitrogen 84.0 mg/dl (6-23); Calcium 10.0 mg/dl (8.6-10.3); Carbon Dioxide 31.0 mmol/L (21-32); Chloride 94.0 mmol/L (98-107); Creatinine Clr Calc Pharmacy 20.3 ml/min; Glucose 140.0 mg/dl (70-99(Fasting)); Magnesium 2.1 mg/dl (1.7-2.4); Potassium 2.9 mmol/L (3.5-5.1); Sodium 137.0 mmol/L (136-145)
[2025-04-25 04:50] LABS: Anisocytosis Present; Polychromasia 1+
[2025-04-25] MEDS ORDERED: POTASSIUM CHLORIDE / WTR 20 MEQ/100 ML PLCT IV ONE (04:52)
[2025-04-25] MEDS: POTASSIUM CHLORIDE / WTR 10 MEQ/100 ML PLCT IV SCH ×2 (05:25→13:08)
--- NOTE | 2025-04-25 05:49 | Electrocardiogram Report ---
Test Reason : Blood Pressure : */* mmHG Vent. Rate : 97 BPM Atrial Rate : * BPM P-R Int : * ms QRS Dur : 120 ms QT Int : 352 ms P-R-T Axes : * -49 -9 degrees QTcB Int : 447 ms Atrial fibrillation with premature ventricular or aberrantly conducted complexes Left axis deviation Low voltage QRS Right bundle branch block Cannot rule out Inferior infarct , age undetermined Abnormal ECG When compared with ECG of 31-Mar-2025 18:15, Criteria for Septal infarct are no longer Present Confirmed by Tony Ferraro ([id number]) on 04/25/2025 5:49:30 AM Referred By: Confirmed By: Tony Ferraro
--- NOTE | 2025-04-25 05:50 | Electrocardiogram Report ---
Test Reason : Blood Pressure : */* mmHG Vent. Rate : 112 BPM Atrial Rate : * BPM P-R Int : * ms QRS Dur : 120 ms QT Int : 334 ms P-R-T Axes : * -22 -13 degrees QTcB Int : 455 ms Atrial fibrillation with rapid ventricular response with premature ventricular or aberrantly conducte d complexes Low voltage QRS Right bundle branch block Possible Inferior infarct (cited on or before 22-Apr-2025) Abnormal ECG When compared with ECG of 22-Apr-2025 11:44, No significant change was found Confirmed by Tony Ferraro ([id number]) on 04/25/2025 5:49:46 AM Referred By: REFERRED SELF Confirmed By: Tony Ferraro
--- NOTE | 2025-04-25 08:11 | Hospitalist Progress Note ---
Date of Service April 25, 2025 Assessment & Plan (1) RLL pneumonia: (2) Congestive heart failure: (3) Acute renal failure: (4) Acute UTI (urinary tract infection): (5) Septic shock: (6) Atrial fibrillation: (7) Heart failure with preserved ejection fraction: (8) Abdominal aortic aneurysm (AAA): (9) Anemia: (10) Acute heart failure: (11) Fluid overload: (12) Dyspnea: (13) AMS (altered mental status): (14) CAD (coronary artery disease): (15) LETY (acute kidney injury): Plan Geoff Lea is a 79 y/o M with a past medical history of alcohol abuse in remission, CAD last heart cath with nonobstructive moderate coronary disease 07/2024, A-fib on Eliquis and metoprolol, and hypertension on lisinopril found to be acutely hypotensive and lethargic at [facility], arrived to [facility] and found to be in septic shock secondary to UTI and transferred to ICU due to critical illness, need for pressors and continuous monitoring. Septic shock 2/2 UTI vs pneumonia/Metabolic encephalopathy - Urinalysis: Turbid, 3+ protein, 3+ blood, 1+ bilirubin, 3+ LE, 1+ bacteria, >50 WBC, >20 RBC - CXR: Stable CHF with RLL consolidation - Urine cx - negative; Blood cx x2 pending, follow results - AMS/delerium with sepsis contributing, waxing and waning levels of consciousness - CBC favors bacterial process with leukocytosis with left shift; MRSA nares negative, Procal: 7.83 - Vasopressin 0.07 mg/kg/min Q8H IV drip started in ED, Decreased to 0.01 in ICU, stopped on 04/24, maintain MAP > 65 - Stop Zosyn 4.5g Q8H abx therapy, modify based on culture data - Continue Vancomycin 2500 mg IV 180 mL/hr, cefepime 1000 mg IV Q12H 5 mL/hr, and flagyl 500 mg IV Q8H 100 mLs/hr empirically, started 04/24 - One dose albumin 250ml given, hydrocortisone added for severe sepsis - Cx results from penis region positive for E. faecalis and S. haemolyticus; consider abx change based on sensitivities - CBC, CMP QAM - Evaluate swallow, if swallowing well d/c heparin drip and restart Eliquis - K 2.9 60 mEq given HFpEF/Acute hypoxic respiratory failure/Elevated troponin/Potential NSTEMI - 2D Echo: EF: 65-70%, mild concentric LVH, PASP 50-55 mmhg - Electrolytes largely wnl; BNP: 332 - Daily weights + strict I/Os - HST troponin: 147.6, stable - EKG: A-fib with RVR, RBBB, potential age-indeterminate inferior infarct - Worsening respiratory status likely multifactorial, 2/2 exacerbation of acute on chronic HFpEF and new RLL consolidation suspicious for pneumonia - Consider cardiology consult, potentially repeat echocardiogram. 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 was talkign with palliative when i was in the room. off pressors for several hours. Vitals noted, in general he is awake and alert pleasant still seems easily confused but no distress. HEENT normocephalic atraumatic mucous membranes moist. Breathing unlabored no accessory muscle use good effort. Skin shows no rashes no pallor or icterus. Neuro without focal deficits. Sepsis/septic shock/severe sepsis (manifested by his acute renal failure which is probably ATN)source not entirely clear, pneumonia versus UTI as leading suspicions, but continue to follow cultures follow clinical course and continue broad antibiotics. now off pressors - transfer to PCU. No acute indications for dialysis. Continue to follow. Anticipate return to rehab after discharge aortic aneurysm for outpatient repair in the near future Subjective Patient was lying in bed comfortably, in no acute distress. Nursing reports no overnight events. Stated that he is doing well. Denies CP, SOB, abdominal pain, REY, weakness, dizziness. Admits to numbness and tingling in his legs closest to his feet. Review of Systems Review of Systems: All systems reviewed & are unremarkable except as noted in Subjective Physical Exam Physical Exam: General: Patient resting, not toxic in appearance, awake and alert Skin: warm, dry, intact HEENT: NC/AT, anicteric sclera, conjunctiva without injection, moist mucus membranes. Heart: +S1/S2, regular, no murmurs, gallops, rubs Lungs: equal air entry bilaterally, coarse breath sounds and rales at lower lung bases Abd: +BS, soft, nontender, no rebound or guarding Ext: warm, no clubbing/cyanosis or edema Neuro: speech intact, no facial droop, moving all extremities, sensation intact in all extremities bilaterally Results & Data Results & Data Vital Signs (Past 12 Hours) Vital Signs Temp Pulse Resp BP Pulse Ox 04/25/25 05:09 36.0 C L 70 19 93 04/25/25 05:00 105/65 04/25/25 04:57 36.1 C L 67 22 94 04/25/25 04:00 36.1 C L 72 93 04/25/25 04:00 101/69 04/25/25 04:00 101/69 04/25/25 04:00 101/69 04/25/25 04:00 101/69 04/25/25 03:03 36.3 C L 74 9 L 88 L 04/25/25 03:00 93/61 L 04/25/25 03:00 93/61 L 04/25/25 02:54 36.3 C L 80 20 93 04/25/25 02:12 36.4 C L 73 11 L 92 04/25/25 01:06 36.4 C L 69 19 91 04/25/25 00:24 36.4 C L 78 21 92 04/24/25 23:06 36.4 C L 105 H 24 92 04/24/25 23:02 92/46 L 04/24/25 23:02 92/46 L 04/24/25 22:51 36.3 C L 69 20 91 04/24/25 22:00 36.3 C L 84 19 92 04/24/25 22:00 96/65 L 04/24/25 22:00 96/65 L 04/24/25 21:30 36.2 C L 88 22 93 04/24/25 21:00 102/61 04/24/25 21:00 36.2 C L 76 21 91 04/24/25 20:45 114/65 04/24/25 20:45 114/65 04/24/25 20:33 36.2 C L 84 21 04/24/25 20:30 115/99 04/24/25 20:30 36.2 C L 89 25 H 04/24/25 20:15 92/60 L 04/24/25 20:15 36.2 C L 78 25 H Resident Activity Tracking Resident Involvement: Resident Care Provided Care Provided: Adult Hospital Medicine (1) RLL pneumonia Pneumonia type: due to unspecified organism Qualified Code(s): J18.9 - Pn eumonia, unspecified organism (2) Congestive heart failure Heart failure chronicity: chronic Heart failure type: combined systolic and diastolic Qualified Code(s): I50.42 - Chronic combined systolic (congestive) and diastolic (congestive) heart failure (3) Acute renal failure Acute renal failure type: unspecified Qualified Code(s): N17.9 - Acute kidney failure, unspecified (11) Fluid overload Hypervolemia type: other Qualified Code(s): E87.79 - Other fluid overload (12) Dyspnea Dyspnea type: unspecified Qualified Code(s): R06.00 - Dyspnea, unspecified
[2025-04-25] MEDS: POTASSIUM CHLORIDE 20 MEQ/15 ML UDC PO STA ×2 (08:52→13:08)
--- NOTE | 2025-04-25 08:56 | Nephrology Progress Note ---
Date of Service April 25, 2025 Assessment & Plan (1) Acute renal failure: Plan: * Nonoliguric LETY likely due to ischemic ATN from urosepsis * Patient is now off pressor therapy and had a good response to IV diuretic therapy * Electrolyte balance is acceptable. 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 Patient is on IV Zosyn therapy (4) RLL pneumonia: Plan: * On broad-spectrum antibiotic therapy. (5) Heart failure with preserved ejection fraction: Plan: * 04/21 echocardiogram revealed LVEF 65%, no RWMA (6) Abdominal aortic aneurysm (AAA): Plan: * 6 cm AAA Admission and Anticipated Discharge Date Admission Date: April 22, 2025 Subjective Mr. Lea was evaluated in the ICU this morning. He was breathing comfortably on RA. ICU team provided one dose IV furosemide last evening and Mr. Lea had a good response. BP has improved and he is now off pressor therapy Review of Systems Constitutional: no fever Eyes: no problem reported Ear, Nose, Mouth, Throat: no problem reported Respiratory: no cough and no dyspnea Cardiovascular: no chest pain Gastrointestinal: no abdominal pain, no nausea, no vomiting and no diarrhea/loose stools Physical Exam Constitutional: not in distress Eyes: PERRL, conjunctivae normal, anicteric sclerae ENMT: external ear and nose normal, oropharynx normal Neck: trachea midline, no thyromegaly Respiratory: normal respiratory effort, lungs clear to auscultation Cardiovascular: Rate/Rhythm: regular rate and regular rhythm Extremities: + edema (1+ pretibial pitting edema) Gastrointestinal (Abdomen): normal bowel sounds, soft, nontender, no hepatosplenomegaly Musculoskeletal: Extremities: no cyanosis and no clubbing Skin: no rashes, warm and dry Neurologic: no focal motor deficits Results & Data Vital Signs (Past 12 Hours) Vital Signs Temp Pulse Resp BP Pulse Ox 04/25/25 05:09 36.0 C L 70 19 93 04/25/25 05:00 105/65 04/25/25 04:57 36.1 C L 67 22 94 04/25/25 04:00 36.1 C L 72 93 04/25/25 04:00 101/69 04/25/25 04:00 101/69 04/25/25 04:00 101/69 04/25/25 04:00 101/69 04/25/25 03:03 36.3 C L 74 9 L 88 L 04/25/25 03:00 93/61 L 04/25/25 03:00 93/61 L 04/25/25 02:54 36.3 C L 80 20 93 04/25/25 02:12 36.4 C L 73 11 L 92 04/25/25 01:06 36.4 C L 69 19 91 04/25/25 00:24 36.4 C L 78 21 92 04/24/25 23:06 36.4 C L 105 H 24 92 04/24/25 23:02 92/46 L 04/24/25 23:02 92/46 L 04/24/25 22:51 36.3 C L 69 20 91 04/24/25 22:00 36.3 C L 84 19 92 04/24/25 22:00 96/65 L 04/24/25 22:00 96/65 L 04/24/25 21:30 36.2 C L 88 22 93 04/24/25 21:00 102/61 04/24/25 21:00 36.2 C L 76 21 91 Laboratory Results Laboratory Results - last 24 hr 04/24/25 04/24/25 04/24/25 08:08 12:35 13:50 WBC RBC Hgb Hct MCV MCH MCHC RDW Std Deviation RDW Coeff of Charly Plt Count MPV Immature Gran % (Auto) Neut % (Auto) Lymph % (Auto) [place] % (Auto) Eos % (Auto) Baso % (Auto) Neut # (Auto) Lymph # (Auto) [place] # (Auto) Eos # (Auto) Baso # (Auto) Immature Gran # (Auto) Polychromasia Anisocytosis APTT 72 H 57 H PTT Ratio 2.7 2.1 Sodium Potassium Chloride Carbon Dioxide Anion Gap BUN Creatinine Est Cr Clr Drug Dosing eGFR BUN/Creatinine Ratio Glucose POC Glucose 163 H Calcium Phosphorus Magnesium Random Vancomycin 04/24/25 04/25/25 18:24 04:04 WBC 12.07 H RBC 3.73 L Hgb 8.7 L Hct 27.7 L MCV 74.3 L MCH 23.3 L MCHC 31.4 L RDW Std Deviation 60.9 H RDW Coeff of Charly 22.7 H Plt Count 144 MPV 10.6 Immature Gran % (Auto) 0.6 Neut % (Auto) 89.1 Lymph % (Auto) 4.8 [place] % (Auto) 5.4 Eos % (Auto) 0.0 Baso % (Auto) 0.1 Neut # (Auto) 10.76 H Lymph # (Auto) 0.58 L [place] # (Auto) 0.65 H Eos # (Auto) 0.00 Baso # (Auto) 0.01 Immature Gran # (Auto) 0.07 Polychromasia 1+ Anisocytosis Present APTT PTT Ratio Sodium 137 Potassium 2.9 L Chloride 94 L Carbon Dioxide 31 Anion Gap 12 H BUN 84 H Creatinine 4.07 H Est Cr Clr Drug Dosing 20.3 eGFR 14.21 BUN/Creatinine Ratio 20.6 H Glucose 140 H POC Glucose 149 H Calcium 10.0 Phosphorus 4.4 Magnesium 2.1 Random Vancomycin 15.4 PG Care Time/CCT Total # of Minutes Spent Total Time Spent with Patient: Total time spent is greater than 50% in coordination of care (as documented) at patient's floor/unit and/or counseling patient: Coding Level of Care Code 93259 SUB INP/OBS CARE 3/50MIN Diagnoses Acute renal failure N17.9 Acute renal failure type: unspecified Septic shock A41.9; R65.21 Acute UTI (urinary tract infection) N39.0 RLL pneumonia J18.9 Pneumonia type: due to unspecified organism Heart failure with preserved ejection fraction I50.30 Abdominal aortic aneurysm (AAA) I71.40 (1) Acute renal failure Acute renal failure type: unspecified Qualified Code(s): N17.9 - Acute kidney failure, unspecified (4) RLL pneumonia Pneumonia type: due to unspecified organism Qualified Code(s): J18.9 - Pneumonia, unspecified organism
--- NOTE | 2025-04-25 11:01 | Critical Care Progress Note ---
Date of Service April 25, 2025 Assessment & Plan (1) RLL pneumonia: (2) Congestive heart failure: (3) Acute renal failure: (4) Acute UTI (urinary tract infection): (5) Septic shock: (6) Atrial fibrillation: (7) Hyperlipidemia: (8) Acid reflux: Plan Reason Critically Ill: 79-year-old male was brought in from assisted because of lethargy. Was found to be in septic shock secondary to UTI. Sent to ICU for further management Past medical history: Chronic indwelling Gomez due to patient's inability to walk, history of lower back surgery, coronary artery disease, HFpEF, chronic anemia Neuro - [facility] ICU: Unable to assess --Metabolic encephalopathy Likely secondary to sepsis Cardiac - 2D echo 04/01/2025: EF 65-70%, mild concentric LVH, PASP 50-55 mmHg -- Shock Secondary to acute RV dysfunction and septic shock. Off vasopressors. -- Elevated troponin Likely type II NJ EKG 04/22/2025 11:44 AM: A-fib, low voltage QRS, right bundle branch block, Q waves on the inferior leads, mild ST depression on V3 V4, no T wave changes --Pulmonary hypertension Likely type II Respiratory - Chest x-ray 04/22/2025 personally reviewed: Portable film, alveolar opacity appreciated in the right lower lobe with blunting of the right costophrenic angle, increased cardiac silhouette -- Acute hypoxic respiratory failure Multifactorial Pneumonia Acute exacerbation of HFpEF Diuresed well with Lasix. Continue hydrocortisone given the patient's ICU status and pneumonia. Continue broad-spectrum antibiotics BiPAP nightly and as needed shortness of breath Keep O2 saturation between 90-92% --Pleural effusion History of thoracentesis on 04/03/2025, transudative --History of SELENE GI - -- Mild conjugated bilirubinemia Could be from hepatic congestion from cardiac etiology Continue to monitor -- Chronically elevated alk phos Continue to monitor RENAL/LYTES - -- LETY on CKD Appreciate nephrology input. Continue diuresis per nephrology. - -- Chronic indwelling Gomez Changed to a new Gomez. ENDO - -- ICU hypoglycemia protocol HEME - -- Normocytic anemia Monitor H&H ID - -- Septic shock likely source is urine Culture of penile wound yielded Staphylococcus hemolyticus and Enterococcus facialis. Urine culture with no growth. Antibiotics transitioned to Zosyn with the assistance of pharmacy. Should he decompensate, recommend adding back vancomycin. Musculoskeletal - -- Chronic low back pain s/p surgery On oxycodone tramadol as needed -- DNR/DNI No escalation of care. Will consult palliative care. --Prophylaxis VTE: Eliquis at home, heparin drip in the hospital GI: Pantoprazole Lines: Peripheral Diet: Advance as tolerated. Patient is stable for transfer out of ICU. Will be transferred to [facility]. Admission and Anticipated Discharge Date Admission Date: April 22, 2025 Subjective Patient improved off vasopressors. Remains delirious. No acute complaints. Review of Systems Review of Systems: All systems reviewed & are unremarkable except as noted in HPI & below Physical Exam Physical Exam: Constitutional: No acute distress HEENT: EOMI, PERRLA Respiratory system: Decreased air entry on the right side, no wheeze, no rhon chi, positive crackles bilaterally more on the right side CVS: S1-S2 positive, no murmurs or gallops Abdomen: Soft, mild suprapubic and left lower quadrant tenderness, no rebound nondistended, positive bowel sounds x4 Extremities: +2 pulses bilaterally radialis/ dorsalis pedis, no cyanosis, +3 pitting edema bilateral lower extremity Neuro: Awake alert oriented to self only Psych: Normal mood and affect G/U: Positive Gomez Skin: no rashes, warm and dry Lymphatic: no cervical or axillary lymphadenopathy Results & Data Results & Data Vital Signs (Past 12 Hours) Vital Signs Temp Pulse Resp BP Pulse Ox O2 Del Method 04/25/25 09:36 Room Air 04/25/25 08:54 35.8 C L 77 19 120/84 94 04/25/25 07:57 35.8 C L 71 22 113/87 92 04/25/25 07:18 35.9 C L 79 26 H 113/74 93 04/25/25 05:09 36.0 C L 70 19 93 04/25/25 05:00 105/65 04/25/25 04:57 36.1 C L 67 22 94 04/25/25 04:00 36.1 C L 72 93 04/25/25 04:00 101/04/25/25 04:00 04/25/25 04:00 04/25/25 04:00 04/25/25 03:03 36.3 C L 74 9 L 88 L 04/25/25 03:00 93/61 L 04/25/25 03:00 93/61 L 04/25/25 02:54 36.3 C L 80 20 93 04/25/25 02:12 36.4 C L 73 11 L 92 04/25/25 01:06 36.4 C L 69 19 91 04/25/25 00:24 36.4 C L 78 21 92 04/24/25 23:06 36.4 C L 105 H 24 92 04/24/25 23:02 92/46 L 04/24/25 23:02 92/46 L Coding Level of Care Code 60832 SUB INP/OBS CARE MIN Diagnoses RLL pneumonia J18.9 Pneumonia type: due to unspecified organism Congestive heart failure I50.42 Heart failure chronicity: chronic Heart failure type: combined systolic and diastolic Acute renal failure N17.9 Acute renal failure type: unspecified Acute UTI (urinary tract infection) N39.0 Septic shock A41.9; R65.21 Atrial fibrillation I48.91 Hyperlipidemia E78.5 Acid reflux K21.9 (1) RLL pneumonia Pneumonia type: due to unspecified organism Qualified Code(s): J18.9 - Pneumonia, unspecified organism (2) Congestive heart failure Heart failure chronicity: chronic Heart failure type: combined systolic and diastolic Qualified Code(s): I50.42 - Chronic combined systolic (congestive) and diastolic (congestive) heart failure (3) Acute renal failure Acute renal failure type: unspecified Qualified Code(s): N17.9 - Acute kidney failure, unspecified
[2025-04-25] MEDS ORDERED: ONDANSETRON 4 MG OD TAB PO PRN (11:16)
[2025-04-25] MEDS: FUROSEMIDE 40 MG/4 ML VIAL IV SCH (11:22)
[2025-04-25 12:45] LABS: Anion Gap 11.0 (3-11); Blood Urea Nitrogen 90.0 mg/dl (6-23); Calcium 10.0 mg/dl (8.6-10.3); Carbon Dioxide 32.0 mmol/L (21-32); Chloride 93.0 mmol/L (98-107); Creatinine Clr Calc Pharmacy 20.6 ml/min; Glucose 177.0 mg/dl (70-99(Fasting)); Potassium 2.9 mmol/L (3.5-5.1); Sodium 136.0 mmol/L (136-145)
[2025-04-25] MEDS ORDERED: Nursing to Pharmacy Communication SCH (12:45)
[2025-04-25] MEDS: HYDROCORTISONE SOD 50 MG in SYRINGE 0 ML IV SCH (12:52)
[2025-04-25] MEDS: 4.5GM EXT INFUSION IV SCH (12:56)
--- NOTE | 2025-04-25 13:00 | Billing Data ---
Date of Service April 25, 2025 Coding Level of Care Code 33403 SUB INP/OBS CARE MIN
--- NOTE | 2025-04-25 13:57 | Palliative Care Consultation ---
Date of Consultation April 25, 2025 Assessment & Plan (1) Weakness generalized: (2) Palliative care by specialist: Introduced Palliative Medicine and explained our role in patient's care. Patient and/or family were receptive to palliative services for goals of care discussions. Reviewed we are different from hospice, a home health nurse visiting service. Plan I met with Geoff at bedside, no family present. He could not give much HPI but acknowledges he has been pretty sick on and off for most of this year with multiple admissions. He was able to tell me that he hopes to get back home but he has to get stronger first. We discussed the potential role of rehab therapy but he became fatigued and distracted and ultimately said that we would have to ask his . Will attempt to speak with when she is available. Thank you for allowing us to participate in the ongoing care of this patient. Please page with any additional concerns. Juan Bueno DNP Director, Palliative Medicine History of Present Illness Reason for Consultation: goals of care Attending Physician: Man Pavon, DO History of Present Illness 79yo male with septic shock/urosepsis,+indwelling wang, RLL PNA Past medical history includes chronic alcohol use, indwelling Wang, AAA which is enlarging, A-fib, CAD. He is planned to be downgraded out of the ICU today. He is more awake but remains confused for the most part. He was started on a diet and is on advancing to clears. He remains generally weak. He is still being diuresed. Allergies Allergy/AdvReac Type Severity Reaction Status Date / Time latex Allergy Intermediate Rash, Verified 04/06/25 14:08 Burning Sensation phenobarbital AdvReac Intermediate Hyper Verified 04/06/25 14:08 gold Au 198 AdvReac Wounds Verified 04/25/25 12:25 that became Pre-Cancerous Home Medications Medication Instructions Recorded Confirmed Type acetaminophen 500 mg tablet 500 mg PO Q4H PRN Pain/fever 07/07/24 04/22/25 History albuterol sulfate 90 mcg/actuation 2 puff inhalation QID PRN 07/07/24 04/22/25 History aerosol inhaler Shortness Of Breath Or Wheezing atorvastatin 40 mg tablet (Lipitor) 40 mg PO HS 07/07/24 04/22/25 History montelukast 10 mg tablet 10 mg PO HS 07/07/24 04/22/25 History (Singulair) tramadol 50 mg tablet 50 mg PO Q4H PRN Pain 07/18/24 04/22/25 History diclofenac sodium 1 % topical gel 2 g topical BID PRN Pain 03/31/25 04/22/25 History gabapentin 300 mg capsule 300 mg PO HS 03/31/25 04/22/25 History metoprolol succinate 25 mg 25 mg PO QAM 03/31/25 04/22/25 History tablet,extended release 24 hr naloxone 4 mg/actuation nasal spray 1 spray intranasal DIRECTED PRN 03/31/25 04/22/25 History overdose oxycodone 5 mg tablet 5 mg PO Q4H PRN Pain (Scale Score 03/31/25 04/22/25 History 4-6) acetaminophen 325 mg tablet 650 mg PO Q4H PRN Pain/Fever 04/22/25 04/22/25 History ammonium lactate 12 % lotion 1 applic topical BID 04/22/25 04/22/25 History apixaban 2.5 mg tablet (Eliquis) 2.5 mg PO BID 04/22/25 04/22/25 History baclofen 10 mg tablet 10 mg PO TID 04/22/25 04/22/25 History bisacodyl 10 mg rectal suppository 10 mg DC DAILY PRN Constipation 04/22/25 04/22/25 History cyanocobalamin (vitamin B-12) 1,000 mcg PO DAILY 04/22/25 04/22/25 History 1,000 mcg tablet (Vitamin B-12) docusate sodium 100 mg capsule 100 mg PO Q12H 04/22/25 04/22/25 History (Colace) empagliflozin 10 mg tablet 10 mg PO QAM 04/22/25 04/22/25 History (Jardiance) fluticasone fur. 200 mcg-umeclid 1 inh inhalation DAILY 04/22/25 04/22/25 History 62.5 mcg-vilant 25 mcg inhalat.powder glucagon HCl 1 mg solution for 1 mg IM DIRECTED PRN 04/22/25 04/22/25 History injection (Glucagon (HCl) Hypoglycemia Emergency Kit) ipratropium 20 mcg-albuterol 100 1 puff inhalation BID 04/22/25 04/22/25 History mcg/actuation mist for inhalation ondansetron 4 mg disintegrating 4 mg PO Q6H PRN Nausea And Vomiting 04/22/25 04/22/25 History tablet pantoprazole 40 mg tablet,delayed 40 mg PO BID 04/22/25 04/22/25 History release piperacillin-tazobactam 2.25 gram 2.25 g IV Q8H 04/22/25 04/22/25 History intravenous solution polyethylene glycol 3350 17 gram 17 g PO DAILY 04/22/25 04/22/25 History oral powder packet (Miralax) sennosides 8.6 mg-docusate sodium 1 tab-cap PO QDL 04/22/25 04/22/25 History 50 mg tablet (Senokot-S) sodium chloride 0.9 % (flush) 5 ml IV Q8H 04/22/25 04/22/25 History sodium phosphates 19 gram-7 118 ml DC DAILY PRN Constipation 04/22/25 04/22/25 History gram/118 mL enema (Fleet Enema) Patient History Medical History Post-nasal drip as per patient - in the morning RBBB Dr Bonilla On anticoagulant therapy Eliquis daily Hyperlipidemia HTN (hypertension) controlled, stable per pt Hip pain Right knee pain Acid reflux controlled, stable per pt Hx of myocardial infarction "silent" - states was told must have occurred during childhood ~12-14 yrs old, per pt Paroxysmal atrial fibrillation dx 1984-- reason for Eliquis, follows w/ Dr Bonilla, [facility] Environmental and seasonal allergies PRN inh use - no longer using daily Allergic rhinitis Surgical History Hx of arthroscopic knee surgery right, x 2 left, x 1 History of cardiac radiofrequency ablation (RFA) ~2009- [facility] Hx of colonoscopy Hx of total hip arthroplasty (2013) left History of shoulder surgery b/l - hx reconstruction of both shoulders Hx of cardiac catheterization (1984) 1984, 08/05/24, and "Early this year - it was all clear" as per patient - no stents Dr Bonilla Social History Smoking Status: Former smoker Tobacco Type: Cigarettes Cigarettes Per Day: Smokes pipe "doesn't inhale" as per patient; Second Hand Exposure: No; Do You Dip or Chew Tobacco: No; Hx Alcohol Use: Yes Alcohol type: beer Hx Substance Use: No Preferred Language: Polish Communication Ability: Impaired 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 Bitemporal wasting noted pupils are equal and reactive to light. There is mild increased respiratory effort. Rhythm is regular. Belly is soft. There is no tenderness with palpation. Bilateral lower extremities are edematous. He is awake and alert to self. He can provide some simple answers with regards to being sick and in the hospital but is unable to tell me what his medical issues are or what brought him to the hospital other than "my brought me here." Wang in place. Draining slightly cloudy pale yellow urine. Skin is pale, warm. Results & Data Vital Signs (Past 12 Hours) Vital Signs Temp Pulse Resp BP Pulse Ox O2 Del Method 04/25/25 13:00 35.7 C L 81 30 H 135/79 93 04/25/25 11:57 35.6 C L 80 24 109/73 94 04/25/25 10:06 35.6 C L 77 18 120/81 91 04/25/25 09:36 Room Air 04/25/25 08:54 35.8 C L 77 19 120/84 94 04/25/25 07:57 35.8 C L 71 22 113/87 92 04/25/25 07:18 35.9 C L 79 26 H 113/74 93 04/25/25 05:09 36.0 C L 70 19 93 04/25/25 05:00 105/65 04/25/25 04:57 36.1 C L 67 22 94 04/25/25 04:00 36.1 C L 72 93 04/25/25 04:00 101/04/25/25 04:00 04/25/25 04:00 04/25/25 04:00 04/25/25 03:03 36.3 C L 74 9 L 88 L 04/25/25 03:00 93/61 L 04/25/25 03:00 93/61 L 04/25/25 02:54 36.3 C L 80 20 93 04/25/25 02:12 36.4 C L 73 11 L 92 Laboratory Results 04/25/25 04/25/25 04/25/25 Range/Units 11:54 11:20 04:04 WBC 12.07 H (4.8-10.8) K/ul RBC 3.73 L (4.70-6.10) M/uL Hgb 8.7 L (14.0-18.0) g/dl Hct 27.7 L (42.0-52.0) % MCV 74.3 L (80.0-100.0) fL MCH 23.3 L (25.0-34.0) pg MCHC 31.4 L (32.0-36.0) g/dL RDW Std Deviation 60.9 H (36.4-46.3) fL RDW Coeff of Charly 22.7 H (11.5-14.5) % Plt Count 144 (130-400) K/uL MPV 10.6 (9.4-12.4) fL Immature Gran % (Auto) 0.6 % Neut % (Auto) 89.1 % Lymph % (Auto) 4.8 % [place] % (Auto) 5.4 % Eos % (Auto) 0.0 % Baso % (Auto) 0.1 % Neut # (Auto) 10.76 H (1.40-6.50) K/uL Lymph # (Auto) 0.58 L (1.20-3.40) K/uL [place] # (Auto) 0.65 H (0.11-0.59) K/uL Eos # (Auto) 0.00 (0.00-0.50) K/uL Baso # (Auto) 0.01 (0.00-0.20) K/uL Immature Gran # (Auto) 0.07 (0.01-0.20) K/uL Toxic Vacuolation Dohle Bodies Polychromasia 1+ Hypochromasia Anisocytosis Present Tear Drop Cells Ovalocytes PT (9.0-12.0) Seconds INR (0.9-1.1) APTT (21-31) Seconds PTT Ratio Heparin Anti-Xa, Unfract (0.3-0.7) IU/ml VBG pH (7.36-7.41) VBG pCO2 (38-50) mmHg VBG pO2 mmHg VBG HCO3 mmol/L VBG O2 Saturation % VBG Base Excess mEq/L Sodium 136 137 (136-145) mmol/L Potassium 2.9 L 2.9 L (3.5-5.1) mmol/L Chloride 93 L 94 L (98-107) mmol/L Carbon Dioxide 32 31 (21-32) mmol/L Anion Gap 11 12 H (3-11) BUN 90 H 84 H (6-23) mg/dl Creatinine 4.01 H 4.07 H (0.6-1.4) mg/dl Est Cr Clr Drug Dosing 20.6 20.3 eGFR 14.46 14.21 BUN/Creatinine Ratio 22.4 H 20.6 H (10-20) Glucose 177 H 140 H (70-99(Fasting)) mg/dl POC Glucose 211 H (70-99) mg/dl Lactate (0.4-2.0) mmol/L Calcium 10.0 10.0 (8.6-10.3) mg/dl Phosphorus 4.4 (2.5-4.9) mg/dl Magnesium 2.1 (1.7-2.4) mg/dl Total Bilirubin (0.2-1.0) mg/dl Direct Bilirubin (0-0.2) mg/dl AST (13-39) U/L ALT (7-52) U/L Alkaline Phosphatase (34-104) U/L Troponin I High Sens (0-20) pg/ml B-Natriuretic Peptide (0-100) pg/ml Total Protein (6.0-8.3) gm/dl Albumin (3.4-5.0) gm/dl Procalcitonin (0-0.5) ng/ml TSH (0.300-4.500) uIu/ml Random Cortisol mcg/dl Urine Color Urine Appearance (Clear) Urine pH (4.5-7.5) Ur Specific [place] (1.000-1.030) Urine Protein (Negative) Urine Glucose (UA) (Negative) Urine Ketones (Negative) Urine Blood (Negative) Urine Nitrite (Negative) Urine Bilirubin (Negative) Urine Urobilinogen (Negative) Ur Leukocyte Esterase (Negative) Urine WBC (Auto) (0-5) /hpf Urine RBC (Auto) (0-2) /hpf U Hyaline Cast (Auto) (0-2) /lpf U Epithel Cells (Auto) (0-2) /hpf Urine Bacteria (Auto) (None Seen) Calcium Oxalate Crystal (None Prsent) Granular Casts (None Prsent) /lpf Waxy Casts (None Prsent) /lpf WBC Casts (None Prsent) /lpf Urine Comment Nasal Screen MRSA (PCR) (Negative) Random Vancomycin 15.4 (10-20) mcg/ml SARS-CoV-2 (PCR) (Negative) Influenza Type A (PCR) (Neg) Influenza Type B (PCR) (Neg) RSV (RT-PCR) (Neg) 04/24/25 04/24/25 04/24/25 Range/Units 18:24 13:50 12:35 WBC (4.8-10.8) K/ul RBC (4.70-6.10) M/uL Hgb (14.0-18.0) g/dl Hct (42.0-52.0) % MCV (80.0-100.0) fL MCH (25.0-34.0) pg MCHC (32.0-36.0) g/dL RDW Std Deviation (36.4-46.3) fL RDW Coeff of Charly (11.5-14.5) % Plt Count (130-400) K/uL MPV (9.4-12.4) fL Immature Gran % (Auto) % Neut % (Auto) % Lymph % (Auto) % [place] % (Auto) % Eos % (Auto) % Baso % (Auto) % Neut # (Auto) (1.40-6.50) K/uL Lymph # (Auto) (1.20-3.40) K/uL [place] # (Auto) (0.11-0.59) K/uL Eos # (Auto) (0.00-0.50) K/uL Baso # (Auto) (0.00-0.20) K/uL Immature Gran # (Auto) (0.01-0.20) K/uL Toxic Vacuolation Dohle Bodies Polychromasia Hypochromasia Anisocytosis Tear Drop Cells Ovalocytes PT (9.0-12.0) Seconds INR (0.9-1.1) APTT 57 H (21-31) Seconds PTT Ratio 2.1 Heparin Anti-Xa, Unfract (0.3-0.7) IU/ml VBG pH (7.36-7.41) VBG pCO2 (38-50) mmHg VBG pO2 mmHg VBG HCO3 mmol/L VBG O2 Saturation % VBG Base Excess mEq/L Sodium (136-145) mmol/L Potassium (3.5-5.1) mmol/L Chloride (98-107) mmol/L Carbon Dioxide (21-32) mmol/L Anion Gap (3-11) BUN (6-23) mg/dl Creatinine (0.6-1.4) mg/dl Est Cr Clr Drug Dosing eGFR BUN/Creatinine Ratio (10-20) Glucose (70-99(Fasting)) mg/dl POC Glucose 149 H 163 H (70-99) mg/dl Lactate (0.4-2.0) mmol/L Calcium (8.6-10.3) mg/dl Phosphorus (2.5-4.9) mg/dl Magnesium (1.7-2.4) mg/dl Total Bilirubin (0.2-1.0) mg/dl Direct Bilirubin (0-0.2) mg/dl AST (13-39) U/L ALT (7-52) U/L Alkaline Phosphatase (34-104) U/L Troponin I High Sens (0-20) pg/ml B-Natriuretic Peptide (0-100) pg/ml Total Protein (6.0-8.3) gm/dl Albumin (3.4-5.0) gm/dl Procalcitonin (0-0.5) ng/ml TSH (0.300-4.500) uIu/ml Random Cortisol mcg/dl Urine Color Urine Appearance (Clear) Urine pH (4.5-7.5) Ur Specific [place] (1.000-1.030) Urine Protein (Negative) Urine Glucose (UA) (Negative) Urine Ketones (Negative) Urine Blood (Negative) Urine Nitrite (Negative) Urine Bilirubin (Negative) Urine Urobilinogen (Negative) Ur Leukocyte Esterase (Negative) Urine WBC (Auto) (0-5) /hpf Urine RBC (Auto) (0-2) /hpf U Hyaline Cast (Auto) (0-2) /lpf U Epithel Cells (Auto) (0-2) /hpf Urine Bacteria (Auto) (None Seen) Calcium Oxalate Crystal (None Prsent) Granular Casts (None Prsent) /lpf Waxy Casts (None Prsent) /lpf WBC Casts (None Prsent) /lpf Urine Comment Nasal Screen MRSA (PCR) (Negative) Random Vancomycin (10-20) mcg/ml SARS-CoV-2 (PCR) (Negative) Influenza Type A (PCR) (Neg) Influenza Type B (PCR) (Neg) RSV (RT-PCR) (Neg) 04/24/25 04/24/25 04/24/25 Range/Units 08:08 06:06 02:46 WBC 15.28 H (4.8-10.8) K/ul RBC 3.68 L (4.70-6.10) M/uL Hgb 8.3 L (14.0-18.0) g/dl Hct 27.6 L (42.0-52.0) % MCV 75.0 L (80.0-100.0) fL MCH 22.6 L (25.0-34.0) pg MCHC 30.1 L (32.0-36.0) g/dL RDW Std Deviation 61.7 H (36.4-46.3) fL RDW Coeff of Charly 22.7 H (11.5-14.5) % Plt Count 147 (130-400) K/uL MPV 10.1 (9.4-12.4) fL Immature Gran % (Auto) 0.6 % Neut % (Auto) 91.6 % Lymph % (Auto) 2.8 % [place] % (Auto) 4.8 % Eos % (Auto) 0.1 % Baso % (Auto) 0.1 % Neut # (Auto) 14.00 H (1.40-6.50) K/uL Lymph # (Auto) 0.43 L (1.20-3.40) K/uL [place] # (Auto) 0.73 H (0.11-0.59) K/uL Eos # (Auto) 0.01 (0.00-0.50) K/uL Baso # (Auto) 0.02 (0.00-0.20) K/uL Immature Gran # (Auto) 0.09 (0.01-0.20) K/uL Toxic Vacuolation Dohle Bodies Polychromasia 1+ Hypochromasia Anisocytosis Present Tear Drop Cells 1+ Ovalocytes 1+ PT (9.0-12.0) Seconds INR (0.9-1.1) APTT 72 H 70 H (21-31) Seconds PTT Ratio 2.7 2.6 Heparin Anti-Xa, Unfract (0.3-0.7) IU/ml VBG pH (7.36-7.41) VBG pCO2 (38-50) mmHg VBG pO2 mmHg VBG HCO3 mmol/L VBG O2 Saturation % VBG Base Excess mEq/L Sodium 135 L (136-145) mmol/L Potassium 3.5 (3.5-5.1) mmol/L Chloride 94 L (98-107) mmol/L Carbon Dioxide 30 (21-32) mmol/L Anion Gap 11 (3-11) BUN 78 H (6-23) mg/dl Creatinine 4.22 H (0.6-1.4) mg/dl Est Cr Clr Drug Dosing 19.6 eGFR 13.60 BUN/Creatinine Ratio 18.5 (10-20) Glucose 139 H (70-99(Fasting)) mg/dl POC Glucose 146 H (70-99) mg/dl Lactate (0.4-2.0) mmol/L Calcium 9.9 (8.6-10.3) mg/dl Phosphorus 4.6 (2.5-4.9) mg/dl Magnesium 2.2 (1.7-2.4) mg/dl Total Bilirubin (0.2-1.0) mg/dl Direct Bilirubin (0-0.2) mg/dl AST (13-39) U/L ALT (7-52) U/L Alkaline Phosphatase (34-104) U/L Troponin I High Sens (0-20) pg/ml B-Natriuretic Peptide (0-100) pg/ml Total Protein (6.0-8.3) gm/dl Albumin (3.4-5.0) gm/dl Procalcitonin (0-0.5) ng/ml TSH (0.300-4.500) uIu/ml Random Cortisol mcg/dl Urine Color Urine Appearance (Clear) Urine pH (4.5-7.5) Ur Specific [place] (1.000-1.030) Urine Protein (Negative) Urine Glucose (UA) (Negative) Urine Ketones (Negative) Urine Blood (Negative) Urine Nitrite (Negative) Urine Bilirubin (Negative) Urine Urobilinogen (Negative) Ur Leukocyte Esterase (Negative) Urine WBC (Auto) (0-5) /hpf Urine RBC (Auto) (0-2) /hpf U Hyaline Cast (Auto) (0-2) /lpf U Epithel Cells (Auto) (0-2) /hpf Urine Bacteria (Auto) (None Seen) Calcium Oxalate Crystal (None Prsent) Granular Casts (None Prsent) /lpf Waxy Casts (None Prsent) /lpf WBC Casts (None Prsent) /lpf Urine Comment Nasal Screen MRSA (PCR) (Negative) Random Vancomycin (10-20) mcg/ml SARS-CoV-2 (PCR) (Negative) Influenza Type A (PCR) (Neg) Influenza Type B (PCR) (Neg) RSV (RT-PCR) (Neg) 04/24/25 04/23/25 04/23/25 Range/Units 00:07 20:26 19:13 WBC (4.8-10.8) K/ul RBC (4.70-6.10) M/uL Hgb (14.0-18.0) g/dl Hct (42.0-52.0) % MCV (80.0-100.0) fL MCH (25.0-34.0) pg MCHC (32.0-36.0) g/dL RDW Std Deviation (36.4-46.3) fL RDW Coeff of Charly (11.5-14.5) % Plt Count (130-400) K/uL MPV (9.4-12.4) fL Immature Gran % (Auto) % Neut % (Auto) % Lymph % (Auto) % [place] % (Auto) % Eos % (Auto) % Baso % (Auto) % Neut # (Auto) (1.40-6.50) K/uL Lymph # (Auto) (1.20-3.40) K/uL [place] # (Auto) (0.11-0.59) K/uL Eos # (Auto) (0.00-0.50) K/uL Baso # (Auto) (0.00-0.20) K/uL Immature Gran # (Auto) (0.01-0.20) K/uL Toxic Vacuolation Dohle Bodies Polychromasia Hypochromasia Anisocytosis Tear Drop Cells Ovalocytes PT (9.0-12.0) Seconds INR (0.9-1.1) APTT 42 H (21-31) Seconds PTT Ratio 1.6 Heparin Anti-Xa, Unfract > 1.50 H* (0.3-0.7) IU/ml VBG pH (7.36-7.41) VBG pCO2 (38-50) mmHg VBG pO2 mmHg VBG HCO3 mmol/L VBG O2 Saturation % VBG Base Excess mEq/L Sodium (136-145) mmol/L Potassium (3.5-5.1) mmol/L Chloride (98-107) mmol/L Carbon Dioxide (21-32) mmol/L Anion Gap (3-11) BUN (6-23) mg/dl Creatinine (0.6-1.4) mg/dl Est Cr Clr Drug Dosing eGFR BUN/Creatinine Ratio (10-20) Glucose (70-99(Fasting)) mg/dl POC Glucose 147 H (70-99) mg/dl Lactate (0.4-2.0) mmol/L Calcium (8.6-10.3) mg/dl Phosphorus (2.5-4.9) mg/dl Magnesium (1.7-2.4) mg/dl Total Bilirubin (0.2-1.0) mg/dl Direct Bilirubin (0-0.2) mg/dl AST (13-39) U/L ALT (7-52) U/L Alkaline Phosphatase (34-104) U/L Troponin I High Sens (0-20) pg/ml B-Natriuretic Peptide (0-100) pg/ml Total Protein (6.0-8.3) gm/dl Albumin (3.4-5.0) gm/dl Procalcitonin (0-0.5) ng/ml TSH (0.300-4.500) uIu/ml Random Cortisol mcg/dl Urine Color Urine Appearance (Clear) Urine pH (4.5-7.5) Ur Specific [place] (1.000-1.030) Urine Protein (Negative) Urine Glucose (UA) (Negative) Urine Ketones (Negative) Urine Blood (Negative) Urine Nitrite (Negative) Urine Bilirubin (Negative) Urine Urobilinogen (Negative) Ur Leukocyte Esterase (Negative) Urine WBC (Auto) (0-5) /hpf Urine RBC (Auto) (0-2) /hpf U Hyaline Cast (Auto) (0-2) /lpf U Epithel Cells (Auto) (0-2) /hpf Urine Bacteria (Auto) (None Seen) Calcium Oxalate Crystal (None Prsent) Granular Casts (None Prsent) /lpf Waxy Casts (None Prsent) /lpf WBC Casts (None Prsent) /lpf Urine Comment Nasal Screen MRSA (PCR) (Negative) Random Vancomycin (10-20) mcg/ml SARS-CoV-2 (PCR) (Negative) Influenza Type A (PCR) (Neg) Influenza Type B (PCR) (Neg) RSV (RT-PCR) (Neg) 04/23/25 04/23/25 04/23/25 Range/Units 16:52 16:04 11:29 WBC (4.8-10.8) K/ul RBC (4.70-6.10) M/uL Hgb (14.0-18.0) g/dl Hct (42.0-52.0) % MCV (80.0-100.0) fL MCH (25.0-34.0) pg MCHC (32.0-36.0) g/dL RDW Std Deviation (36.4-46.3) fL RDW Coeff of Charly (11.5-14.5) % Plt Count (130-400) K/uL MPV (9.4-12.4) fL Immature Gran % (Auto) % Neut % (Auto) % Lymph % (Auto) % [place] % (Auto) % Eos % (Auto) % Baso % (Auto) % Neut # (Auto) (1.40-6.50) K/uL Lymph # (Auto) (1.20-3.40) K/uL [place] # (Auto) (0.11-0.59) K/uL Eos # (Auto) (0.00-0.50) K/uL Baso # (Auto) (0.00-0.20) K/uL Immature Gran # (Auto) (0.01-0.20) K/uL Toxic Vacuolation Dohle Bodies Polychromasia Hypochromasia Anisocytosis Tear Drop Cells Ovalocytes PT (9.0-12.0) Seconds INR (0.9-1.1) APTT (21-31) Seconds PTT Ratio Heparin Anti-Xa, Unfract > 1.50 H* (0.3-0.7) IU/ml VBG pH (7.36-7.41) VBG pCO2 (38-50) mmHg VBG pO2 mmHg VBG HCO3 mmol/L VBG O2 Saturation % VBG Base Excess mEq/L Sodium (136-145) mmol/L Potassium (3.5-5.1) mmol/L Chloride (98-107) mmol/L Carbon Dioxide (21-32) mmol/L Anion Gap (3-11) BUN (6-23) mg/dl Creatinine (0.6-1.4) mg/dl Est Cr Clr Drug Dosing eGFR BUN/Creatinine Ratio (10-20) Glucose (70-99(Fasting)) mg/dl POC Glucose 150 H 193 H (70-99) mg/dl Lactate (0.4-2.0) mmol/L Calcium (8.6-10.3) mg/dl Phosphorus (2.5-4.9) mg/dl Magnesium (1.7-2.4) mg/dl Total Bilirubin (0.2-1.0) mg/dl Direct Bilirubin (0-0.2) mg/dl AST (13-39) U/L ALT (7-52) U/L Alkaline Phosphatase (34-104) U/L Troponin I High Sens (0-20) pg/ml B-Natriuretic Peptide (0-100) pg/ml Total Protein (6.0-8.3) gm/dl Albumin (3.4-5.0) gm/dl Procalcitonin (0-0.5) ng/ml TSH (0.300-4.500) uIu/ml Random Cortisol mcg/dl Urine Color Urine Appearance (Clear) Urine pH (4.5-7.5) Ur Specific [place] (1.000-1.030) Urine Protein (Negative) Urine Glucose (UA) (Negative) Urine Ketones (Negative) Urine Blood (Negative) Urine Nitrite (Negative) Urine Bilirubin (Negative) Urine Urobilinogen (Negative) Ur Leukocyte Esterase (Negative) Urine WBC (Auto) (0-5) /hpf Urine RBC (Auto) (0-2) /hpf U Hyaline Cast (Auto) (0-2) /lpf U Epithel Cells (Auto) (0-2) /hpf Urine Bacteria (Auto) (None Seen) Calcium Oxalate Crystal (None Prsent) Granular Casts (None Prsent) /lpf Waxy Casts (None Prsent) /lpf WBC Casts (None Prsent) /lpf Urine Comment Nasal Screen MRSA (PCR) (Negative) Random Vancomycin (10-20) mcg/ml SARS-CoV-2 (PCR) (Negative) Influenza Type A (PCR) (Neg) Influenza Type B (PCR) (Neg) RSV (RT-PCR) (Neg) 04/23/25 04/23/25 04/22/25 Range/Units 10:29 04:22 23:01 WBC 12.24 H (4.8-10.8) K/ul RBC 3.55 L (4.70-6.10) M/uL Hgb 8.2 L (14.0-18.0) g/dl Hct 27.7 L (42.0-52.0) % MCV 78.0 L (80.0-100.0) fL MCH 23.1 L (25.0-34.0) pg MCHC 29.6 L (32.0-36.0) g/dL RDW Std Deviation 64.6 H (36.4-46.3) fL RDW Coeff of Charly 23.1 H (11.5-14.5) % Plt Count 157 (130-400) K/uL MPV 9.9 (9.4-12.4) fL Immature Gran % (Auto) 0.5 % Neut % (Auto) 93.5 % Lymph % (Auto) 1.8 % [place] % (Auto) 3.8 % Eos % (Auto) 0.2 % Baso % (Auto) 0.2 % Neut # (Auto) 11.46 H (1.40-6.50) K/uL Lymph # (Auto) 0.22 L (1.20-3.40) K/uL [place] # (Auto) 0.46 (0.11-0.59) K/uL Eos # (Auto) 0.02 (0.00-0.50) K/uL Baso # (Auto) 0.02 (0.00-0.20) K/uL Immature Gran # (Auto) 0.06 (0.01-0.20) K/uL Toxic Vacuolation Dohle Bodies Polychromasia 1+ Hypochromasia Anisocytosis Present Tear Drop Cells 1+ Ovalocytes 1+ PT 13.9 H (9.0-12.0) Seconds INR 1.3 H (0.9-1.1) APTT 44 H (21-31) Seconds PTT Ratio 1.6 Heparin Anti-Xa, Unfract (0.3-0.7) IU/ml VBG pH (7.36-7.41) VBG pCO2 (38-50) mmHg VBG pO2 mmHg VBG HCO3 mmol/L VBG O2 Saturation % VBG Base Excess mEq/L Sodium 135 L 136 (136-145) mmol/L Potassium 4.3 4.4 (3.5-5.1) mmol/L Chloride 94 L 95 L (98-107) mmol/L Carbon Dioxide 30 30 (21-32) mmol/L Anion Gap 11 11 (3-11) BUN 72 H 68 H (6-23) mg/dl Creatinine 4.23 H 4.25 H (0.6-1.4) mg/dl Est Cr Clr Drug Dosing 19.5 19.4 eGFR 13.56 13.49 BUN/Creatinine Ratio 17.0 16.0 (10-20) Glucose 165 H 165 H (70-99(Fasting)) mg/dl POC Glucose (70-99) mg/dl Lactate (0.4-2.0) mmol/L Calcium 9.9 9.8 (8.6-10.3) mg/dl Phosphorus 5.4 H (2.5-4.9) mg/dl Magnesium 2.3 1.8 (1.7-2.4) mg/dl Total Bilirubin (0.2-1.0) mg/dl Direct Bilirubin (0-0.2) mg/dl AST (13-39) U/L ALT (7-52) U/L Alkaline Phosphatase (34-104) U/L Troponin I High Sens (0-20) pg/ml B-Natriuretic Peptide (0-100) pg/ml Total Protein (6.0-8.3) gm/dl Albumin (3.4-5.0) gm/dl Procalcitonin (0-0.5) ng/ml TSH (0.300-4.500) uIu/ml Random Cortisol mcg/dl Urine Color Urine Appearance (Clear) Urine pH (4.5-7.5) Ur Specific [place] (1.000-1.030) Urine Protein (Negative) Urine Glucose (UA) (Negative) Urine Ketones (Negative) Urine Blood (Negative) Urine Nitrite (Negative) Urine Bilirubin (Negative) Urine Urobilinogen (Negative) Ur Leukocyte Esterase (Negative) Urine WBC (Auto) (0-5) /hpf Urine RBC (Auto) (0-2) /hpf U Hyaline Cast (Auto) (0-2) /lpf U Epithel Cells (Auto) (0-2) /hpf Urine Bacteria (Auto) (None Seen) Calcium Oxalate Crystal (None Prsent) Granular Casts (None Prsent) /lpf Waxy Casts (None Prsent) /lpf WBC Casts (None Prsent) /lpf Urine Comment Nasal Screen MRSA (PCR) (Negative) Random Vancomycin (10-20) mcg/ml SARS-CoV-2 (PCR) (Negative) Influenza Type A (PCR) (Neg) Influenza Type B (PCR) (Neg) RSV (RT-PCR) (Neg) 04/22/25 04/22/25 04/22/25 Range/Units 16:49 13:38 13:11 WBC (4.8-10.8) K/ul RBC (4.70-6.10) M/uL Hgb (14.0-18.0) g/dl Hct (42.0-52.0) % MCV (80.0-100.0) fL MCH (25.0-34.0) pg MCHC (32.0-36.0) g/dL RDW Std Deviation (36.4-46.3) fL RDW Coeff of Charly (11.5-14.5) % Plt Count (130-400) K/uL MPV (9.4-12.4) fL Immature Gran % (Auto) % Neut % (Auto) % Lymph % (Auto) % [place] % (Auto) % Eos % (Auto) % Baso % (Auto) % Neut # (Auto) (1.40-6.50) K/uL Lymph # (Auto) (1.20-3.40) K/uL [place] # (Auto) (0.11-0.59) K/uL Eos # (Auto) (0.00-0.50) K/uL Baso # (Auto) (0.00-0.20) K/uL Immature Gran # (Auto) (0.01-0.20) K/uL Toxic Vacuolation Dohle Bodies Polychromasia Hypochromasia Anisocytosis Tear Drop Cells Ovalocytes PT (9.0-12.0) Seconds INR (0.9-1.1) APTT (21-31) Seconds PTT Ratio Heparin Anti-Xa, Unfract (0.3-0.7) IU/ml VBG pH (7.36-7.41) VBG pCO2 (38-50) mmHg VBG pO2 mmHg VBG HCO3 mmol/L VBG O2 Saturation % VBG Base Excess mEq/L Sodium (136-145) mmol/L Potassium (3.5-5.1) mmol/L Chloride (98-107) mmol/L Carbon Dioxide (21-32) mmol/L Anion Gap (3-11) BUN (6-23) mg/dl Creatinine (0.6-1.4) mg/dl Est Cr Clr Drug Dosing eGFR BUN/Creatinine Ratio (10-20) Glucose (70-99(Fasting)) mg/dl POC Glucose 147 H (70-99) mg/dl Lactate 1.4 (0.4-2.0) mmol/L Calcium (8.6-10.3) mg/dl Phosphorus (2.5-4.9) mg/dl Magnesium (1.7-2.4) mg/dl Total Bilirubin (0.2-1.0) mg/dl Direct Bilirubin (0-0.2) mg/dl AST (13-39) U/L ALT (7-52) U/L Alkaline Phosphatase (34-104) U/L Troponin I High Sens 147.6 H* (0-20) pg/ml B-Natriuretic Peptide (0-100) pg/ml Total Protein (6.0-8.3) gm/dl Albumin (3.4-5.0) gm/dl Procalcitonin (0-0.5) ng/ml TSH 4.282 (0.300-4.500) uIu/ml Random Cortisol mcg/dl Urine Color Urine Appearance (Clear) Urine pH (4.5-7.5) Ur Specific [place] (1.000-1.030) Urine Protein (Negative) Urine Glucose (UA) (Negative) Urine Ketones (Negative) Urine Blood (Negative) Urine Nitrite (Negative) Urine Bilirubin (Negative) Urine Urobilinogen (Negative) Ur Leukocyte Esterase (Negative) Urine WBC (Auto) (0-5) /hpf Urine RBC (Auto) (0-2) /hpf U Hyaline Cast (Auto) (0-2) /lpf U Epithel Cells (Auto) (0-2) /hpf Urine Bacteria (Auto) (None Seen) Calcium Oxalate Crystal (None Prsent) Granular Casts (None Prsent) /lpf Waxy Casts (None Prsent) /lpf WBC Casts (None Prsent) /lpf Urine Comment Nasal Screen MRSA (PCR) (Negative) Random Vancomycin (10-20) mcg/ml SARS-CoV-2 (PCR) NEGATIVE (Negative) Influenza Type A (PCR) Negative (Neg) Influenza Type B (PCR) Negative (Neg) RSV (RT-PCR) Negative (Neg) 04/22/25 04/22/25 04/22/25 Range/Units 12:26 11:53 11:45 WBC 11.26 H (4.8-10.8) K/ul RBC 3.48 L (4.70-6.10) M/uL Hgb 8.0 L (14.0-18.0) g/dl Hct 26.9 L (42.0-52.0) % MCV 77.3 L (80.0-100.0) fL MCH 23.0 L (25.0-34.0) pg MCHC 29.7 L (32.0-36.0) g/dL RDW Std Deviation 65.6 H (36.4-46.3) fL RDW Coeff of Charly 23.6 H (11.5-14.5) % Plt Count 160 (130-400) K/uL MPV 9.8 (9.4-12.4) fL Immature Gran % (Auto) 0.6 % Neut % (Auto) 90.8 % Lymph % (Auto) 2.3 % [place] % (Auto) 5.2 % Eos % (Auto) 0.7 % Baso % (Auto) 0.4 % Neut # (Auto) 10.22 H (1.40-6.50) K/uL Lymph # (Auto) 0.26 L (1.20-3.40) K/uL [place] # (Auto) 0.59 (0.11-0.59) K/uL Eos # (Auto) 0.08 (0.00-0.50) K/uL Baso # (Auto) 0.04 (0.00-0.20) K/uL Immature Gran # (Auto) 0.07 (0.01-0.20) K/uL Toxic Vacuolation 1+ Dohle Bodies 1+ Polychromasia 1+ Hypochromasia Present Anisocytosis Present Tear Drop Cells 1+ Ovalocytes PT (9.0-12.0) Seconds INR (0.9-1.1) APTT (21-31) Seconds PTT Ratio Heparin Anti-Xa, Unfract (0.3-0.7) IU/ml VBG pH 7.37 (7.36-7.41) VBG pCO2 59 H (38-50) mmHg VBG pO2 33 mmHg VBG HCO3 34 mmol/L VBG O2 Saturation < 60.0 % VBG Base Excess 7.7 mEq/L Sodium 135 L (136-145) mmol/L Potassium 4.5 (3.5-5.1) mmol/L Chloride 93 L (98-107) mmol/L Carbon Dioxide 32 (21-32) mmol/L Anion Gap 10 (3-11) BUN 67 H (6-23) mg/dl Creatinine 4.26 H (0.6-1.4) mg/dl Est Cr Clr Drug Dosing Not Reportable eGFR 13.45 BUN/Creatinine Ratio 15.7 (10-20) Glucose 105 H (70-99(Fasting)) mg/dl POC Glucose (70-99) mg/dl Lactate 2.1 H* (0.4-2.0) mmol/L Calcium 9.7 (8.6-10.3) mg/dl Phosphorus (2.5-4.9) mg/dl Magnesium 1.8 (1.7-2.4) mg/dl Total Bilirubin 1.9 H (0.2-1.0) mg/dl Direct Bilirubin 1.1 H (0-0.2) mg/dl AST 33 (13-39) U/L ALT 9 (7-52) U/L Alkaline Phosphatase 237 H (34-104) U/L Troponin I High Sens 145.5 H* (0-20) pg/ml B-Natriuretic Peptide 332 H (0-100) pg/ml Total Protein 6.0 (6.0-8.3) gm/dl Albumin 2.8 L (3.4-5.0) gm/dl Procalcitonin 7.83 H (0-0.5) ng/ml TSH (0.300-4.500) uIu/ml Random Cortisol 28.04 mcg/dl Urine Color Dark Yellow Urine Appearance Turbid A (Clear) Urine pH 6.5 (4.5-7.5) Ur Specific [place] 1.015 (1.000-1.030) Urine Protein 3+ H (Negative) Urine Glucose (UA) Negative (Negative) Urine Ketones Negative (Negative) Urine Blood 3+ H (Negative) Urine Nitrite Negative (Negative) Urine Bilirubin 1+ H (Negative) Urine Urobilinogen Positive H (Negative) Ur Leukocyte Esterase 3+ H (Negative) Urine WBC (Auto) >50 H (0-5) /hpf Urine RBC (Auto) >20 H (0-2) /hpf U Hyaline Cast (Auto) 11-20 H (0-2) /lpf U Epithel Cells (Auto) 3-5 H (0-2) /hpf Urine Bacteria (Auto) 1+ H (None Seen) Calcium Oxalate Crystal Present A (None Prsent) Granular Casts Present A (None Prsent) /lpf Waxy Casts Present A (None Prsent) /lpf WBC Casts Present A (None Prsent) /lpf Urine Comment Nasal Screen MRSA (PCR) Negative (Negative) Random Vancomycin (10-20) mcg/ml SARS-CoV-2 (PCR) (Negative) Influenza Type A (PCR) (Neg) Influenza Type B (PCR) (Neg) RSV (RT-PCR) (Neg) Diagnostic Findings Chest X-Ray 04/22/25 11:38 XR chest 1V portable CLINICAL HISTORY: Sepsis COMPARISON STUDY: 04/03/2025 FINDINGS: There is stable cardiomegaly with pulmonary vascular congestion. There is increased opacity at the right base with obscuration of the right hemidiaphragm. No pneumothorax. IMPRESSION: 1. CHF. 2. Increased opacity at the right lung base could represent pneumonia or pleural effusion. ACT 112: Negative or not required by law. Electronically signed by: Ben Bland M.D. 04/22/2025 12:01 PM Abdomen/Pelvis CT 04/22/25 14:26 EXAMINATION: CT of the abdomen and pelvis performed without contrast TECHNIQUE: Helical CT images from the lung bases through the symphysis pubis were obtained without contrast. Coronal and sagittal reformatted images were generated at a workstation for further assessment. Dose reduction techniques were achieved by using automatic exposure control and/or adjustment of mA and/or kV according to patient size and/or use of iterative reconstruction technique. COMPARISON: 04/03/2025 HISTORY: Confusion FINDINGS: LOWER CHEST: Small left and moderate right pleural effusions with bibasilar atelectasis and/or edema. ABDOMEN: Liver: Unremarkable. Gallbladder and bile ducts: Minimal layering stones or sludge. No ductal dilation. Pancreas: Unremarkable. No ductal dilation. Spleen: Unremarkable. No splenomegaly. Adrenals: Unremarkable. No mass. Kidneys and ureters: Punctate nonobstructive caliceal calculus in the lower pole of the right kidney. No hydronephrosis or ureterolithiasis is seen involving either kidney. Stomach and michael mild colonic stool. Moderate stool in the rectum. No other dilated bowel loops are identified. No pneumoperitoneum or abscess is seen. No mucosal thickening. PELVIS: Appendix: No findings to suggest acute appendicitis. Bladder: A Wang catheter is in place, with decompression of the bladder. Mild surrounding inflammatory fat stranding of the bladder noted. No stones. Reproductive: Unremarkable as visualized. ABDOMEN and PELVIS: Intraperitoneal space: Small amount of ascites in the upper abdomen adjacent to the liver. Bones/joints: Previous multilevel fusion, instrumentation, and laminectomy of the lumbar spine from L3 through L5. No acute fracture or subluxation. Soft tissues: Diffuse anasarca over the torso. Vasculature: Infrarenal abdominal aortic aneurysm measuring up to 5.2 cm in diameter. No signs of rupture. Heavy aortoiliac calcifications. Lymph nodes: Unremarkable. No enlarged lymph nodes. IMPRESSION: Mild surrounding inflammatory fat stranding of the urinary bladder, which may be seen with cystitis. Redemonstrated findings of volume overload. No other acute change. Electronically signed by Jeffrey Whalen 04-22-2025 3:41 PM PG Care Time/CCT Total # of Minutes Spent Total Time Spent with Patient: Total time spent is greater than 50% in coordination of care (as documented) at patient's floor/unit and/or counseling patient: I spent 70 minutes overall addressing this case: 20 min in medical data review/discussion with referring provider(s) and/or preparation for the visit incl d/w ICU team a t morning huddle 20 min in direct interaction with the patient/exam 00 min in Advance Care Planning/Goals of Care discussions as detailed above in note (must be >16min) 15 min in subsequent review and synthesis of assessment and plan 15 min communicating with other providers regarding the patient's case: primary team, nursing [place] [address] IN/OBS CONSULT LVL 4,60M Patient Type New Medical Decision Making Moderate Complexity Diagnoses Weakness generalized R53.1 Palliative care by specialist Z51.5 Comment [id number]
[2025-04-25] MEDS: INSULIN ASPART PER UNIT CHARGE SC SCH (17:38)
[2025-04-25] MEDS: MONTELUKAST SODIUM 10 MG TABLET PO SCH (20:35)
[2025-04-25] MEDS: APIXABAN 5 MG TABLET PO SCH (20:35)
[2025-04-26 05:10] LABS: Anion Gap 11.0 (3-11); Blood Urea Nitrogen 92.0 mg/dl (6-23); Calcium 10.1 mg/dl (8.6-10.3); Carbon Dioxide 33.0 mmol/L (21-32); Chloride 94.0 mmol/L (98-107); Creatinine Clr Calc Pharmacy 20.8 ml/min; Glucose 129.0 mg/dl (70-99(Fasting)); Magnesium 2.1 mg/dl (1.7-2.4); Potassium 2.6 mmol/L (3.5-5.1); Sodium 138.0 mmol/L (136-145)
--- NOTE | 2025-04-26 08:57 | Nephrology Progress Note ---
Date of Service April 26, 2025 Assessment & Plan (1) Acute renal failure: Plan: * Nonoliguric LETY likely due to ischemic ATN from urosepsis * Patient remains off pressor therapy. UO 3.2 L last 24 hours * No acute indication for FUNNEL SETTER at this time * Primary service is supplementing serum K * Continue furosemide 40 mg IV daily * Monitor BMP, I&O (2) Septic shock: Plan: * Resolved (3) Acute UTI (urinary tract infection): Plan: * Urine culture - NGTD * Genital specimen positive for Staphylococcus and Enterococcus. Patient is on IV Zosyn therapy (4) RLL pneumonia: Plan: * On broad-spectrum antibiotic therapy. (5) Heart failure with preserved ejection fraction: Plan: * 04/21 echocardiogram revealed LVEF 65%, no RWMA (6) Abdominal aortic aneurysm (AAA): Plan: * 6 cm AAA Admission and Anticipated Discharge Date Admission Date: April 22, 2025 Subjective Mr. Lea was evaluated in the ICU this morning. He was oriented to self only but could follow simple commands. Mr. Lea voiced no medical concerns. He was breathing comfortably on RA Review of Systems Constitutional: no fever Eyes: no problem reported Ear, Nose, Mouth, Throat: no problem reported Respiratory: no cough and no dyspnea Cardiovascular: no chest pain Gastrointestinal: no abdominal pain, no nausea, no vomiting and no diarrhea/loose stools Physical Exam Constitutional: not in distress Eyes: PERRL, conjunctivae normal, anicteric sclerae ENMT: external ear and nose normal, oropharynx normal Neck: trachea midline, no thyromegaly Respiratory: normal respiratory effort, lungs clear to auscultation Cardiovascular: Rate/Rhythm: regular rate and regular rhythm Extremities: + edema (1+ pretibial pitting edema) Gastrointestinal (Abdomen): normal bowel sounds, soft, nontender, no hepatosplenomegaly Musculoskeletal: Extremities: no cyanosis and no clubbing Skin: no rashes, warm and dry Neurologic: no focal motor deficits Results & Data Vital Signs (Past 12 Hours) Vital Signs Temp Pulse Pulse Resp BP Pulse Ox O2 Del Method 04/26/25 06:39 55 L 13 04/26/25 06:06 58 L 14 04/26/25 05:33 74 25 H 04/26/25 05:12 59 L 15 04/26/25 04:30 66 13 04/26/25 04:00 70 17 04/26/25 03:30 73 19 04/26/25 03:06 54 L 14 04/26/25 02:41 71 16 04/26/25 02:02 60 17 04/26/25 01:44 66 17 04/26/25 01:00 88 25 H 04/26/25 00:33 87 21 04/26/25 00:02 88 22 04/25/25 23:35 86 23 04/25/25 23:23 36.8 C 72 18 108/74 95 Room Air 04/25/25 23:03 56 L 18 04/25/25 22:30 62 18 04/25/25 22:00 62 15 04/25/25 21:30 62 17 04/25/25 21:00 58 L 18 Laboratory Results Laboratory Results - last 24 hr 04/25/25 04/25/25 04/25/25 11:20 11:54 16:06 Sodium 136 Potassium 2.9 L Chloride 93 L Carbon Dioxide 32 Anion Gap 11 BUN 90 H Creatinine 4.01 H Est Cr Clr Drug Dosing 20.6 eGFR 14.46 BUN/Creatinine Ratio 22.4 H Glucose 177 H POC Glucose 211 H 143 H Calcium 10.0 Magnesium 04/26/25 04:37 Sodium 138 Potassium 2.6 L Chloride 94 L Carbon Dioxide 33 H Anion Gap 11 BUN 92 H Creatinine 3.97 H Est Cr Clr Drug Dosing 20.8 eGFR 14.64 BUN/Creatinine Ratio 23.2 H Glucose 129 H POC Glucose Calcium 10.1 Magnesium 2.1 PG Care Time/CCT Total # of Minutes Spent Total Time Spent with Patient: Total time spent is greater than 50% in coordination of care (as documented) at patient's floor/unit and/or counseling patient: Coding Level of Care Code 98315 SUB INP/OBS CARE 3/50MIN Diagnoses Acute renal failure N17.9 Acute renal failure type: unspecified Septic shock A41.9; R65.21 Acute UTI (urinary tract infection) N39.0 RLL pneumonia J18.9 Pneumonia type: due to unspecified organism Heart failure with preserved ejection fraction I50.30 Abdominal aortic aneurysm (AAA) I71.40 (1) Acute renal failure Acute renal failure type: unspecified Qualified Code(s): N17.9 - Acute kidney failure, unspecified (4) RLL pneumonia Pneumonia type: due to unspecified organism Qualified Code(s): J18.9 - Pneumonia, unspecified organism
--- NOTE | 2025-04-26 09:16 | Hospitalist Progress Note ---
Date of Service April 26, 2025 Assessment & Plan (1) RLL pneumonia: (2) Congestive heart failure: (3) Acute renal failure: (4) Acute UTI (urinary tract infection): (5) Septic shock: (6) Atrial fibrillation: (7) Heart failure with preserved ejection fraction: (8) Abdominal aortic aneurysm (AAA): (9) Anemia: (10) Acute heart failure: (11) Fluid overload: (12) Dyspnea: (13) AMS (altered mental status): (14) CAD (coronary artery disease): (15) LETY (acute kidney injury): Plan Geoff Lea is a 79 y/o M with a past medical history of alcohol abuse in remission, CAD last heart cath with nonobstructive moderate coronary disease 07/2024, A-fib on Eliquis and metoprolol, and hypertension on lisinopril found to be acutely hypotensive and lethargic at [facility], arrived to [facility] ED and found to be in septic shock secondary to UTI and transferred to ICU due to critical illness, need for pressors and continuous monitoring. Septic shock 2/2 UTI vs pneumonia/Metabolic encephalopathy - Urinalysis: Turbid, 3+ protein, 3+ blood, 1+ bilirubin, 3+ LE, 1+ bacteria, >50 WBC, >20 RBC - CXR: Stable CHF with RLL consolidation - Urine cx - negative; Blood cx x2 pending, follow results - AMS with sepsis contributing, waxing and waning levels of consciousness - CBC favors bacterial process with leukocytosis with left shift; MRSA nares negative, Procal: 7.83 - Vasopressin 0.07 mg/kg/min Q8H IV drip started in ED, Decreased to 0.01 in ICU, stopped on 04/24, maintain MAP > 65 - Stop Zosyn 4.5g Q8H abx therapy, modify based on culture data - Continue Vancomycin 2500 mg IV 180 mL/hr, cefepime 1000 mg IV Q12H 5 mL/hr, and flagyl 500 mg IV Q8H 100 mLs/hr empirically, started 04/24 - One dose albumin 250ml given, hydrocortisone added for severe sepsis - Cx results from penis region positive for E. faecalis and S. haemolyticus; consider abx change based on sensitivities - CBC, CMP QAM - Swallow function normal: regular with thin liquids, heparin drip d/c and restarted Eliquis HFpEF/Acute hypoxic respiratory failure/Elevated troponin/Potential NSTEMI - 2D Echo: EF: 65-70%, mild concentric LVH, PASP 50-55 mmhg - Electrolytes largely wnl; BNP: 332 - Daily weights + strict I/Os - HST troponin: 147.6, stable - EKG: A-fib with RVR, RBBB, potential age-indeterminate inferior infarct - Worsening respiratory status likely multifactorial, 2/2 exacerbation of acute on chronic HFpEF and new RLL consolidation suspicious for pneumonia - Consider cardiology consult, potentially repeat echocardiogram. - ICU recommendations: Continue broad-spectrum antibiotics, BiPAP nightly and as needed shortness of breath - O2 discontinued 04/24, keep O2 saturation between 90-92% ATN on CKD/Normocytic anemia - Baseline Cr: 1.5-1.6 on admission Cr: 4.26 - Strict I/Os - avoid nephrotoxic medications - anemia likely by product of worsening renal function - Hgb: 8 - Consult Nephrology: No acute indications for FISH AGENT, limit IVF while giving sepsis fluids and limit diuresis - Follow urine output, CMP/CBC QAM Pleural effusion - Hx of thoracentesis 04/03/2025, Transudative Chronic indwelling wang - Changing wang once transferred to ICU Chronic low back pain - On oxycodone/tramadol as needed - DNR/DNI Admission and Anticipated Discharge Date Admission Date: April 22, 2025 Supervising Physician Co-Signing Physician Notes I personally examined the patient and verified all schneider points of history and exam, discussed case, and agree with decision making with Dr Akhtar and Tunde Bishop more delirious today. no meaningful HPI or ROS. family present - ask good questions. answered all to the best of my ability and to their satisfaction. Vitals noted, in general he is awake and alert pleasant still seems easily confused but no distress. HEENT normocephalic atraumatic mucous membranes moist. Breathing unlabored no accessory muscle use good effort. Skin shows no rashes no pallor or icterus. Neuro without focal deficits. Sepsis/septic shock/severe sepsis (manifested by his acute renal failure which is probably ATN)source not entirely clear, pneumonia versus UTI as leading suspicions, but continue to follow cultures follow clinical course and continue broad antibiotics. doing better from sepsis and ARF standpoint delirium/metabolic encephalopathy - due to above as well as hospital->rehab->ICU changing environments. explained delirium to family in depth. encourage activity and PO intake. Anticipate return to rehab after discharge aortic aneurysm for outpatient repair in the near future Subjective Patient resting comfortably this morning. Nursing reports overnight that he had a bad night and needed soft restraints. Stated that he has not had any issues since then. Review of Systems Review of Systems: All systems reviewed & are unremarkable except as noted in Subjective Physical Exam Physical Exam: General: Patient resting, not toxic in appearance, awake and alert Skin: warm, dry, intact HEENT: NC/AT, anicteric sclera, conjunctiva without injection, moist mucus membranes. Heart: +S1/S2, regular, no murmurs, gallops, rubs Lungs: equal air entry bilaterally, coarse breath sounds and rales at lower lung bases Abd: +BS, soft, nontender, no rebound or guarding Ext: warm, no clubbing/cyanosis or edema Neuro: speech intact, no facial droop, moving all extremities, sensation intact in all extremities bilaterally Results & Data Results & Data Vital Signs (Past 12 Hours) Vital Signs Temp Pulse Pulse Resp BP Pulse Ox O2 Del Method 04/26/25 06:39 55 L 13 04/26/25 06:06 58 L 14 04/26/25 05:33 74 25 H 04/26/25 05:12 59 L 15 04/26/25 04:30 66 13 04/26/25 04:00 70 17 04/26/25 03:30 73 19 04/26/25 03:06 54 L 14 04/26/25 02:41 71 16 04/26/25 02:02 60 17 04/26/25 01:44 66 17 04/26/25 01:00 88 25 H 04/26/25 00:33 87 21 04/26/25 00:02 88 22 04/25/25 23:35 86 23 04/25/25 23:23 36.8 C 72 18 108/74 95 Room Air 04/25/25 23:03 56 L 18 04/25/25 22:30 62 18 04/25/25 22:00 62 15 04/25/25 21:30 62 17 Resident Activity Tracking Resident Involvement: Resident Care Provided Care Provided: Adult Hospital Medicine (1) RLL pneumonia Pneumonia type: due to unspecified organism Qualified Code(s): J18.9 - Pneumonia, unspecified organism (2) Congestive heart failure Heart failure chronicity: chronic Heart failure type: combined systolic and diastolic Qualified Code(s): I50.42 - Chronic combined systolic (congestive) and diastolic (congestive) heart failure (3) Acute renal failure Acute renal failure type: unspecified Qualified Code(s): N17.9 - Acute kidney failure, unspecified (11) Fluid overload Hypervolemia type: other Qualified Code(s): E87.79 - Other fluid overload (12) Dyspnea Dyspnea type: unspecified Qualified Code(s): R06.00 - Dyspnea, unspecified
[2025-04-26] MEDS: POTASSIUM CHLORIDE CRTAB 20 MEQ TABCR PO STA (10:16)
[2025-04-26] MEDS: POTASSIUM CHLORIDE CRTAB 20 MEQ TABCR PO SCH (10:19)
[2025-04-26] MEDS: Nursing to Pharmacy Communication SCH (15:14)
--- NOTE | 2025-04-26 17:42 | Billing Data ---
Date of Service April 26, 2025 Coding Level of Care Code 44754 SUB INP/OBS CARE MIN
--- NOTE | 2025-04-27 08:10 | Hospitalist Progress Note ---
Date of Service April 27, 2025 Assessment & Plan (1) RLL pneumonia: (2) Congestive heart failure: (3) Acute renal failure: (4) Acute UTI (urinary tract infection): (5) Septic shock: (6) Atrial fibrillation: (7) Heart failure with preserved ejection fraction: (8) Abdominal aortic aneurysm (AAA): (9) Anemia: (10) Acute heart failure: (11) Fluid overload: (12) Dyspnea: (13) AMS (altered mental status): (14) CAD (coronary artery disease): (15) LETY (acute kidney injury): Plan Geoff Lea is a 79 y/o M with a past medical history of alcohol abuse in remission, CAD last heart cath with nonobstructive moderate coronary disease 07/2024, A-fib on Eliquis and metoprolol, and hypertension on lisinopril found to be acutely hypotensive and lethargic at [facility], arrived to [facility] ED and found to be in septic shock secondary to UTI and transferred to ICU due to critical illness, need for pressors and continuous monitoring. Septic shock 2/2 UTI vs pneumonia/Metabolic encephalopathy - Urinalysis: Turbid, 3+ protein, 3+ blood, 1+ bilirubin, 3+ LE, 1+ bacteria, >50 WBC, >20 RBC - CXR: Stable CHF with RLL consolidation - Urine cx - negative; Blood cx x2 pending, follow results - AMS with sepsis contributing, waxing and waning levels of consciousness - CBC favors bacterial process with leukocytosis with left shift; MRSA nares negative, Procal: 7.83 - Vasopressin 0.07 mg/kg/min Q8H IV drip started in ED, Decreased to 0.01 in ICU, stopped on 04/24, maintain MAP > 65 - Stop Zosyn 4.5g Q8H abx therapy, modify based on culture data - Continue Zosyn empirically, started 04/24 - One dose albumin 250ml given, hydrocortisone added for severe sepsis - Cx results from penis region positive for E. faecalis and S. haemolyticus; consider abx change based on sensitivities - CBC, CMP QAM - Continue Eliquis - K 2.9 60 mEq given, still 2.6 on 04/27, Nephro following potassium - D/c IV steroids 04/27 HFpEF/Acute hypoxic respiratory failure/Elevated troponin/Potential NSTEMI - 2D Echo: EF: 65-70%, mild concentric LVH, PASP 50-55 mmhg - Electrolytes largely wnl; BNP: 332 - Daily weights + strict I/Os - HST troponin: 147.6, stable - EKG: A-fib with RVR, RBBB, potential age-indeterminate inferior infarct - Worsening respiratory status likely multifactorial, 2/2 exacerbation of acute on chronic HFpEF and new RLL consolidation suspicious for pneumonia - Consider cardiology consult, potentially repeat echocardiogram. - ICU recommendations: Continue broad-spectrum antibiotics, BiPAP nightly and as needed shortness of breath - O2 discontinued 04/24, keep O2 saturation between 90-92% ATN on CKD/Normocytic anemia - Baseline Cr: 1.5-1.6 on admission Cr: 4.26 - Strict I/Os - avoid nephrotoxic medications - anemia likely by product of worsening renal function - Hgb: 8 - Consult Nephrology: No acute indications for [employer], limit IVF while giving sepsis fluids and limit diuresis, will replete potassium - Follow urine output, CMP/CBC QAM Pleural effusion - Hx of thoracentesis 04/03/2025, Transudative Chronic indwelling wang - Changing wang once transferred to ICU Chronic low back pain - On oxycodone/tramadol as needed - DNR/DNI Admission and Anticipated Discharge Date Admission Date: April 22, 2025 Supervising Physician Co-Signing Physician Notes I personally examined the patient and verified all schneider points of history and exam, discussed case, and agree with decision making with Dr Akhtar and Tunde Bishop far less confused! no new complaints. Vitals noted, in general he is awake and alert pleasant oriented fairly well to place/situation. HEENT normocephalic atraumatic mucous membranes moist. Breathing unlabored no accessory muscle use good effort. Skin shows no rashes no pallor or icterus. Neuro without focal deficits. Sepsis/septic shock/severe sepsis (manifested by his acute renal failure which is probably ATN)source not entirely clear, pneumonia versus UTI as leading suspicions, transition to PO abx in the next day or so - will have to continue broad coverage. leukocytosis today without new tachycardia/fevers, clinically he is getting better - almost certainly steroid effect delirium/metabolic encephalopathy - due to above as well as hospital->rehab->ICU changing environments. explained delirium to family in depth. doing better today, and with that PO intake is also better. d/w pt and family that improvement this early is unexpected and a nice surprise, and that it may hold, but since the hallmark of delirium is waxing and waning, that things could still easily continue to wax and wane Anticipate return to rehab after discharge aortic aneurysm for outpatient repair in the near future Subjective Patient sleeping comfortably in bed and in no acute distress. Nursing staff reports no overnight events and stated that he was much better this morning than he was yesterday when he came from the ICU. Review of Systems Review of Systems: All systems reviewed & are unremarkable except as noted in Subjective Physical Exam Physical Exam: General: Patient resting, not toxic in appearance, awake and alert Skin: warm, dry, intact HEENT: NC/AT, anicteric sclera, conjunctiva without injection, moist mucus membranes. Heart: +S1/S2, regular, no murmurs, gallops, rubs Lungs: equal air entry bilaterally, coarse breath sounds and rales at lower lung bases Abd: +BS, soft, nontender, no rebound or guarding Ext: warm, no clubbing/cyanosis or edema Neuro: speech intact, no facial droop, moving all extremities, sensation intact in all extremities bilaterally Results & Data Results & Data Vital Signs (Past 12 Hours) Vital Signs Temp Pulse Resp BP Pulse Ox O2 Del Method 04/27/25 08:01 Room Air 04/27/25 07:19 36.3 C L 68 18 119/71 96 Room Air 04/26/25 21:00 Room Air 04/26/25 20:35 36.6 C 82 16 117/76 92 Room Air Resident Activity Tracking Resident Involvement: Resident Care Provided Care Provided: Adult Hospital Medicine (1) RLL pneumonia Pneumonia type: due to unspecified organism Qualified Code(s): J18.9 - Pneumonia, unspecified organism (2) Congestive heart failure Heart failure chronicity: chronic Heart failure type: combined systolic and diastolic Qualified Code(s): I50.42 - Chronic combined systolic (congestive) and diastolic (congestive) heart failure (3) Acute renal failure Acute renal failure type: unspecified Qualified Code(s): N17.9 - Acute kidney failure, unspecified (11) Fluid overload Hypervolemia type: other Qualified Code(s): E87.79 - Other fluid overload (12) Dyspnea Dyspnea type: unspecified Qualified Code(s): R06.00 - Dyspnea, unspecified
--- NOTE | 2025-04-27 09:04 | Nephrology Progress Note ---
Date of Service April 27, 2025 Assessment & Plan (1) Acute renal failure: Plan: * Nonoliguric LETY likely due to ischemic ATN from urosepsis * Patient remains nonoliguric * Creatinine improved from 3.97 to 3.66 * Primary service is supplementing serum K * Will reduce furosemide to 20 mg IV daily. Target net 1-2 L diuresis/day * Monitor BMP, I&O (2) Septic shock: Plan: * Resolved (3) Acute UTI (urinary tract infection): Plan: * Urine culture - NGTD * Genital specimen positive for Staphylococcus and Enterococcus. Patient is on IV Zosyn therapy (4) RLL pneumonia: Plan: * On broad-spectrum antibiotic therapy. (5) Heart failure with preserved ejection fraction: Plan: * 04/21 echocardiogram revealed LVEF 65%, no RWMA (6) Abdominal aortic aneurysm (AAA): Plan: * 6 cm AAA Admission and Anticipated Discharge Date Admission Date: April 22, 2025 Subjective Mr. Lea was evaluated in the ICU this morning. He was alert and oriented to self. Mr. Lea voiced no medical concerns. He was breathing comfortably on RA Review of Systems Constitutional: no fever Eyes: no problem reported Ear, Nose, Mouth, Throat: no problem reported Respiratory: no cough and no dyspnea Cardiovascular: no chest pain Gastrointestinal: no abdominal pain, no nausea, no vomiting and no diarrhea/loose stools Physical Exam Constitutional: not in distress Eyes: PERRL, conjunctivae normal, anicteric sclerae ENMT: external ear and nose normal, oropharynx normal Neck: trachea midline, no thyromegaly Respiratory: normal respiratory effort, lungs clear to auscultation Cardiovascular: Rate/Rhythm: regular rate and regular rhythm Extremities: + edema (1+ pretibial pitting edema) Gastrointestinal (Abdomen): normal bowel sounds, soft, nontender, no hepatosplenomegaly Musculoskeletal: Extremities: no cyanosis and no clubbing Skin: no rashes, warm and dry Neurologic: no focal motor deficits Results & Data Vital Signs (Past 12 Hours) Vital Signs Temp Pulse Resp BP Pulse Ox O2 Del Method 04/27/25 08:01 Room Air 04/27/25 07:19 36.3 C L 68 18 119/71 96 Room Air Laboratory Results Laboratory Results - last 24 hr 04/26/25 04/26/25 04/26/25 10:58 17:01 20:59 POC Glucose 140 H 135 H 145 H 04/27/25 07:34 POC Glucose 140 H Diagnostic Findings Laboratory Results - last 24 hr 04/26/25 04/26/25 04/27/25 17:01 20:59 07:34 WBC RBC Hgb Hct MCV MCH MCHC RDW Std Deviation RDW Coeff of Charly Plt Count MPV Sodium Potassium Chloride Carbon Dioxide Anion Gap BUN Creatinine Est Cr Clr Drug Dosing eGFR BUN/Creatinine Ratio Glucose POC Glucose 135 H 145 H 140 H Calcium 04/27/25 09:11 WBC 21.32 H RBC 4.27 L Hgb 10.0 L Hct 31.8 L MCV 74.5 L MCH 23.4 L MCHC 31.4 L RDW Std Deviation 61.7 H RDW Coeff of Charly 23.6 H Plt Count 162 MPV 9.5 Sodium 141 Potassium 2.6 L Chloride 94 L Carbon Dioxide 34 H Anion Gap 13 H BUN 94 H Creatinine 3.66 H D Est Cr Clr Drug Dosing 22.5 eGFR 16.14 BUN/Creatinine Ratio 25.7 H Glucose 169 H POC Glucose Calcium 10.2 PG Care Time/CCT Total # of Minutes Spent Total Time Spent with Patient: Total time spent is greater than 50% in coordination of care (as documented) at patient's floor/unit and/or counseling patient: Coding Level of Care Code 65055 SUB INP/OBS CARE 3/50MIN Diagnoses Acute renal failure N17.9 Acute renal failure type: unspecified Septic shock A41.9; R65.21 Acute UTI (urinary tract infection) N39.0 RLL pneumonia J18.9 Pneumonia type: due to unspecified organism Heart failure with preserved ejection fraction I50.30 Abdominal aortic aneurysm (AAA) I71.40 (1) Acute renal failure Acute renal failure type: unspecified Qualified Code(s): N17.9 - Acute kidney failure, unspecified (4) RLL pneumonia Pneumonia type: due to unspecified organism Qualified Code(s): J18.9 - Pneumonia, unspecified organism
[2025-04-27] MEDS: HYDROCORTISONE SOD 50 MG in SYRINGE 0 ML IV SCH (09:38)
[2025-04-27 09:54] LABS: Anion Gap 13.0 (3-11); Blood Urea Nitrogen 94.0 mg/dl (6-23); Calcium 10.2 mg/dl (8.6-10.3); Carbon Dioxide 34.0 mmol/L (21-32); Chloride 94.0 mmol/L (98-107); Creatinine Clr Calc Pharmacy 22.5 ml/min; Glucose 169.0 mg/dl (70-99(Fasting)); Potassium 2.6 mmol/L (3.5-5.1); Sodium 141.0 mmol/L (136-145)
[2025-04-27 09:56] LABS: Hematocrit (blood only) 31.8 % (42.0-52.0); Hemoglobin 10.0 g/dl (14.0-18.0); Mean Corpuscular Hemoglobin 23.4 pg (25.0-34.0); Mean Corpuscular Volume 74.5 fL (80.0-100.0); Platelet Count 162 K/uL (130-400); RDW Standard Deviation 61.7 fL (36.4-46.3); Red Blood Count 4.27 M/uL (4.70-6.10); White Blood Count 21.32 K/ul (4.8-10.8)
[2025-04-27] MEDS: ACETAMINOPHEN 500 MG TAB PO PRN (10:14)
--- NOTE | 2025-04-27 14:19 | Palliative Care Progress Note ---
Date of Service April 27, 2025 Assessment & Plan (1) Palliative care by specialist: Plan: We will sign off on this patient as there are no inpatient palliative needs and goals of care are clearly established for DNR/DNI but continue all other life prolonging therapies Thank you for including Palliative Care in the management of this patient. Please call with any questions or concerns regarding this consultation. (2) Counseling regarding advanced directives and goals of care: Plan: met with pt and at bedside from 11:00 - 11:30 Patient currently lacks decisional capacity based on the inability to convey understanding of personal PMHx, current medical condition, treatment options nor the risks / benefits/ potential outcomes of accepting/declining those options, and inability to make decisions based on such knowledge. Hospital does have written documentation of patient wishes concerning his chosen proxy for medical decisions. AD paperwork on file which was properly executed by patient on 12/14/13 designates patient's spouse Soraya Lea as primary HCPOA and no secondary HCPOA for all medical decisions in the event he lacks decisional capacity. Pt does require a proxy for medical decisions and his is present and willing to serve as proxy. Soraya shared that she has been updated by Dr Forde who shared that the pt's current delirium could take several weeks to months to resolve. She shared that she intends to give him that time and is hopeful that CM can assist in planning for discharge to [facility] for rehab to optimize strength and independence prioro to returning to [place]. SHe shared that the pt has good and bad days, and she is sure that he has delirium that will improve vs dementia. Goals of care are clearly established for DNR/DNI and continue all other life prolonging treatments. Plan We will sign off on this patient as goals of care are clearly established for DNR/DNI but continue all other life prolonging therapies Thank you for including Palliative Care in the management of this patient. Please call with any questions or concerns regarding this consultation. Admission and Anticipated Discharge Date Admission Date: April 22, 2025 Subjective Assessed pt at bedside, NAEON. Pt sitting upright in bed, drowsy and confused. VSS, NAD on room air. and sister were at bedside. Review of Systems Review of Systems: Unobtainable due to cognitive status Physical Exam Constitutional: not in distress Eyes: PERRL, conjunctivae normal, anicteric sclerae ENMT: external ear and nose normal, oropharynx normal Neck: trachea midline, no thyromegaly Respiratory: normal respiratory effort, lungs clear to auscultation Cardiovascular: Rate/Rhythm: regular rate and regular rhythm Extremities: + edema (1+ pretibial pitting edema) Gastrointestinal (Abdomen): normal bowel sounds, soft, nontender, no hepatosplenomegaly Musculoskeletal: Extremities: no cyanosis and no clubbing Skin: no rashes, warm and dry Neurologic: no focal motor deficits Results & Data Vital Signs (Past 12 Hours) Vital Signs Temp Pulse Resp BP Pulse Ox O2 Del Method 04/27/25 08:01 Room Air 04/27/25 07:19 36.3 C L 68 18 119/71 96 Room Air Laboratory Results Abnormal lab results 04/26/25 04/26/25 04/27/25 Range/Units 17:01 20:59 07:34 WBC (4.8-10.8) K/ul RBC (4.70-6.10) M/uL Hgb (14.0-18.0) g/dl Hct (42.0-52.0) % MCV (80.0-100.0) fL MCH (25.0-34.0) pg MCHC (32.0-36.0) g/dL RDW Std Deviation (36.4-46.3) fL RDW Coeff of Charly (11.5-14.5) % Potassium (3.5-5.1) mmol/L Chloride (98-107) mmol/L Carbon Dioxide (21-32) mmol/L Anion Gap (3-11) BUN (6-23) mg/dl Creatinine (0.6-1.4) mg/dl BUN/Creatinine Ratio (10-20) Glucose (70-99(Fasting)) mg/dl POC Glucose 135 H 145 H 140 H (70-99) mg/dl 04/27/25 04/27/25 Range/Units 09:11 11:22 WBC 21.32 H (4.8-10.8) K/ul RBC 4.27 L (4.70-6.10) M/uL Hgb 10.0 L (14.0-18.0) g/dl Hct 31.8 L (42.0-52.0) % MCV 74.5 L (80.0-100.0) fL MCH 23.4 L (25.0-34.0) pg MCHC 31.4 L (32.0-36.0) g/dL RDW Std Deviation 61.7 H (36.4-46.3) fL RDW Coeff of Charly 23.6 H (11.5-14.5) % Potassium 2.6 L (3.5-5.1) mmol/L Chloride 94 L (98-107) mmol/L Carbon Dioxide 34 H (21-32) mmol/L Anion Gap 13 H (3-11) BUN 94 H (6-23) mg/dl Creatinine 3.66 H D (0.6-1.4) mg/dl BUN/Creatinine Ratio 25.7 H (10-20) Glucose 169 H (70-99(Fasting)) mg/dl POC Glucose 183 H (70-99) mg/dl Diagnostic Findings Chest X-Ray 04/22/25 11:38 XR chest 1V portable CLINICAL HISTORY: Sepsis COMPARISON STUDY: 04/03/2025 FINDINGS: There is stable cardiomegaly with pulmonary vascular congestion. There is increased opacity at the right base with obscuration of the right hemidiaphragm. No pneumothorax. IMPRESSION: 1. CHF. 2. Increased opacity at the right lung base could represent pneumonia or pleural effusion. ACT 112: Negative or not required by law. Electronically signed by: Ben Bland M.D. 04/22/2025 12:01 PM Abdomen/Pelvis CT 04/22/25 14:26 EXAMINATION: CT of the abdomen and pelvis performed without contrast TECHNIQUE: Helical CT images from the lung bases through the symphysis pubis were obtained without contrast. Coronal and sagittal reformatted images were generated at a workstation for further assessment. Dose reduction techniques were achieved by using automatic exposure control and/or adjustment of mA and/or kV according to patient size and/or use of iterative reconstruction technique. COMPARISON: 04/03/2025 HISTORY: Confusion FINDINGS: LOWER CHEST: Small left and moderate right pleural effusions with bibasilar atelectasis and/or edema. ABDOMEN: Liver: Unremarkable. Gallbladder and bile ducts: Minimal layering stones or sludge. No ductal dilation. Pancreas: Unremarkable. No ductal dilation. Spleen: Unremarkable. No splenomegaly. Adrenals: Unremarkable. No mass. Kidneys and ureters: Punctate nonobstructive caliceal calculus in the lower pole of the right kidney. No hydronephrosis or ureterolithiasis is seen involving either kidney. Stomach and michael mild colonic stool. Moderate stool in the rectum. No other dilated bowel loops are identified. No pneumoperitoneum or abscess is seen. No mucosal thickening. PELVIS: Appendix: No findings to suggest acute appendicitis. Bladder: A Gomez catheter is in place, with decompression of the bladder. Mild surrounding inflammatory fat stranding of the bladder noted. No stones. Reproductive: Unremarkable as visualized. ABDOMEN and PELVIS: Intraperitoneal space: Small amount of ascites in the upper abdomen adjacent to the liver. Bones/joints: Previous multilevel fusion, instrumentation, and laminectomy of the lumbar spine from L3 through L5. No acute fracture or subluxation. Soft tissues: Diffuse anasarca over the torso. Vasculature: Infrarenal abdominal aortic aneurysm measuring up to 5.2 cm in diameter. No signs of rupture. Heavy aortoiliac calcifications. Lymph nodes: Unremarkable. No enlarged lymph nodes. IMPRESSION: Mild surrounding inflammatory fat stranding of the urinary bladder, which may be seen with cystitis. Redemonstrated findings of volume overload. No other acute change. Electronically signed by Jeffrey Whalen 04-22-2025 3:41 PM Medications Administered Current Inpatient Medications Acetaminophen (Acetaminophen 500 Mg Tab) 1,000 mg PO Q6H PRN PRN Reason: Headache or Pain Stop: 05/27/25 09:56 Last Admin: 04/27/25 10:14 Dose: 1,000 mg Apixaban (Apixaban 5 Mg Tablet) 5 mg PO BID ROBIN Stop: 05/25/25 20:59 Last Admin: 04/27/25 09:23 Dose: 5 mg Dextrose (Dextrose 50% 50 Ml Syringe) 25 - 50 ml IV UD PRN; Protocol PRN Reason: Hypoglycemia Protocol Stop: 05/23/25 11:33 Furosemide (Furosemide 40 Mg/4 Ml Vial) 40 mg IV DAILY ROBIN Stop: 05/25/25 09:29 Last Admin: 04/26/25 11:12 Dose: 40 mg Glucagon (Glucagon For Inj 1 Mg Vial) 1 mg SQ UD PRN; Protocol PRN Reason: Hypoglycemia Protocol Stop: 05/23/25 11:33 Glucose (Glucose 40% Gel 15 Gm Tube) 15 - 30 gm PO UD PRN; Protocol PRN Reason: Hypoglycemia Protocol Stop: 05/23/25 11:33 Glucose (Glucose 10 Tab/Tube) 4 - 8 tab PO UD PRN; Protocol PRN Reason: Hypoglycemia Protocol Stop: 05/23/25 11:33 Piperacillin Sod/Tazobactam Sod (Zosyn) 4.5 gm in 100 mls @ 25 mls/hr IV Q12H ROBIN; Protocol Stop: 05/02/25 11:59 Last Admin: 04/27/25 12:14 Dose: 25 mls/hr Insulin Aspart (Insulin Aspart Per Unit Charge) 0 units SC ACHS ROBIN Stop: 05/24/25 00:00 Last Admin: 04/27/25 12:53 Dose: 7 units Miscellaneous (Carbohydrates For Hypoglycemia ) 15 - 30 gm PO UD PRN PRN Reason: Hypoglycemia Protocol Stop: 05/23/25 11:33 Montelukast Sodium (Montelukast Sodium 10 Mg Tablet) 10 mg PO HS [facility] Stop: 05/25/25 20:59 Last Admin: 04/26/25 10:17 Dose: 10 mg Ondansetron HCl (Ondansetron 4 Mg Od Tab) 4 mg PO Q6H PRN PRN Reason: Nausea And Vomiting Stop: 05/25/25 11:15 Pantoprazole Sodium (Pantoprazole 40 Mg Tab) 40 mg PO BID [facility] Stop: 05/25/25 20:59 Last Admin: 04/27/25 09:26 Dose: Not Given Potassium Chloride (Potassium Chloride Crtab 20 Meq Tabcr) 20 meq PO TID [facility] Stop: 05/26/25 08:59 Last Admin: 04/27/25 09:08 Dose: 20 meq PG Care Time/CCT Total # of Minutes Spent Total Time Spent with Patient: Total time spent is greater than 50% in coordination of care (as documented) at patient's floor/unit and/or counseling patient: Advanced Care Planning 17943 Advanced Care Planning 30 Min Coding [place] [address] SUB INP/OBS CARE 10/22MIN Patient Type Established History Problem Focused Exam Problem Focused Medical Decision Making Low Complexity Diagnoses Palliative care by specialist Z51.5 Counseling regarding advanced directives and goals of care Z71.89 Additional Codes Advanced Care Planning - 67925 Advanced Care Planning 30 Min: 76972 Advanced Care Planning 30 Min ([id number])
--- NOTE | 2025-04-27 17:18 | Billing Data ---
Date of Service April 27, 2025 Coding Level of Care Code 75563 SUB INP/OBS CARE MIN
[2025-04-28 06:31] LABS: Hematocrit (blood only) 31.0 % (42.0-52.0); Hemoglobin 9.8 g/dl (14.0-18.0); Mean Corpuscular Hemoglobin 23.4 pg (25.0-34.0); Mean Corpuscular Volume 74.0 fL (80.0-100.0); Platelet Count 166 K/uL (130-400); RDW Standard Deviation 61.1 fL (36.4-46.3); Red Blood Count 4.19 M/uL (4.70-6.10); White Blood Count 22.41 K/ul (4.8-10.8)
[2025-04-28 07:01] LABS: Anion Gap 11.0 (3-11); Blood Urea Nitrogen 90.0 mg/dl (6-23); Calcium 9.9 mg/dl (8.6-10.3); Carbon Dioxide 34.0 mmol/L (21-32); Chloride 98.0 mmol/L (98-107); Creatinine Clr Calc Pharmacy 25.1 ml/min; Glucose 117.0 mg/dl (70-99(Fasting)); Potassium 2.5 mmol/L (3.5-5.1); Sodium 143.0 mmol/L (136-145)
--- NOTE | 2025-04-28 07:42 | Hospitalist Progress Note ---
Date of Service April 28, 2025 Assessment & Plan (1) RLL pneumonia: (2) Congestive heart failure: (3) Acute renal failure: (4) Acute UTI (urinary tract infection): (5) Septic shock: (6) Atrial fibrillation: (7) Heart failure with preserved ejection fraction: (8) Abdominal aortic aneurysm (AAA): (9) Anemia: (10) Acute heart failure: (11) Fluid overload: (12) Dyspnea: (13) AMS (altered mental status): (14) CAD (coronary artery disease): (15) LETY (acute kidney injury): Plan Geoff Lea is a 79 y/o M with a past medical history of alcohol abuse in remission, CAD last heart cath with nonobstructive moderate coronary disease 07/2024, A-fib on Eliquis and metoprolol, and hypertension on lisinopril found to be acutely hypotensive and lethargic at [facility], arrived to [facility] ED and found to be in septic shock secondary to UTI and transferred to ICU due to criti january illness, need for pressors and continuous monitoring. Septic shock 2/2 UTI vs pneumonia/Metabolic encephalopathy - Urinalysis: Turbid, 3+ protein, 3+ blood, 1+ bilirubin, 3+ LE, 1+ bacteria, >50 WBC, >20 RBC - CXR: Stable CHF with RLL consolidation - Urine cx - negative; Blood cx x2 - negative - AMS with sepsis contributing, waxing and waning levels of consciousness - CBC favors bacterial process with leukocytosis with left shift; MRSA nares negative, Procal: 7.83 - Vasopressin 0.07 mg/kg/min Q8H IV drip started in ED, Decreased to 0.01 in ICU, stopped on 04/24, maintain MAP > 65 - Stop Zosyn empirically, started 04/24, change to Augmentin - One dose albumin 250ml given, hydrocortisone d/c 04/27 for severe sepsis - Cx results from penis region positive for E. faecalis and S. haemolyticus; consider abx change based on sensitivities - CBC, CMP QAM - Continue Eliquis - K 2.9 60 mEq given, still 2.6 on 04/27, Nephro repleting potassium with 20 mEq TID > 2.5 on 04/28, 40 mEq given BID HFpEF/Acute hypoxic respiratory failure/Elevated troponin/Potential NSTEMI - 2D Echo: EF: 65-70%, mild concentric LVH, PASP 50-55 mmhg - Electrolytes largely wnl; BNP: 332 - Daily weights + strict I/Os - HST troponin: 147.6, stable - EKG: A-fib with RVR, RBBB, potential age-indeterminate inferior infarct - Worsening respiratory status likely multifactorial, 2/2 exacerbation of acute on chronic HFpEF and new RLL consolidation suspicious for pneumonia - Consider cardiology consult, potentially repeat echocardiogram. - ICU recommendations: Continue broad-spectrum antibiotics, BiPAP nightly and as needed shortness of breath - O2 discontinued 04/24, keep O2 saturation between 90-92% ATN on CKD/Normocytic anemia - Baseline Cr: 1.5-1.6 on admission Cr: 4.26 - Strict I/Os - avoid nephrotoxic medications - anemia likely by product of worsening renal function - Hgb: 8 - Consult Nephrology: No acute indications for BUSHLER, limit IVF while giving sepsis fluids and limit diuresis, will replete potassium - Follow urine output, CMP/CBC QAM Pleural effusion - Hx of thoracentesis 04/03/2025, Transudative Chronic indwelling wang - Changing wang once transferred to ICU Chronic low back pain - On oxycodone/tramadol as needed - DNR/DNI Admission and Anticipated Discharge Date Admission Date: April 22, 2025 Supervising Physician Co-Signing Physician Notes I personally examined the patient and verified all schneider points of history and exam, discussed case, and agree with decision making with Dr Akhtar and Tunde Bishop mildly confused about little things but overall quite oriented and feeling better. sat up for a while. Vitals noted, in general he is awake and alert pleasant oriented fairly well to place/situation. HEENT normocephalic atraumatic mucous membranes moist. Breathing unlabored no accessory muscle use good effort. Skin shows no rashes no pallor or icterus. Neuro without focal deficits. Sepsis/septic shock/severe sepsis (manifested by his acute renal failure which is probably ATN)source not entirely clear, pneumonia versus UTI as leading suspicions, transition to PO abx (augmentin) and follow. leukocytosis almost certainly steroid effect, especially w CRP @ ~9. creatinine continues to improve delirium/metabolic encephalopathy - due to above as well as hospital->rehab->ICU changing environments. explained delirium to family in depth. as a pleasant surprise continues to do better Anticipate return to rehab after discharge aortic aneurysm for outpatient repair in the near future Subjective Patient was lying in bed comfortably. Nursing reports no overnight events. He stated that he is feeling better. Denies CP, SOB, REY, abdominal pain, dizziness, weakness, numbness and tingling in his extremities. Review of Systems Review of Systems: All systems reviewed & are unremarkable except as noted in Subjective Physical Exam Physical Exam: General: Patient resting, not toxic in appearance, awake, A&O x3 Skin: warm, dry, intact HEENT: NC/AT, anicteric sclera, conjunctiva without injection, moist mucus membranes. Heart: +S1/S2, regular, no murmurs, gallops, rubs Lungs: equal air entry bilaterally, no wheezes, rhonchi, or rales Abd: +BS, soft, nontender, no rebound or guarding Ext: warm, no clubbing/cyanosis or edema Neuro: speech intact, no facial droop, moving all extremities, sensation intact in all extremities bilaterally Results & Data Results & Data Vital Signs (Past 12 Hours) Vital Signs O2 Del Method 04/27/25 21:00 Room Air (1) RLL pneumonia Pneumonia type: due to unspecified organism Qualified Code(s): J18.9 - Pneumonia, unspecified organism (2) Congestive heart failure Heart failure chronicity: chronic Heart failure type: combined systolic and diastolic Qualified Code(s): I50.42 - Chronic combined systolic (congestive) and diastolic (congestive) heart failure (3) Acute renal failure Acute renal failure type: unspecified Qualified Code(s): N17.9 - Acute kidney failure, unspecified (11) Fluid overload Hypervolemia type: other Qualified Code(s): E87.79 - Other fluid overload (12) Dyspnea Dyspnea type: unspecified Qualified Code(s): R06.00 - Dyspnea, unspecified
[2025-04-28] MEDS: POTASSIUM CHLORIDE CRTAB 20 MEQ TABCR PO STA (08:47)
--- NOTE | 2025-04-28 11:17 | Nephrology Progress Note ---
Date of Service April 28, 2025 Assessment & Plan (1) Acute renal failure: Plan: * Nonoliguric LETY likely due to ischemic ATN from urosepsis * Patient diuresed 3 L overnight * Creatinine improved to 3.3 this am (baseline 1.3-1.5) * K down to 2.5. Stop furosemide, correct serum potassium * Monitor BMP, I&O. No further nephrology evaluation indicated at this time. Kidney function is recovering. Will sign off. Please call if further assistance is needed. (2) Septic shock: Plan: * Resolved (3) Acute UTI (urinary tract infection): Plan: * Urine culture - NGTD * Genital specimen positive for Staphylococcus and Enterococcus. Patient is on IV Zosyn therapy (4) RLL pneumonia: Plan: * On broad-spectrum antibiotic therapy. (5) Heart failure with preserved ejection fraction: Plan: * 04/21 echocardiogram revealed LVEF 65%, no RWMA (6) Abdominal aortic aneurysm (AAA): Plan: * 6 cm AAA Admission and Anticipated Discharge Date Admission Date: April 22, 2025 Subjective Mr. Lea was evaluated in his hospital room this morning. He was alert and oriented to self and voiced no medical concerns. He was breathing comfortably on RA Review of Systems Constitutional: no fever Eyes: no problem reported Ear, Nose, Mouth, Throat: no problem reported Respiratory: no cough and no dyspnea Cardiovascular: no chest pain Gastrointestinal: no abdominal pain, no nausea, no vomiting and no diarrhea/loose stools Physical Exam Constitutional: not in distress Eyes: PERRL, conjunctivae normal, anicteric sclerae ENMT: external ear and nose normal, oropharynx normal Neck: trachea midline, no thyromegaly Respiratory: normal respiratory effort, lungs clear to auscultation Cardiovascular: Rate/Rhythm: regular rate and regular rhythm Extremities: + edema (1+ pretibial pitting edema) Gastrointestinal (Abdomen): normal bowel sounds, soft, nontender, no hepatosplenomegaly Musculoskeletal: Extremities: no cyanosis and no clubbing Skin: no rashes, warm and dry Neurologic: no focal motor deficits Results & Data Vital Signs (Past 12 Hours) Vital Signs Temp Pulse Resp BP Pulse Ox O2 Del Method 04/28/25 08:10 36.4 C L 65 18 113/73 94 Room Air 04/28/25 07:24 Room Air Laboratory Results Laboratory Results - last 24 hr 04/27/25 04/27/25 04/27/25 11:22 16:37 20:13 WBC RBC Hgb Hct MCV MCH MCHC RDW Std Deviation RDW Coeff of Charly Plt Count MPV Sodium Potassium Chloride Carbon Dioxide Anion Gap BUN Creatinine Est Cr Clr Drug Dosing eGFR BUN/Creatinine Ratio Glucose POC Glucose 183 H 157 H 173 H Calcium C-Reactive Protein 04/28/25 04/28/25 06:02 07:59 WBC 22.41 H RBC 4.19 L Hgb 9.8 L Hct 31.0 L MCV 74.0 L MCH 23.4 L MCHC 31.6 L RDW Std Deviation 61.1 H RDW Coeff of Charly 23.9 H Plt Count 166 MPV 9.6 Sodium 143 Potassium 2.5 L* Chloride 98 Carbon Dioxide 34 H Anion Gap 11 BUN 90 H Creatinine 3.30 H D Est Cr Clr Drug Dosing 25.1 eGFR 18.27 BUN/Creatinine Ratio 27.3 H Glucose 117 H POC Glucose 107 H Calcium 9.9 C-Reactive Protein 8.73 H PG Care Time/CCT Total # of Minutes Spent Total Time Spent with Patient: Total time spent is greater than 50% in coordination of care (as documented) at patient's floor/unit and/or counseling patient: Coding Level of Care Code 74667 SUB INP/OBS CARE 3/50MIN Diagnoses Acute renal failure N17.9 Acute renal failure type: unspecified Septic shock A41.9; R65.21 Acute UTI (urinary tract infection) N39.0 RLL pneumonia J18.9 Pneumonia type: due to unspecified organism Heart failure with preserved ejection fraction I50.30 Abdominal aortic aneurysm (AAA) I71.40 (1) Acute renal failure Acute renal failure type: unspecified Qualified Code(s): N17.9 - Acute kidney failure, unspecified (4) RLL pneumonia Pneumonia type: due to unspecified organism Qualified Code(s): J18.9 - Pneumonia, unspecified organism
--- NOTE | 2025-04-28 14:28 | Billing Data ---
Date of Service April 28, 2025 Coding Level of Care Code 78524 SUB INP/OBS CARE MIN
[2025-04-28] MEDS ORDERED: AMOXICILLIN/CLAVULANATE 875 MG TAB PO SCH (17:00)
[2025-04-28] MEDS: AMOXICILLIN/CLAVULANATE 500 MG TAB PO SCH (17:26)
--- NOTE | 2025-04-29 06:58 | Hospitalist Progress Note ---
Date of Service April 29, 2025 Assessment & Plan (1) RLL pneumonia: (2) Acute UTI (urinary tract infection): (3) Acute renal failure: (4) Hypokalemia: (5) Atrial fibrillation: (6) Heart failure with preserved ejection fraction: (7) Septic shock: (8) Abdominal aortic aneurysm (AAA): (9) Anemia: (10) AMS (altered mental status): (11) CAD (coronary artery disease): Plan Geoff Lea is a 79 y/o M with a past medical history of alcohol abuse in remission, CAD last heart cath with nonobstructive moderate coronary disease 07/2024, A-fib on Eliquis and metoprolol, and hypertension on lisinopril found to be acutely hypotensive and lethargic at [facility], arrived to [facility] ED and found to be in septic shock likely 2/2 UTI vs pneumonia, s/p pressors in ICU. Continued admission required for continued telemetry monitoring, potassium repletion, and PT/OT while on medical floor, pending discharge to rehab likely Thu05/01/25. Septic shock 2/2 UTI vs pneumonia - Urinalysis: Turbid, 3+ protein, 3+ blood, 1+ bilirubin, 3+ LE, 1+ bacteria, >50 WBC, >20 RBC - CBC favors bacterial process with leukocytosis with left shift; MRSA nares negative, Procal: 7.83 CRP increase from 8.7 to 14, nonspecific but most likely could be attributed to inflammation related to suspected infectious sources - CXR: Stable CHF with RLL consolidation - Urine cx - negative; Blood cx x2 - negative Penile cultures grew pansensitive E. faecalis and Staph haemolyticus with no sensitivities to follow Zosyn discontinued (started 04/24), changed to Augmentin 500mg BID, continue through Thu05/03/25 - AMS with sepsis contributing, waxing and waning level of consciousness however appears to have improved from prior - One dose albumin 250mL given, hydrocortisone d/c 04/27 for severe sepsis - CBC, BMP qAM - CRP elevated from prior, continue to trend - continue PT/OT to improve strength before d/c to [facility] acute rehab AT on CKD/Microcytic anemia - Baseline Cr: 1.5-1.6 on admission Cr: 4.26 Improved to 2.63 - Hypokalemia, resolvin.5 -> 2.9 continue KCl 20mEq TID, given additional 40mEq in anticipation of discharge likely Thursday05/01/25 - Strict I/Os - avoid nephrotoxic medications - anemia possible byproduct of worsening renal function - Hgb: 9.8, overall improved from prior - Nephro following, appreciate recs: continuing to hold Lasix while we replete potassium as above - Follow urine output, BMP, CBC qAM Metabolic encephalopathy - Potassium 2.9 this AM, continue KCl 20mEq TID; additional 40mEq given in afternoon - BMP in AM - tylenol as needed for headaches HFpEF/Acute hypoxic respiratory failure/Elevated troponin/Potential NSTEMI Worsening respiratory status likely multifactorial, 2/2 exacerbation of acute on chronic HFpEF and new RLL consolidation suspicious for pneumonia - 2D Echo: EF: 65-70%, mild concentric LVH, PASP 50-55 mmHg; BNP: 332; [id number], stable - EKG: A-fib with RVR, RBBB, potential age-indeterminate inferior infarct - Daily weights + strict I/Os - Consider cardiology consult, potentially repeat echocardiogram otherwise defer to outpatient echo - ICU recommendations: BiPAP nightly and as needed for shortness of breath - Goal O2 saturation: 90-92% Pleural effusion - Hx of thoracentesis 04/03/2025, Transudative Chronic indwelling wang Chronic low back pain - Oxycodone/tramadol as needed Code status: DNR/DNI Diet: regular heart healthy, carb consistent / DM2, easy to chew VTE ppx: SCDs Dispo: tele Admission and Anticipated Discharge Date Admission Date: April 22, 2025 Supervising Physician Co-Signing Physician Notes I personally examined the patient and verified all schneider points of history and exam, discussed case, and agree with decision making with Dr Atkins oriented. feeling tired. ate reasonably well w breakfast. Vitals noted, in general he is awake and alert pleasant oriented fairly well to place/situation. HEENT normocephalic atraumatic mucous membranes moist. Breathing unlabored no accessory muscle use good effort. Skin shows no rashes no pallor or icterus. Neuro without focal deficits. abd mild distention mild diffuse tenderness Sepsis/septic shock/severe sepsis (manifested by his acute renal failure which is probably ATN)source not entirely clear, pneumonia versus UTI as leading suspicions, transition to PO abx (augmentin) and follow. leukocytosis almost certainly steroid effect, no s/s infection otherwise - conitnue to follow clinically and labs delirium/metabolic encephalopathy - due to above as well as hospital->rehab->ICU changing environments. explained delirium to family in depth. as a pleasant surprise continues to do better; conitnue reorientation abdominal distention - suspect mild constipation. bowel regimen Anticipate return to rehab after discharge aortic aneurysm for outpatient repair in the near future Subjective Geoff was seen and evaluated at bedside this AM, states he is feeling "so tired" but this is similar to yesterday. Endorses a 6/10 generalized headache that he had day prior as well, with similar light and sound sensitivity. Endorses some mild dizziness, but no nausea or vomiting reported. Ate 90% of his breakfast without issue. Denies getting up out of bed within the last day, willing to engage with PT/OT. Understands plan is to go to [facility] for acute rehab Thursday05/01/25 before back to [facility] where he and reside. Physical Exam Physical Exam: General: awake and alert, tired appearing and in mild distress, A&Ox3 HEENT: NC/AT, EOM intact, PERRL b/l, anicteric sclerae, conjunctiva without injection, moist mucus membranes. CV: irregularly irregular rhythm, systolic murmur appreciated, otherwise no m/r/g; 2+ radial pulses b/l Resp: symmetrically decreased breath sounds b/l, producing vocal sounds with exhalation thus difficult to appreciate true rhonchi/rale/wheeze GI/Abd: hyperactive bowl sounds, abdomen distended, tympanitic to percussion in RUQ and LUQ, dull to percussion in RLQ and LLQ; otherwise abdomen soft, mild apparent tenderness to palpation of RUQ, otherwise nontender, no rebound or guarding Ext: warm, b/l LE with 2+ edema; likely chronic dry scaling of b/l LE Skin: other than those noted above, skin is warm, dry, intact Neuro: speech intact, no facial droop, moving all extremities, sensation intact in all extremities b/l Results & Data Results & Data Vital Signs (Past 12 Hours) Vital Signs Temp Pulse BP Pulse Ox O2 Del Method 04/28/25 21:00 Room Air 04/28/25 19:38 36.7 C 85 103/64 92 Room Air Resident Activity Tracking Resident Involvement: Resident Care Provided Care Provided: Adult Hospital Medicine (1) RLL pneumonia Pneumonia type: due to unspecified organism Qualified Code(s): J18.9 - Pneumo lou, unspecified organism (3) Acute renal failure Acute renal failure type: unspecified Qualified Code(s): N17.9 - Acute kidney failure, unspecified
[2025-04-29 09:20] LABS: Hematocrit (blood only) 32.0 % (42.0-52.0); Hemoglobin 9.7 g/dl (14.0-18.0); Immature Granulocytes # (auto) 0.17 K/uL (0.01-0.20); Immature Granulocytes % (auto) 0.9 %; Mean Corpuscular Hemoglobin 23.0 pg (25.0-34.0); Mean Corpuscular Volume 75.8 fL (80.0-100.0); Platelet Count 156 K/uL (130-400); RDW Standard Deviation 63.5 fL (36.4-46.3); Red Blood Count 4.22 M/uL (4.70-6.10); White Blood Count 19.01 K/ul (4.8-10.8)
[2025-04-29 09:35] LABS: Anion Gap 9.0 (3-11); Blood Urea Nitrogen 78.0 mg/dl (6-23); Calcium 9.7 mg/dl (8.6-10.3); Carbon Dioxide 35.0 mmol/L (21-32); Chloride 100.0 mmol/L (98-107); Creatinine Clr Calc Pharmacy 31.5 ml/min; Glucose 126.0 mg/dl (70-99(Fasting)); Potassium 2.9 mmol/L (3.5-5.1); Sodium 144.0 mmol/L (136-145)
[2025-04-29 09:52] LABS: Anisocytosis Present; Microcytosis Present; Polychromasia 1+; Tear Drop Cells 1+
--- NOTE | 2025-04-29 12:06 | Billing Data ---
Date of Service April 29, 2025 Coding Level of Care Code 45308 SUB INP/OBS CARE
[2025-04-29] MEDS: POLYETHYLENE (MIRALAX) 17 GM PACK PO SCH (12:39)
[2025-04-29] MEDS: POTASSIUM CHLORIDE CRTAB 20 MEQ TABCR PO STA ×2 (13:29→13:30)
--- NOTE | 2025-04-30 06:53 | Hospitalist Progress Note ---
Date of Service April 30, 2025 Assessment & Plan (1) RLL pneumonia: (2) Acute UTI (urinary tract infection): (3) Acute renal failure: (4) Hypokalemia: (5) Atrial fibrillation: (6) Heart failure with preserved ejection fraction: (7) Septic shock: (8) Abdominal aortic aneurysm (AAA): (9) Anemia: (10) AMS (altered mental status): (11) CAD (coronary artery disease): Plan Geoff Lea is a 79 y/o M with a past medical history of alcohol abuse in remission, CAD last heart cath with nonobstructive moderate coronary disease 07/2024, A-fib on Eliquis and metoprolol, and hypertension on lisinopril found to be acutely hypotensive and lethargic at [facility], arrived to [facility] ED and found to be in septic shock likely 2/2 UTI vs pneumonia, s/p pressors in ICU. Continued admission required for continued vital sign monitoring, potassium repletion, and PT/OT while on medical floor, pending discharge to rehab likely tomorrow, 05/01/25. Septic shock 2/2 UTI vs pneumonia - Urinalysis: Turbid, 3+ protein, 3+ blood, 1+ bilirubin, 3+ LE, 1+ bacteria, >50 WBC, >20 RBC - CBC favors bacterial process with leukocytosis with left shift; MRSA nares negative, Procal: 7.83 CRP increase from 8.7 to 14, nonspecific but most likely could be attributed to inflammation related to suspected infectious sources - CXR: Stable CHF with RLL consolidation - Urine cx - negative; Blood cx x2 - negative Penile cultures grew pansensitive E. faecalis and Staph haemolyticus with no sensitivities to follow Zosyn discontinued (started 04/24), changed to Augmentin 500mg BID, continue through 05/03/25 - AMS with sepsis contributing, waxing and waning level of consciousness however appears to have improved from prior - One dose albumin 250mL given, hydrocortisone d/c 04/27 for severe sepsis - CBC, BMP qAM - CRP 14 -> 17 in past day, unclear cause of elevation but could be attributed to - continue PT/OT to improve strength before d/c to [facility] acute rehab AT on CKD/Microcytic anemia - Baseline Cr: 1.5-1.6 on admission Cr: 4.26 Improved 2.63 -> 2.14 in past 24h - Hypokalemia, resolvin.9 -> 3.5 continue KCl 20mEq TID - Strict I/Os - avoid nephrotoxic medications - anemia possible byproduct of worsening renal function - Hgb: 9.8, overall improved from prior - Nephro following, appreciate recs: continuing to hold Lasix while we replete potassium as above - Follow urine output, BMP, CBC qAM Metabolic encephalopathy - Potassium 3.5 this AM, continue KCl 20mEq TID - BMP in AM - tylenol as needed for headaches Constipation Significant amount of stool in distal colon and rectum as seen on 04/22/25 CT Abd/pelvis Additional 51g Miralax ordered for this afternoon to ensure evacuation prior to discharge to acute rehab Elevated CRP mild uptrending- 14.2 -> 17.2 despite improving white count and improving clinical picture - most likely can be attributed to post-infectious inflammatory response / CRP lag due to continued production of CRP by the liver as a response to cytokines, rather than due to persistent infection Consider continued trending if clinical picture points to worsening infection HFpEF/Acute hypoxic respiratory failure/Elevated troponin/Potential NSTEMI Worsening respiratory status likely multifactorial, 2/2 exacerbation of acute on chronic HFpEF and new RLL consolidation suspicious for pneumonia - 2D Echo: EF: 65-70%, mild concentric LVH, PASP 50-55 mmHg; BNP: 332; [id number], stable - EKG: A-fib with RVR, RBBB, potential age-indeterminate inferior infarct - Daily weights + strict I/Os - Consider cardiology consult, potentially repeat echocardiogram otherwise defer to outpatient echo - ICU recommendations: BiPAP nightly and as needed for shortness of breath - Goal O2 saturation: 90-92% Pleural effusion - Hx of thoracentesis 04/03/2025, Transudative Chronic indwelling wang Chronic low back pain - Oxycodone/tramadol as needed Code status: DNR/DNI Diet: regular heart healthy, carb consistent / DM2, easy to chew VTE ppx: SCDs Dispo: med/surg ("service" says "telemetry" but [facility] is not a telemetry floor) Admission and Anticipated Discharge Date Admission Date: April 22, 2025 Supervising Physician Co-Signing Physician Notes I personally examined the patient and verified all schneider points of history and exam, discussed case, and agree with decision making with Dr Atkins oriented. feeling tired. eating Ok. did not get up well yesterday - just didn't feel up to it. Vitals noted, in general he is awake and alert pleasant oriented fairly well to place/situation. HEENT normocephalic atraumatic mucous membranes moist. Breathing unlabored no accessory muscle use good effort. Skin shows no rashes no pallor or icterus. Neuro without focal deficits. Sepsis/septic shock/severe sepsis (manifested by his acute renal failure which is probably ATN)source not entirely clear, pneumonia versus UTI as leading suspicions, transitioned to PO abx (augmentin) and follow - continues to be stable. leukocytosis almost certainly steroid effect, no s/s infection otherwise - continue to follow clinically and labs delirium/metabolic encephalopathy - due to above as well as hospital->rehab->ICU changing environments. explained delirium to family in depth. as a pleasant surprise continues to do better; continue reorientation -but he is mostly lucid with small amounts of intermittent confusion that he re-orients out of well. abdominal distention - suspect mild constipation. bowel regimen Anticipate return to rehab after discharge (hopefully rehab 05/01) aortic aneurysm for outpatient repair in the near future Subjective Geoff was seen and evaluated at bedside this AM, states he is feeling a bit better today, enjoying the sunshine this morning. Denies current headache or dizziness, denies pain or discomfort at this time. Endorses his Soraya will be visiting today. Ate 60% of his breakfast without issue, feeling less of an appetite compared to day prior. Endorses 2 loose bowel movements in the past day, denies being able to look at it for signs of blood. Understands plan is to go to [facility] for acute rehab tomorrow, Thursday05/01/25 before going back to [facility] where he and reside. Physical Exam Physical Exam: General: awake and alert, tired appearing and in mild distress, A&Ox3 HEENT: NC/AT, EOM intact, PERRL b/l, anicteric sclerae, conjunctiva without injection, moist mucus membranes. CV: irregularly irregular rhythm, systolic murmur appreciated, otherwise no m/r/g; 2+ radial pulses b/l Resp: symmetrically mildly decreased breath sounds b/l, clear to auscultation b/l, no wheeze/rales/rhonchi appreciated GI/Abd: hyperactive bowl sounds, abdomen distended, tympanitic to percussion in RUQ and LUQ, dull to percussion in RLQ and LLQ; otherwise abdomen soft, mild apparent tenderness to palpation of RUQ, otherwise nontender, no rebound or guarding Ext: warm, b/l LE with 2+ edema; likely chronic dry scaling of b/l LE Skin: other than those noted above, skin is warm, dry, intact Neuro: speech intact, no facial droop, moving all extremities, sensation intact in all extremities b/l Results & Data Results & Data Vital Signs (Past 12 Hours) Vital Signs Temp Pulse Resp BP Pulse Ox O2 Del Method 04/29/25 21:42 36.9 C 89 16 105/68 94 Room Air 04/29/25 19:45 Room Air Resident Activity Tracking Resident Involvement: Resident Care Provided Care Provided: Adult Hospital Medicine (1) RLL pneumonia Pneumonia type: due to unspecified organism Qualified Code(s): J18.9 - Pneumonia, unspecified organism (3) Acute renal failure Acute renal failure type: unspecified Qualified Code(s): N17.9 - Acute kidney failure, unspecified
[2025-04-30 08:16] LABS: Hematocrit (blood only) 30.7 % (42.0-52.0); Hemoglobin 9.5 g/dl (14.0-18.0); Immature Granulocytes # (auto) 0.11 K/uL (0.01-0.20); Immature Granulocytes % (auto) 0.6 %; Mean Corpuscular Hemoglobin 23.6 pg (25.0-34.0); Mean Corpuscular Volume 76.2 fL (80.0-100.0); Platelet Count 151 K/uL (130-400); RDW Standard Deviation 66.3 fL (36.4-46.3); Red Blood Count 4.03 M/uL (4.70-6.10); White Blood Count 17.38 K/ul (4.8-10.8)
[2025-04-30 08:34] LABS: Ovalocytes 1+; Polychromasia 2+; Tear Drop Cells 1+
[2025-04-30 09:07] LABS: Anion Gap 10.0 (3-11); Blood Urea Nitrogen 72.0 mg/dl (6-23); Calcium 9.7 mg/dl (8.6-10.3); Carbon Dioxide 34.0 mmol/L (21-32); Chloride 101.0 mmol/L (98-107); Glucose 94.0 mg/dl (70-99(Fasting)); Potassium 3.5 mmol/L (3.5-5.1); Sodium 145.0 mmol/L (136-145)
[2025-04-30 09:12] LABS: Creatinine Clr Calc Pharmacy 37.4 ml/min
[2025-04-30] MEDS: POLYETHYLENE (MIRALAX) 17 GM PACK PO SCH (13:39)
--- NOTE | 2025-04-30 13:57 | Billing Data ---
Date of Service April 30, 2025 Coding Level of Care Code 79578 SUB INP/OBS CARE
[2025-05-01 07:53] LABS: Hematocrit (blood only) 30.4 % (42.0-52.0); Hemoglobin 9.2 g/dl (14.0-18.0); Mean Corpuscular Hemoglobin 23.5 pg (25.0-34.0); Mean Corpuscular Volume 77.6 fL (80.0-100.0); Platelet Count 152 K/uL (130-400); RDW Standard Deviation 67.7 fL (36.4-46.3); Red Blood Count 3.92 M/uL (4.70-6.10); White Blood Count 16.32 K/ul (4.8-10.8)
[2025-05-01 08:29] LABS: Anion Gap 6.0 (3-11); Blood Urea Nitrogen 63.0 mg/dl (6-23); Calcium 9.7 mg/dl (8.6-10.3); Carbon Dioxide 35.0 mmol/L (21-32); Chloride 105.0 mmol/L (98-107); Creatinine Clr Calc Pharmacy 41.5 ml/min; Glucose 102.0 mg/dl (70-99(Fasting)); Potassium 4.2 mmol/L (3.5-5.1); Sodium 146.0 mmol/L (136-145)
--- NOTE | 2025-05-01 09:17 | Hospitalist Progress Note ---
"Date of Service May 01, 2025 Assessment & Plan (1) RLL pneumonia: (2) Acute UTI (urinary tract infection): (3) Acute renal failure: (4) Hypokalemia: (5) Atrial fibrillation: (6) Heart failure with preserved ejection fraction: (7) Septic shock: (8) Abdominal aortic aneurysm (AAA): (9) Anemia: (10) AMS (altered mental status): (11) CAD (coronary artery disease): Plan Geoff Lea is a 79 y/o M with a past medical history of alcohol abuse in remission, CAD last heart cath with nonobstructive moderate coronary disease 07/2024, A-fib on Eliquis and metoprolol, and hypertension on lisinopril found to be acutely hypotensive and lethargic at [facility], arrived to [facility] ED and found to be in septic shock likely 2/2 UTI vs pneumonia, s/p pressors in ICU. Continued admission required for continued vital sign monitoring,and PT/OT while on medical floor, pending discharge to rehab once the bed is available Altered mental status | Code Purple -CT head ordered to rule out acute intracranial pathologies. No any acute changes revealed. -Labs including CMP, VBG and Lactate WNL -likely worsening of Delirium -See separate comm note for details Elevated Troponin -Troponin at 12:55: 108 -Repeat troponin after 2 hrs: pending -Suspect demand ischemia from pulmonary edema in the setting of LETY/ATN Septic shock 2/2 UTI vs pneumonia(Resolved) -Penile culture revealed Staphylococcus haemolyticus and Enterococcus Fecalis with no C/S to follow -Zosyn switched to PO Augmentin -Continue Augmentin until 6 Elevated CRP mild uptrending- 14.2 -> 17.2 despite improving white count and improving clinical picture - most likely can be attributed to post-infectious inflammatory response / CRP lag due to continued production of CRP by the liver as a response to cytokines, rather than due to persistent infection -Consider continued trending if clinical picture points to worsening infection ATN on CKD - Creatinine today : 1.92 - Hypokalemia, resolvin.5>4.2 - Strict I/Os - avoid nephrotoxic medications -Urine Output -0.9ml/kg/hr. So will hold Lasix for today given low BP - Follow urine output, BMP, CBC qAM HFpEF/Acute hypoxic respiratory failure/Elevated troponin/Potential NSTEMI Worsening respiratory status likely multifactorial, 2/2 exacerbation of acute on chronic HFpEF and new RLL consolidation suspicious for pneumonia - 2D Echo: EF: 65-70%, mild concentric LVH, PASP 50-55 mmHg; BNP: 332; [id number], stable - EKG: A-fib with RVR, RBBB, potential age-indeterminate inferior infarct - Daily weights + strict I/Os - Consider cardiology consult, potentially repeat echocardiogram otherwise defer to outpatient echo - ICU recommendations: BiPAP nightly and as needed for shortness of breath - Goal O2 saturation: 90-92% Pleural effusion - Hx of thoracentesis 04/03/2025, Transudative Chronic Anemia -Hgb today: 9.4; no sxs -anemia possible byproduct of worsening renal function plus iron deficiency -Overall improved from admission (was 8.3) Chronic lumbar pain - No pain today on eval - Tylenol prn Abdominal Aortic Aneurysm - CT Abdomen and Pelvis reveals abdominal aortic aneurysm ~5.2mm - Recommend outpatient f/u and surveillance Ultrasound every 6 months in the outpatient. Constipation - Significant amount of stool in distal colon and rectum as seen on 04/22/25 CT Abd/pelvis - Had loose stools overnight after he got Miralax 51g yesterday - XR KUB ordered today but patient denied. So XR KUB deferred for now - Continue miralax prn Code status: DNR/DNI Diet: regular heart healthy, carb consistent / DM2, easy to chew VTE ppx: Eliquis Dispo: hopefully discharge to [facility], auth pending Admission and Anticipated Discharge Date Admission Date: April 22, 2025 Supervising Physician Co-Signing Physician Notes I personally examined the patient and verified schneider points of history and exam, discussed case, and agree with decision making and plan documented by Dr. Martinez. Conversation with patient's Soraya today, she reports patient has had significant altered mental status since hospitalization for back surgery (11/15/24), subsequent admission from rehabilitation (11/22/24), and previous admission (03/31/24). Patient with waxing and waning delirium and additional episode of altered mental status earlier today where he struggled to communicate. Head CT performed without acute changes, per review of read, moderate atrophy was noted able in addition to chronic small vessel disease. Will consider MRI brain. Pily Tellez was seen this morning and he was engaged in the conversation but was delirious. He endorsed having mild headache.He had loose stool overnight. No any overnight events. No new concerns. Review of Systems Review of Systems: As per HPI Physical Exam Physical Exam: General: awake and alert, tired appearing and in mild distress, A&Ox3 HEENT: NC/AT, EOM intact, PERRL b/l, anicteric sclerae, conjunctiva without injection, moist mucus membranes. CV: irregularly irregular rhythm,otherwise no m/r/g; 2+ radial pulses b/l Resp: symmetrically mildly decreased breath sounds b/l, clear to auscultation b/l, no wheeze/rales/rhonchi appreciated GI/Abd: hyperactive bowl sounds, abdomen distended, tympanitic to percussion in RUQ and LUQ, dull to percussion in RLQ and LLQ; otherwise abdomen soft, mild apparent tenderness to palpation of RUQ, otherwise nontender, no rebound or guarding Ext: warm, b/l LE with 2+ edema; likely chronic dry scaling of b/l LE Skin: other than those noted above, skin is warm, dry, intact Neuro: speech intact, no facial droop, moving all extremities, sensation intact in all extremities b/l Results & Data Results & Data Vital Signs (Past 12 Hours) Vital Signs Temp Pulse Resp BP Pulse Ox O2 Del Method 05/01/25 07:21 36.7 C 86 16 105/68 94 Room Air 04/30/25 20:14 Room Air 04/30/25 20:07 36.4 C L 96 H 16 108/67 95 Room Air 04/30/25 20:04 36.8 C 93 H 16 100/67 93 Room Air (1) RLL pneumonia Pneumonia type: due to unspecified organism Qualified Code(s): J18.9 - Pneumonia, unspecified organism (3) Acute renal failure Acute renal failure type: unspecified Qualified Code(s): N17.9 - Acute kidney failure, unspecified"
[2025-05-01 13:09] LABS: Base Excess VBG 9.0 mEq/L; HCO3 VBG 33 mmol/L; Oxygen Saturation VBG 92.7 %; PCO2 VBG 40 mmHg (38-50); PO2 VBG 61 mmHg; pH VBG 7.52 (7.36-7.41)
--- NOTE | 2025-05-01 13:15 | Communication Note ---
Date of Service: May 01, 2025 Radha Maki was called at around 12:55 PM. When we went to the room, patient was attempting to speak but was unable to produce any verbal output. Opening his eyes spontaneously, however not oriented to time, place and person. GCS 14/15 . His vitals were stable. On examination , his B/l lungs sounds are diminished and normal S1, S2 with no murmur. No any FNDs Assessment and Plan -Suspect the patients condition is attributable to worsening of underlying delirium. Low suspicion for stroke as patient is on Eliquis and no any FNDs, however, will order head CT to rule out given acute change in status. -Will get labs including CBC, CMP, VBG and Lactate. -Will get chest XR due to diminished b/l lung sound. I personally examined the patient and verified schneider points of history and exam, discussed case, and agree with decision making and plan documented by Dr. Martinez.
[2025-05-01] MEDS: OPTIRAY 320 100ml IV ONE (13:19)
[2025-05-01 13:20] LABS: Hematocrit (blood only) 31.8 % (42.0-52.0); Hemoglobin 9.4 g/dl (14.0-18.0); Immature Granulocytes # (auto) 0.10 K/uL (0.01-0.20); Immature Granulocytes % (auto) 0.6 %; Mean Corpuscular Hemoglobin 22.7 pg (25.0-34.0); Mean Corpuscular Volume 76.8 fL (80.0-100.0); Platelet Count 159 K/uL (130-400); RDW Standard Deviation 66.5 fL (36.4-46.3); Red Blood Count 4.14 M/uL (4.70-6.10); White Blood Count 15.48 K/ul (4.8-10.8)
[2025-05-01 13:28] LABS: Alanine Aminotransferase 7.0 U/L (7-52); Albumin Globulin Ratio 0.8 (0.9-2); Alkaline Phosphatase 202.0 U/L (34-104); Anion Gap 6.0 (3-11); Bilirubin,Total 1.2 mg/dl (0.2-1.0); Blood Urea Nitrogen 59.0 mg/dl (6-23); Calcium 9.6 mg/dl (8.6-10.3); Carbon Dioxide 33.0 mmol/L (21-32); Chloride 104.0 mmol/L (98-107); Creatinine Clr Calc Pharmacy 46.4 ml/min; Globulin 3.3 gm/dl (2.5-4.0); Glucose 93.0 mg/dl (70-99(Fasting)); Magnesium 1.7 mg/dl (1.7-2.4); Potassium 4.1 mmol/L (3.5-5.1); Sodium 143.0 mmol/L (136-145); Total Protein 6.1 gm/dl (6.0-8.3)
--- NOTE | 2025-05-01 13:31 | CT Scan Report ---
CT head/brain wo/w con CLINICAL HISTORY: Altered mental status. COMPARISON STUDY: Head CT March 31, 2025. TECHNIQUE: Axial images of the head were obtained before and after intravenous administration of 94 c c of Optiray 320. A dose lowering technique was utilized adhering to the principles of ALARA. FINDINGS: No acute intracranial hemorrhage, midline shift or mass effect is present. Ventricular syst em is stable. The basal cisterns are patent. There are no extra axial collections. Moderate atrophy i s noted. This is unchanged. White matter hypodensity suggests small vessel disease. There are no find ings to suggest acute dural sinus thrombosis or acute territorial infarct. No intracranial mass or pa thologic enhancement is present. There are no calvarial fractures. Incidental note is made of postope rative findings within the sinuses. Small air-fluid level within the left sphenoid sinus is unchanged . Trace air-fluid level within the left maxillary sinus has decreased. IMPRESSION: 1. No acute intracranial findings. No change in appearance of the brain. 2. No intracranial mass or pathologic enhancement. ACT 112: Negative or not required by law. Electronically signed by: Lucas Jimenez M.D. 05/01/2025 1:29 PM
--- NOTE | 2025-05-01 13:32 | XRay Report ---
SINGLE VIEW CHEST CLINICAL HISTORY: Aspiration FINDINGS: An AP, portable, upright chest radiograph is compared to study dated 04/22/2025 and correlat ed with chest CT dated 03/31/2025. The heart is enlarged. Noting atherosclerotic calcification of the t horacic. There is pulmonary vascular congestion with interstitial edema. There are layering pleural e ffusions with dependent consolidation. No pneumothorax is seen. The skeletal structures are osteopeni c. The bony thorax is grossly intact. IMPRESSION: 1. Cardiomegaly with evidence of congestive failure and pulmonary edema. 2. Layering pleural effusions with dependent consolidation. Radiographic follow-up to resolution is r ecommended. ACT 112: Negative or not required by law. Electronically signed by: Graeme Mclaughlin M.D. 05/01/2025 1:31 PM
[2025-05-01 13:40] LABS: Anisocytosis Present; Hypochromasia Present; Microcytosis Present; Ovalocytes 1+; Polychromasia 1+; Tear Drop Cells 1+
--- NOTE | 2025-05-01 15:47 | Electrocardiogram Report ---
Test Reason : Blood Pressure : */* mmHG Vent. Rate : 97 BPM Atrial Rate : 74 BPM P-R Int : * ms QRS Dur : 114 ms QT Int : 366 ms P-R-T Axes : * -20 -14 degrees QTcB Int : 464 ms Atrial fibrillation with premature ventricular or aberrantly conducted complexes Low voltage QRS Right bundle branch block Abnormal ECG When compared with ECG of 22-Apr-2025 14:26, Borderline criteria for Inferior infarct are no longer Present Confirmed by Jeffrey Field ([id number]) on 05/01/2025 3:46:56 PM Referred By: REFERRED SELF Confirmed By: Jeffrey Field
--- NOTE | 2025-05-01 21:05 | XRay Report ---
EXAM: XR KUB/Abdomen 1 view CLINICAL HISTORY: Distended and tender abdomen TECHNIQUE: X-ray images of the abdomen were obtained in supine and upright positions. COMPARISON: CT abdomen pelvis 04/22/2025 FINDINGS: Gas Pattern: Gas pattern within the abdomen is normal. No evidence of bowel obstruction or distention. Soft Tissues: Soft tissues of the abdomen appear normal without evidence of masses or calcifications. Liver, spleen, and kidneys are of normal size and position. Spinal lumbar fixation and left hip prosthesis. IMPRESSION: 1. No acute abnormalities identified. No evidence of bowel obstruction. 2. Advised clinical correlation and if warranted CT scan for further evaluation. Electronically signed by Deacon Santa 05-01-2025 9:04 PM
[2025-05-02 06:48] LABS: Hematocrit (blood only) 30.9 % (42.0-52.0); Hemoglobin 9.2 g/dl (14.0-18.0); Immature Granulocytes # (auto) 0.07 K/uL (0.01-0.20); Immature Granulocytes % (auto) 0.5 %; Mean Corpuscular Hemoglobin 23.2 pg (25.0-34.0); Mean Corpuscular Volume 77.8 fL (80.0-100.0); Platelet Count 159 K/uL (130-400); RDW Standard Deviation 66.9 fL (36.4-46.3); Red Blood Count 3.97 M/uL (4.70-6.10); White Blood Count 14.05 K/ul (4.8-10.8)
[2025-05-02 07:12] LABS: Anisocytosis Present; Polychromasia 1+; Tear Drop Cells 1+
[2025-05-02 07:29] VITALS: TEMP 98.6
[2025-05-02 07:30] LABS: Anion Gap 8.0 (3-11); Blood Urea Nitrogen 51.0 mg/dl (6-23); Calcium 9.6 mg/dl (8.6-10.3); Carbon Dioxide 31.0 mmol/L (21-32); Chloride 103.0 mmol/L (98-107); Creatinine Clr Calc Pharmacy 48.8 ml/min; Glucose 99.0 mg/dl (70-99(Fasting)); Potassium 4.4 mmol/L (3.5-5.1); Sodium 142.0 mmol/L (136-145)
--- NOTE | 2025-05-02 07:47 | Hospitalist Progress Note ---
Date of Service May 02, 2025 Assessment & Plan (1) RLL pneumonia: (2) Acute UTI (urinary tract infection): (3) Acute renal failure: (4) Hypokalemia: (5) Atrial fibrillation: (6) Heart failure with preserved ejection fraction: (7) Septic shock: (8) Abdominal aortic aneurysm (AAA): (9) Anemia: (10) AMS (altered mental status): (11) CAD (coronary artery disease): Plan Geoff Lea is a 79 y/o M with a past medical history of alcohol abuse in remission, CAD last heart cath with nonobstructive moderate coronary disease 07/2024, A-fib on Eliquis and metoprolol, and hypertension on lisinopril found to be acutely hypotensive and lethargic at [facility], arrived to [facility] ED and found to be in septic shock likely 2/2 UTI vs pneumonia, s/p pressors in ICU. Continued admission required for continued vital sign monitoring,and PT/OT while on medical floor, pending discharge to rehab once the bed is available Altered mental status -CT head ordered to rule out acute intracranial pathologies. No any acute changes revealed. -MRI brain ordered today given the atrophic changes and history of alcohol consumption Elevated Troponin -Troponin at 12:55: 108 -Repeat troponin after 2 hrs: 109.4 -Suspect demand ischemia from pulmonary edema in the setting of LETY/ATN Septic shock 2/2 UTI vs pneumonia(Resolved) -Penile culture revealed Staphylococcus haemolyticus and Enterococcus Fecalis with no C/S to follow -Zosyn switched to PO Augmentin -Continue Augmentin until 05/03 Elevated CRP mild uptrending- 14.2 -> 17.2 despite improving white count and improving clinical picture - most likely can be attributed to post-infectious inflammatory response / CRP lag due to continued production of CRP by the liver as a response to cytokines, rather than due to persistent infection -Consider continued trending if clinical picture points to worsening infection ATN on CKD - Creatinine today : 1.72 - Hypokalemia, resolvin.1>4.4 - Strict I/Os - avoid nephrotoxic medications -Urine Output -0.9ml/kg/hr. - Follow urine output, BMP, CBC qAM HFpEF/Acute hypoxic respiratory failure/Elevated troponin/Potential NSTEMI Worsening respiratory status likely multifactorial, 2/2 exacerbation of acute on chronic HFpEF and new RLL consolidation suspicious for pneumonia - 2D Echo: EF: 65-70%, mild concentric LVH, PASP 50-55 mmHg; BNP: 332; [id number], stable - EKG: A-fib with RVR, RBBB, potential age-indeterminate inferior infarct - Daily weights + strict I/Os - Consider cardiology consult, potentially repeat echocardiogram otherwise defer to outpatient echo - ICU recommendations: BiPAP nightly and as needed for shortness of breath - Goal O2 saturation: 90-92% Pleural effusion - Hx of thoracentesis 04/03/2025, Transudative Chronic Anemia -Hgb today: 9.2; no sxs -anemia possible byproduct of worsening renal function plus iron deficiency -Overall improved from admission (was 8.3) Chronic lumbar pain - No pain today on eval - Tylenol prn Abdominal Aortic Aneurysm - CT Abdomen and Pelvis reveals abdominal aortic aneurysm ~5.2mm - Recommend outpatient f/u and surveillance Ultrasound every 6 months in the outpatient. Constipation - Significant amount of stool in distal colon and rectum as seen on 04/22/25 CT Abd/pelvis - Had loose stools overnight after he got Miralax 51g yesterday - XR KUB ordered today but patient denied. So XR KUB deferred for now - Continue miralax prn Code status: DNR/DNI Diet: regular heart healthy, carb consistent / DM2, easy to chew VTE ppx: Eliquis Dispo: hopefully discharge to [facility], auth pending Admission and Anticipated Discharge Date Admission Date: April 22, 2025 Supervising Physician Co-Signing Physician Notes I personally examined the patient and verified schneider points of history and exam, discussed case, and agree with decision making and plan documented by Dr. Martinez. AAOx1 (place) and more conversant on exam. MRI today. Anticipate transition to [facility]. Subjective Geoff was seen this morning and he was engaged in the conversation and pretty well oriented to time, place and person. No any overnight events. No new concerns. Review of Systems Review of Systems: As per HPI Physical Exam Physical Exam: General: awake and alert, tired appearing and in mild distress, A&Ox3 HEENT: NC/AT, EOM intact, PERRL b/l, anicteric sclerae, conjunctiva without injection, moist mucus membranes. CV: irregularly irregular rhythm,otherwise no m/r/g; 2+ radial pulses b/l Resp: symmetrically mildly decreased breath sounds b/l, clear to auscultation b/l, no wheeze/rales/rhonchi appreciated GI/Abd: hyperactive bowl sounds, abdomen distended, tympanitic to percussion in RUQ and LUQ, dull to percussion in RLQ and LLQ; otherwise abdomen soft, mild apparent tenderness to palpation of RUQ, otherwise nontender, no rebound or guarding Ext: warm, b/l LE with 2+ edema; likely chronic dry scaling of b/l LE Skin: other than those noted above, skin is warm, dry, intact Neuro: speech intact, no facial droop, moving all extremities, sensation intact in all extremities b/l Results & Data Results & Data Vital Signs (Past 12 Hours) Vital Signs Temp Pulse Resp BP Pulse Ox O2 Del Method 05/02/25 07:27 37.0 C 95 H 17 110/75 94 Room Air 05/02/25 05:21 36.8 C 95 H 18 124/74 94 Room Air 05/01/25 20:50 Room Air (1) RLL pneumonia Pneumonia type: due to unspecified organism Qualified Code(s): J18.9 - Pneumonia, unspecified organism (3) Acute renal failure Acute renal failure type: unspecified Qualified Code(s): N17.9 - Acute kidney failure, unspecified
[2025-05-02] MEDS: LORazepam 0.5 MG TAB PO STA (12:15)
[2025-05-02] MEDS: GADOBUTROL 65ML VIAL IV ONE (13:23)
--- NOTE | 2025-05-02 13:46 | Magnetic Resonance Report ---
MRI OF THE BRAIN COMBO CLINICAL HISTORY: Change in mental status. COMPARISON STUDY: CT of the brain dated 05/01/2025. CT angiogram of the neck dated 11/22/2024. TECHNIQUE: MRI of the brain was performed utilizing various T1 and T2-weighted sequences in the axial , sagittal, and coronal planes. Contrast-enhanced sequences were acquired following the administratio n of 11 cc of Gadavist. FINDINGS: Brain parenchyma: There is age related involutional change noting moderate subcortical and periventri cular microangiopathic disease. There is no hemorrhage or mass effect. There is no restricted diffusi on typical for acute ischemia. No enhancing mass lesion is identified on the postcontrast images. Gra y-white matter differentiation is preserved. No extra-axial fluid collection is seen. The cerebellar tonsils are normal in configuration. Ventricles, sulci, and cisterns: Prominent secondary to involutional change. Pituitary and sella: Unremarkable. Intracranial vasculature: Normal flow voids are maintained at the skull base. Orbits: The bony orbits are grossly intact. Orbital contents are normal in appearance noting bilatera l ocular lens implants. Sinuses and mastoids: There is evidence of previous paranasal sinus surgery. Fluid is noted in the le ft sphenoid sinus. There is mild mucosal thickening within the maxillary and ethmoid sinuses. The mas toid air cells are clear. Calvarium: Unremarkable. Soft tissues: There is a 1.0 cm cystic focus within the soft tissues of the right ear, which is best seen on coronal FLAIR image #13. This is unchanged from the 11/22/2024 CT angiogram of the neck. Cervical cord: Partially visualized cervical spinal cord is normal in morphology and signal intensity . IMPRESSION: No acute intracranial abnormality. ACT 112: Negative or not required by law. Electronically signed by: Graeme Mclaughlin M.D. 05/02/2025 1:45 PM
[2025-05-02 15:18] VITALS: BP 121/80; PULSE 84; RESP 16; O2SAT 96
--- NOTE | 2025-05-02 21:09 | Discharge Summary ---
Date of Service May 02, 2025 Admission HPI Per Admitting Provider Geoff Lea is a 79 y/o M with a past medical history of alcohol abuse in remission, CAD last heart cath with nonobstructive moderate coronary disease 07/2024, A-fib on Eliquis and metoprolol, and hypertension on lisinopril who was admitted from 03/31/25-04/12/25 due to progressive dyspnea and volume overload over the past 5 months. At discharge patient was transferred to [facility] for further rehabilitation, and at [facility] patient was found to have a UTI, RLL consolidation, and changes in mental status over the past 48 hours. Patient was found to be hypotensive and at this point transfer from [facility] to the [facility] ED occurred and on arrival patient's BP was 74/46. The majority of history is taken from patient's as patient has waxing and waning levels of consciousness, when roused patient reports "I have a strange feeling in my chest", patient is able to answer all orientation questions but needs to be frequently roused as he continually doses off every 10 seconds. Patient's reports that the patient seemed even more mentally altered the day prior when she noticed a discussion between a family friend and the patient, and reports that the patient was speaking clearly but saying non-sensical phrases. ED course: Hospitalist and cattle sorter teams were alerted and patient was quickly started on Vasopressin 0.07 mg/kg/min Q8H IV drip CBC: WBC: 11.26, neutrophils: 10.22 Hgb: 8.0 BMP: Electrolytes stable, BUN: 67, Cr: 4.26 LFTs: T. bili: 1.9, direct bili: 1.1, alk phos: 237. AST/ALT: wnl EKG: A-fib with RVR, RBBB, potential age-indeterminate inferior infarct CXR: CHF: Stable cardiomegaly, pulmonary vascular congestion; RLL consolidation Urinalysis: Turbid, 3+ protein, 3+ blood, 1+ bilirubin, 3+ LE, 1+ bacteria, >50 WBC, >20 RBC Urine cx: pending Blood cx: 2x aerobic/anaerobic taken and pending 1x dose of Zosyn given, and Zosyn 4.5g Q8H abx started Admission Exam Per Admitting Provider General: Patient resting, not toxic in appearance, but waxing and waning levels of consciousness and difficult to rouse Skin: warm, dry, intact HEENT: NC/AT, anicteric sclera, conjunctiva without injection, moist mucus membranes. Heart: +S1/S2, regular, no m/r/g Lungs: equal air entry bilaterally, coarse breath sounds and rales at lower lung bases Abd: +BS, soft, NT, slightly distended/bloated Ext: warm, no clubbing/cyanosis or edema Neuro: speech intact, no facial droop, moving all extremities. Principal Diagnosis 1. Altered Mental Status 2. Septic Shock 2/2 to UTI or Pneumonia(Resolved) Discharge Exam General: awake and alert, tired appearing and in mild distress, A&Ox3 HEENT: NC/AT, EOM intact, PERRL b/l, anicteric sclerae, conjunctiva without injection, moist mucus membranes. CV: irregularly irregular rhythm,otherwise no m/r/g; 2+ radial pulses b/l Resp: symmetrically mildly decreased breath sounds b/l, clear to auscultation b/l, no wheeze/rales/rhonchi appreciated GI/Abd: hyperactive bowl sounds, abdomen distended, tympanitic to percussion in RUQ and LUQ, dull to percussion in RLQ and LLQ; otherwise abdomen soft, mild apparent tenderness to palpation of RUQ, otherwise nontender, no rebound or guarding Ext: warm, b/l LE with 2+ edema; likely chronic dry scaling of b/l LE Skin: other than those noted above, skin is warm, dry, intact Neuro: speech intact, no facial droop, moving all extremities, sensation intact in all extremities b/l Discharge Data Allergies Allergy/AdvReac Type Severity Reaction Status Date / Time latex Allergy Intermediate Rash, Verified 04/06/25 14:08 Burning Sensation phenobarbital AdvReac Intermediate Hyper Verified 04/06/25 14:08 gold Au 198 AdvReac Wounds Verified 04/25/25 12:25 that became Pre-Cancerous Consultations 04/22/25 12:54 ED Decision to Admit Stat 04/22/25 15:47 Consult Food Inspector Routine 04/24/25 10:15 Consult Nephrology Routine 04/26/25 10:26 Consult Palliative Care Stat Ordered Studies 04/22/25 14:26 CT Abd and Pelvis [CT abd pelvis wo con] Stat 05/01/25 12:[address] [CT head/brain wo/w con] Urgent 05/02/25 07:11 MRI Brain [MR brain wo/w con] Routine Hospital Course (1) Hypokalemia: (2) Acute UTI (urinary tract infection): (3) Atrial fibrillation: Plan Geoff Lea is a 79 y/o M with a past medical history of alcohol abuse in remission, CAD last heart cath with nonobstructive moderate coronary disease 07/2024, A-fib on Eliquis and metoprolol, and hypertension on lisinopril found to be acutely hypotensive and lethargic at [facility], arrived to [facility] ED and f ound to be in septic shock likely 2/2 UTI vs pneumonia, s/p pressors in ICU. Continued admission required for continued vital sign monitoring,and PT/OT while on medical floor, pending discharge to rehab once the bed is available Altered mental status -CT head ordered to rule out acute intracranial pathologies. No any acute changes revealed. -MRI brain ordered today given the atrophic changes and history of alcohol consumption Elevated Troponin -Troponin at 12:55: 108 -Repeat troponin after 2 hrs: 109.4 -Suspect demand ischemia from pulmonary edema in the setting of LETY/ATN Septic shock 2/2 UTI vs pneumonia(Resolved) -Penile culture revealed Staphylococcus haemolyticus and Enterococcus Fecalis with no C/S to follow -Zosyn switched to PO Augmentin -Continue Augmentin until 05/03 Elevated CRP mild uptrending- 14.2 -> 17.2 despite improving white count and improving clinical picture - most likely can be attributed to post-infectious inflammatory response / CRP lag due to continued production of CRP by the liver as a response to cytokines, rather than due to persistent infection -Consider continued trending if clinical picture points to worsening infection ATN on CKD - Creatinine today : 1.72 - Hypokalemia, resolvin.1>4.4 - Strict I/Os - avoid nephrotoxic medications -Urine Output -0.9ml/kg/hr. - Follow urine output, BMP, CBC qAM HFpEF/Acute hypoxic respiratory failure/Elevated troponin/Potential NSTEMI Worsening respiratory status likely multifactorial, 2/2 exacerbation of acute on chronic HFpEF and new RLL consolidation suspicious for pneumonia - 2D Echo: EF: 65-70%, mild concentric LVH, PASP 50-55 mmHg; BNP: 332; .6, stable - EKG: A-fib with RVR, RBBB, potential age-indeterminate inferior infarct - Daily weights + strict I/Os - Consider cardiology consult, potentially repeat echocardiogram otherwise defer to outpatient echo - ICU recommendations: BiPAP nightly and as needed for shortness of breath - Goal O2 saturation: 90-92% Pleural effusion - Hx of thoracentesis 04/03/2025, Transudative Chronic Anemia -Hgb today: 9.2; no sxs -anemia possible byproduct of worsening renal function plus iron deficiency -Overall improved from admission (was 8.3) Chronic lumbar pain - No pain today on eval - Tylenol prn Abdominal Aortic Aneurysm - CT Abdomen and Pelvis reveals abdominal aortic aneurysm ~5.2mm - Recommend outpatient f/u and surveillance Ultrasound every 6 months in the outpatient. Constipation - Significant amount of stool in distal colon and rectum as seen on 04/22/25 CT Abd/pelvis - Had loose stools overnight after he got Miralax 51g yesterday - XR KUB ordered today but patient denied. So XR KUB deferred for now - Continue miralax prn Dispo: [facility] Total Time Total Time Spent Total Time Spent (In Minutes): See attending attestation Discharge Plan Discharge Items Patient Disposition: Transfer Inpatient Rehab Fac Reason For Visit: SEPTIC SHOCK Discharge Diagnosis: RLL pneumonia, UTI; s/p septic shock Condition on Discharge: Fair Activity: Per Instructions section Non-emergency contact: Primary Care Provider Call non-emergency contact if: your symptoms worsen, your pain is not controlled and your temperature is above 101.5 Follow-up/Referrals: David Navarro DO [Primary Care Provider] - Diet: Carb Consistent or DM2 and Heart Healthy Addtl Attending Provider Instructions: Geoff Lea is a 79 y/o M with a past medical history of alcohol abuse in remission, CAD last heart cath with nonobstructive moderate coronary disease 07/2024, A-fib on Eliquis and metoprolol, and hypertension on lisinopril found to be acutely hypotensive and lethargic at [facility], arrived to [facility] ED and found to be in septic shock likely 2/2 UTI vs pneumonia, s/p pressors in ICU. White count has been downtrending and clinical picture overall improving, continuing on PO antibiotics through 05/03/25, stable for discharge to [facility] for acute rehab today Septic shock 2/2 UTI vs RLL pneumonia - U/A suggestive of acute infection and CXR showing RLL consolidation - CBC favors bacterial process with leukocytosis with left shift; MRSA nares negative, Procal: 7.83 - Urine cx - negative; Blood cx x2 - negative - Penile cultures grew pansensitive E. faecalis and Staph haemolyticus - Currently on Augmentin 500mg bid with plans to end therapy after evening dose on 05/03 s/p course of Zosyn, followed by Cefepime/flagyl/vanc due to concern of impact over renal function, then switched back to Zosyn on 04/24 Altered Mental Status (AMS) | Delirium - Patient confused, likely due to hospital setting, acute illness, frequent changes in environment, and limited sleep - Head CT, Brain MRI unremarkable (05/01) - Discharge to [facility] today; encourage frequent reorientation ATN on CKD - Baseline Cr: 1.5-1.6 on admission Cr: 4.26 - Likely due to ATN given septic shock status at time of admission - Improved - Hypokalemia also improved with KCl 20 mEq tid - Discharge today Constipation - Significant amount of stool in distal colon and rectum as seen on 04/22/25 CT Abd/pelvis - Miralax as needed HFpEF/Acute hypoxic respiratory failure/Elevated troponin/Potential NSTEMI - Worsening respiratory status likely multifactorial, 2/2 exacerbation of acute on chronic HFpEF and new RLL consolidation suspicious for pneumonia - 2D Echo: EF: 65-70%, mild concentric LVH, PASP 50-55 mmHg; BNP: 332; [id number], stable - Breathing status is improved and breathing at room air with good O2 sats Pending Studies at Discharge: No Stand-Alone Forms: My [facility] Skilled Items Patient informed of condition?: Yes DNR: Yes Discharge Level of Care: Acute rehab Communicable Disease: No Discharge Prognosis: Stable Lines: None Urinary Catheter: No Medications and DC Order Prescriptions: New amoxicillin-pot clavulanate 500-125 mg Tablet 1 tab PO BIDM 2 Days Qty: 4 0RF Continued atorvastatin [Lipitor] 40 mg Tablet 40 mg PO HS acetaminophen 500 mg Tablet 500 mg PO Q4H PRN (Reason: Pain/fever) montelukast [Singulair] 10 mg Tablet 10 mg PO HS albuterol sulfate 90 mcg/actuation Hfa Aerosol Inhaler 2 puff INHALATION QID PRN (Reason: Shortness Of Breath Or Wheezing) tramadol 50 mg Tablet 50 mg PO Q4H PRN (Reason: Pain) gabapentin 300 mg capsule 300 mg PO HS metoprolol succinate 25 mg tablet extended release 24 hr 25 mg PO QAM diclofenac sodium 1 % Gel 2 g TOPICAL BID PRN (Reason: Pain) Rx Instructions: apply to affected area on knees naloxone 4 mg/actuation spray,non-aerosol 1 spray INTRANASAL DIRECTED PRN (Reason: overdose) oxycodone 5 mg tablet 5 mg PO Q4H PRN (Reason: Pain (Scale Score 4-6)) acetaminophen 325 mg Tablet 650 mg PO Q4H PRN (Reason: Pain/Fever) ammonium lactate 12 % Lotion 1 applic TOPICAL BID polyethylene glycol 3350 [Miralax] 17 gram Powder In Packet 17 g PO DAILY cyanocobalamin (vitamin B-12) [Vitamin B-12] 1,000 mcg Tablet 1,000 mcg PO DAILY baclofen 10 mg Tablet 10 mg PO TID bisacodyl 10 mg Suppository 10 mg WI DAILY PRN (Reason: Constipation) pantoprazole 40 mg Tablet,Delayed Release (Dr/Ec) 40 mg PO BID sodium chloride 0.9 % (flush) Syringe 5 ml IV Q8H Rx Instructions: administer before and after IV drug administration as part of [facility] protocol Eliquis 2.5 mg Tablet 2.5 mg PO BID Jardiance 10 mg Tablet 10 mg PO QAM ipratropium-albuterol 20-100 mcg/actuation Mist 1 puff INHALATION BID Rx Instructions: space evenly during waking hours yztweaokncf-ysylweedc-qqzwgfro 200-62.5-25 mcg Blister With Device 1 inh INHALATION DAILY sennosides-docusate sodium [Senokot-S] 8.6-50 mg Tablet 1 tab-cap PO QDL glucagon HCl [Glucagon (HCl) Emergency Kit] 1 mg Recon Soln 1 mg IM DIRECTED PRN (Reason: Hypoglycemia) Discontinued piperacillin-tazobactam 2.25 gram Recon Soln 2.25 g IV Q8H Fleet Enema 19-7 gram/118 mL Enema 118 ml WI DAILY PRN (Reason: Constipation) docusate sodium [Colace] 100 mg Capsule 100 mg PO Q12H ondansetron [Zofran ODT] 4 mg Tablet,Disintegrating 4 mg PO Q6H PRN (Reason: Nausea And Vomiting) Discharge Orders: Discharge Order (Routine); Ordered 05/02/25 Ordered By: Melissa Cohen Admission Data Admit Date/Time: 04/22/25 13:52 Attending Provider: Lata Walker Admit Provider: Arsalan Patel Primary Care Provider: David Navarro Other Providers: Santana Akhtar; Margarette Albrecht; Neto Jung; Dejuan Lowery; Gunnar Haney; Troy Atkins V.; Fidel Martinez; [facility]; [facility] Other Interventions: Discharge Summary Assessment (RN) Last Done: 05/02/25 15:50 Supervising Physician Co-Signing Physician Notes I personally examined the patient and verified schneider points of history and exam, discussed case, and agree with decision making and plan documented by Dr. Martinez. Patient is a 79-year-old male with pertinent past medical history of alcohol abuse, CAD, A-fib, CKD, CHF, and hypertension presenting with altered mental status and on admission for sepsis in setting of UTI and pneumonia. Patient presented from [facility] rehabilitation. reports significant altered mental status since hospitalization for back surgery (11/15/24), subsequent admission from rehabilitation (11/22/24), and previous admission (03/31/24). During this admission, patient experienced septic shock and metabolic encephalopathy, he was transferred to the ICU for need of pressors and close monitoring, ultimately return to the floors for medical management. Patient with waxing and waning delirium throughout hospitalization. MRI brain performed 05/02/2025 without acute intracranial anomaly, prominent involutional changes with moderate subcortical and periventricular microangiopathic disease noted. Patient had clinical improvement and was discharged back to [facility] rehab. Total attending time 34 minutes Resident Activity Tracking Resident Involvement: Resident Care Provided Care Provided: Adult Hospital Medicine
== END 2025-05-02 16:38 | DRG 871 ==
LOC: SUATTDRO → ED 11:29 → 1E 13:52 → SUATTDRO 13:52 → 1E 14:58 → 3N 04-26 13:10
DX: E78.5 Hyperlipidemia, unspecified; M54.50 Low back pain, unspecified; G89.29 Other chronic pain; I21.A1 Myocardial infarction type 2; Z66 Do not resuscitate; Z79.01 Long term (current) use of anticoagulants; N18.9 Chronic kidney disease, unspecified; I27.22 Pulmonary hypertension due to left heart disease; I48.0 Paroxysmal atrial fibrillation; I25.10 Atherosclerotic heart disease of native coronary artery without angina pectoris; I13.0 Hypertensive heart and chronic kidney disease with heart failure and stage 1 through stage 4 chronic kidney disease, or unspecified chronic kidney disease; Z79.51 Long term (current) use of inhaled steroids; K21.9 Gastro-esophageal reflux disease without esophagitis; Z79.84 Long term (current) use of oral hypoglycemic drugs; Z96.0 Presence of urogenital implants; N17.0 Acute kidney failure with tubular necrosis; R74.8 Abnormal levels of other serum enzymes; B95.8 Unspecified staphylococcus as the cause of diseases classified elsewhere; A41.81 Sepsis due to Enterococcus; Z87.891 Personal history of nicotine dependence; I71.40 Abdominal aortic aneurysm, without rupture, unspecified; D63.1 Anemia in chronic kidney disease; Z88.8 Allergy status to other drugs, medicaments and biological substances; N39.0 Urinary tract infection, site not specified; Z79.899 Other long term (current) drug therapy; J18.9 Pneumonia, unspecified organism; K59.00 Constipation, unspecified; E87.6 Hypokalemia; I50.33 Acute on chronic diastolic (congestive) heart failure; R65.21 Severe sepsis with septic shock; J96.01 Acute respiratory failure with hypoxia; Z91.040 Latex allergy status; Z91.048 Other nonmedicinal substance allergy status; G93.41 Metabolic encephalopathy